=== PATIENT | female | born 1945 | race Caucasian/White ===

== ENCOUNTER → 2017-08-21 15:46 | Outpatient (REF) | payer OTHER, MEDICARE, SELFPAY ==
[2017-08-21 17:39] LABS: Thyroid Stimulating Hormone 0.19 uIU/ml (0.358-3.740)
== END ==
LOC: LAB 15:46
PROVIDERS: Visit Provider Internal Medicine
DX: E03.9 Hypothyroidism, unspecified (principal)
CPT/HCPCS: 84443

== ENCOUNTER → 2017-11-25 10:14 | Outpatient (CLI) | payer OTHER, MEDICARE, SELFPAY ==
--- NOTE | 2017-11-25 10:24 | XR_ITS ---
XR foot RT min 3V HISTORY: ITS.REASON: RT LATERAL FOOT PAIN ORDERING PHYSICIAN: Hossein Grimaldo PATIENT AGE: 72 years COMPARISON: None FINDINGS: No fracture or dislocation. No lytic or blastic change. There is normal mineralization.. The joint spaces are well-preserved. No significant degenerative/arthritic changes. No erosive changes evident. IMPRESSION: Negative, no acute finding
== END ==
PROVIDERS: PCP Internal Medicine; Visit Provider Internal Medicine
DX: M79.671 Pain in right foot (principal)
CPT/HCPCS: 73630

== ENCOUNTER → 2018-02-01 11:45 | Outpatient (CLI) | payer MEDICARE, SELFPAY ==
--- NOTE | 2018-02-01 11:48 | NVE_ITS ---
Venous Exam Indications: 729.5 Pain in limb. IMPRESSIONS 1. There is no evidence of significant Reflux. 2. Superficial vein thrombosis in LSV. Right lower extremity venous duplex evaluation. Doppler flow study including spectral analysis, color and redman scale imaging. Location: Vascular laboratory. Patient status: Outpatient. CRITICAL FINDINGS - Reported to: Minal Dye - Read back and verified. - 02/01/18 - 1215 - + SVT in LSV Tables: Venous flow and imaging: + + + + Location Overall Flow properties + + + + Right common femoral Patent Normal phasicity; spontaneous; normal augmentation; compressible + + + + Right saphenofemoral Patent Compressible junction + + + + Right profunda femoral Patent Compressible + + + + Right femoral Patent Normal phasicity; spontaneous; normal augmentation; compressible + + + + Right greater saphenous Patent Normal phasicity; spontaneous; normal augmentation; compressible + + + + Right popliteal Patent Normal phasicity; spontaneous; normal augmentation; compressible + + + + Right posterior tibial Difficult study Compressible + + + + Right peroneal Difficult study Compressible + + + + Right gastrocnemius Patent Compressible + + + + Right soleal Patent Compressible + + + + Right lesser saphenous Partially occluded Partially compressible + + + + (Report amended ) Electronically signed by: Tani Kumar [id number]
== END ==
PROVIDERS: PCP Internal Medicine; Visit Provider Internal Medicine
DX: M79.604 Pain in right leg (principal)
CPT/HCPCS: 93971

== ENCOUNTER → 2018-10-11 11:05 | Outpatient (CLI) | payer MEDICARE, SELFPAY ==
--- NOTE | 2018-10-11 11:14 | NVE_ITS ---
Venous Exam Indications: 729.5 Pain in limb. IMPRESSIONS 1. There is no evidence of significant Reflux. 2. No evidence of deep or superficial vein thrombosis involving the right lower extremity 3. Difficult scan. Right lower extremity venous duplex evaluation. Doppler flow study including spectral analysis, color and redman scale imaging. Location: Vascular laboratory. Patient status: Outpatient. Tables: Venous flow and imaging: + +-------+ + Location Overall Flow properties + +-------+ + Right common femoral Patent Normal phasicity; spontaneous; normal augmentation; compressible + +-------+ + Right saphenofemoral junction Patent Compressible + +-------+ + Right profunda femoral Patent Compressible + +-------+ + Right femoral Patent Normal phasicity; spontaneous; normal augmentation; compressible + +-------+ + Right greater saphenous Patent Normal phasicity; spontaneous; normal augmentation; compressible + +-------+ + Right popliteal Patent Normal phasicity; spontaneous; normal augmentation; compressible + +-------+ + Right posterior tibial Patent Compressible + +-------+ + Right peroneal Patent Compressible + +-------+ + Right gastrocnemius Patent Compressible + +-------+ + Right soleal Patent Compressible + +-------+ + (Report amended ) Electronically signed by: Feliz Lindsay [id number]
== END ==
PROVIDERS: PCP Internal Medicine; Visit Provider Internal Medicine
DX: M79.604 Pain in right leg (principal); M25.561 Pain in right knee
CPT/HCPCS: 93971

== ENCOUNTER → 2019-02-09 14:38 | Outpatient (CLI) | payer MEDICARE, SELFPAY ==
--- NOTE | 2019-02-09 14:46 | XR_ITS ---
XR chest 2V HISTORY: ITS.REASON: SOB ORDERING PHYSICIAN: Hossein Grimaldo PATIENT AGE: 73 years COMPARISON: 06/11/2016 FINDINGS: Unremarkable cardiovascular structures.. No lobar consolidation or collapse. There are some chronic coarsening of the bronchovascular markings. No acute bony findings. IMPRESSION: There are some chronic interstitial changes. No acute finding
== END ==
PROVIDERS: PCP Internal Medicine; Visit Provider Internal Medicine
DX: R06.02 Shortness of breath (principal)
CPT/HCPCS: 71046; 93005

== ENCOUNTER → 2019-02-11 08:11 | Outpatient (CLI) | payer MEDICARE, SELFPAY ==
--- NOTE | 2019-02-11 08:16 | CA_ITS ---
PROCEDURE: 2-D M-mode and color Doppler study INDICATIONS FOR THE TEST: Chest pain COPD Heart Murmur Tobacco Smoking Palpitations Fatigue Syncope Edema Hypertension Diabetes Mellitus Rheumatic Fever SOB+JIMENEZ Obesity Hyperlipidemia Family History HD Additional History PATIENT INFORMATION HEIGHT:62 WEIGHT:167 GENDER: Female B/P:136/70 2-D/M-MODE INTERPRETATION: 2-D MEASUREMENTS OBSERVED VALUES IN CMS Right Ventricular Dimension (RVDd) 2.0 Interventricular Septum (Thickness)(IVsd) 1.1 Left Ventricular Internal Dimensions(LVIDd) 5.7 Left Ventricular Posterior Wall (Thickness)(LVPWd) 0.9 Aortic Root 3.0 Aortic Cusp Separation 1.9 Left Atrial Dimensions (LAD) 4.8 2D 1. Left atrium is moderately enlarged, left ventricle is normal size, there is no concentric left ventricular hypertrophy, visually estimated ejection fraction 50% with no regional wall motion abnormality. 2. The right atrium and right ventricle are normal size. 3. The aortic valve is thickened and calcified leaflet continue to display mobility. 4. The mitral valve is minimally thickened. 5. The pulmonic and tricuspid valvular grossly normal. 6. No significant pericardial effusion noted. DOPPLER INTERROGATION: Doppler interrogation of the aortic, mitral and tricuspid valvular presence of moderate aortic, moderate mitral and mild tricuspid regurgitation, tricuspid regurgitation jet velocity is inadequate for calculation of the right ventricular systolic pressure. Diastolic parameters are inconclusive. CONCLUSION: 1. Moderately enlarged left atrium, normal left ventricular size, visually estimated ejection fraction 50% with no regional wall motion abnormality, diastolic parameters are inconclusive. 2. Moderate aortic, moderate mitral and mild tricuspid regurgitation 3. No significant pericardial effusion noted.
== END ==
PROVIDERS: PCP Internal Medicine; Visit Provider Internal Medicine
DX: R06.02 Shortness of breath (principal)
CPT/HCPCS: 93306

== ENCOUNTER → 2019-11-30 14:34 | Outpatient (CLI) | payer MEDICARE, SELFPAY ==
--- NOTE | 2019-11-30 14:40 | XR_ITS ---
PROCEDURE: XR HIP LT 2-3V W/PELVIS CLINICAL INDICATION: LT HIP PAIN, S/P FALL Posttraumatic pain COMPARISON: No exams were available for comparison FINDINGS: No fracture or dislocation is evident. No significant degenerative change. No lytic or blastic change. Unremarkable soft tissues. IMPRESSION: No acute findings. Dictated by: Feliz Lindsay MD 11/30/2019 14:56 Electronically signed by Feliz Lindsay MD in [place] 11/30/2019 14:56
== END ==
PROVIDERS: PCP Internal Medicine; Visit Provider Internal Medicine
DX: M25.552 Pain in left hip (principal)
CPT/HCPCS: 73502

== ENCOUNTER 2020-09-16 04:35 | Inpatient (IN) | payer MEDICARE, SELFPAY ==
[2020-09-16] VITALS (13 sets, daily range): BP systolic 91–151; BP diastolic 52–81; PULSE 65–92; RESP 17–31; TEMP 36.6–37.1; O2SAT 77–98; BMI 32.1; BMI 34.6
--- NOTE | 2020-09-16 04:44 | ECG_ITS ---
APPROVED REPORT Exam: Resting ECG HR:85 bpm ECG Measurements Heart Rate 85 AXES ME 164 P 64 QRSd 88 QRS 3 QT 350 T 60 QTc 416 Conclusion Normal sinus rhythm Normal ECG Electronically signed by : Tyson Adrian, 09/17/2020 06:56:09
--- NOTE | 2020-09-16 04:51 | XR_ITS ---
PROCEDURE: XR CHEST PORTABLE Referring Doctor: Noe Gallagher Patient Age:75Y CLINICAL HISTORY: sob Short of breath 2 weeks has gotten worse hypoxia. Diabetes COMPARISON: CR CXR1 CHEST-PORTABLE from 06/11/2016 CR XR CHEST 2V from 08/11/2019 FINDINGS: AP portable upright chest performed today, and compared to August 11 CXR Less optimal inspiration today, the diaphragm is only down to the anterior 4th rib on right. Diffuse bilateral low-density infiltrates a most evident infiltrate is seen centrally at the right perihilar region extending into the right mid lung. Suggestion of some subtle patchy areas of infiltrate the periphery of the left mid lung. This pattern may reflect viral/covd pneumonia pattern-correlation required Heart with mild cardiomegaly in part accentuated by the AP suboptimal inspiration CXR. There is also suggestion of cephalization along with diffuse mild vascular congestion suggesting mild CHF-. The CHF may contribute to the central perihilar infiltrates as well. No obvious pleural effusions chest wall unremarkable jayce and mediastinal structures similar to previous studies IMPRESSION: . Bilateral infiltrates-most evident central but also with low-density peripheral infiltrate most notable on left . Mild cardiomegaly with suspect mild CHF-which may contribute somewhat to the central perihilar infiltrate pattern as well. Dictated by: Tani Kumar MD 09/16/2020 06:15 Tani Kumar MD in [place] 09/16/2020 06:15
[2020-09-16 04:58] LABS: ABG Base Excess 1.3 mmol/L (-2.4-2.3); ABG HCO3 25.5 mmhg (22.0-26.0); ABG Oxygen Saturation 77 % (90-100); ABG PH 7.43 mmol/L (7.35-7.45); ABG TCO2 26.7 mmhg (23-27)
[2020-09-16 05:00] LABS: ABG PO2 40.8 mmhg (80-100); Allen's Test Acceptable; Oxygen ROOM AIR %; Source Right Radial
--- NOTE | 2020-09-16 05:13 | HMH.EDSOB ---
ED Disposition Clinical Impression: COVID-19 virus IgG antibody detected, COVID-19 virus IgM antibody detected, Obesity (BMI 30.0-34.9), Parkinson disease Respiratory failure with hypoxia Qualifiers: Chronicity: acute Qualified Code(s): J96.01 - Acute respiratory failure with hypoxia Congestive heart failure Qualifiers: Heart failure type: unspecified Heart failure chronicity: acute on chronic Qualified Code(s): I50.9 - Heart failure, unspecified Hypothyroidism Qualifiers: Hypothyroidism type: acquired Qualified Code(s): E03.9 - Hypothyroidism, unspecified Disposition: Admitted As Inpatient Condition on Discharge: Good Referrals: Hossein Grimaldo [Primary Care Provider] - - Critical Care Critical Care Time: No Attestation: On 09/16/20, the high probability of a clinically significant, sudden or life threatening deterioration of the following system(s) required my full and direct attention, intervention and personal management. The time I documented below is in addition to time spent performing reported procedures but includes the following listed in this critical care notation. Medical Decision Making - Medical Records Medical records reviewed: Yes: I reviewed the patient's medical records. - Nikunj Inquiry Pt receiving controlled substance: No Vital Signs: 09/16/20 04:53 09/16/20 05:06 09/16/20 05:07 Temperature 98.7 F Temperature Source Oral Pulse Rate [Right] 73 75 74 Respiratory Rate 20 Blood Pressure [Right Arm] 129/66 91/54 L Blood Pressure Mean [Right Arm] 87 66 Blood Pressure Source [Right Arm] Automatic Cuff Blood Pressure Position [Right Arm] Supine 02 Sat by Pulse Oximetry 77 L 95 94 L Oxygen Delivery Method Room Air Nasal Cannula Room Air Oxygen Flow Rate (LPM) 4 09/16/20 05:30 09/16/20 06:05 09/16/20 06:43 Temperature Temperature Source Pulse Rate [Right] 75 74 92 H Respiratory Rate Blood Pressure [Right Arm] 105/52 L 117/52 L 123/73 Blood Pressure Mean [Right Arm] 69 73 89 Blood Pressure Source [Right Arm] Blood Pressure Position [Right Arm] 02 Sat by Pulse Oximetry 94 L 95 93 L Oxygen Delivery Method Nasal Cannula Nasal Cannula Nasal Cannula Oxygen Flow Rate (LPM) 4 4 4 09/16/20 07:00 Temperature Temperature Source Pulse Rate [Right] 78 Respiratory Rate Blood Pressure [Right Arm] 114/54 L Blood Pressure Mean [Right Arm] 74 Blood Pressure Source [Right Arm] Automatic Cuff Blood Pressure Position [Right Arm] Sitting 02 Sat by Pulse Oximetry 91 L Oxygen Delivery Method Oxygen Flow Rate (LPM) 4 - Lab Data Lab results reviewed: Yes: I reviewed the patient's lab results. Lab Results 09/16/20 04:45: WBC 12.6 H, RBC 4.45, Hgb 13.3, Hct 42.1, MCV 94.7, MCH 30.0, MCHC 31.7 L, RDW 16.5, Plt Count 453 H, MPV 7.7, Neut % (Auto) 57.8, Lymph % (Auto) 27.0, [place] % (Auto) 7.4, Eos % (Auto) 6.9, Baso % (Auto) 0.8, Neut # (Auto) 7.3, Lymph # (Auto) 3.4, [place] # (Auto) 0.9, Eos # (Auto) 0.9 H, Baso # (Auto) 0.1, ESR 27 09/16/20 04:45: Sodium 140, Potassium 3.9, Chloride 103, Carbon Dioxide 30, Anion Gap 10.9, BUN 18 H, Creatinine 0.80, Estimated Creat Clear 59, Estimated GFR 70, Est GFR ( Amer) 85, Glucose 115 H, Calcium 10.8 H, Total Bilirubin 0.5, AST 33, ALT 6 L, Alkaline Phosphatase 181 H, Troponin I 0.04 H, C-Reactive Protein 87.9 H, Total Protein 7.8, Albumin 4.0, Globulin 3.8 H, Albumin/Globulin Ratio 1.1, Procalcitonin 0.121 09/16/20 04:45: NT-Pro-B Natriuret Pep 2600 H 09/16/20 04:45: SARS-CoV-2 IgG Ab (Rapid) Positive A, SARS-CoV-2 IgM Ab (Rapid) Positive A 09/16/20 05:25: Lactate 1.2 09/16/20 : Specimen Source Right radial, O2 % Room air, ABG pH 7.43, ABG pCO2 39.0, ABG pO2 40.8 L, ABG HCO3 25.5, ABG Total CO2 26.7, ABG O2 Saturation 77 L*, ABG Base Excess 1.3, Feliz Test Acceptable Result diagrams: 09/16/20 04:45 09/16/20 04:45 Orders (Tests/Meds): ED MEDICATIONS Generic Name Dose Route Start Last Admin Trade Name Freq PRN Reason
[2020-09-16 05:15] LABS: Basophils # 0.1 K/mm3 (0-0.2); Basophils % 0.8 % (0.1-2.0); Eosinophils # 0.9 K/mm3 (0.0-0.4); Eosinophils % 6.9 % (0.1-12.0); Hematocrit 42.1 % (37.0-47.0); Hemoglobin 13.3 g/dL (12.2-16.2); Lymphocytes # 3.4 K/mm3 (0.7-4.5); Mean Corpuscular HGB Conc 31.7 g/dL (31.8-35.4); Mean Corpuscular Volume 94.7 fl (81-99); Mean Platelet Volume 7.7 fl (7.4-10.4); Monocytes # 0.9 K/mm3 (0.1-1.0); Monocytes % 7.4 % (1.7-9.3); Neutrophils # 7.3 K/mm3 (1.8-7.8); Neutrophils % 57.8 % (37.0-80.0); Platelet Count 453 K/mm3 (142-424); Red Blood Count 4.45 M/mm3 (4.20-5.40); Red Cell Distribution Width 16.5 % (11.5-17.5); White Blood Count 12.6 K/mm3 (4.8-10.8)
[2020-09-16 05:30] LABS: Alanine Aminotransferase 6 U/L (12-78); Albumin/Globulin Ratio 1.1 (1.1-1.8); Alkaline Phosphatase 181 U/L (38-126); Anion Gap 10.9 mEq/L (5-15); Aspartate Amino Transferase 33 U/L (14-36); Bilirubin,Total 0.5 mg/dl (0.2-1.3); Blood Urea Nitrogen 18 mg/dl (7-17); Calcium 10.8 mg/dl (8.4-10.2); Carbon Dioxide 30 mmol/L (22.0-30.0); Chloride 103 mmol/L (98-107); Creatinine Clearance Estimated 59 mL/min (50-200); Estimated Glomerular Filt Rate 70 ml/min (>60); GFR (African American) 85 ML/MIN (>60); Globulin 3.8 g/dL (1.3-3.2); Glucose 115 mg/dl (74-100); Potassium 3.9 mmoL/L (3.5-5.1); Sodium 140 mmol/L (136-145); Total Protein,Serum 7.8 g/dl (6.3-8.2)
[2020-09-16 05:35] LABS: C-Reactive Protein 87.9 mg/L (0-4)
[2020-09-16 05:42] LABS: NT Pro Brain Natriuretic Pep. 2600 pg/mL (0-450)
[2020-09-16 05:44] LABS: Troponin I 0.04 ng/ml (0.00-0.034)
[2020-09-16 05:49] LABS: Procalcitonin 0.121 ng/mL (0.0-2.0)
[2020-09-16 05:57] LABS: Coronavirus 19 IgG Antibody Positive (Negative)
[2020-09-16 05:58] LABS: Coronavirus 19 IgM Antibody Positive (Negative)
[2020-09-16 05:59] LABS: Erythrocyte Sedimentation Rate 27 mm/hr (0-30)
--- NOTE | 2020-09-16 06:02 | CT_ITS ---
PROCEDURE: CT ANGIO CHEST Referring Doctor: Noe Gallagher Patient Age:75Y CLINCIAL INDICATION: SOA short of breath 3 days.. The the the the the COMPARISON: CR XR CHEST 2V from 08/11/2019 CR XR CHEST PORTABLE from 09/16/2020 TECHNIQUE: IV Contrast: 70ML Isovue 370 followed by 40 mL normal saline Helical axial images obtained with thick slab volume MIP sagittal and coronal reformats performed by radiographic technologist on CT workstation. All CT scans at the facility use one or more dose reduction, viz: automated exposure control, ma/kV adjustment per patient size (including targeted exams where dose is matched to indication, i.e. head), or iterative reconstruction technique. FINDINGS: PULMONARY ARTERIES: No pulmonary embolus evident.-excellent enhancement and visualization pulmonary arteries AORTA: No acute finding. No thoracic aortic aneurysm or dissection evident LUNGS: Diffuse and fairly extensive low-density ground-glass and patchy infiltrates throughout the lung [place] bilaterally. Septal thickening of which may be reflection of pulmonary edema of from the covd pneumonia or CHF. Findings much more impressive on CT than CXR from today These ground-glass patchy areas of infiltrate along with interstitial and septal thickening seen throughout all lobes bilateral. Many of these patchy infiltrates have a more peripheral distribution bilaterally.. Overall infiltrate is slightly more prominent and evident throughout the right lung.. Airways appear patent with no of airway thickening.. PLEURAL SPACES: No significant effusion. No evidence of pneumothorax. Stable elevation right hemidiaphragm is similar to August 2019 exam HEART: Mild cardiomegaly. Coronary artery calcification small pericardial effusion-Fluid here extends superiorly along pericardial reflections about the root of aorta size.. MEDIASTINAL AND HILAR STRUCTURES: Small hiatal hernia evident.. Scattered small to moderate mediastinal lymph nodes most likely reactive. No suspicious dominant adenopathy no mediastinal mass A generous sized thyroid extends back to flank the esophagus bilaterally BONY STRUCTURES: No acute bony abnormalities apparent.. No bone lesions but degenerative changes LYMPH NODES: No enlarged lymph nodes evident. UPPER ABDOMEN: Unremarkable. IMPRESSION: No evidence of pulmonary embolism/and aorta unremarkable Diffuse extensive bilateral ground-glass and patchy infiltrates Findings would be compatible with compatible with covid pneumonia Suggestion of element of mild interstitial edema due to the pneumonia or possibly mild CHF. No pleural effusion mild cardiomegaly Dictated by: Tani Kumar MD 09/16/2020 14:17 Tani Kumar MD in [place] 09/16/2020 14:17
[2020-09-16 06:03] LABS: Lactic Acid 1.2 mmol/L (0.7-2.1)
--- NOTE | 2020-09-16 07:24 | PC.NURSE ---
Dr Gallagher speaking with Dr Gross.
[2020-09-16 07:28] LABS: Microscopic, Urine URINE MICROSCOPIC (MICROSCOPIC)
[2020-09-16 07:29] LABS: Appearance,Urine CLEAR (Clear); Bilirubin,Urine Negative (Negative); Blood, Urine Negative (Negative); Color,Urine YELLOW (Yellow); Glucose,Urine (UA) Negative (Negative); Ketones,Urine Negative (Negative); Leukocyte Esterase,Urine Negative (Negative); Nitrate,Urine Negative (Negative); Protein,Urine Negative (Negative); Specific Gravity, Urine 1.015 (1.005-1.030); Urobilinogen,Urine 0.2 EU/dl (0.2)
[2020-09-16 07:30] LABS: Amorphous Sediment,Urine Trace /lpf
--- NOTE | 2020-09-16 08:30 | PC.NURSE ---
report given to linwoodrn
--- NOTE | 2020-09-16 08:42 | PC.NURSE ---
Heard bag emptied with 1800ml out.
--- NOTE | 2020-09-16 08:56 | PC.NURSE ---
Pt arrived to the floor at this time.
--- NOTE | 2020-09-16 14:03 | P.CONPHA_ITS ---
[facility] Pharmacy VTE Monitoring - Patient Demographics Admission date: 09/16/20 Report Date: 09/16/20 Time: 14:03 Allergies/Adverse Reactions: Patient Allergies No Known Allergies Allergy (Verified 09/16/20 04:52) Height: 1.55 m Weight: 77.111 kg Patient Problems: Current Active Problems Respiratory failure with hypoxia (Acute) Congestive heart failure (Acute) COVID-19 virus IgG antibody detected (Acute) COVID-19 virus IgM antibody detected (Acute) Obesity (BMI 30.0-34.9) (Acute) Hypothyroidism (Acute) Parkinson disease (Acute) - VTE Risk Labs: VTE Related Lab Results Hgb 13.3 g/dL (12.2-16.2) 09/16/20 04:45 Hct 42.1 % (37.0-47.0) 09/16/20 04:45 Plt Count 453 K/mm3 (142-424) H 09/16/20 04:45 BUN 18 mg/dl (7-17) H 09/16/20 04:45 Creatinine 0.80 mg/dl (0.52-1.04) 09/16/20 04:45 Estimated Creat Clear 59 mL/min (50-200) 09/16/20 04:45 Was VTE Risk Assessment Performed: No VTE Score: 5 VTE Risk Level: Low Risk - Prophylaxis Types of VTE Prophylaxis: TEDS Knee High Location of Applied Device: Bilateral Lower Extremeties (MARCIO HOSE ORDERED)
--- NOTE | 2020-09-16 14:59 | HMH.HP ---
*Admission Date: 09/16/20 *Chief complaint: Shortness of breath *History of present illness: This 75-year-old white female presented in the emergency room last night complaining of shortness of breath. Her symptoms have been present for over a week. She denies fever. She does have some productive cough. In the emergency room her IgG and IgM for COVID-19 were positive but her nasal PCR was negative. This could indicate that she had Covid but is likely not shedding replicative virus at this point but is at the point where she is still producing IgM as well as IgG in response to her infection. She has known COPD and has possibly some element of congestive heart failure. She is an healthcare consultant patient of Dr. Lopezs. [facility] History I have reviewed the patient's past medical history: Yes Medical History: Reports:: Congestive Heart Failure, Chronic Obstructive Pulmonary Disease (COPD) Denies:: Cancer, Diabetes Mellitus Type 1, Diabetes Mellitus Type 2, MRSA *Have you ever received a pneumonia vaccine?: Yes *Have you received a flu vaccine this season?: Yes Other Medical History: Reports: Hypothyroidism Laterality Cases: Right: Other (Knee injury and surgery, remote) Other Surgeries: Yes: Tubal Ligation Amputation: No - *Social History Last grade of school completed: 7th or 8th Smoking Status: Never smoker Alcohol Intake: never *Occupational Status:: previously employed (In a assisted as an aide), disabled Household Members: spouse *Travel in the last 8 weeks: None Family Hx:: Heart Attack, Stroke Comment: Has 2 sons. Review of Systems - Constitutional Denies body ache(s), Denies chills, Denies headache(s) - Eyes Denies change in vision - ENT Denies dizziness - *Cardiovascular Reports shortness of breath, Reports shortness of breath with activity, Denies chest pain - *Respiratory Reports chest congestion, Reports cough, Reports shortness of breath - *Gastrointestinal Reports constipation (Linzess) - *Neurologic Reports tremor(s) (Parkinson's disease with 3 different medications), Reports weakness, Denies localized weakness, Denies headache(s), Denies seizure-like activity Meds Home Medications Medication Instructions Recorded Confirmed Type Carbidopa/Levodopa 1 each PO 5XDAY 09/16/20 09/16/20 History [Carbidopa/Levodopa 25/100mg Tablet] Celecoxib 200 mg PO DAILY 09/16/20 09/16/20 History Duloxetine HCl 20 mg PO BID 09/16/20 09/16/20 History Folic Acid [Folic Acid 1mg tablet] 1 mg PO DAILY 09/16/20 09/16/20 History Gabapentin [Gabapentin 300mg Cap] 300 mg PO 0900,1300 09/16/20 09/16/20 History Gabapentin [Gabapentin 300mg Cap] 600 mg PO HS 09/16/20 09/16/20 History LORazepam [Lorazepam 0.5mg Tablet] 0.5 mg PO BIDP PRN 09/16/20 09/16/20 History Levothyroxine Sodium 75 mcg PO DAILY 09/16/20 09/16/20 History [Levothyroxine 75mcg (0.075mg) Tab] Linaclotide [Linzess] 145 mcg PO DAILY 09/16/20 09/16/20 History Ropinirole HCl 4 mg PO QID 09/16/20 09/16/20 History amantadine HCL [Amantadine] 100 mg PO BID 09/16/20 09/16/20 History metHOTREXate sodium [metHOTREXate 4 mg PO WEEKLY 09/16/20 09/16/20 History 2.5mg Tablet] Allergies Allergy/AdvReac Type Severity Reaction Status Date / Time No Known Allergies Allergy Verified 09/16/20 04:52 Exam Vital signs and Labs for Last 24 Hours: Temp Pulse Resp BP Pulse Ox 98.7 F 70 31 H 123/59 L 94 L 09/16/20 09:04 09/16/20 09:04 09/16/20 09:04 09/16/20 09:04 09/16/20 09:00 Laboratory Results - last 24 hr 09/16/20 04:45: WBC 12.6 H, RBC 4.45, Hgb 13.3, Hct 42.1, MCV 94.7, MCH 30.0, MCHC 31.7 L, RDW 16.5, Plt Count 453 H, MPV 7.7, Neut % (Auto) 57.8, Lymph % (Auto) 27.0, [place] % (Auto) 7.4, Eos % (Auto) 6.9, Baso % (Auto) 0.8, Neut # (Auto) 7.3, Lymph # (Auto) 3.4, [place] # (Auto) 0.9, Eos # (Auto) 0.9 H, Baso # (Auto) 0.1, ESR 27 09/16/20 04:45: Sodium 140, Potassium 3.9, Chloride 103, Carbon Dioxide 30, Anion Gap 10.9, BUN 18 H, Creatinine
--- NOTE | 2020-09-16 17:49 | PC.NURSE ---
no acute changes since admits. pt has no complaints. vss. will cont. to monitor.
[2020-09-17] VITALS (7 sets, daily range): BP systolic 106–118; BP diastolic 41–64; PULSE 72–94; RESP 16–18; TEMP 36.5–36.9; O2SAT 90–99
--- NOTE | 2020-09-17 06:17 | PC.NURSE ---
shift summary pts lung sounds are clear with sats maintained at 95% or above with a NC on 3lpm with a rate ranging from 16-18,. pts breathing is spontaneous and non labored. pt tolerated a shower without getting SOB. pts room air was 83%. pt denies SOB, pain, diarrhea, or vomiting. pt is alert and oriented X4.
--- NOTE | 2020-09-17 08:00 | CA_ITS ---
APPROVED REPORT EXAM: Comprehensive 2D, Doppler, and color-flow Echocardiogram Bridge Welder: Latoya Raman, RT(R) Ht: 5 ft 3 in Wt: 174lbs BSA: 1.82 BP: 123/59 mmHg Indications: CHF, LAE,AFIB, MURMUR. S/P COVID-19, [place] Echo Enhancing Agent Comments: TDE-PT MOVEMENT,SMALL PERICARDIAL FLUID 2D Dimensions IVSd 0.95 cm F: 0.6-1.0 LVEF (Visual) 52.10 % PWd 0.86 cm F: 0.6 - 1.0 LA Volume 88.60 mL LVDd 4.76 cm F: 3.9 - 5.3 LA Volume Index 48.68 mL/m2 (M/F) 16-34 LVDs 3.49 cm F: 2.2 - 3.5 Aortic Root 3.30 cm F: 2.7 - 3.3 Left Atrium 3.70 cm F: 2.7 - 3.8 LVOT 1.86 cm (M/F) 1.5-2.5 M-Mode Dimensions LVDd 5.08 cm (3.5-5.7) Ao Diam 3.66 cm (2.0-3.7) LVDs 3.43 cm (3.5-5.7) EF (Teich) 60.50% EPSs 0.83 cm FS 32.50% EDV (Teich) 122.70 mL ESV (Teich) 48.50 mL LV Diastology E Decel Time 230.00 (160-240 msec) E/A Ratio 0.9 MED E' 7.30 (< 7 cm/sec) MED A' 11.60 cm/s E'/MED E' Ratio 10.16 (>14) LAT E' 11.60 (<10 cm/sec) LAT A' 12.90 cm/s E/LAT E' Ratio 6.40 (>14) Pulm Vein s 61.00 cm/sec Aortic Valve AoV Peak Reymundo. 189.00 (50-130 cm/s) AI PHT 307.00 ms AO Peak GR. 14.30 mmHg AO Mean GR. 7.40 (<5 mmHg) AO VTI 35.96 (18-25 cm) Mitral Valve MV E Max Reymundo. 74.00 (40-130 cm/s) MV A Velocity 85.00 (40-130 cm/s) E/A Ratio 0.87 MV Decel. Time 230.00 (160-240 ms) MV PHT 67.00 ms Pulmonary Valve PV Peak Velocity 130.00 (50-150 cm/s) TN End VMAX 123.00 cm/s Tricuspid Valve TR P. Velocity 244.00 cm/s RAP Estimate 10.00 mmHg RVSP 33.80 mmHg Left Ventricle Left atrium is mildly enlarged, left ventricle is normal size, visually estimated ejection fraction 55% with no regional wall motion abnormality, there is no concentric left ventricular hypertrophy, diastolic parameters are inconclusive. Right Ventricle Right atrium and right ventricle are normal size and contractility. Aortic Valve Aortic valve is minimally thickened and fibrosed, there is no aortic stenosis, there is mild aortic insufficiency. Mitral Valve Mitral valve is grossly normal, there is mild mitral regurgitation. Tricuspid Valve Tricuspid valve is grossly normal, there is mild tricuspid regurgitation, tricuspid regurgitation jet velocity is inadequate for calculation of the right ventricular systolic pressure. Pulmonic Valve Pulmonic valve is poorly visualized. Great Vessels Aortic root is normal size. Pericardium Small pericardial effusion noted. Conclusion 1. Mildly enlarged left atrium, normal left ventricular size, visually estimated ejection fraction 55% with no regional wall motion abnormality, diastolic parameters are inconclusive. 2. Mild aortic, mild mitral and tricuspid regurgitation. 3. Small pericardial effusion noted. Electronically signed by : Berny Cárdenas, 09/17/2020 21:19:58
--- NOTE | 2020-09-17 10:30 | PC.NURSE ---
spoke with dispatcher chief coal slurry about tools for parkinsons to make eating easier for the patient
--- NOTE | 2020-09-17 12:58 | HMH.ACPN2 ---
Internal Medicine - PN: Subj *Date: 09/17/20 *Time: 12:58 Interval history: Seen on rounds this AM. Seems to be doing well. Color is good, easy respirations. Tremor prominent Exam Vital signs and Labs for Last 24 Hours: Temp Pulse Resp BP Pulse Ox 97.7 F 89 16 118/64 95 09/17/20 08:00 09/17/20 08:00 09/17/20 08:00 09/17/20 08:00 09/17/20 08:00 I & O for Last 24 hours: Intake & Output 09/15/20 09/16/20 09/17/20 09/18/20 11:59 11:59 11:59 11:59 Intake Total 360 / 360 1900 / 1900 360 / 360 Output Total 2150 / 2150 Balance 360 / 360 -250 / -250 360 / 360 Weight 170 lb 189 lb 5 oz - Constitutional no acute distress - *Routine HEENT Exam Head: Present: normocephalic Eye: Present: PERRL - *Routine Respiratory Exam Present: decreased breath sounds - *Routine Cardiovascular Exam Present: RRR - *Routine Abdominal Exam Present: soft. Absent: tenderness - *Routine Extremities Exam Present: edema (minimal) - *Routine Neurological Exam Present: normal speech, tremors Assessment and Plan (1) Respiratory failure with hypoxia Status: Acute Qualifiers: Chronicity: acute Qualified Code(s): J96.01 - Acute respiratory failure with hypoxia Category: Medical Code(s): J96.91 - Respiratory failure, unspecified with hypoxia (2) Congestive heart failure Status: Acute Qualifiers: Heart failure type: unspecified Heart failure chronicity: acute on chronic Qualified Code(s): I50.9 - Heart failure, unspecified Category: Medical Code(s): I50.9 - Heart failure, unspecified (3) COVID-19 virus IgG antibody detected Status: Acute Category: Medical Code(s): R76.8 - Other specified abnormal immunological findings in serum (4) COVID-19 virus IgM antibody detected Status: Acute Category: Medical Code(s): R76.8 - Other specified abnormal immunological findings in serum (5) Hypothyroidism Status: Acute Qualifiers: Hypothyroidism type: acquired Qualified Code(s): E03.9 - Hypothyroidism, unspecified Category: Medical Code(s): E03.9 - Hypothyroidism, unspecified (6) Parkinson disease Status: Acute Category: Medical Code(s): G20 - Parkinson's disease - Assessment and plan all Dx Assessment and Plan for all problems:: D/C Heard. Continue present care. Discharge tomorrow if stable.
--- NOTE | 2020-09-17 13:36 | PC.NURSE ---
Pt given a sputum cup and verbalizes understanding to give a sputum sample. Pt states she has a productive cough and the sputum is green and thick also states she will spit it in the cup.
--- NOTE | 2020-09-17 20:30 | PC.NURSE ---
patient has been up in room taking off oxygen. has been walking in fun[place], and saw patient cleaning desktops. she was encouraged to go back to room and replace oxygen. patient was requiring assistance to help, however is able to dress self and get around in room. she does have a cane she used as needed. did have a few times where she would randomly cry. vitals have been stable.
[2020-09-18] VITALS: BP 112/64; PULSE 86; RESP 17; TEMP 36.9; O2SAT 94
[2020-09-18 04:00] VITALS: BP 122/64; PULSE 86; RESP 17; TEMP 36.6; O2SAT 93
[2020-09-18 05:30] VITALS: BMI 34.8
--- NOTE | 2020-09-18 05:40 | PC.NURSE ---
pt is able to answer orientation questions, however seems confused at times, has been out in the hallway several times this shift without O2 on, pt reminded of need to keep O2 on, remains on 2L NC when in room, O2 sats 93-94%, room air sat of 87% this morning, lungs diminished on auscultation, breathing is spontaneous and non labored, no complaints of SOA or chest pain
[2020-09-18 05:42] VITALS: O2SAT 87
[2020-09-18 08:00] VITALS: BP 120/56; PULSE 60; RESP 20; TEMP 36.6; O2SAT 94
--- NOTE | 2020-09-18 09:12 | HMH.ACPN2 ---
Internal Medicine - PN: Subj *Date: 09/18/20 *Time: 09:12 Interval history: Patient states she is better and wonders when she can go home. She slept better last night. She has not been eating well but does not like the food. She is taking fluids well. She has some shortness of breath and some cough. She denies chest pain. She has ambulated to the bathroom and is voiding QS since Heard removed. O2 sat this morning at 0542 was 87% on room air. Echocardiogram with the following results:Conclusion 1. Mildly enlarged left atrium, normal left ventricular size, visually estimated ejection fraction 55% with no regional wall motion abnormality, diastolic parameters are inconclusive. 2. Mild aortic, mild mitral and tricuspid regurgitation. 3. Small pericardial effusion noted. Exam Vital signs and Labs for Last 24 Hours: Temp Pulse Resp BP Pulse Ox 97.9 F 60 20 120/56 L 94 L 09/18/20 08:00 09/18/20 08:00 09/18/20 08:00 09/18/20 08:00 09/18/20 08:00 I & O for Last 24 hours: Intake & Output 09/15/20 09/16/20 09/17/20 09/18/20 11:59 11:59 11:59 11:59 Intake Total 360 / 360 1900 / 1900 1200 / 1200 Output Total 2150 / 2150 Balance 360 / 360 -250 / -250 1200 / 1200 Weight 170 lb 189 lb 5 oz 189 lb 5 oz Microbiology Reports for the Last 24 Hours: Microbiology 09/16/20 05:25 Blood Blood Culture - Preliminary NO GROWTH AFTER 48 HOURS 09/16/20 05:25 Blood Blood Culture - Preliminary NO GROWTH AFTER 48 HOURS - Constitutional no acute distress Comments: Conversant and speaks without shortness of breath - *Routine Respiratory Exam Present: other (Bilateral scattered crackles and wheezing.) - *Routine Cardiovascular Exam Present: RRR - *Routine Abdominal Exam Present: soft, normoactive bowel sounds. Absent: tenderness, distended - *Routine Extremities Exam Absent: edema, calf tenderness - *Routine Neurological Exam Present: alert, oriented X3, tremors (Bilateral arms and legs periodically) Assessment and Plan (1) Respiratory failure with hypoxia Status: Acute Qualifiers: Chronicity: acute Qualified Code(s): J96.01 - Acute respiratory failure with hypoxia Category: Medical Code(s): J96.91 - Respiratory failure, unspecified with hypoxia (2) Congestive heart failure Status: Acute Qualifiers: Heart failure type: unspecified Heart failure chronicity: acute on chronic Qualified Code(s): I50.9 - Heart failure, unspecified Category: Medical Code(s): I50.9 - Heart failure, unspecified (3) COVID-19 virus IgG antibody detected Status: Acute Category: Medical Code(s): R76.8 - Other specified abnormal immunological findings in serum (4) COVID-19 virus IgM antibody detected Status: Acute Category: Medical Code(s): R76.8 - Other specified abnormal immunological findings in serum (5) Hypothyroidism Status: Acute Qualifiers: Hypothyroidism type: acquired Qualified Code(s): E03.9 - Hypothyroidism, unspecified Category: Medical Code(s): E03.9 - Hypothyroidism, unspecified (6) Parkinson disease Status: Acute Category: Medical Code(s): G20 - Parkinson's disease - Assessment and plan all Dx Assessment and Plan for all problems:: Patient will be discharged home with home oxygen. Meds as per discharge orders. To follow-up with Dr. Grimaldo.
[2020-09-18 10:11] LABS: Basophils # 0.1 K/mm3 (0-0.2); Basophils % 0.4 % (0.1-2.0); Eosinophils # 0.3 K/mm3 (0.0-0.4); Eosinophils % 1.3 % (0.1-12.0); Hematocrit 38.7 % (37.0-47.0); Hemoglobin 12.2 g/dL (12.2-16.2); Lymphocytes # 2.8 K/mm3 (0.7-4.5); Mean Corpuscular HGB Conc 31.5 g/dL (31.8-35.4); Mean Corpuscular Hemoglobin 29.3 pg (27.0-31.2); Mean Platelet Volume 9.6 fl (7.4-10.4); Monocytes # 1.4 K/mm3 (0.1-1.0); Monocytes % 7.6 % (1.7-9.3); Neutrophils % 75.6 % (37.0-80.0); Platelet Count 551 K/mm3 (142-424); Red Blood Count 4.16 M/mm3 (4.20-5.40); Red Cell Distribution Width 16.4 % (11.5-17.5); White Blood Count 18.5 K/mm3 (4.8-10.8)
[2020-09-18 10:12] LABS: Chloride 102 mmol/L (98-107); Sodium 142 mmol/L (136-145)
[2020-09-18 10:13] LABS: MANUAL DIFFERENTIAL MANUAL DIFFERENTIAL (MANUAL DIFF); Potassium 3.5 mmoL/L (3.5-5.1)
[2020-09-18 10:15] LABS: Blood Urea Nitrogen 37 mg/dl (7-17); Creatinine Clearance Estimated 66 mL/min (50-200); Estimated Glomerular Filt Rate 82 ml/min (>60); GFR (African American) 99 ML/MIN (>60)
[2020-09-18 10:16] LABS: Anion Gap 10.5 mEq/L (5-15); Calcium 9.9 mg/dl (8.4-10.2); Carbon Dioxide 33 mmol/L (22.0-30.0); Glucose 79 mg/dl (74-100)
--- NOTE | 2020-09-18 11:35 | HMH.PTEV ---
Physical Therapy Evaluation Rehab PT IP Evaluation Start: 09/18/20 08:50 Freq: ONCE Status: Active Protocol: Document 09/18/20 11:30 JELENA (Rec: 09/18/20 11:35 JELENA [id number]) Subjective/History History History This is the initial IP PT evalaution for Emily Mathis. Pt is a 75 y/o female admitted to [facility] for respiratory failure. Pt lives in home w/ spouse and was I W/ ADL'S prior to admission. Pt has PMH of parkinson's dx Subjective Subjective no complaints from pt Rehab PT IP Eval Objective Appearance Patient Behavior Appropriate,Cooperative Patient Orientation Person,Place,Time Difficulty following instructions none Speech Pattern Clear,Appropriate Ambulation Patient Able to Ambulate Yes Ambulation Observation IP General Gait Pattern Observation Wide Based Gait Ambulation Distance (feet) 50 Ambulation Assistive Device None Ambulation Ability Supervision/Stand by,Contact Guard/Hand Hold Balance Ability to Arise Able, uses arms to help Sitting Balance Steady, safe Standing Balance Steady, wide stance Dynamic Sitting Balance Ability Normal Dynamic Standing Balance Ability Good Transfers Bed Transfer Ability Independent Chair Transfer Ability Independent Sit to Stand Bed Transfer Ability Supervision/Stand by Sit to Stand Chair Transfer Ability Supervision/Stand by ROM All Extremities PT ROM Status WFL MMT All Extremities PT MMT WFL Rehab PT IP prob,goals,plan Problems Date of Evaluation: 09/18/20 Other Pt Problem none Rehab Potential Rehab Potential Innapropriate for Skilled Therapy Discharge Plan PT Discharge Plan Pt does not need skilled therapy during inpatient stay. Pt safe to return home w/ spouse once medically stable. G -code Required Yes Eval Complexity Eval Charge Codes 59407 - Low Complexity G Codes PT Current Status Self Care PT Current Status Modifier CI-At least 1% but less than 20% impaired, limited or restricted PT Goal Status Self Care PT Goal Status Modifer CI-At least 1% but less than 20% impaired, limited or restricted
--- NOTE | 2020-09-18 12:11 | SW/DCPLANNER ---
Addendum entered by Meli Irizarry 09/18/20 12:13: Portable has been delivered to [facility] and portable will be delivered to home. Original Note: Patient information and order for home O2 and portable tank has been faxed to [facility]. I have spoke with Louisa at [facility] and she has stated that patient information/order has been reviewed and will be delivered to patients home today per patient.
[2020-09-18 12:55] LABS: Lymphocytes % 18 % (10-50); Monocytes % 7 % (2-9); Neutrophils % 73 % (42-76); Total Cells Counted 100
[2020-09-18 12:56] LABS: Platelet Estimate Marked Increase
[2020-09-18 12:57] LABS: RBC Morphology Normal
--- NOTE | 2020-09-18 13:45 | PC.NURSE ---
THIS RN SPOKE WITH PATIENT'S SPOUSE IN REGARDS TO PATIENT DISCHARGE. MR. PINO STATED HE KNEW AND HE WAS IN THE PARKING LOT BUT DID NOT WANT TO TAKE HER HOME UNTIL HE SPEAKS TO DR. DEL CASTILLO IN REGARDS TO HER DISCHARGE. THIS RN WENT OVER D/C INSTRUCTIONS WITH PATIENT'S SPOUSE. MR. PINO ASKED IF WE CAN GIVE HIM TIME UNTIL HE SPEAKS TO DR. DEL CASTILLO. THIS RN INFORMED HIM YES, WE WOULD WAIT.
--- NOTE | 2020-09-18 15:21 | HMH.DCSUM ---
General - General Admission date:: 09/16/20 Discharge date: 09/18/20 HPI HPI: This 75-year-old white female presented in the emergency room last night complaining of shortness of breath. Her symptoms have been present for over a week. She denies fever. She does have some productive cough. In the emergency room her IgG and IgM for COVID-19 were positive but her nasal PCR was negative. This could indicate that she had Covid but is likely not shedding replicative virus at this point but is at the point where she is still producing IgM as well as IgG in response to her infection. She has known COPD and has possibly some element of congestive heart failure. 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 Hospital Course Hospital Course: The patient's chest x-ray showed bilateral infiltrates and mild cardiomegaly with suspected mild CHF. She had a CTA showing no evidence of PE but diffuse bilateral groundglass and patchy infiltrates compatible with Covid pneumonia. There was also an element of mild interstitial edema. She was started on Zithromax and Rocephin as well as Covid protocol. An echo was done showing an EF of 55% with a small pericardial effusion. She did improve and was able to sleep better. She was eating well. She still had some shortness of breath and some cough but denied any chest pain. She was able to ambulate around her room and her oxygen was 87% on room air. Her blood culture showed no growth. She was stable to be discharged home with oxygen and will follow up with Dr. Grimaldo. Objective Vital signs: Temp Pulse Resp BP Pulse Ox 97.9 F 60 20 120/56 L 94 L 09/18/20 08:00 09/18/20 08:00 09/18/20 08:00 09/18/20 08:00 09/18/20 08:00 Narrative: - Constitutional no acute distress - *Routine HEENT Exam Head: Present: normocephalic Eye: Present: PERRL ENT: Present: mucous membranes moist. Absent: dentition normal (Wears an upper plate) - Routine Chest/Breast/Axilla Exam Breast: Absent: tenderness - *Routine Respiratory Exam Present: decreased breath sounds, rales (Bibasilar) - *Routine Cardiovascular Exam Present: RRR, murmur - *Routine Abdominal Exam Present: soft. Absent: tenderness - *Routine Extremities Exam Absent: edema - *Routine Neurological Exam Present: alert, oriented X3 Results Labs on day of discharge: Labs from last 24 hours 09/18/20 09/18/20 09:55 09:55 WBC 18.5 H D RBC 4.16 L Hgb 12.2 Hct 38.7 MCV 93.0 MCH 29.3 MCHC 31.5 L RDW 16.4 Plt Count 551 H MPV 9.6 Neut % (Auto) 75.6 Lymph % (Auto) 15.0 [place] % (Auto) 7.6 Eos % (Auto) 1.3 Baso % (Auto) 0.4 Neut # (Auto) 14.0 H Lymph # (Auto) 2.8 [place] # (Auto) 1.4 H Eos # (Auto) 0.3 Baso # (Auto) 0.1 Total Counted 100 Neutrophils % (Manual) 73 Band Neutrophils % 1.0 Lymphocytes % (Manual) 18 Atypical Lymphs % 1.0 Monocytes % (Manual) 7 Differential Comment Platelet Estimate Marked increase RBC Morphology Normal Sodium 142 Potassium 3.5 Chloride 102 Carbon Dioxide 33 H Anion Gap 10.5 BUN 37 H D Creatinine 0.70 Estimated Creat Clear 66 Estimated GFR 82 Est GFR ( Amer) 99 Glucose 79 Calcium 9.9 Preliminary micro results at discharge 09/16/20 05:25 Blood Culture - Preliminary Blood NO GROWTH AFTER 48 HOURS 09/16/20 05:25 Blood Culture - Preliminary Blood NO GROWTH AFTER 48 HOURS DS: Diagnosis - Discharge Diagnosis (1) Respiratory failure with hypoxia Status: Acute (2) Congestive heart failure Status: Acute (3) COVID-19 virus IgG antibody detected Status: Acute (4) COVID-19 virus IgM antibody detected Status: Acute (5) Hypothyroidism Status: Acute (6) Parkinson disease Status: Acute Discharge Plan - Patient Discharge Instructions ACTIVITY: Limited activity DIET: continue same diet Additional Instructions: PLEASE CALL D
--- NOTE | 2020-09-18 16:26 | PC.NURSE ---
Patient was educated on the importance of using her call light when she needed to get up. PATIENT CONTINUED TO COME OUT OF ROOM TO INQUIRE INFORMATION OR ASK TO GO TO THE BATHROOM. THIS RN EDUCATED PATIENT IN REGARDS TO SAFETY. PATIENT VERBALIZED AN UNDERSTANDING. THIS RN INFORMED PATIENT AND SPOUSE TO CALL [facility] FOR DELIVERY OF O2. PATIENT STATED THAT SHE DOESN'T THINK THEY WILL DELIVER TO [facility]. THIS RN PHONED [facility] AND INFORMED PATIENT THAT THEY WOULD DELIVER TO HER HOME.
== END 2020-09-18 14:45 | disposition home or self-care (01) | DRG 189 ==
LOC: ER 04:45 → 2ND 07:40
PROVIDERS: Admitting Provider Family Medicine; Emergency Provider Emergency Medicine; PCP Internal Medicine; Visit Provider Family Medicine
DX: J96.01 Acute respiratory failure with hypoxia (principal); J44.9 Chronic obstructive pulmonary disease, unspecified; Z86.16 Personal history of COVID-19; I50.9 Heart failure, unspecified; E03.9 Hypothyroidism, unspecified; G20 Parkinson's disease; Z79.899 Other long term (current) drug therapy; M06.9 Rheumatoid arthritis, unspecified
CPT/HCPCS: 36415; 71045; 71275; 80048; 80053; 81001; 82803; 83605; 83880; 84145; 84484; 85007; 85025; 85651; 86140; 86328; 87040; 87070; 87205; 93005; 93306; 94640; 94761; 96365; 96367; 96375; 97161; 99285; J0456; Q9967; U0003

== ENCOUNTER → 2021-04-16 14:24 | Outpatient (POV) | payer MEDICARE, SELFPAY | PROVIDERS: Visit Provider Dermatology | DX: Z00.00 Encounter for general adult medical examination without abnormal findings (principal) ==

== ENCOUNTER → 2021-05-28 13:05 | Outpatient (POV) | payer MEDICARE, SELFPAY | PROVIDERS: Visit Provider Dermatology | DX: Z00.00 Encounter for general adult medical examination without abnormal findings (principal) ==

== ENCOUNTER → 2021-05-28 17:36 | Outpatient (CLI) | payer MEDICARE, SELFPAY | PROVIDERS: Visit Provider Internal Medicine | DX: N39.0 Urinary tract infection, site not specified (principal); B96.20 Unspecified Escherichia coli [E. coli] as the cause of diseases classified elsewhere | CPT/HCPCS: 87086; 87088; 87186 ==

== ENCOUNTER → 2021-06-11 17:59 | Outpatient (CLI) | payer MEDICARE, SELFPAY | PROVIDERS: Visit Provider Internal Medicine | DX: N39.0 Urinary tract infection, site not specified (principal); B96.1 Klebsiella pneumoniae [K. pneumoniae] as the cause of diseases classified elsewhere; B96.20 Unspecified Escherichia coli [E. coli] as the cause of diseases classified elsewhere | CPT/HCPCS: 87086; 87088; 87186 ==

== ENCOUNTER → 2021-06-19 15:26 | Outpatient (CLI) | payer MEDICARE, SELFPAY ==
--- NOTE | 2021-06-19 15:32 | ECG_ITS ---
APPROVED REPORT Exam: Resting ECG HR:60 bpm ECG Measurements Heart Rate 60 AXES FL 168 P 57 QRSd 88 QRS 62 QT 388 T 35 QTc 388 Conclusion Normal sinus rhythm Normal ECG Electronically signed by : Hossein Grimaldo MD 06/24/2021 11:53:47
== END ==
PROVIDERS: PCP Internal Medicine; Visit Provider Internal Medicine
DX: Z01.810 Encounter for preprocedural cardiovascular examination (principal)
CPT/HCPCS: 93005

== ENCOUNTER → 2021-06-24 11:01 | Outpatient (CLI) | payer MEDICARE, SELFPAY | PROVIDERS: PCP Internal Medicine; Visit Provider Nurse Practitioner | DX: Z20.822 Contact with and (suspected) exposure to COVID-19 (principal) | CPT/HCPCS: C9803; U0003; U0005 ==

== ENCOUNTER → 2021-07-29 13:06 | Outpatient (CLI) | payer MEDICARE, SELFPAY | PROVIDERS: PCP Internal Medicine; Visit Provider Nurse Practitioner | DX: Z20.822 Contact with and (suspected) exposure to COVID-19 (principal) | CPT/HCPCS: C9803; U0003; U0005 ==

== ENCOUNTER → 2021-07-29 17:25 | Outpatient (CLI) | payer MEDICARE, SELFPAY ==
[2021-07-29 17:39] LABS: Basophils # 0.1 K/mm3 (0-0.2); Basophils % 0.8 % (0.1-2.0); Eosinophils # 0.2 K/mm3 (0.0-0.4); Eosinophils % 2.2 % (0.1-12.0); Hematocrit 39.2 % (37.0-47.0); Hemoglobin 12.5 g/dL (12.2-16.2); Lymphocytes # 3.6 K/mm3 (0.7-4.5); Mean Corpuscular Hemoglobin 31.4 pg (27.0-31.2); Mean Corpuscular Volume 97.9 fl (81-99); Mean Platelet Volume 8.2 fl (7.4-10.4); Monocytes # 0.5 K/mm3 (0.1-1.0); Monocytes % 4.6 % (1.7-9.3); Neutrophils # 5.9 K/mm3 (1.8-7.8); Neutrophils % 57.4 % (37.0-80.0); Platelet Count 290 K/mm3 (142-424); Red Cell Distribution Width 14.4 % (11.5-17.5); White Blood Count 10.3 K/mm3 (4.8-10.8)
[2021-07-29 21:25] LABS: Albumin Level 4.4 g/dl (3.5-5.0); Albumin/Globulin Ratio 1.5 (1.1-1.8); Alkaline Phosphatase 85 U/L (38-126); Anion Gap 11.5 mEq/L (5-15); Aspartate Amino Transferase 23 U/L (14-36); Bilirubin,Total 0.5 mg/dl (0.2-1.3); Blood Urea Nitrogen 34 mg/dl (7-17); Calcium 9.6 mg/dl (8.4-10.2); Carbon Dioxide 30 mmol/L (22.0-30.0); Chloride 100 mmol/L (98-107); Chol/HDL Ratio 2.2 (1-3.5); Cholesterol 210 mg/dl (140-200); Estimated Glomerular Filt Rate 54 ml/min (>60); GFR (African American) 65 ML/MIN (>60); Glucose 68 mg/dl (74-100); HDL Cholesterol 95 mg/dl (40-60); Potassium 4.5 mmoL/L (3.5-5.1); Sodium 137 mmol/L (136-145); Total Protein,Serum 7.4 g/dl (6.3-8.2); Triglycerides 125 mg/dl (30-150); VLDL Cholesterol 25 mg/dL (0-40)
[2021-07-29 21:36] LABS: Alanine Aminotransferase < 4 U/L (12-78)
[2021-07-29 21:37] LABS: Direct LDL Cholesterol 92.78 mg/dL (100-129)
[2021-07-29 21:56] LABS: Thyroid Stimulating Hormone 0.99 uIU/mL (0.465-4.68)
== END ==
PROVIDERS: Visit Provider Internal Medicine
DX: E03.9 Hypothyroidism, unspecified (principal); E78.5 Hyperlipidemia, unspecified; M06.89 Other specified rheumatoid arthritis, multiple sites; N39.0 Urinary tract infection, site not specified; B96.20 Unspecified Escherichia coli [E. coli] as the cause of diseases classified elsewhere; Z20.822 Contact with and (suspected) exposure to COVID-19
CPT/HCPCS: 80053; 80061; 84443; 85025; 87086; 87088; 87186; C9803; U0003; U0005

== ENCOUNTER → 2021-10-01 10:59 | Outpatient (CLI) | payer MEDICARE, SELFPAY ==
[2021-10-01 11:32] LABS: MANUAL DIFFERENTIAL MANUAL DIFFERENTIAL (MANUAL DIFF)
[2021-10-01 12:01] LABS: Basophils # 0.1 K/mm3 (0-0.2); Basophils % 1.2 % (0.1-2.0); Eosinophils # 0.2 K/mm3 (0.0-0.4); Eosinophils % 1.7 % (0.1-12.0); Hematocrit 42.6 % (37.0-47.0); Hemoglobin 13.6 g/dL (12.2-16.2); Lymphocytes # 3.5 K/mm3 (0.7-4.5); Lymphocytes % 29.4 % (10-50); Mean Corpuscular HGB Conc 31.9 g/dL (31.8-35.4); Mean Corpuscular Hemoglobin 31.5 pg (27.0-31.2); Mean Corpuscular Volume 98.7 fl (81-99); Mean Platelet Volume 8.4 fl (7.4-10.4); Monocytes # 0.5 K/mm3 (0.1-1.0); Neutrophils # 7.6 K/mm3 (1.8-7.8); Neutrophils % 63.7 % (37.0-80.0); Platelet Count 316 K/mm3 (142-424); Red Blood Count 4.31 M/mm3 (4.20-5.40); Red Cell Distribution Width 14.9 % (11.5-17.5); White Blood Count 11.9 K/mm3 (4.8-10.8)
[2021-10-01 12:56] LABS: Chloride 100 mmol/L (98-107); Sodium 134 mmol/L (136-145)
[2021-10-01 12:57] LABS: Potassium 4.4 mmoL/L (3.5-5.1)
[2021-10-01 12:59] LABS: Albumin Level 4.5 g/dl (3.5-5.0); Albumin/Globulin Ratio 1.5 (1.1-1.8); Alkaline Phosphatase 103 U/L (38-126); Anion Gap 10.4 mEq/L (5-15); Aspartate Amino Transferase 14 U/L (14-36); Bilirubin,Total 0.6 mg/dl (0.2-1.3); Blood Urea Nitrogen 25 mg/dl (7-17); Calcium 8.9 mg/dl (8.4-10.2); Carbon Dioxide 28 mmol/L (22.0-30.0); Estimated Glomerular Filt Rate 61 ml/min (>60); GFR (African American) 74 ML/MIN (>60); Globulin 3.1 g/dL (1.3-3.2); Glucose 80 mg/dl (74-100); Total Protein,Serum 7.6 g/dl (6.3-8.2)
[2021-10-01 13:11] LABS: Alanine Aminotransferase < 4 U/L (12-78)
[2021-10-01 13:45] LABS: Intact Parathyroid Hormone 67.6 pg/mL (7.5-53.5)
[2021-10-01 17:07] LABS: Anisocytosis 1+; Eosinophils % 1 % (0-3); Lymphocytes % 16 % (10-50); Microcytosis 1+; Monocytes % 10 % (2-9); Neutrophils % 73 % (42-76); Platelet Estimate Normal; Tear Drop Cells 1+; Total Cells Counted 100
[2021-10-02 14:50] LABS: Albumin 3.8 g/dL (2.9-4.4); Alpha-1-Globulin 0.2 g/dL (0.0-0.4); Alpha-2-Globulin 0.8 g/dL (0.4-1.0); Gamma Globulin 1.2 g/dL (0.4-1.8); Protein, Total 7.3 g/dL (6.0-8.5)
[2021-10-03 14:13] LABS: Osteocalcin 2.9 ng/mL (.)
== END ==
PROVIDERS: Visit Provider Internal Medicine
DX: I34.0 Nonrheumatic mitral (valve) insufficiency (principal); I50.32 Chronic diastolic (congestive) heart failure; E03.9 Hypothyroidism, unspecified; M06.89 Other specified rheumatoid arthritis, multiple sites; M15.0 Primary generalized (osteo)arthritis; G20 Parkinson's disease
CPT/HCPCS: 36415; 80053; 83937; 83970; 84155; 84165; 84443; 85007; 85014; 85018; 85048; 85049

== ENCOUNTER → 2021-11-13 11:42 | Outpatient (CLI) | payer MEDICARE, SELFPAY ==
--- NOTE | 2021-11-13 11:47 | XR_ITS ---
FINAL REPORT CLINICAL HISTORY: COUGH,SPUTUM,RALES LT LUNG FINDINGS: TWO VIEWS OF THE CHEST The heart is normal in size. There is an elevated right hemidiaphragm. There are bilateral pulmonary opacities worrisome for bilateral pneumonia. There is no pneumothorax. IMPRESSION: Findings worrisome for bilateral pneumonia. Reviewed, Interpreted and Dictated by Mauro Carballo III, MD Transcribed by Marbella Ray Authenticated by Mauro Carballo III, MD on 11/13/2021 12:55:59 PM [facility]
== END ==
PROVIDERS: PCP Internal Medicine; Visit Provider Internal Medicine
DX: R05.9 Cough, unspecified (principal); R09.89 Other specified symptoms and signs involving the circulatory and respiratory systems; R06.2 Wheezing
CPT/HCPCS: 71046

== ENCOUNTER → 2021-12-09 11:19 | Outpatient (CLI) | payer MEDICARE, SELFPAY ==
--- NOTE | 2021-12-09 11:30 | XR_ITS ---
FINAL REPORT CLINICAL HISTORY: SOA, no sx COMPARISON: November 13, 2021 FINDINGS: Two views of the chest were obtained. The heart size and pulmonary vascularity are within normal limits. The mediastinum is normal. There is worsening left lung opacity consistent with worsening pneumonia or atelectasis. There is no pneumothorax. The bony thorax is intact. IMPRESSION: Worsening left lung pneumonia or atelectasis. Reviewed, Interpreted and Dictated by Mauro Carballo III, MD Transcribed by Cesar Rosas Authenticated by Mauro Carballo III, MD on 12/09/2021 01:00:54 PM [facility]
--- NOTE | 2021-12-09 11:55 | ECG_ITS ---
APPROVED REPORT Exam: Resting ECG HR:78 bpm ECG Measurements Heart Rate 78 AXES QRSd 94 QRS 67 QT 377 T -2 QTc 410 Conclusion SUPRAVENTRICULAR RHYTHM NONSPECIFIC ST & T-WAVE ABNORMALITY ABNORMAL ECG UNCONFIRMED REPORT Electronically signed by : Tyson Adrian MD 12/11/2021 17:57:56
[2021-12-09 12:45] LABS: Basophils # 0.2 K/mm3 (0-0.2); Eosinophils # 0.3 K/mm3 (0.0-0.4); Eosinophils % 2.8 % (0.1-12.0); Hematocrit 38.9 % (37.0-47.0); Hemoglobin 12.9 g/dL (12.2-16.2); Lymphocytes # 1.6 K/mm3 (0.7-4.5); Lymphocytes % 13.6 % (10-50); Mean Corpuscular Volume 96.9 fl (81-99); Mean Platelet Volume 7.9 fl (7.4-10.4); Monocytes # 0.3 K/mm3 (0.1-1.0); Monocytes % 2.4 % (1.7-9.3); Neutrophils # 9.2 K/mm3 (1.8-7.8); Neutrophils % 79.3 % (37.0-80.0); Platelet Count 297 K/mm3 (142-424); Red Blood Count 4.02 M/mm3 (4.20-5.40); Red Cell Distribution Width 15.7 % (11.5-17.5); White Blood Count 11.6 K/mm3 (4.8-10.8)
[2021-12-09 12:52] LABS: Chloride 103 mmol/L (98-107); Sodium 135 mmol/L (136-145)
[2021-12-09 12:54] LABS: Blood Urea Nitrogen 28 mg/dl (7-17); Estimated Glomerular Filt Rate 61 ml/min (>60); GFR (African American) 74 ML/MIN (>60)
[2021-12-09 12:55] LABS: Alanine Aminotransferase 8 U/L (12-78); Albumin Level 3.8 g/dl (3.5-5.0); Albumin/Globulin Ratio 1.2 (1.1-1.8); Alkaline Phosphatase 156 U/L (38-126); Anion Gap 9.9 mEq/L (5-15); Aspartate Amino Transferase 18 U/L (14-36); Bilirubin,Total 0.8 mg/dl (0.2-1.3); Calcium 9.2 mg/dl (8.4-10.2); Carbon Dioxide 26 mmol/L (22.0-30.0); Globulin 3.2 g/dL (1.3-3.2); Glucose 98 mg/dl (74-100); Potassium 3.9 mmoL/L (3.5-5.1)
[2021-12-09 13:14] LABS: Troponin I < 0.01 ng/ml (0.00-0.034)
--- NOTE | 2021-12-09 15:10 | CT_ITS ---
FINAL REPORT TECHNIQUE: Then section axial CT images of the chest were obtained with contrast. Three-D reformatted images were also obtained.This study was performed with techniques to keep radiation doses as low as reasonably achievable (ALARA). Individualized dose reduction techniques using automated exposure control or adjustment of mA and/or kV according to the patient''s size were employed. CLINICAL HISTORY: LT LUNG PNEUMONIA,SOB,LT LUNG ATELECTASIS COMPARISON: September 16, 2020 FINDINGS: There is no evidence of pulmonary embolism. There is no evidence of thoracic aortic aneurysm or dissection. There is no evidence of mediastinal or hilar mass or adenopathy. Patchy ground-glass opacities have moderately improved. Limited images of the upper abdomen demonstrate a small hiatal hernia. IMPRESSION: 1. No evidence of pulmonary embolism. 2. Moderately improved, patchy ground-glass opacities could represent edema, alveolitis, or pneumonia. Reviewed, Interpreted and Dictated by Mauro Carballo III, MD Transcribed by Cesar Rosas Authenticated by Mauro Carballo III, MD on 12/09/2021 04:37:58 PM [facility]
== END ==
PROVIDERS: PCP Internal Medicine; Visit Provider Internal Medicine Rheumatology
DX: M06.9 Rheumatoid arthritis, unspecified (principal); R06.02 Shortness of breath; M51.36 Other intervertebral disc degeneration, lumbar region; M81.0 Age-related osteoporosis without current pathological fracture; R20.2 Paresthesia of skin; R52 Pain, unspecified; J18.9 Pneumonia, unspecified organism; J98.11 Atelectasis
CPT/HCPCS: 36415; 71046; 71275; 80053; 84484; 85025; 93005; Q9967

== ENCOUNTER 2021-12-17 20:23 | Inpatient (IN) | payer MEDICARE, SELFPAY ==
[2021-12-17 20:23] VITALS: BP 102/82; PULSE 78; RESP 22; TEMP 37.4; O2SAT 84; BMI 31.4
--- NOTE | 2021-12-17 20:42 | ECG_ITS ---
APPROVED REPORT Exam: Resting ECG HR:88 bpm ECG Measurements Heart Rate 88 AXES LA 153 P 76 QRSd 90 QRS 14 QT 297 T 68 QTc 343 Conclusion SINUS RHYTHM NONSPECIFIC T-WAVE ABNORMALITY BORDERLINE ECG UNCONFIRMED REPORT Electronically signed by : Tyson Adrian MD 12/18/2021 17:37:35
--- NOTE | 2021-12-17 20:42 | XR_ITS ---
PROCEDURE INFORMATION: Exam: XR Chest Exam date and time: 12/17/2021 9:13 PM Age: 76 years old Clinical indication: Shortness of breath; Sternal or substernal pain; Additional info: Cp, SOA TECHNIQUE: Imaging protocol: XR of the chest. Views: 1 view. COMPARISON: CR XR CHEST 2V 12/09/2021 11:42 AM FINDINGS: Lungs: Subtle interstitial haziness concerning for interstitial pneumonia. No consolidation. Elevated right hemidiaphragm. Pleural spaces: Unremarkable. No pleural effusion. No pneumothorax. Heart/Mediastinum: Unremarkable. No cardiomegaly. Bones/joints: Unremarkable. IMPRESSION: Subtle interstitial haziness concerning for interstitial pneumonia.
--- NOTE | 2021-12-17 20:42 | CT_ITS ---
PROCEDURE INFORMATION: Exam: CTA Chest With Contrast Exam date and time: 12/17/2021 9:21 PM Age: 76 years old Clinical indication: Shortness of breath; Additional info: SOA TECHNIQUE: Imaging protocol: Computed tomographic angiography of the chest with contrast. 3D rendering (Not supervised by radiologist): MIP and/or 3D reconstructed images were created by the technologist. Radiation optimization: All CT scans at this facility use at least one of these dose optimization techniques: automated exposure control; mA and/or kV adjustment per patient size (includes targeted exams where dose is matched to clinical indication); or iterative reconstruction. Contrast material: ISOVUE; Contrast volume: 70 ml; Contrast route: INTRAVENOUS (IV); COMPARISON: CT ANGIO CHEST PE PROTOCOL 12/09/2021 3:20 PM FINDINGS: Pulmonary arteries: No pulmonary embolism. Aorta: Unremarkable. No aortic aneurysm. No aortic dissection. Lungs: There is scattered hazy opacities in both lungs concerning for pneumonia. Pleural spaces: Unremarkable. No pneumothorax. No pleural effusion. Heart: Cardiomegaly. Lymph nodes: Unremarkable. No enlarged lymph nodes. Intraperitoneal space: Upper abdomen reveals constipation. Bones/joints: Unremarkable. No acute fracture. Soft tissues: Unremarkable. IMPRESSION: 1. No pulmonary embolism. 2. There is moderate bilateral pneumonia. The airspace disease has worsened when compared to the previous examination December 09, 2021.
[2021-12-17 20:54] LABS: Basophils # 0.2 K/mm3 (0-0.2); Basophils % 1.3 % (0.1-2.0); Eosinophils # 0.6 K/mm3 (0.0-0.4); Eosinophils % 4.9 % (0.1-12.0); Hematocrit 37.4 % (37.0-47.0); Hemoglobin 12.5 g/dL (12.2-16.2); Lymphocytes # 1.3 K/mm3 (0.7-4.5); Lymphocytes % 10.1 % (10-50); Mean Corpuscular HGB Conc 33.5 g/dL (31.8-35.4); Mean Corpuscular Hemoglobin 32.9 pg (27.0-31.2); Mean Corpuscular Volume 98.2 fl (81-99); Mean Platelet Volume 7.7 fl (7.4-10.4); Monocytes # 0.6 K/mm3 (0.1-1.0); Monocytes % 4.7 % (1.7-9.3); Neutrophils # 9.9 K/mm3 (1.8-7.8); Neutrophils % 78.9 % (37.0-80.0); Platelet Count 361 K/mm3 (142-424); Red Cell Distribution Width 15.9 % (11.5-17.5); White Blood Count 12.6 K/mm3 (4.8-10.8)
[2021-12-17 20:55] LABS: ABG HCO3 27.5 mmhg (22.0-26.0); ABG Oxygen Saturation 95 % (90-100); ABG PCO2 37.6 mmhg (35.0-45.0); ABG PH 7.48 mmol/L (7.35-7.45); ABG PO2 73.3 mmhg (80-100); ABG TCO2 28.7 mmhg (23-27)
[2021-12-17 20:56] LABS: Allen's Test Acceptable; Oxygen 28 %; Source Right Radial
[2021-12-17 21:03] LABS: Alanine Aminotransferase 11 U/L (12-78); Albumin Level 3.3 g/dl (3.5-5.0); Alkaline Phosphatase 125 U/L (38-126); Aspartate Amino Transferase 11 U/L (14-36); Bilirubin,Direct 0.2 mg/dl (0.0-0.4); Bilirubin,Indirect 0.3 mg/dL (0.0-0.9); Bilirubin,Total 0.5 mg/dl (0.2-1.3); Bilirubin,Unconjugated 0.3 mg/dL (0.0-1.1); Total Protein,Serum 5.8 g/dl (6.3-8.2)
[2021-12-17 21:04] LABS: Anion Gap 6.9 mEq/L (5-15); Blood Urea Nitrogen 35 mg/dl (7-17); Calcium 9.1 mg/dl (8.4-10.2); Carbon Dioxide 30 mmol/L (22.0-30.0); Chloride 99 mmol/L (98-107); Creatinine Clearance Estimated 59 mL/min (50-200); Estimated Glomerular Filt Rate 61 ml/min (>60); GFR (African American) 74 ML/MIN (>60); Glucose 101 mg/dl (74-100); Magnesium 1.9 mg/dl (1.6-2.3); Potassium 3.9 mmoL/L (3.5-5.1); Sodium 132 mmol/L (136-145)
[2021-12-17 21:08] LABS: C-Reactive Protein 57.1 mg/L (0-4)
[2021-12-17 21:12] LABS: NT Pro Brain Natriuretic Pep. 206 pg/mL (0-450)
[2021-12-17 21:17] LABS: Troponin I < 0.01 ng/ml (0.00-0.034)
--- NOTE | 2021-12-17 21:18 | HMH.EDCP ---
ED Disposition Clinical Impression: Parkinson disease, Obesity (BMI 30.0-34.9), SIRS (systemic inflammatory response syndrome) CAP (community acquired pneumonia) Qualifiers: Laterality: unspecified laterality Qualified Code(s): J18.9 - Pneumonia, unspecified organism Hypothyroidism Qualifiers: Hypothyroidism type: acquired Qualified Code(s): E03.9 - Hypothyroidism, unspecified Disposition: Admitted As Inpatient Condition on Discharge: Good Referrals: Hossein Grimaldo [Primary Care Provider] - - Critical Care Critical Care Time: No Attestation: On 12/17/21, the high probability of a clinically significant, sudden or life threatening deterioration of the following system(s) required my full and direct attention, intervention and personal management. The time I documented below is in addition to time spent performing reported procedures but includes the following listed in this critical care notation. Medical Decision Making - Medical Records Medical records reviewed: Yes: I reviewed the patient's medical records. - [place] Inquiry Pt receiving controlled substance: No Vital Signs: 12/17/21 20:23 Temperature 99.4 F Temperature Source Oral Pulse Rate [Right] 78 Respiratory Rate 22 Blood Pressure [Right Arm] 102/82 L Blood Pressure Mean [Right Arm] 88 Blood Pressure Source [Right Arm] Automatic Cuff 02 Sat by Pulse Oximetry 84 L Oxygen Delivery Method Room Air - Lab Data Lab results reviewed: Yes: I reviewed the patient's lab results. Lab Results 12/17/21 20:30: ESR 56 H 12/17/21 20:30: Troponin I < 0.01, C-Reactive Protein 57.1 H 12/17/21 20:30: WBC 12.6 H, RBC 3.80 L, Hgb 12.5, Hct 37.4, MCV 98.2, MCH 32.9 H, MCHC 33.5, RDW 15.9, Plt Count 361, MPV 7.7, Neut % (Auto) 78.9, Lymph % (Auto) 10.1, [place] % (Auto) 4.7, Eos % (Auto) 4.9, Baso % (Auto) 1.3, Neut # (Auto) 9.9 H, Lymph # (Auto) 1.3, [place] # (Auto) 0.6, Eos # (Auto) 0.6 H, Baso # (Auto) 0.2 12/17/21 20:30: Sodium 132 L, Potassium 3.9, Chloride 99, Carbon Dioxide 30, Anion Gap 6.9, BUN 35 H, Creatinine 0.90, Estimated Creat Clear 59, Estimated GFR 61, Est GFR ( Amer) 74, Glucose 101 H, Calcium 9.1, Magnesium 1.9, NT-Pro-B Natriuret Pep 206, Procalcitonin 0.131 12/17/21 20:30: Total Bilirubin 0.5, Direct Bilirubin 0.2, Conjugated Bilirubin 0.0, Indirect Bilirubin 0.3, Unconjugated Bilirubin 0.3, AST 11 L, ALT 11 L, Alkaline Phosphatase 125, Total Protein 5.8 L, Albumin 3.3 L 12/17/21 20:42: Specimen Source Right radial, O2 % 28, ABG pH 7.48 H, ABG pCO2 37.6, ABG pO2 73.3 L, ABG HCO3 27.5 H, ABG Total CO2 28.7 H, ABG O2 Saturation 95, ABG Base Excess 4.0 H, Feliz Test Acceptable Result diagrams: 12/17/21 20:30 12/17/21 20:30 Orders (Tests/Meds): ED MEDICATIONS Generic Name Dose Route Start Last Admin Trade Name Freq PRN Reason Stop Dose Admin Sodium Chloride 1,000 mls @ 999 mls/hr 12/17/21 21:00 12/17/21 22:03 Sod Chlor 0.9% 1000ml Bag IV 12/17/21 22:00 999 mls/hr .Q1H1M ALEJA Administration Discontinued Medications Generic Name Dose Route Start Last Admin Trade Name Freq PRN Reason Stop Dose Admin Aspirin 324 mg 12/17/21 20:58 12/17/21 22:03 Aspirin 81mg Chewable Tablet PO 12/17/21 20:59 324 mg ONCE ONE Administration Iopamidol 70 ml 12/17/21 21:21 12/17/21 21:28 Iopamidol-370 (76%);100ml Bottle IV 12/17/21 21:22 70 ml ONCE ONE Administration Sodium Chloride 10 ml 12/17/21 21:21 12/17/21 21:28 Sodium Chloride 0.9% 10ml Syr (Rad Only) IV 12/17/21 21:22 10 ml ONCE ONE Administration Sodium Chloride 50 ml 12/17/21 21:28 12/17/21 21:29 0.9 % Sodium Chloride 50 Ml Vial IV 12/17/21 21:29 50 ml ONCE ONE Administration ORDERS Category Date Time Status Lactic Acid Stat Lab 12/17/21 20:44 Ordered Rapid PCR Covid and Flu A/B Stat Lab 12/17/21 20:42 Ordered Troponin I Q3H Lab 12/17/21 23:45 Ordered Troponin I Q3H Lab 12/18/21 02:45 Ordered UA [Urinalysis and Microscopic] St
[2021-12-17 21:20] LABS: Procalcitonin 0.131 ng/mL (0.0-2.0)
[2021-12-17 21:34] LABS: Erythrocyte Sedimentation Rate 56 mm/hr (0-30)
--- NOTE | 2021-12-17 22:20 | PC.NURSE ---
2nd floor charge nurse notified of admission, room assignment given, registration notified
[2021-12-17 22:22] LABS: Coronavirus 19, PCR Not Detected (NotDetected); Influenza A, PCR Not Detected (NotDetected); Influenza B, PCR Not Detected (NotDetected)
[2021-12-17 22:24] VITALS: BMI 32.1
[2021-12-17 22:26] LABS: Microscopic, Urine URINE MICROSCOPIC (MICROSCOPIC)
[2021-12-17 22:34] LABS: Appearance,Urine CLEAR (Clear); Bilirubin,Urine Negative (Negative); Blood, Urine Negative (Negative); Color,Urine YELLOW (Yellow); Glucose,Urine (UA) Negative (Negative); Ketones,Urine Negative (Negative); Leukocyte Esterase,Urine Negative (Negative); Nitrate,Urine Negative (Negative); Protein,Urine Negative (Negative); Specific Gravity, Urine 1.025 (1.005-1.030); Urobilinogen,Urine 0.2 EU/dl (0.2)
[2021-12-17 22:38] LABS: Lactic Acid 1.2 mmol/L (0.7-2.1)
[2021-12-17 23:03] LABS: Bacteria,Urine 1+ /lpf
[2021-12-17 23:29] VITALS: BP 107/55; PULSE 79; RESP 18; TEMP 37.2; O2SAT 99
--- NOTE | 2021-12-17 23:45 | PC.NURSE ---
patient up to floor via wheelchair at this time.
[2021-12-17 23:49] LABS: Troponin I < 0.01 ng/ml (0.00-0.034)
[2021-12-18] VITALS (7 sets, daily range): BP systolic 106–153; BP diastolic 54–80; PULSE 60–81; RESP 16–20; TEMP 36.4–37.1; O2SAT 90–93; BMI 31.7; BMI 31.6
[2021-12-18 03:51] LABS: Troponin I < 0.01 ng/ml (0.00-0.034)
--- NOTE | 2021-12-18 06:13 | PC.NURSE ---
Patient has rested well this shift. Remains on 2L NC with O2 sats 90-92%. Pt is A/O x3. x1 assist to ambulate to bathroom. Pt voiced no c/o of SOA, N/V.
[2021-12-18 06:28] LABS: Basophils # 0.1 K/mm3 (0-0.2); Basophils % 0.8 % (0.1-2.0); Eosinophils % 0.1 % (0.1-12.0); Hematocrit 35.9 % (37.0-47.0); Hemoglobin 11.9 g/dL (12.2-16.2); Lymphocytes # 0.6 K/mm3 (0.7-4.5); Lymphocytes % 7.4 % (10-50); Mean Corpuscular Hemoglobin 32.1 pg (27.0-31.2); Mean Corpuscular Volume 97.4 fl (81-99); Mean Platelet Volume 7.9 fl (7.4-10.4); Monocytes # 0.1 K/mm3 (0.1-1.0); Monocytes % 1.4 % (1.7-9.3); Neutrophils # 7.6 K/mm3 (1.8-7.8); Neutrophils % 90.2 % (37.0-80.0); Platelet Count 296 K/mm3 (142-424); Red Blood Count 3.69 M/mm3 (4.20-5.40); Red Cell Distribution Width 15.9 % (11.5-17.5); White Blood Count 8.5 K/mm3 (4.8-10.8)
[2021-12-18 06:35] LABS: Anion Gap 4.9 mEq/L (5-15); Blood Urea Nitrogen 25 mg/dl (7-17); Calcium 8.4 mg/dl (8.4-10.2); Carbon Dioxide 30 mmol/L (22.0-30.0); Chloride 105 mmol/L (98-107); Creatinine Clearance Estimated 59 mL/min (50-200); Estimated Glomerular Filt Rate 81 ml/min (>60); GFR (African American) 98 ML/MIN (>60); Glucose 151 mg/dl (74-100); Magnesium 2.1 mg/dl (1.6-2.3); Potassium 3.9 mmoL/L (3.5-5.1); Sodium 136 mmol/L (136-145)
[2021-12-18 06:49] LABS: MANUAL DIFFERENTIAL MANUAL DIFFERENTIAL (MANUAL DIFF)
[2021-12-18 07:46] LABS: Lymphocytes % 7 % (10-50); Monocytes % 1 % (2-9); Neutrophils % 92 % (42-76); Platelet Estimate Normal; RBC Morphology Normal; Total Cells Counted 100
--- NOTE | 2021-12-18 07:56 | HMH.CNCARD ---
History of Present Illness Consult date: 12/18/21 Requesting physician: Noe Gallagher Consult reason: chest pain, shortness of breath Chief complaint: SOA, NURYS Additional Medical History:: 1. Rheumatoid arthritis 2. Parkinson's disease 3. History of mild aortic valvular heart disease and mild left atrial enlargement by echocardiogram 2020. Echocardiogram performed today but official results pending. 4. Reported history of congestive heart failure 5. Reported history of COPD but no history of tobacco use 6. Hypothyroidism, on replacement therapy History of present illness: 76-year-old white female admitted through the ER for increasing shortness of breath along with left-sided chest pain. ER evaluation included chest x-ray and CT for confirmation of bilateral pneumonia. EKG showed sinus rhythm with nonspecific ST-T abnormalities. Troponins have returned normal x2. Patient describes the chest discomfort as left-sided without significant radiation but improves after belching. Symptoms do not last long. She still has her gallbladder. Preliminary echocardiogram this morning shows no essential change from exam 1 year ago showing normal function with mild to moderate left atrial enlargement and mild valvular heart disease. Patient states she has been treated for pneumonia 3 times within the last few months. 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 No history of hypertension, hyperlipidemia or diabetes. [facility] History Medical History: Reports:: Congestive Heart Failure, Chronic Obstructive Pulmonary Disease (COPD) Denies:: Cancer, Diabetes Mellitus Type 1, Diabetes Mellitus Type 2, MRSA *Have you ever received a pneumonia vaccine?: Yes *Have you received a flu vaccine this season?: Yes Other Medical History: Reports: Arthritis, Cataracts, Hypothyroidism, Thyroid Disease Laterality Cases: Right: Other Other Surgeries: Yes: Tubal Ligation Amputation: No - *Social History Smoking Status: Never smoker Alcohol Intake: never *Occupational Status:: retired Housing: house Household Members: spouse *Travel in the last 8 weeks: None Family Hx:: No significant family history Meds Home Medications Medication Instructions Recorded Confirmed Type Carbidopa/Levodopa 1 each PO 5XDAY 09/16/20 12/17/21 History [Carbidopa/Levodopa 25/100mg Tablet] Celecoxib 200 mg PO DAILY 09/16/20 12/17/21 History Duloxetine HCl 20 mg PO BID 09/16/20 12/17/21 History Folic Acid [Folic Acid 1mg tablet] 2 mg PO DAILY 09/16/20 12/17/21 History Gabapentin [Gabapentin 300mg Cap] 300 mg PO 0900,1300 09/16/20 12/17/21 History Gabapentin [Gabapentin 300mg Cap] 600 mg PO HS 09/16/20 12/17/21 History LORazepam [Lorazepam 0.5mg Tablet] 0.5 mg PO BIDP PRN 09/16/20 12/17/21 History amantadine HCL [Amantadine] 100 mg PO BID 09/16/20 12/17/21 History metHOTREXate sodium [metHOTREXate 10 mg PO WEEKLY 09/16/20 12/17/21 History 2.5mg Tablet] Ipratropium/Albuterol Sulfate 2 puff IH QID 12/17/21 12/17/21 History [Combivent Respimat Inh] Levothyroxine Sodium [Euthyrox] 50 mcg PO DAILY 12/17/21 12/17/21 History Allergies Allergy/AdvReac Type Severity Reaction Status Date / Time No Known Allergies Allergy Verified 09/16/20 04:52 Exam Vital signs and Labs for Last 24 Hours: Temp Pulse Resp BP Pulse Ox 98.0 F 68 20 122/54 L 90 L 12/18/21 04:00 12/18/21 04:00 12/18/21 04:00 12/18/21 04:00 12/18/21 04:00 Laboratory Results - last 24 hr 12/17/21 20:30: ESR 56 H 12/17/21 20:30: Troponin I < 0.01, C-Reactive Protein 57.1 H 12/17/21 20:30: WBC 12.6 H, RBC 3.80 L, Hgb 12.5, Hct 37.4, MCV 98.2, MCH 32.9 H, MCHC 33.5, RDW 15.9, Plt Count 361, MPV 7.7, Neut % (Auto) 78.9, Lymph % (Auto) 10.1, [place] % (Auto) 4.7, Eos % (Auto) 4.9, Baso % (Auto) 1.3, Neut # (Auto) 9.9 H, Lymph # (Auto) 1.3, [place] # (Auto) 0.6, Eos # (Auto) 0.6 H, Baso # (Auto) 0.2 12/17/21 20:30: Sodium 132 L, Potassium 3.9, Chloride 99, Carbon Diox
--- NOTE | 2021-12-18 08:00 | CA_ITS ---
APPROVED REPORT EXAM: Comprehensive 2D, Doppler, and color-flow Echocardiogram Forming Yardage Control Operator: Ely Kohli, RCS, RVS Ht: 5 ft 2 in Wt: 172lbs BSA: 1.79 BP: 102/82 mmHg Indications: SOB, COPD, CAP, Parkinson's, Thyroid disease, Murmurs 2D Dimensions IVSd 0.95 cm LVEF (Visual) 64.50 % PWd 1.03 cm LA Volume 78.30 mL LVDd 5.04 cm LA Volume Index 43.70 mL/m2 (M/F) 16-34 LVDs 3.26 cm Aortic Root 3.42 cm Left Atrium 3.65 cm LVOT 1.91 cm (M/F) 1.5-2.5 M-Mode Dimensions LA Diam 3.96 cm (1.9-4.0) Ao Diam 3.83 cm (2.0-3.7) EPSs 0.81 cm LV Diastology E Decel Time 170.00 (160-240 msec) E/A Ratio 0.82 MED E' 5.20 (< 7 cm/sec) MED A' 7.60 cm/s E'/MED E' Ratio 13.19 (>14) LAT E' 7.60 (<10 cm/sec) LAT A' 11.80 cm/s E/LAT E' Ratio 9.03 (>14) Aortic Valve LVOT Max 84.00 (70-110 cm/s) LVOT VTI 17.85 cm AoV Peak Reymundo. 154.00 (50-130 cm/s) AI PHT 604.00 ms AO Peak GR. 9.50 mmHg AO Mean GR. 4.80 (<5 mmHg) AO VTI 30.85 (18-25 cm) STEVEN (VTI) 1.66 (2.5-4.5 cm2) Mitral Valve MV A Velocity 84.00 (40-130 cm/s) E/A Ratio 0.82 MV Decel. Time 170.00 (160-240 ms) MV Mean Gr. 1.20 (<2mmHg) MV PHT 47.00 ms Pulmonary Valve PV Peak Velocity 132.00 (50-150 cm/s) MO End VMAX 187.00 cm/s Tricuspid Valve TR P. Velocity 135.00 cm/s RAP Estimate 10.00 mmHg RVSP 17.30 mmHg Left Ventricle Left atrium is mildly enlarged, left ventricle is normal size, mild concentric left ventricular hypertrophy, estimated ejection fraction 55% with no regional wall motion abnormality, grade 1 diastolic dysfunction seen without tissue Doppler evidence of raise left atrial pressure. Right Ventricle Right atrium and right ventricle mildly enlarged with normal contractility. Aortic Valve Aortic valve is thickened and calcified without aortic stenosis, there is mild aortic insufficiency. Mitral Valve Mitral valve grossly normal, there is trace mitral regurgitation. Tricuspid Valve Tricuspid grossly normal, there is trace tricuspid regurgitation, tricuspid regurgitation jet velocity is inadequate for calculation of the right ventricular systolic pressure. Pulmonic Valve Pulmonic valve is poorly visualized. Great Vessels Aortic root is normal size. Inferior vena cava is poorly visualized. Pericardium No significant pericardial effusion noted. Conclusion 1. Biatrial enlargement, normal left ventricular size, mild concentric left ventricular hypertrophy, estimated ejection fraction 55% with no regional wall motion abnormality, grade 1 diastolic dysfunction seen without tissue Doppler evidence of raise left atrial pressure. 2. Mildly enlarged right ventricle with normal contractility. 3. Trace mitral and tricuspid regurgitation. 4. No significant pericardial effusion noted. 5. Inferior vena cava is poorly visualized. Electronically signed by : Berny Cárdenas MD 12/18/2021 19:18:26
--- NOTE | 2021-12-18 09:02 | HMH.PULMCON ---
*Admission Date: 12/18/21 *Reason for consult:: Acute hypoxic respiratory failure, pneumonia *History of present illness: Ms. Mathis is a 76-year-old female no significant smoking history, aortic valvular disease presented to the hospital. with Atypical chest pain followed by a CTA that did not show any pulmonology bilateral diffuse pneumonia and pulmonary was called for further management. She also has a history of rheumatoid arthritis and currently taking methotrexate. [facility] History Medical History: Reports:: Congestive Heart Failure, Chronic Obstructive Pulmonary Disease (COPD) Denies:: Cancer, Diabetes Mellitus Type 1, Diabetes Mellitus Type 2, MRSA *Have you ever received a pneumonia vaccine?: Yes *Have you received a flu vaccine this season?: Yes Other Medical History: Reports: Arthritis, Cataracts, Hypothyroidism, Thyroid Disease Laterality Cases: Right: Other Other Surgeries: Yes: Tubal Ligation Amputation: No - *Social History Smoking Status: Never smoker Alcohol Intake: never *Occupational Status:: retired Housing: house Household Members: spouse *Travel in the last 8 weeks: None Family Hx:: No significant family history ROS - Cons Reports fatigue, Reports fever(s), Denies body ache(s) - Eyes Reports blurry vision - ENT Denies change in voice - Card Reports chest pain, Reports shortness of breath, Reports shortness of breath with activity - Resp Respiratory: Reports chest congestion, Reports cough, Reports excessive phlegm production, Reports cough with sputum production - GI Gastrointestingal: Denies: abdominal pain - [place] Musculoskeletal: Reports back pain - Psych Denies thoughts of hurting/killing others, Denies thoughts of hurting/killing yourself Meds Home Medications Medication Instructions Recorded Confirmed Type Celecoxib 200 mg PO DAILY 09/16/20 12/17/21 History Duloxetine HCl 20 mg PO BID 09/16/20 12/17/21 History Folic Acid [Folic Acid 1mg tablet] 2 mg PO DAILY 09/16/20 12/17/21 History LORazepam [Lorazepam 0.5mg Tablet] 0.5 mg PO TIDP PRN 09/16/20 12/18/21 History amantadine HCL [Amantadine] 100 mg PO 0900,1300 09/16/20 12/18/21 History metHOTREXate sodium [metHOTREXate 10 mg PO WEEKLY 09/16/20 12/17/21 History 2.5mg Tablet] Ipratropium/Albuterol Sulfate 2 puff IH QID 12/17/21 12/17/21 History [Combivent Respimat Inh] Levothyroxine Sodium [Euthyrox] 50 mcg PO DAILYDM 12/17/21 12/18/21 History Carbidopa/Levodopa [Sinemet CR 0.5 - 1 each PO 5XDAY 12/18/21 12/18/21 History 50/200mg tablet] Gabapentin 300 mg PO 0900,1300 12/18/21 12/18/21 History Gabapentin 600 mg PO HS 12/18/21 12/18/21 History Methenamine Hippurate 1 gm PO BID 12/18/21 12/18/21 History Spironolactone [Aldactone 50mg 50 mg PO DAILY 12/18/21 12/18/21 History Tab] Allergies Allergy/AdvReac Type Severity Reaction Status Date / Time No Known Allergies Allergy Verified 09/16/20 04:52 Exam - Constitutional Constitutional:: Present: no acute distress, comfortable - HENMT Exam HENMT: Present: normocephalic - Eye Exam Eyes:: Present: normal appearance both eyes and related structures - Neck Exam Neck:: Present: normal visual inspection - Respiratory Exam Respiratory:: Present: able to speak in complete sentences, no respiratory distress. Absent: crackles, wheezing - Cardiovascular Exam Cardiac:: Present: S1, S2 - GI Exam GI:: Present: soft - Skin Exam Skin: Present: warm, no rash - Neurological Exam Neurological: Present: alert, awake - Extremities Exam Extremities: Present: no cyanosis, no clubbing, no edema - Psychiatric Exam Psychiatric: Present: normal affect Internal Medicine - CN: Reslt - Labs CBC & Chem 7: 12/18/21 05:55 12/18/21 05:55 Labs: Short CBC 12/17/21 12/18/21 Range/Units 20:30 05:55 WBC 12.6 H 8.5 D (4.8-10.8) K/mm3 Hgb 12.5 11.9 L (12.2-16.2) g/dL Hct 37.4 35.9 L (37.0-47.0) % Plt Count 361 296 (142-424) K/mm3
--- NOTE | 2021-12-18 09:06 | PC.NURSE ---
PLACED PT BACK ON 1LNC R/T O2 SATURATION 88% ON ROOM AIR.
--- NOTE | 2021-12-18 09:12 | P.CONPHA_ITS ---
[facility] Pharm[facility] VTE Monitoring - Patient Demographics Admission date: 12/17/21 Report Date: 12/18/21 Time: 09:12 Allergies/Adverse Reactions: Patient Allergies No Known Allergies Allergy (Verified 09/16/20 04:52) Height: 1.57 m Weight: 78.245 kg Patient Problems: Current Active Problems Obesity (BMI 30.0-34.9) (Acute) Hypothyroidism (Acute) Parkinson disease (Acute) CAP (community acquired pneumonia) (Acute) SIRS (systemic inflammatory response syndrome) (Acute) Mild aortic insufficiency (Acute) Rheumatoid arthritis (Acute) - VTE Risk Labs: VTE Related Lab Results Hgb 11.9 g/dL (12.2-16.2) L 12/18/21 05:55 Hct 35.9 % (37.0-47.0) L 12/18/21 05:55 Plt Count 296 K/mm3 (142-424) 12/18/21 05:55 BUN 25 mg/dl (7-17) H D 12/18/21 05:55 Creatinine 0.70 mg/dl (0.52-1.04) D 12/18/21 05:55 Estimated Creat Clear 59 mL/min (50-200) 12/18/21 05:55 Was VTE Risk Assessment Performed: Yes VTE Score: 5 VTE Risk Level: Low Risk Clinical Trial Participant: No - Prophylaxis VTE Prophylaxis Ordered?: Yes Types of VTE Prophylaxis: TEDS Knee High Location of Applied Device: Bilateral Lower Extremeties
[2021-12-18 10:57] LABS: Adenovirus,PCR Not Detected (NotDetected); Bordetella Pertussis Not Detected (NotDetected); Chlamydophila Pneumoniae, PCR Not Detected (NotDetected); Coronavirus 229E Not Detected (NotDetected); Coronavirus NL63 Not Detected (NotDetected); Coronavirus OC43 Not Detected (NotDetected); Coronovirus HKU1,PCR Not Detected (NotDetected); Human Metapneumovirus Not Detected (NotDetected); Influenza A, PCR Not Detected (NotDetected); Influenza AH1, 2009 Not Detected (NotDetected); Influenza AH1, PCR Not Detected (NotDetected); Influenza AH3,PCR Not Detected (NotDetected); Influenza B, PCR Not Detected (NotDetected); Mycoplasma Pneumoniae, PCR Not Detected (NotDetected); Parainfluenza 1, PCR Not Detected (NotDetected); Parainfluenza 2, PCR Not Detected (NotDetected); Parainfluenza 3, PCR Not Detected (NotDetected); Parainfluenza 4, PCR Not Detected (NotDetected); Respiratory Syncytial Virus Not Detected (NotDetected); Rhinovirus/Enterovirus Not Detected (NotDetected)
--- NOTE | 2021-12-18 16:15 | HMH.HP ---
*Admission Date: 12/18/21 *Chief complaint: soa *History of present illness: 76-year-old female presented to the ED for increasing shortness of breath along with left-sided chest pain. Patient states she has been treated for pneumonia 3 times within the last few months. States the pain is midsternal and radiates to under R breast. Denies any cough, fever, n/v/d, or abd pain. Denies use of home oxygen. Pt with hx of rhenmatoid art and parkinson - has hx of card valve dis No history of hypertension, hyperlipidemia or diabetes. pt was found to have pneumonia and admitted for work up and cardiology and pulm consult [facility] History I have reviewed the patient's past medical history: Yes Medical History: Reports:: Congestive Heart Failure, Chronic Obstructive Pulmonary Disease (COPD) Denies:: Cancer, Diabetes Mellitus Type 1, Diabetes Mellitus Type 2, MRSA *Have you ever received a pneumonia vaccine?: Yes *Have you received a flu vaccine this season?: Yes Other Medical History: Reports: Arthritis, Cataracts, Hypothyroidism, Thyroid Disease Laterality Cases: Right: Other Other Surgeries: Yes: Tubal Ligation Amputation: No - *Social History Smoking Status: Never smoker Alcohol Intake: never *Occupational Status:: retired Housing: house Household Members: spouse *Travel in the last 8 weeks: None Family Hx:: No significant family history Review of Systems - Review of Systems Review of systems:: pertinent systems reviewed and negative unless documented below - Constitutional Denies body ache(s) - Eyes Denies blurry vision - ENT Denies bleeding gums - *Cardiovascular Reports chest pain, Reports chest pain at rest, Reports shortness of breath - *Respiratory Reports chest congestion, Reports cough, Reports shortness of breath, Reports shortness of breath with activity - *Gastrointestinal Denies abdominal pain - *Genitourinary Denies abnormal periods - *Musculoskeletal Denies joint pain - Integumentary/Breasts Denies rash - *Neurologic Denies headache(s), Denies seizure-like activity - Psychiatric Denies lack of enjoyment - Endocrine Denies excessive sweating - Hematologic/Lymphatic Denies easy bruising - Allergic/Immunologic Denies itchy eyes Meds Home Medications Medication Instructions Recorded Confirmed Type Celecoxib 200 mg PO DAILY 09/16/20 12/17/21 History Duloxetine HCl 20 mg PO BID 09/16/20 12/17/21 History Folic Acid [Folic Acid 1mg tablet] 2 mg PO DAILY 09/16/20 12/17/21 History LORazepam [Lorazepam 0.5mg Tablet] 0.5 mg PO TIDP PRN 09/16/20 12/18/21 History amantadine HCL [Amantadine] 100 mg PO 0900,1300 09/16/20 12/18/21 History metHOTREXate sodium [metHOTREXate 10 mg PO WEEKLY 09/16/20 12/17/21 History 2.5mg Tablet] Ipratropium/Albuterol Sulfate 2 puff IH QID 12/17/21 12/17/21 History [Combivent Respimat Inh] Levothyroxine Sodium [Euthyrox] 50 mcg PO DAILYDM 12/17/21 12/18/21 History Carbidopa/Levodopa [Sinemet CR 0.5 - 1 each PO 5XDAY 12/18/21 12/18/21 History 50/200mg tablet] Gabapentin 300 mg PO 0900,1300 12/18/21 12/18/21 History Gabapentin 600 mg PO HS 12/18/21 12/18/21 History Methenamine Hippurate 1 gm PO BID 12/18/21 12/18/21 History Spironolactone [Aldactone 50mg 50 mg PO DAILY 12/18/21 12/18/21 History Tab] Allergies Allergy/AdvReac Type Severity Reaction Status Date / Time No Known Allergies Allergy Verified 09/16/20 04:52 Exam Vital signs and Labs for Last 24 Hours: Temp Pulse Resp BP Pulse Ox 97.6 F 80 18 117/62 92 L 12/18/21 08:00 12/18/21 12:00 12/18/21 09:59 12/18/21 08:00 12/18/21 09:59 Laboratory Results - last 24 hr 12/17/21 20:30: ESR 56 H 12/17/21 20:30: Troponin I < 0.01, C-Reactive Protein 57.1 H 12/17/21 20:30: WBC 12.6 H, RBC 3.80 L, Hgb 12.5, Hct 37.4, MCV 98.2, MCH 32.9 H, MCHC 33.5, RDW 15.9, Plt Count 361, MPV 7.7, Neut % (Auto) 78.9, Lymph % (Auto) 10.1, [place] % (Auto) 4.7, Eos % (Auto) 4.9, Baso % (Auto)
--- NOTE | 2021-12-18 18:49 | PC.NURSE ---
PT is alert and oriented x4. Slight tremors noted to extremities. Ambulating x1 to the bathroom. Tolerating room air well. Pt voices desire to go home.
[2021-12-19] VITALS (7 sets, daily range): BP systolic 96–124; BP diastolic 51–69; PULSE 60–83; RESP 16–20; TEMP 36.7–36.8; O2SAT 90–95; BMI 32.8
--- NOTE | 2021-12-19 04:35 | PC.NURSE ---
Pt rested well t/o the night. Pt voiced no c/o of SOA, or pain thus far in shift. Pt can ambulate x1 to bathroom and tolerates well. Pt remains on RA with O2 sats 90-93%.
[2021-12-19 06:39] LABS: Basophils # 0.1 K/mm3 (0-0.2); Basophils % 0.6 % (0.1-2.0); Eosinophils # 0.1 K/mm3 (0.0-0.4); Eosinophils % 0.5 % (0.1-12.0); Hematocrit 36.8 % (37.0-47.0); Hemoglobin 11.9 g/dL (12.2-16.2); Lymphocytes # 1.6 K/mm3 (0.7-4.5); Lymphocytes % 10.4 % (10-50); Mean Corpuscular HGB Conc 32.4 g/dL (31.8-35.4); Mean Corpuscular Hemoglobin 31.9 pg (27.0-31.2); Mean Corpuscular Volume 98.2 fl (81-99); Mean Platelet Volume 8.2 fl (7.4-10.4); Monocytes # 0.7 K/mm3 (0.1-1.0); Monocytes % 4.6 % (1.7-9.3); Neutrophils # 13.2 K/mm3 (1.8-7.8); Neutrophils % 83.9 % (37.0-80.0); Platelet Count 346 K/mm3 (142-424); Red Blood Count 3.75 M/mm3 (4.20-5.40); Red Cell Distribution Width 15.9 % (11.5-17.5); White Blood Count 15.7 K/mm3 (4.8-10.8)
[2021-12-19 06:42] LABS: MANUAL DIFFERENTIAL MANUAL DIFFERENTIAL (MANUAL DIFF)
[2021-12-19 06:48] LABS: Anion Gap 5.3 mEq/L (5-15); Blood Urea Nitrogen 21 mg/dl (7-17); Calcium 8.5 mg/dl (8.4-10.2); Carbon Dioxide 31 mmol/L (22.0-30.0); Chloride 107 mmol/L (98-107); Creatinine Clearance Estimated 61 mL/min (50-200); Estimated Glomerular Filt Rate 81 ml/min (>60); GFR (African American) 98 ML/MIN (>60); Glucose 77 mg/dl (74-100); Potassium 3.3 mmoL/L (3.5-5.1); Sodium 140 mmol/L (136-145)
[2021-12-19 07:19] LABS: Lymphocytes % 10 % (10-50); Monocytes % 3 % (2-9); Neutrophils % 87 % (42-76); Platelet Estimate Normal; RBC Morphology Normal; Total Cells Counted 100
--- NOTE | 2021-12-19 09:15 | HMH.DCSUM ---
General - General Admission date:: 12/17/21 Discharge date: 12/19/21 HPI HPI: 76-year-old female presented to the ED for increasing shortness of breath along with left-sided chest pain. Patient states she has been treated for pneumonia 3 times within the last few months. States the pain is midsternal and radiates to under R breast. Denies any cough, fever, n/v/d, or abd pain. Denies use of home oxygen. Pt with hx of rhenmatoid art and parkinson - has hx of card valve dis No history of hypertension, hyperlipidemia or diabetes. pt was found to have pneumonia and admitted for work up and cardiology and pulm consult Hospital Course Hospital Course: 76-year-old female presented to the ED for increasing shortness of breath along with left-sided chest pain. Patient states she has been treated for pneumonia 3 times within the last few months. States the pain is midsternal and radiates to under R breast. Denies any cough, fever, n/v/d, or abd pain. Denies use of home oxygen. Pt with hx of rhenmatoid art and parkinson - has hx of card valve dis No history of hypertension, hyperlipidemia or diabetes. pt was found to have pneumonia and admitted for work up and cardiology and pulm consult Cardiology has seen and recommends: 1. Bilateral pneumonia, defer to PCP and pulmonary 2. Mild valvular heart disease by echo 2020 and preliminary echo today. Patient relates stress test within the last few years that was unremarkable. She does see Dr. Gallego on a every 6 month basis in [place], [place]. Nothing further to add at this time. Would recommend a repeat stress test as an outpatient once pneumonia has improved. 3. History of Parkinson's disease 4. History of rheumatoid arthritis Pulmonary has seen and recommends: Presented with worsening respiratory distress. received 3 antibiotic courses recently for her known resolving respiratory symptoms. She is currently also on prednisone 20 mg daily. ABG on admission hypercapnic respiratory failure. Mild leukocytosis, improving. BNP [address] on admission, no evidence of pulmonary embolism. Bilateral diffuse opacities with bilateral lower lobe consolidative changes. Worsening from her most recent CTA from December 09, 2021. COVID-19 and flu PCR negative. Echo from September normal EF, enlarged left atrium mild pericardial effusion, inconclusive diastolic parameters. Patient on examination does not appear to be in any respiratory distress. Auscultation bilaterally clear breath sounds. Weaned to room air with saturations maintained at 90% and above. Given patient's near normal respiratory status not needing any oxygen therapy we will hold off on bronchoscopy at this point of time We will update: Patient continued to remain on room air. No acute respiratory symptoms overnight. Plan to be discharged home today. Patient states that she has been receiving antibiotics 3 times since her last month for respiratory symptoms, unclear etiology patient advised to call pulmonary clinic with any respiratory symptoms. Recommend to stop using prednisone and also to hold her methotrexate. Slight worsening leukocytosis. Respiratory status remained stable. Plan: Incentive Spirometry Repeat sputum culture with induction before discharge Continue ceftriaxone azithromycin, can be weaned to Augmentin TID upon discharge to complete a total of 7-day course Combivent every 6 hours on as-needed basis F/U Serum beta D glucan Thank you for involving pulmonary in this patient care. We will follow in pulmonary clinic in 7 to 10 days with chest x-ray prior to clinic visit. CAP (community acquired pneumonia) Chest CT revealed No pulmonary embolism and moderate bilateral pneumonia which have worsened since December 09, 2021. She has received ceftriaxone and azithromycin IV while inpatient, she will be discharged on Augmentin 3 times daily for a total of 7-day treatment. Sputum culture received and will fol
--- NOTE | 2021-12-19 10:09 | HMH.PULMPN ---
Internal Medicine - PN: Subj *Date: 12/19/21 *Time: 10:09 Interval history: No acute respiratory events overnight. Continues to remain on room air. Exam - Constitutional Constitutional:: Present: no acute distress, comfortable - HENMT Exam HENMT: Present: normocephalic - Eye Exam Eyes:: Present: normal appearance both eyes and related structures - Neck Exam Neck:: Present: normal visual inspection - Respiratory Exam Respiratory:: Present: able to speak in complete sentences, no respiratory distress. Absent: wheezing - Cardiovascular Exam Cardiac:: Present: S1, S2 - GI Exam GI:: Present: soft - Skin Exam Skin: Present: warm, no rash - Neurological Exam Neurological: Present: alert, awake - Extremities Exam Extremities: Present: no cyanosis, no clubbing, no edema - Psychiatric Exam Psychiatric: Present: normal affect Assessment and Plan (1) CAP (community acquired pneumonia) Status: Acute Qualifiers: Laterality: unspecified laterality Qualified Code(s): J18.9 - Pneumonia, unspecified organism Category: Medical Code(s): J18.9 - Pneumonia, unspecified organism (2) Rheumatoid arthritis Status: Acute Category: Medical Code(s): M06.9 - Rheumatoid arthritis, unspecified (3) Hypothyroidism Status: Acute Qualifiers: Hypothyroidism type: acquired Qualified Code(s): E03.9 - Hypothyroidism, unspecified Category: Medical Code(s): E03.9 - Hypothyroidism, unspecified (4) Parkinson disease Status: Acute Category: Medical Code(s): G20 - Parkinson's disease (5) Mild aortic insufficiency Status: Acute Category: Medical Code(s): I35.1 - Nonrheumatic aortic (valve) insufficiency - Assessment and plan all Dx Assessment and Plan for all problems:: #Community-acquired pneumonia: #History of rheumatoid arthritis on methotrexate: Presented with worsening respiratory distress. received 3 antibiotic courses recently for her known resolving respiratory symptoms. She is currently also on prednisone 20 mg daily. ABG on admission hypercapnic respiratory failure. Mild leukocytosis, improving. BNP [address] on admission, no evidence of pulmonary embolism. Bilateral diffuse opacities with bilateral lower lobe consolidative changes. Worsening from her most recent CTA from December 09, 2021. COVID-19 and flu PCR negative. Echo from September normal EF, enlarged left atrium mild pericardial effusion, inconclusive diastolic parameters. Patient on examination does not appear to be in any respiratory distress. Auscultation bilaterally clear breath sounds. Weaned to room air with saturations maintained at 90% and above. Given patient's near normal respiratory status not needing any oxygen therapy we will hold off on bronchoscopy at this point of time We will update: Patient continued to remain on room air. No acute respiratory symptoms overnight. Plan to be discharged home today. Patient states that she has been receiving antibiotics 3 times since her last month for respiratory symptoms, unclear etiology patient advised to call pulmonary clinic with any respiratory symptoms. Recommend to stop using prednisone and also to hold her methotrexate. Slight worsening leukocytosis. Respiratory status remained stable. Plan: Incentive Spirometry Repeat sputum culture with induction before discharge Continue ceftriaxone azithromycin, can be weaned to Augmentin TID upon discharge to complete a total of 7-day course Combivent every 6 hours on as-needed basis F/U Serum beta D glucan Thank you for involving pulmonary in this patient care. We will follow in pulmonary clinic in 7 to 10 days with chest x-ray prior to clinic visit.
--- NOTE | 2021-12-19 11:05 | DIET.NUTRFU ---
upon nutritional interview yesterday patient c/o GERD, today she indicated it maybe more of a swallowing issue. Barium swallow study ordered d/t have multiple episodes of PNA. Will follow-up with any recommendations. Patient indicated she is ready to go home
--- NOTE | 2021-12-19 12:01 | HMH.SLDYSPHA ---
Speech & Language Evaluation Speech/Language Dysphagia Evaluation Start: 12/19/21 11:53 Freq: ONCE Status: Active Protocol: Document 12/19/21 11:53 SOWMYAREBEL (Rec: 12/19/21 12:01 MARLEY [id number]) Dysphagia Assess/Goals/Plan Assessment Date of Evaluation: 12/19/21 Evaluation Type Initial Certification Assessment/Problems Recurrent pneumonia Does Patient Qualify for Service No Qualify/Failure Comment Based on the results of the clinical swallow evaluation, patient requires further testing to determine if skilled speech therapy services are warranted at this time. Recommendations PHYSICIAN CERTIFICATION: The specified therapy services are required, authorized, and reviewed every 30 days. Diet Recommendations Mechanical Soft Liquid Type Recommendations Normal/Thin SL Swallow Guidelines Standard Aspiration Prec. Dysphagia Swallow Precautions/Strategies Sitting Upright (90 deg),Small Bites and Sips,Alternate Liquids/Solids Place Food on Either side of Mouth Plan Pt/Guardian verbally ack understanding Yes of dx/prognosis/goals Pt/Guardian verbally ack understanding Yes of/consent to tx prog G -code Required No Education Instructions provided Results of the clinical swallow evaluation discussed with patient, along with recommendations for a modified barium swallow study, patient indicated understanding. Pt/Caregiver able to recall information Able to recall/restate Reinforcement needed No Speech & Language HPI History Present Illness Description of Patient Problem Emily is a 76 y/o female presenting to [facility] with SOA and recurrent pnemonia. PMH includes Parkinson's and COPD. She is currently on a regular diet and thin liquids. Rehab Services Assessed Speech therapy Is this evaluation r/t stroke? No Language Primary Language Bhutanese Lytton Lang/Spoken in Home Bhutanese General Information General Current Food Consistancy Regular,Thin Liquids Dentition Upper Only Oxygen Status Room Air Facial Symmetry Symmetrical Patient Orientation Person,Place,Time,Situation Ability to Follow Directions Excellent Communication Ability No Impairment Dysphagia:Food Presentation
--- NOTE | 2021-12-19 12:50 | HMH.PHAINT ---
DISCHARGE MEDICATION COUNSELING PROVIDED. DISCUSSED SHORT-COURSE AMOXIL. DISCUSSED TO TAKE WITH FOOD FOR GI UPSET, WATCH FOR DIARRHEA. PATIENT ENDORSED NO QUESTIONS AT THIS TIME.
[2021-12-23 10:11] LABS: Fungitell(Beta D-Glucan) Serum 104 pg/mL (<80)
--- NOTE | 2021-12-23 15:02 | CARE MANAGER ---
Contacted patient related to hospital discharge. She states she did take her antibiotic as prescribed. Patient is using Oxygen as usually does.
== END 2021-12-19 13:49 | disposition home or self-care (01) | DRG 193 ==
LOC: ER 22:23 → 2ND 22:24
PROVIDERS: Internal Medicine Pulmonary Disease; Nurse Practitioner Family; Admitting Provider Emergency Medicine; Emergency Provider Emergency Medicine; PCP Internal Medicine; Visit Provider Emergency Medicine
DX: J18.9 Pneumonia, unspecified organism (principal); J96.01 Acute respiratory failure with hypoxia; J44.0 Chronic obstructive pulmonary disease with (acute) lower respiratory infection; G20 Parkinson's disease; E66.9 Obesity, unspecified; Z68.32 Body mass index [BMI] 32.0-32.9, adult; E03.9 Hypothyroidism, unspecified; I50.9 Heart failure, unspecified; M06.9 Rheumatoid arthritis, unspecified; I35.1 Nonrheumatic aortic (valve) insufficiency; Z20.822 Contact with and (suspected) exposure to COVID-19
CPT/HCPCS: 36415; 71045; 71275; 80048; 80076; 81001; 82803; 83605; 83735; 83880; 84145; 84484; 85007; 85025; 85651; 86140; 87040; 87070; 87205; 87449; 87486; 87581; 87632; 87798; 92610; 93005; 93306; 96375; 99285; C9803; G0238; J0456; J0696; Q9967; U0003; U0005

== ENCOUNTER → 2021-12-25 12:55 | Outpatient (CLI) | payer MEDICARE, SELFPAY ==
--- NOTE | 2021-12-25 13:02 | XR_ITS ---
FINAL REPORT CLINICAL HISTORY: Pneumothorax follow-up COMPARISON: December 17, 2021 FINDINGS: Two views of the chest were obtained. The heart size and pulmonary vascularity are within normal limits. The mediastinum is normal. There are persistent but partially improved mild pulmonary opacities, may represent improved edema or pneumonia. There is no pneumothorax. The bony thorax is intact. IMPRESSION: Persistent partially improved mild pulmonary opacities, may represent improved edema or pneumonia. Reviewed, Interpreted and Dictated by Mauro Carballo III, MD Transcribed by Corrina Rios Authenticated by Mauro Carballo III, MD on 12/25/2021 04:45:01 PM [facility]
[2021-12-25 16:45] LABS: C-Reactive Protein 7.4 mg/L (0-4)
[2021-12-28 00:21] LABS: Anti-Cyclic Citrullinated Pept 76 units (0-19)
[2021-12-29 17:11] LABS: Aspergillus flavus Negative (Neg:<1:1); Aspergillus fumigatus Negative (Neg:<1:1); Aspergillus niger Negative (Neg:<1:1); Blastomyces Antibody Negative (Neg:<1:1)
[2021-12-30 08:10] LABS: Cytoplasmic (C-ANCA) <1:20 titer (Neg:<1:20); Perinuclear (P-ANCA) <1:20 titer (Neg:<1:20)
[2021-12-31 19:27] LABS: Fungitell(Beta D-Glucan) Serum 60 pg/mL (<80)
[2022-01-01 11:19] LABS: Aspergillus fumigatus IgG Negative (Negative); Pigeon Serum Abs Negative (Negative)
[2022-01-04 19:05] LABS: Antinuclear Antibodies (ANA) NEGATIVE
== END ==
PROVIDERS: PCP Internal Medicine; Visit Provider Internal Medicine Pulmonary Disease
DX: R06.00 Dyspnea, unspecified; J18.9 Pneumonia, unspecified organism; J84.10 Pulmonary fibrosis, unspecified
CPT/HCPCS: 36415; 71046; 86038; 86140; 86200; 86225; 86235; 86256; 86331; 86431; 86602; 86606; 86609; 86612; 87449

== ENCOUNTER 2021-12-29 11:28 | Inpatient (IN) | payer MEDICARE, SELFPAY ==
[2021-12-29] VITALS (10 sets, daily range): BP systolic 111–129; BP diastolic 52–75; PULSE 60–80; RESP 18–40; TEMP 36.4–36.9; O2SAT 90–98; BMI 32.1; BMI 32.4
--- NOTE | 2021-12-29 11:36 | ECG_ITS ---
APPROVED REPORT Exam: Resting ECG HR:71 bpm ECG Measurements Heart Rate 71 AXES IL 163 P 74 QRSd 94 QRS 1 QT 328 T 66 QTc 351 Conclusion SINUS RHYTHM MODERATE VOLTAGE CRITERIA FOR LVH, CONSIDER NORMAL VARIANT [MEETS CRITERIA IN ONE OF: R(aVL), S(V1), R(V5), R(V5/V6)+S(V1)] NONSPECIFIC T-WAVE ABNORMALITY BORDERLINE ECG UNCONFIRMED REPORT Electronically signed by : Tyson Adrian MD 12/30/2021 17:47:31
--- NOTE | 2021-12-29 11:39 | PC.NURSE ---
Rn x 2 and tech in room assessing pt obtaining vitals, triage, EKG, IV and labs. Pts @ BS
--- NOTE | 2021-12-29 11:40 | HMH.EDGENADL ---
ED Disposition Clinical Impression: Pulmonary infiltrates on CXR Respiratory failure with hypoxia Qualifiers: Chronicity: acute on chronic Qualified Code(s): J96.21 - Acute and chronic respiratory failure with hypoxia Disposition: Admitted As Inpatient Condition on Discharge: Fair Referrals: Hossein Grimaldo MD [Primary Care Provider] - - Critical Care Critical Care Time: No Attestation: On , the high probability of a clinically significant, sudden or life threatening deterioration of the following system(s) required my full and direct attention, intervention and personal management. The time I documented below is in addition to time spent performing reported procedures but includes the following listed in this critical care notation. Medical Decision Making - Medical Records Medical records reviewed: Yes: I reviewed the patient's medical records. MR Comment: Reviewed discharge summary from admission 12/17/2021 through 12/19/2021 for shortness of breath. Reviewed pulmonary clinic note from Dr. Fernandez 12/25/2021. Patient has elevated beta D glucan with presumed fungal infection, therefore prednisone was stopped and she was started on itraconazole. 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 - Nikunj Inquiry Pt receiving controlled substance: No Vital Signs: 12/29/21 11:29 12/29/21 11:38 12/29/21 12:38 Temperature 98.4 F Temperature Source Oral Pulse Rate 73 65 Pulse Rate [Radial] 80 Respiratory Rate 40 H 20 Blood Pressure 116/52 L 111/66 Blood Pressure [Right Arm] 115/62 Blood Pressure Mean 73 77 Blood Pressure Mean [Right Arm] 79 Blood Pressure Position [Right Arm] Sitting 02 Sat by Pulse Oximetry 93 L 95 98 Oxygen Delivery Method Nasal Cannula Oxygen Flow Rate (LPM) 3 - Lab Data Lab Results 12/29/21 12:00: WBC 13.9 H, RBC 4.04 L, Hgb 12.3, Hct 39.2, MCV 97.0, MCH 30.6, MCHC 31.5 L, RDW 15.5, Plt Count 349, MPV 8.0, Neut % (Auto) 85.9 H, Lymph % (Auto) 7.9 L, Ware % (Auto) 3.5, Eos % (Auto) 1.5, Baso % (Auto) 1.3, Neut # (Auto) 11.9 H, Lymph # (Auto) 1.1, Ware # (Auto) 0.5, Eos # (Auto) 0.2, Baso # (Auto) 0.2 12/29/21 12:00: Sodium 133 L, Potassium 4.1, Chloride 97 L, Carbon Dioxide 33 H, Anion Gap 7.1, BUN 21 H, Creatinine 0.90, Estimated Creat Clear 60, Estimated GFR 61, Est GFR ( Amer) 74, Glucose 115 H, Calcium 9.3, Total Bilirubin 0.5, AST 20, ALT 7 L, Alkaline Phosphatase 160 H, Troponin I < 0.01, NT-Pro-B Natriuret Pep 452 H, Total Protein 6.9, Albumin 3.6, Globulin 3.3 H, Albumin/Globulin Ratio 1.1 12/29/21 12:00: Urine Color Yellow, Urine Appearance Clear, Urine pH 6.5, Ur Specific Tyner 1.025, Urine Protein Trace, Urine Glucose (UA) Negative, Urine Ketones Negative, Urine Blood Negative, Urine Nitrate Negative, Urine Bilirubin Negative, Urine Urobilinogen 0.2, Ur Leukocyte Esterase Negative, Urine RBC None, Urine WBC Occasional, Ur Squamous Epith Cells Occasional, Urine Bacteria Trace 12/29/21 12:00: Lactate 1.0 12/29/21 12:00: SARS-CoV-2 (PCR) Not detected, Influenza A Untype (PCR) Not detected, Influenza Type B (PCR) Not detected 12/29/21 12:00: Lipase 37 Result diagrams: 12/29/21 12:00 12/29/21 12:00 Orders (Tests/Meds): ED MEDICATIONS Generic Name Dose Route Start Last Admin Trade Name Freq PRN Reason Stop Dose Admin Micafungin Sodium 100 mg/ 100 mls @ 100 mls/hr 12/29/21 13:15 Sodium Chloride IV 01/12/22 13:14 Q24H ALEJA Cefepime HCl 2 gm/ Sodium 100 mls @ 100 mls/hr 12/29/21 13:15 Chloride IV 01/12/22 13:14 Q12H ALEJA Sodium Chloride 3 ml 12/29/21 11:55 Sodium Chloride 3% 15ml Neb IH 01/28/22 11:54 ONCE PRN INDUCE SPUTUM COLLECTION ORDERS Category Date Time Status Consult to Pulmonology [CONS] Stat Cons 12/29/21 12:59 Active Complete Blood Count Auto Diff Stat Lab 12/29/21 12:00 Results Troponin I Q3H Lab 12/29/21 15:00 Ordered Troponin I Q3H La
--- NOTE | 2021-12-29 11:51 | PC.NURSE ---
in to talk to Pt
--- NOTE | 2021-12-29 11:55 | XR_ITS ---
PROCEDURE INFORMATION: Exam: XR Chest Exam date and time: 12/29/2021 11:57 AM Age: 76 years old Clinical indication: Shortness of breath; Additional info: SOB TECHNIQUE: Imaging protocol: XR of the chest. Views: 1 view. COMPARISON: CR XR CHEST 2V 12/25/2021 1:26 PM FINDINGS: Lungs: Patchy interstitial infiltrates most pronounced at the left lung base. Findings in the left lower lobe have progressed since the previous study. Pleural spaces: Unremarkable. No pleural effusion. No pneumothorax. Heart/Mediastinum: Unremarkable. No cardiomegaly. Bones/joints: Unremarkable. IMPRESSION: Patchy interstitial infiltrates most pronounced at the left lung base. Findings have progressed since 12/25/2021.
[2021-12-29 12:18] LABS: Coronavirus 19, PCR Not Detected (NotDetected); Influenza A, PCR Not Detected (NotDetected); Influenza B, PCR Not Detected (NotDetected); Microscopic, Urine URINE MICROSCOPIC (MICROSCOPIC)
[2021-12-29 12:25] LABS: Appearance,Urine CLEAR (Clear); Bilirubin,Urine Negative (Negative); Blood, Urine Negative (Negative); Color,Urine YELLOW (Yellow); Glucose,Urine (UA) Negative (Negative); Ketones,Urine Negative (Negative); Leukocyte Esterase,Urine Negative (Negative); Nitrate,Urine Negative (Negative); PH,Urine 6.5 (5.0-8.5); Protein,Urine TRACE (Negative); Specific Gravity, Urine 1.025 (1.005-1.030); Urobilinogen,Urine 0.2 EU/dl (0.2)
[2021-12-29 12:29] LABS: Chloride 97 mmol/L (98-107); Potassium 4.1 mmoL/L (3.5-5.1); Sodium 133 mmol/L (136-145)
[2021-12-29 12:31] LABS: Alanine Aminotransferase 7 U/L (12-78); Aspartate Amino Transferase 20 U/L (14-36); Blood Urea Nitrogen 21 mg/dl (7-17); Creatinine Clearance Estimated 60 mL/min (50-200); Estimated Glomerular Filt Rate 61 ml/min (>60); GFR (African American) 74 ML/MIN (>60)
[2021-12-29 12:32] LABS: Albumin Level 3.6 g/dl (3.5-5.0); Albumin/Globulin Ratio 1.1 (1.1-1.8); Alkaline Phosphatase 160 U/L (38-126); Anion Gap 7.1 mEq/L (5-15); Bilirubin,Total 0.5 mg/dl (0.2-1.3); Calcium 9.3 mg/dl (8.4-10.2); Carbon Dioxide 33 mmol/L (22.0-30.0); Globulin 3.3 g/dL (1.3-3.2); Glucose 115 mg/dl (74-100); Total Protein,Serum 6.9 g/dl (6.3-8.2)
[2021-12-29 12:33] LABS: Hematocrit 39.2 % (37.0-47.0); Hemoglobin 12.3 g/dL (12.2-16.2); Red Blood Count 4.04 M/mm3 (4.20-5.40); White Blood Count 13.9 K/mm3 (4.8-10.8)
[2021-12-29 12:34] LABS: Basophils # 0.2 K/mm3 (0-0.2); Basophils % 1.3 % (0.1-2.0); Eosinophils # 0.2 K/mm3 (0.0-0.4); Eosinophils % 1.5 % (0.1-12.0); Lymphocytes # 1.1 K/mm3 (0.7-4.5); Lymphocytes % 7.9 % (10-50); Mean Corpuscular HGB Conc 31.5 g/dL (31.8-35.4); Mean Corpuscular Hemoglobin 30.6 pg (27.0-31.2); Monocytes # 0.5 K/mm3 (0.1-1.0); Monocytes % 3.5 % (1.7-9.3); Neutrophils # 11.9 K/mm3 (1.8-7.8); Neutrophils % 85.9 % (37.0-80.0); Platelet Count 349 K/mm3 (142-424); Red Cell Distribution Width 15.5 % (11.5-17.5)
[2021-12-29 12:39] LABS: Lipase 37 U/L (23-300)
[2021-12-29 12:40] LABS: Bacteria,Urine Trace /lpf; Squamous Epithelial Cell,Urine Occasional #/hpf (0-5); WBC,Urine Occasional #/hpf (0-3)
[2021-12-29 12:41] LABS: NT Pro Brain Natriuretic Pep. 452 pg/mL (0-450)
[2021-12-29 12:44] LABS: MANUAL DIFFERENTIAL MANUAL DIFFERENTIAL (MANUAL DIFF)
[2021-12-29 12:46] LABS: Troponin I < 0.01 ng/ml (0.00-0.034)
--- NOTE | 2021-12-29 12:57 | PC.NURSE ---
CALL PLACED TO PULMONARY
--- NOTE | 2021-12-29 13:10 | PC.NURSE ---
paged bonding equipment operator , [phone], DR CARLSON
--- NOTE | 2021-12-29 13:43 | PC.NURSE ---
ACCOUNT UNDERWRITER CALLED REGARDING PT ADMISSION
--- NOTE | 2021-12-29 13:45 | PC.NURSE ---
pt ambulated to bathroom per pt request o2 sats dropped to 60% pt placed back on 4 LPM o2 sat quickly came back to 91% she states that has been happening at home all the time
--- NOTE | 2021-12-29 13:53 | PC.NURSE ---
pt went to restroom ambulated well but o2 sat was down some from walk
--- NOTE | 2021-12-29 14:25 | PC.NURSE ---
REPORT CALLED TO FLOOR
[2021-12-29 15:06] LABS: Eosinophils % 1 % (0-3); Lymphocytes % 11 % (10-50); Monocytes % 1 % (2-9); Neutrophils % 87 % (42-76); Platelet Estimate Normal; RBC Morphology Normal; Total Cells Counted 100
[2021-12-29 20:26] LABS: Allen's Test Y; Oxygen 50 %; Source Right Radial
[2021-12-29 20:30] LABS: ABG Base Excess 2.6 mmol/L (-2.4-2.3); ABG HCO3 26.4 mmhg (22.0-26.0); ABG Oxygen Saturation 90 % (90-100); ABG PCO2 37.5 mmhg (35.0-45.0); ABG PH 7.47 mmol/L (7.35-7.45); ABG PO2 55.3 mmhg (80-100); ABG TCO2 27.5 mmhg (23-27)
[2021-12-30] VITALS (24 sets, daily range): BP systolic 87–110; BP diastolic 44–59; PULSE 58–84; RESP 16–24; TEMP 36.4–43; O2SAT 88–100; BMI 31.0
--- NOTE | 2021-12-30 07:16 | P.CONPHA_ITS ---
[facility] Pharmacy VTE Monitoring - Patient Demographics Admission date: 12/29/21 Report Date: 12/30/21 Time: 07:16 Allergies/Adverse Reactions: Patient Allergies No Known Allergies Allergy (Verified 12/25/21 13:49) Height: 1.6 m Weight: 79.4 kg Patient Problems: Current Active Problems Respiratory failure with hypoxia (Acute) Pulmonary infiltrates on CXR (Acute) - VTE Risk Labs: VTE Related Lab Results Hgb 12.3 g/dL (12.2-16.2) 12/29/21 12:00 Hct 39.2 % (37.0-47.0) 12/29/21 12:00 Plt Count 349 K/mm3 (142-424) 12/29/21 12:00 BUN 21 mg/dl (7-17) H 12/29/21 12:00 Creatinine 0.90 mg/dl (0.52-1.04) 12/29/21 12:00 Estimated Creat Clear 60 mL/min (50-200) 12/29/21 12:00 VTE Score: 4 VTE Risk Level: Low Risk - Prophylaxis VTE Prophylaxis Ordered?: Yes Types of VTE Prophylaxis: TEDS Knee High Location of Applied Device: Bilateral Lower Extremeties
--- NOTE | 2021-12-30 07:38 | HMH.PHAINT ---
MEDICATION RECONCILIATION COMPLETED ON PATIENT USING EXTERNAL FILL HISTORY FROM PHARMACY AND LIST FROM PULMONOLOGY OFFICE. -PROSPER FINKD
--- NOTE | 2021-12-30 08:41 | HMH.HP ---
*Admission Date: 12/29/21 *Chief complaint: soa *History of present illness: 76 yr old female presents to ed with c/o of chest pain or shortness of breath. Pt states that she has had intermittent chest pains for couple of days, but is not in pain now. states that after seeing the lung specialist on 12/25/2021, her prednisone was stopped and she was started on itraconazole, states she has taken 5 doses. Patients states ever since then she has gone downhill. she is short of breath all night unable to sleep, and sat up in a chair all night. She complained that the itraconazole up set her stomach, feels that her symptoms may be related to the medication. He says that she had been on prednisone 40 mg until 12/25/2021 when she saw the lung doctor. When she saw the lung doctor in the office he was actually able to take her off of oxygen and her pulse ox remained greater than 90 while in the office. Patient states that she was told to use oxygen only as needed. Prednisone was stopped and he says that since then her oxygen saturation drops into the 70s if she removes her oxygen, she has been using oxygen / since prednisone was discontinued. Patient/family states she has been having increasing respiratory difficulty over the past few months. Treated with antibiotics multiple times for pneumonia. She had been on methotrexate for rheumatoid arthritis, which was stopped also recently per family. Pt was placed on vapertherm and admitted. pulm consult placed [facility] History I have reviewed the patient's past medical history: Yes Medical History: Reports:: Congestive Heart Failure, Chronic Obstructive Pulmonary Disease (COPD) Denies:: Cancer, Diabetes Mellitus Type 1, Diabetes Mellitus Type 2, MRSA *Have you ever received a pneumonia vaccine?: No *Have you received a flu vaccine this season?: Yes Other Medical History: Reports: Arthritis, Cataracts, Hypothyroidism, Thyroid Disease Laterality Cases: Right: Other Other Surgeries: Yes: Tubal Ligation Amputation: No Fractures: Yes - *Social History Smoking Status: Never smoker Alcohol Intake: never *Occupational Status:: retired Housing: house Household Members: spouse *Travel in the last 8 weeks: None Family Hx:: No significant family history Review of Systems - Review of Systems Review of systems:: pertinent systems reviewed and negative unless documented below - Constitutional Denies body ache(s), Denies lack of energy - Eyes Denies dry eyes - ENT Denies abnormal hearing - *Cardiovascular Reports chest pain at rest, Reports chest pain with activity, Reports shortness of breath, Reports shortness of breath with activity - *Respiratory Reports cough, Reports shortness of breath, Reports shortness of breath with activity - *Gastrointestinal Reports nausea - *Genitourinary Denies urinary urgency - *Musculoskeletal Denies abnormal walking - Integumentary/Breasts Denies rash - *Neurologic Denies dizziness - Psychiatric Denies lack of enjoyment - Endocrine Denies rapid, pounding, or irregular heartbeat - Hematologic/Lymphatic Denies enlarged lymph nodes - Allergic/Immunologic Denies lip swelling Meds Home Medications Medication Instructions Recorded Confirmed Type Celecoxib 200 mg PO DAILY 09/16/20 12/29/21 History Duloxetine HCl 20 mg PO BID 09/16/20 12/29/21 History Folic Acid [Folic Acid 1mg tablet] 2 mg PO DAILY 09/16/20 12/29/21 History LORazepam [Lorazepam 0.5mg Tablet] 0.5 mg PO TIDP PRN 09/16/20 12/29/21 History amantadine HCL [Amantadine] 100 mg PO 0900,1300 09/16/20 12/29/21 History Levothyroxine Sodium [Euthyrox] 50 mcg PO DAILYDM 12/17/21 12/29/21 History Carbidopa/Levodopa [Sinemet CR 0.5 - 1 each PO 5XDAY 12/18/21 12/29/21 History 50/200mg tablet] Gabapentin 300 mg PO 0900,1300 12/18/21 12/29/21 History Gabapentin 600 mg PO HS 12/18/21 12/29/21 History Methenamine Hippurate 1 gm PO BID 12/18/21 12/29/21 History Jermain
--- NOTE | 2021-12-30 09:22 | HMH.PULMCON ---
*Admission Date: 12/29/21 *Reason for consult:: Acute on chronic hypoxic respiratory failure, fungal pneumonia *History of present illness: Ms. Mathis is a 76-year-old female no significant smoking history has been experiencing recurrent pneumonia for the last 2 months without any significant improvement. She also history of rheumatoid arthritis on methotrexate. It was initiated on Itraconazole e for fungal pneumonia and her steroids were discontinued. She presented worsening respiratory distress. Denies any worsening cough or productive phlegm [facility] History Medical History: Reports:: Congestive Heart Failure, Chronic Obstructive Pulmonary Disease (COPD) Denies:: Cancer, Diabetes Mellitus Type 1, Diabetes Mellitus Type 2, MRSA *Have you ever received a pneumonia vaccine?: No *Have you received a flu vaccine this season?: Yes Other Medical History: Reports: Arthritis, Cataracts, Hypothyroidism, Thyroid Disease Laterality Cases: Right: Other Other Surgeries: Yes: Tubal Ligation Amputation: No Fractures: Yes - *Social History Smoking Status: Never smoker Alcohol Intake: never *Occupational Status:: retired Housing: house Household Members: spouse *Travel in the last 8 weeks: None Family Hx:: No significant family history ROS - Cons Reports body ache(s), Reports fatigue - Eyes Denies change in vision - ENT Denies bleeding gums - Card Reports shortness of breath, Reports shortness of breath with activity - Resp Respiratory: Reports chest congestion, Reports cough, Denies excessive phlegm production, Denies coughing up blood, Reports cough with sputum production - GI Gastrointestingal: Denies: abdominal pain - [place] Musculoskeletal: Reports small joint pain in the hands - Psych Denies thoughts of hurting/killing others, Denies thoughts of hurting/killing yourself Meds Home Medications Medication Instructions Recorded Confirmed Type Celecoxib 200 mg PO DAILY 09/16/20 12/29/21 History Duloxetine HCl 20 mg PO BID 09/16/20 12/29/21 History Folic Acid [Folic Acid 1mg tablet] 2 mg PO DAILY 09/16/20 12/29/21 History LORazepam [Lorazepam 0.5mg Tablet] 0.5 mg PO TIDP PRN 09/16/20 12/29/21 History amantadine HCL [Amantadine] 100 mg PO 0900,1300 09/16/20 12/29/21 History Levothyroxine Sodium [Euthyrox] 50 mcg PO DAILYDM 12/17/21 12/29/21 History Carbidopa/Levodopa [Sinemet CR 0.5 - 1 each PO 5XDAY 12/18/21 12/29/21 History 50/200mg tablet] Gabapentin 300 mg PO 0900,1300 12/18/21 12/29/21 History Gabapentin 600 mg PO HS 12/18/21 12/29/21 History Methenamine Hippurate 1 gm PO BID 12/18/21 12/29/21 History Spironolactone [Aldactone 50mg 50 mg PO DAILY 12/18/21 12/29/21 History Tab] Itraconazole 100 mg PO BID 12/29/21 12/29/21 History Ipratropium/Albuterol Sulfate 2 puff IH QID 12/30/21 12/30/21 History [Combivent Respimat Inh] Allergies Allergy/AdvReac Type Severity Reaction Status Date / Time No Known Allergies Allergy Verified 12/25/21 13:49 Exam - Constitutional Constitutional:: Absent: no acute distress, comfortable - HENMT Exam HENMT: Present: normocephalic, atraumatic - Eye Exam Eyes:: Present: normal appearance both eyes and related structures - Neck Exam Neck:: Present: normal visual inspection - Respiratory Exam Respiratory:: Present: respiratory distress, crackles. Absent: able to speak in complete sentences, accessory muscle use - Cardiovascular Exam Cardiac:: Present: S1, S2 - GI Exam GI:: Present: soft, no hepatosplenomegaly - Skin Exam Skin: Present: warm, no rash - Neurological Exam Neurological: Present: alert, awake - Extremities Exam Extremities: Present: no cyanosis, no clubbing Comments: Lt LE Edema Internal Medicine - CN: Reslt - Labs CBC & Chem 7: 12/29/21 12:00 12/29/21 12:00 Labs: Short CBC 12/29/21 Range/Units 12:00 WBC 13.9 H (4.8-10.8) K/mm3 Hgb 12.3 (12.2-16.2) g/dL Hct 39.2 (37.0-47.0) % Plt Count 349 (14
--- NOTE | 2021-12-30 09:29 | PC.NURSE ---
RESP CARE NOTE: Pt SPO2 at 87% on 30L/60%. FIO2 increased to 70% FIO2 to keep SPO2 at 90%. Will continue to monitor patient and wean according to SPO2 and work of breathing.
--- NOTE | 2021-12-30 10:50 | CA_ITS ---
FINAL REPORT CLINICAL HISTORY: Hypoxia, Hx previous DVT >3years ago.Parkinson's disease, Restless leg syndrome. FINDINGS: DUPLEX VENOUS SONOGRAPHY OF THE BILATERAL LOWER EXTREMITIES Multiple transverse and longitudinal scans were performed of the femoropopliteal deep venous systems, with augmentation and compression maneuvers. FINDINGS: Normal phasic flow was noted in the visualized deep venous systems. No intraluminal increased echogenicity is noted to suggest thrombus. There is normal compression and augmentation of the venous structures. No abnormal venous collaterals are seen. IMPRESSION: No evidence of deep venous thrombosis of the bilateral lower extremities. Reviewed, Interpreted and Dictated by Mahi Long MD Transcribed by Shanda Ibanez Authenticated by Mahi Long MD on 12/30/2021 01:20:26 PM [facility]
[2021-12-30 13:22] LABS: Microscopic, Urine URINE MICROSCOPIC (MICROSCOPIC)
[2021-12-30 13:28] LABS: Appearance,Urine CLEAR (Clear); Bilirubin,Urine Negative (Negative); Blood, Urine Negative (Negative); Color,Urine YELLOW (Yellow); Glucose,Urine (UA) Negative (Negative); Ketones,Urine Negative (Negative); Leukocyte Esterase,Urine Negative (Negative); Nitrate,Urine Negative (Negative); PH,Urine 7.5 (5.0-8.5); Protein,Urine Negative (Negative); Specific Gravity, Urine 1.015 (1.005-1.030); Urobilinogen,Urine 0.2 EU/dl (0.2)
--- NOTE | 2021-12-30 13:38 | P.PN_ITS ---
[facility] Anesthesia Checklist - Patient Identification Patient Identification: Arm Band - Structural Data Admitted From: Home Planned Operative Procedure/s: Bronchoscopy with Transbronchial Biopsy Consent for Planned Operative Procedure(s) Verified: Yes Verified Documents: Surgical Consent, History and Physical - NPO Status Verified Time NPO: 00:00 - Additional verifications Anesthesia Reactions: No - Airway Assessment C-Spine Mobility Assessed: Yes (mp2) TMJ Mobility Assessed: Yes Dentition: Edentulous - Neurological Assessment Level of Consciousness: Awake, Alert - Anesthesia Plan Anesthesia Risk discussed: Yes Anesthesia Plan: Verified ASA Class: III Anesthesia Type: General - Preoperative Comments Pre-Operative Comments: Discussed plan of care with pt and family. Discussed high likelyhood of pt remaining intubated following procedure. Pt and family all verbalized understanding. [facility] History Medical History: Reports:: Congestive Heart Failure, Chronic Obstructive Pulmonary Disease (COPD) Denies:: Cancer, Diabetes Mellitus Type 1, Diabetes Mellitus Type 2, MRSA *Have you ever received a pneumonia vaccine?: No *Have you received a flu vaccine this season?: Yes Other Medical History: Reports: Arthritis, Cataracts, Hypothyroidism, Thyroid Disease Anesthesia experience/problems:: nac Laterality Cases: Right: Other Other Surgeries: Yes: Tubal Ligation Amputation: No Fractures: Yes - *Social History Smoking Status: Never smoker Alcohol Intake: never Substance Use Type: denies use *Occupational Status:: retired Housing: house Household Members: spouse *Travel in the last 8 weeks: None Family Hx:: No significant family history
[2021-12-30 13:44] LABS: Bacteria,Urine Trace /lpf; Squamous Epithelial Cell,Urine Occasional #/hpf (0-5)
--- NOTE | 2021-12-30 14:25 | XR_ITS ---
FINAL REPORT CLINICAL HISTORY: LT BRONCH IN OR, FT 102.3 FINDINGS: FLUORO TIME PROCEDURE: Fluoroscopy in the operating room. FINDINGS: Fluoroscopy time was provided by the radiology department for bronchoscopy. One films were obtained. Fluoroscopy exposure time: 102.3 IMPRESSION: See above Reviewed, Interpreted and Dictated by Mahi Long MD Transcribed by Shanda Ibanez Authenticated by Mahi Long MD on 12/30/2021 05:04:[address] [facility]
--- NOTE | 2021-12-30 14:42 | HMH.BRONCH ---
- Procedure: Date: 12/30/21 Patient Date of :: 1945 Procedure Performed:: Bronchoscopy with airway examination and transbronchial biopsy Indications:: Recurrent pneumonia Performing Provider:: Nikole Fernandez MD Referring Provider:: Dr. Concepcion Sedation:: General anesthesia Procedure:: Bronchoscopy airway examination and transbronchial Biopsy; Clean diagnostic bronchoscopy was advanced through the ET tube and airways were examined up to segmental bronchi. Airways appeared clear, free of any mucoid secretions or blood clots. Bronchoalveolar lavage was performed of the left lower lobe, with 3 successive aliquots of normal saline 40 cc each with a return of 25 cc back. No evidence of bronchoalveolar hemorrhage noted. Transbronchial biopsy was performed on the left lower lobe which was complicated by significant bleeding and procedure was aborted to stabilize the patient. Bronchoscopy was wedged at the left lower lobe and cold saline along with epinephrine was instilled. Hemostasis was achieved. Large blood clots were suctioned after hemostasis was achieved from the left mainstem bronchus. Saturations by the end of the procedure improved to 95%. Adequate hemostasis achieved prior to removing the bronchoscopy. The plan was made to keep the patient intubated for at least 24 hours. Findings:: Please see the procedure note Recommendations:: Please see the procedure note and progress note from today Complications:: Bleeding. Adequate hemostasis achieved by the end of the procedure Estimated blood obtained (mL): 30
--- NOTE | 2021-12-30 14:54 | HMH.ANESI ---
[facility] Anesthesia Record Part I Intake, IV Amount: 700 Estimated blood loss (mL): 20 Urine output (mL): 0 Blood Products used (#): none Blood Pressure: 99/47 SaO2: 100 Pulse Rate: 83 Respiratory Rate: 16 Temperature: 98.2 F Patient is:: Drowsy, Intubated, Stable, Ventilator Stable to PACU at:: 14:45
--- NOTE | 2021-12-30 14:56 | PC.NURSE ---
1445 report from emil sexton rn and Narciso Clarke CRNA in room 218. Sergio Benz RN at bedside to provide pt care.
--- NOTE | 2021-12-30 15:08 | PC.NURSE ---
skin assessment per kimberly williamson rn and mitchel treviño rn
--- NOTE | 2021-12-30 15:40 | PC.WOUNDNOTE ---
Initial skin assessment
[2021-12-30 15:54] LABS: ABG Base Excess -2.3 mmol/L (-2.4-2.3); ABG HCO3 24.3 mmhg (22.0-26.0); ABG Oxygen Saturation 95 % (90-100); ABG PH 7.29 mmol/L (7.35-7.45); ABG PO2 77.7 mmhg (80-100); ABG TCO2 25.8 mmhg (23-27)
[2021-12-30 15:57] LABS: Allen's Test Patient Unable; Oxygen 50% %; PEEP 5; Source Right Radial; Tidal Volume 400; Vent Rate 16
[2021-12-30 15:58] LABS: ABG PCO2 51.4 mmhg (35.0-45.0)
--- NOTE | 2021-12-30 16:16 | PC.NURSE ---
RESP CARE NOTE: Pt Vt increased to 440ml, Rate increased to 20 bpm, and PEEP increased to [address] Fernandez verbal order. Will continue to monitor patient.
[2021-12-31] VITALS (37 sets, daily range): BP systolic 84–134; BP diastolic 28–80; PULSE 48–100; RESP 20–53; TEMP 35.4–36.6; O2SAT 91–100; BMI 31.3
--- NOTE | 2021-12-31 06:00 | XR_ITS ---
PROCEDURE INFORMATION: Exam: XR Chest Exam date and time: 12/31/2021 6:27 AM Age: 76 years old Clinical indication: Device placement; Ett placement (vent status); Additional info: Mechanical ventilation TECHNIQUE: Imaging protocol: XR of the chest. Views: 1 view. COMPARISON: SD XR CHEST PORTABLE 12/30/2021 2:15 PM Chest x-ray 12/29/2021. FINDINGS: Lungs: Increasing moderate interstitial/alveolar opacities in both lungs; question pneumonia. Pleural spaces: No pneumothorax. The tip of the enteric tube projects over the left upper quadrant in the expected region of the stomach. Satisfactory appearance of the endotracheal tube. Heart/Mediastinum: Unremarkable. No cardiomegaly. Bones/joints: No acute fracture. IMPRESSION: 1. Satisfactory appearance of the endotracheal and enteric tubes. 2. Increasing moderate interstitial/alveolar opacities in both lungs; question pneumonia.
[2021-12-31 06:15] LABS: Basophils # 0.1 K/mm3 (0-0.2); Basophils % 0.6 % (0.1-2.0); Hematocrit 34.6 % (37.0-47.0); Hemoglobin 11.2 g/dL (12.2-16.2); Lymphocytes # 0.8 K/mm3 (0.7-4.5); Lymphocytes % 4.7 % (10-50); Mean Corpuscular HGB Conc 32.4 g/dL (31.8-35.4); Mean Corpuscular Hemoglobin 31.4 pg (27.0-31.2); Mean Corpuscular Volume 96.8 fl (81-99); Mean Platelet Volume 8.8 fl (7.4-10.4); Monocytes # 0.5 K/mm3 (0.1-1.0); Monocytes % 3.4 % (1.7-9.3); Neutrophils # 14.4 K/mm3 (1.8-7.8); Neutrophils % 91.2 % (37.0-80.0); Platelet Count 289 K/mm3 (142-424); Red Blood Count 3.58 M/mm3 (4.20-5.40); Red Cell Distribution Width 15.6 % (11.5-17.5); White Blood Count 15.7 K/mm3 (4.8-10.8)
[2021-12-31 06:23] LABS: MANUAL DIFFERENTIAL MANUAL DIFFERENTIAL (MANUAL DIFF)
[2021-12-31 06:30] LABS: Anion Gap 11.2 mEq/L (5-15); Blood Urea Nitrogen 19 mg/dl (7-17); Calcium 8.5 mg/dl (8.4-10.2); Carbon Dioxide 26 mmol/L (22.0-30.0); Chloride 105 mmol/L (98-107); Creatinine Clearance Estimated 61 mL/min (50-200); Estimated Glomerular Filt Rate 81 ml/min (>60); GFR (African American) 98 ML/MIN (>60); Glucose 131 mg/dl (74-100); Potassium 4.2 mmoL/L (3.5-5.1); Sodium 138 mmol/L (136-145)
--- NOTE | 2021-12-31 07:51 | HMH.ANESII ---
[facility] Anesthesia Record Part II Discharge Time: 15:15 Destination: @nd floor PACU nurse assessment reviewed?: Yes Patient Condition:: Fair Anesthesia Complications:: None Swallowing reflex intact?: No Cyanosis?: No Blood Pressure: 96/46 Pulse Rate: 81 Temperature: 97.7 F Mental Status: Unresponsive Pain level:: 0 Nausea and/or vomitting:: None Intake, IV Amount: 0
--- NOTE | 2021-12-31 08:24 | HMH.ACPN2 ---
Internal Medicine - PN: Subj *Date: 12/31/21 *Time: 09:10 Interval history: 76-year-old female patient resting in bed quietly intubated and sedated. Pulmonology performed bronchoscopy yesterday with removal of 3 large blood clots and patient remains intubated today. She did have hypotension last night Levophed was started and attempting to wean at present. Family is in room all questions answered Exam Vital signs and Labs for Last 24 Hours: Temp Pulse Resp BP Pulse Ox 97.7 F 81 20 96/46 L 100 12/31/21 07:54 12/31/21 07:54 12/31/21 07:00 12/31/21 07:54 12/31/21 07:00 Laboratory Results - last 24 hr 12/30/21 13:13: Urine Color Yellow, Urine Appearance Clear, Urine pH 7.5, Ur Specific [place] 1.015, Urine Protein Negative, Urine Glucose (UA) Negative, Urine Ketones Negative, Urine Blood Negative, Urine Nitrate Negative, Urine Bilirubin Negative, Urine Urobilinogen 0.2, Ur Leukocyte Esterase Negative, Urine RBC None, Urine WBC None, Ur Squamous Epith Cells Occasional, Urine Bacteria Trace 12/30/21 15:41: Specimen Source Right radial, O2 % 50%, ABG pH 7.29 L, ABG pCO2 51.4 H, ABG pO2 77.7 L, ABG HCO3 24.3, ABG Total CO2 25.8, ABG O2 Saturation 95, ABG Base Excess -2.3, Feliz Test Patient unable, Vent Rate 16, Tidal Volume 400, PEEP 5 12/31/21 05:38: WBC 15.7 H, RBC 3.58 L, Hgb 11.2 L, Hct 34.6 L, MCV 96.8, MCH 31.4 H, MCHC 32.4, RDW 15.6, Plt Count 289, MPV 8.8, Neut % (Auto) 91.2 H, Lymph % (Auto) 4.7 L, [place] % (Auto) 3.4, Eos % (Auto) 0.0 L, Baso % (Auto) 0.6, Neut # (Auto) 14.4 H, Lymph # (Auto) 0.8, [place] # (Auto) 0.5, Eos # (Auto) 0.0, Baso # (Auto) 0.1 12/31/21 05:38: Sodium 138, Potassium 4.2, Chloride 105, Carbon Dioxide 26, Anion Gap 11.2, BUN 19 H, Creatinine 0.70 D, Estimated Creat Clear 61, Estimated GFR 81, Est GFR ( Amer) 98 D, Glucose 131 H, Calcium 8.5 I & O for Last 24 hours: Intake & Output 12/28/21 12/29/21 12/30/21 12/31/21 23:59 23:59 23:59 23:59 Intake Total 360 / 360 1916 / 1925 103 / 103 Output Total 1130 / 1280 665 / 665 Balance 360 / 360 786 / 645 -562 / -562 Weight 183 lb 3.266 oz 175 lb 0.752 oz 176 lb 9.444 oz Microbiology Reports for the Last 24 Hours: Microbiology 12/30/21 13:40 Bronchial Washings - Left Lower Lobe Gram Stain - Final - Constitutional mild distress, chronically ill appearing - *Routine HEENT Exam Head: Present: normocephalic Eye: Present: EOMI ENT: Present: mucous membranes moist - *Routine Neck Exam Present: trachea midline. Absent: tracheal deviation - *Routine Respiratory Exam Present: rhonchi. Absent: accessory muscle use - *Routine Cardiovascular Exam Present: RRR - *Routine Abdominal Exam Present: soft, normoactive bowel sounds. Absent: tenderness, firm - *Routine Extremities Exam Present: full ROM, pulses intact. Absent: cyanosis, clubbing, edema - *Routine Skin Exam Present: intact, dry. Absent: cyanosis, erythema - *Routine Neurological Exam Present: alert Intubation and sedation - Routine Psychiatric Exam Present: unable to assess Comments: Intubation and sedation Assessment and Plan (1) Pulmonary infiltrates on CXR Status: Acute Category: Medical Code(s): R91.8 - Other nonspecific abnormal finding of lung field (2) Respiratory failure with hypoxia Status: Acute Qualifiers: Chronicity: acute on chronic Qualified Code(s): J96.21 - Acute and chronic respiratory failure with hypoxia Category: Medical Code(s): J96.91 - Respiratory failure, unspecified with hypoxia (3) Hypothyroidism Status: Acute Qualifiers: Hypothyroidism type: acquired Qualified Code(s): E03.9 - Hypothyroidism, unspecified Category: Medical Code(s): E03.9 - Hypothyroidism, unspecified (4) Mild aortic insufficiency Status: Acute Category: Medical Code(s): I35.1 - Nonrheumatic aortic (valve) insufficiency (5) Obesity (BMI 30.0-34.9) Status: Acute Category: Medical Code(s):
[2021-12-31 08:31] LABS: Oxygen 50 %
[2021-12-31 08:32] LABS: ABG Base Excess -1.5 mmol/L (-2.4-2.3); ABG HCO3 23.4 mmhg (22.0-26.0); ABG PCO2 39.5 mmhg (35.0-45.0); ABG PH 7.39 mmol/L (7.35-7.45); ABG PO2 85.2 mmhg (80-100); ABG TCO2 24.6 mmhg (23-27); Allen's Test ACCEPTABLE; PEEP 8; Source Right Radial; Tidal Volume 440; Vent Rate 20
[2021-12-31 08:33] LABS: ABG Oxygen Saturation 97 % (90-100)
[2021-12-31 08:53] LABS: Lymphocytes % 2 % (10-50); Monocytes % 1 % (2-9); Myelocytes % 4 (0-1); Neutrophils % 84 % (42-76); Total Cells Counted 100
[2021-12-31 08:54] LABS: Ovalocytes 1+; Poikilocytosis 1+
[2021-12-31 08:55] LABS: Hypochromasia 1+; Platelet Estimate Normal
--- NOTE | 2021-12-31 09:26 | HMH.PULMPN ---
Internal Medicine - PN: Subj *Date: 12/31/21 *Time: 11:12 Interval history: No acute respiratory events overnight. Continue to remain on minimal ventilator settings. Exam - Constitutional Constitutional:: Present: no acute distress, comfortable - HENMT Exam HENMT: Present: normocephalic - Eye Exam Eyes:: Present: normal appearance both eyes and related structures - Neck Exam Neck:: Present: normal visual inspection - Respiratory Exam Respiratory:: Present: respiratory distress, rhonchi. Absent: wheezing - Cardiovascular Exam Cardiac:: Present: S1, S2 - GI Exam GI:: Present: soft - Skin Exam Skin: Present: warm, no rash - Neurological Exam Neurological: Present: alert, awake - Extremities Exam Extremities: Present: no cyanosis, no clubbing, no edema Assessment and Plan (1) Pulmonary infiltrates on CXR Status: Acute Category: Medical Code(s): R91.8 - Other nonspecific abnormal finding of lung field (2) Respiratory failure with hypoxia Status: Acute Qualifiers: Chronicity: acute on chronic Qualified Code(s): J96.21 - Acute and chronic respiratory failure with hypoxia Category: Medical Code(s): J96.91 - Respiratory failure, unspecified with hypoxia (3) Hypothyroidism Status: Acute Qualifiers: Hypothyroidism type: acquired Qualified Code(s): E03.9 - Hypothyroidism, unspecified Category: Medical Code(s): E03.9 - Hypothyroidism, unspecified (4) Mild aortic insufficiency Status: Acute Category: Medical Code(s): I35.1 - Nonrheumatic aortic (valve) insufficiency (5) Obesity (BMI 30.0-34.9) Status: Acute Category: Medical Code(s): E66.9 - Obesity, unspecified (6) Parkinson disease Status: Acute Category: Medical Code(s): G20 - Parkinson's disease (7) Rheumatoid arthritis Status: Acute Category: Medical Code(s): M06.9 - Rheumatoid arthritis, unspecified - Assessment and plan all Dx Assessment and Plan for all problems:: #Acute on chronic hypoxic respiratory failure: #Interstitial lung disease: #History of rheumatoid arthritis: # Fungal pneumonia: Ms. Mathis is a 76-year-old female history rheumatoid arthritis on methotrexate 5 mg weekly chronic prednisone therapy recently admitted to the hospital with worsening respiratory distress discharged home on antibiotics eventually resulted positive for elevated beta glucan during which prednisone was discontinued and patient was initiated on a itraconazole presented to the ER complaining of worsening respiratory distress after steroids were discontinued and intolerance to itraconazole secondary to gastrointestinal distress. AST ALT and alk phos remain relatively stable from her most recent discharge. Chest x-ray on admission worsening prominent left lower lobe pulmonary infiltrates. Most recent CTA from earlier dyspnea negative for pulmonary embolism, showed bilateral diffuse groundglass opacities no obvious honeycombing however showed traction bronchiectasis. Sputum culture from earlier this month normal respiratory yaquelin. Repeat cultures from this admission pending. Initiated cefepime along with micafungin on this admission. Interval update: Status post bronchoscopy. Remains intubated. Lower extremity Doppler negative for DVT Plan: -Intubated, wean sedation this morning. Alert and oriented following commands. Continue propofol and fentanyl. SBT as tolerated. -Continue to remain on minimal ventilator settings, tidal volume 440, rate of 20 PEEP of 8 and FiO2 of 40%. Patient alert awake and following commands. Failed SBT secondary to low tidal volumes. Chest x-ray reviewed, worsening infiltrates right greater than left. ABG from this morning within normal limits with a pH of 7.39, PCO2 39.5 and PO2 of 85.2. ET tube in place. We will continue cefepime and micafungin awaiting culture results. BAL gram stain no organisms seen so far. We will request PNC to evaluate for fungal and AFB organisms in th
--- NOTE | 2021-12-31 09:35 | PC.NURSE ---
all sedation on hold at 0910 r/t pending sbt trial
--- NOTE | 2021-12-31 09:55 | PC.NURSE ---
RESP CARE NOTE: Pt FIO2 decreased to 40% per Dr Fernandez. Will continue to monitor.
[2021-12-31 12:12] LABS: C-Reactive Protein 380.2 mg/L (0-4)
--- NOTE | 2021-12-31 12:54 | DIET.NUTRFU ---
RD rounded with provider today, patient had to be intubated with levophed ordered. propofol also ordered but not used at this. She is alert and trying to talk, was consulted to initiate tubefeeding. Start TF: Pulmocare at 20ml and increase to goal rate of 55ml/hour Continuous providing 1265ml/1897kcal/81gm protein and 1016 free water with flush of 150 Q4H= 600ml with total fluid of 1616ml (20ml/kg d/t CHF). Discontinue IVF when TF meets goals. Labs reviewed from today, hydration WNL. Will continue to follow for nutritional needs
--- NOTE | 2021-12-31 15:32 | PC.NURSE ---
pt put back on ac mode at this time by Drea MARKS
--- NOTE | 2021-12-31 20:03 | PC.NURSE ---
At approx 1730 pt began to appear extremely anxious. legs were flailing in the bed and RR were noted to be 53. Dr Fernandez had ordered for pt to have light sedation/Fentanyl pushes for sedation/comfort. pt fentanyl drip was increased to 75mcg starting at 1715. Dr Gallagher was paged at 1746 for medication for anxiety. call not returned as of 1800. 1805 Dr fernandez was contacted and informed of pt condition, Dr Fernandez gave order for pt to be able to be restarted on propofol drip and in the am sedation to be stopped in preparation for SBT in the am pt had new iv's started as well at this time r/t difficulty flushing r fa and l ac iv. new iv's 20 l ua and 20 l fa. both US guided. after propofol was restarted at approx 1810 pt was noted to begin to become more relaxed. as of 1900 pt was resting well with RR noted to be in the mid 20's
[2022-01-01] VITALS (33 sets, daily range): BP systolic 95–165; BP diastolic 36–96; PULSE 50–91; RESP 16–30; TEMP 35.1–37.2; O2SAT 89–100; BMI 30.6
--- NOTE | 2022-01-01 06:00 | XR_ITS ---
PROCEDURE INFORMATION: Exam: XR Chest Exam date and time: 01/01/2022 5:40 AM Age: 76 years old Clinical indication: Device placement; Ett placement (vent status); Additional info: Mechanical ventilation TECHNIQUE: Imaging protocol: XR of the chest. Views: 1 view. COMPARISON: CR XR CHEST PORTABLE 12/31/2021 6:27 AM FINDINGS: Tubes, catheters and devices: ET tube and nasogastric tube unchanged. Lungs: Patchy airspace disease is noted on the right increased since the prior study as well as the left retrocardiac area. Pleural spaces: Unremarkable. No pleural effusion. No pneumothorax. Heart/Mediastinum: Unremarkable. No cardiomegaly. Bones/joints: Unremarkable. IMPRESSION: Increasing right-sided airspace disease.
[2022-01-01 06:12] LABS: Basophils % 0.3 % (0.1-2.0); Hematocrit 32.6 % (37.0-47.0); Hemoglobin 10.4 g/dL (12.2-16.2); Lymphocytes # 0.7 K/mm3 (0.7-4.5); Lymphocytes % 4.7 % (10-50); Mean Corpuscular Hemoglobin 31.3 pg (27.0-31.2); Mean Corpuscular Volume 97.7 fl (81-99); Mean Platelet Volume 8.7 fl (7.4-10.4); Monocytes # 0.5 K/mm3 (0.1-1.0); Monocytes % 3.5 % (1.7-9.3); Neutrophils # 13.4 K/mm3 (1.8-7.8); Neutrophils % 91.5 % (37.0-80.0); Platelet Count 297 K/mm3 (142-424); Red Blood Count 3.34 M/mm3 (4.20-5.40); Red Cell Distribution Width 15.8 % (11.5-17.5); White Blood Count 14.6 K/mm3 (4.8-10.8)
[2022-01-01 06:13] LABS: MANUAL DIFFERENTIAL MANUAL DIFFERENTIAL (MANUAL DIFF)
[2022-01-01 06:17] LABS: Anion Gap 8.6 mEq/L (5-15); Blood Urea Nitrogen 20 mg/dl (7-17); Calcium 8.3 mg/dl (8.4-10.2); Carbon Dioxide 27 mmol/L (22.0-30.0); Chloride 107 mmol/L (98-107); Creatinine Clearance Estimated 59 mL/min (50-200); Estimated Glomerular Filt Rate 97 ml/min (>60); GFR (African American) 118 ML/MIN (>60); Glucose 158 mg/dl (74-100); Potassium 3.6 mmoL/L (3.5-5.1); Sodium 139 mmol/L (136-145)
[2022-01-01 07:11] LABS: Anisocytosis 1+; Lymphocytes % 6 % (10-50); Macrocytosis 1+; Monocytes % 1 % (2-9); Neutrophils % 91 % (42-76); Ovalocytes 1+; Platelet Estimate Normal; Total Cells Counted 100
--- NOTE | 2022-01-01 07:26 | PC.NURSE ---
pt tube feeds not started this shift d/t patient temperature being low, and having to be turned frequently to obtain rectal temperatures
[2022-01-01 08:10] LABS: Lactate Arterial 1.9 mmol/L (0.4-2.0)
[2022-01-01 08:11] LABS: ABG PCO2 39.7 mmhg (35.0-45.0)
[2022-01-01 08:12] LABS: ABG Base Excess -0.5 mmol/L (-2.4-2.3); ABG HCO3 24.2 mmhg (22.0-26.0); ABG Oxygen Saturation 93 % (90-100); ABG PO2 65.8 mmhg (80-100); ABG TCO2 25.4 mmhg (23-27); Allen's Test ACCEPTABLE; Oxygen 40 %; PEEP 8; Pressure Support 10; Source Right Radial
--- NOTE | 2022-01-01 09:17 | P.PN_ITS ---
Internal Medicine - PN: Subj *Date: 01/01/22 *Time: 09:17 Exam Vital signs and Labs for Last 24 Hours: Temp Pulse Resp BP Pulse Ox 96.7 F L 85 24 112/57 L 97 01/01/22 09:00 01/01/22 09:00 01/01/22 09:00 01/01/22 09:00 01/01/22 09:00 Laboratory Results - last 24 hr 12/31/21 05:38: C-Reactive Protein 380.2 H 01/01/22 05:39: WBC 14.6 H, RBC 3.34 L, Hgb 10.4 L, Hct 32.6 L, MCV 97.7, MCH 31.3 H, MCHC 32.0, RDW 15.8, Plt Count 297, MPV 8.7, Neut % (Auto) 91.5 H, Lymph % (Auto) 4.7 L, [place] % (Auto) 3.5, Eos % (Auto) 0.0 L, Baso % (Auto) 0.3, Neut # (Auto) 13.4 H, Lymph # (Auto) 0.7, [place] # (Auto) 0.5, Eos # (Auto) 0.0, Baso # (Auto) 0.0, Total Counted 100, Neutrophils % (Manual) 91 H, Band Neutrophils % 2.0, Lymphocytes % (Manual) 6 L, Monocytes % (Manual) 1 L, Platelet Estimate Normal, Anisocytosis 1+, Macrocytosis 1+, Ovalocytes 1+ 01/01/22 05:39: Sodium 139, Potassium 3.6, Chloride 107, Carbon Dioxide 27, Anion Gap 8.6, BUN 20 H, Creatinine 0.60, Estimated Creat Clear 59, Estimated GFR 97, Est GFR ( Amer) 118 D, Glucose 158 H, Calcium 8.3 L 01/01/22 06:00: ABG Lactate 1.9 01/01/22 06:00: Specimen Source Right radial, O2 % 40, ABG pH 7.40, ABG pCO2 39.7, ABG pO2 65.8 L, ABG HCO3 24.2, ABG Total CO2 25.4, ABG O2 Saturation 93, ABG Base Excess -0.5, Feliz Test Acceptable, PEEP 8 I & O for Last 24 hours: Intake & Output 0512/30/21 12/31/21 01/01/22 23:59 23:59 23:59 23:59 Intake Total 360 / 360 1916 / 1925 808 / 841 214 / 214 Output Total 1130 / 1280 1135 / 1195 500 / 500 Balance 360 / 360 786 / 645 -327 / -354 -286 / -286 Weight 83.1 kg 79.4 kg 80.1 kg 78.4 kg Microbiology Reports for the Last 24 Hours: Microbiology 12/29/21 12:00 Blood Blood Culture - Preliminary NO GROWTH AFTER 48 HOURS 12/29/21 12:00 Blood Blood Culture - Preliminary NO GROWTH AFTER 48 HOURS 12/29/21 12:00 Sputum - Expectorated Sputum Gram Stain - Final 12/29/21 12:00 Sputum - Expectorated Sputum Sputum Culture - Preliminary Assessment and Plan (1) Pulmonary infiltrates on CXR Status: Acute Category: Medical Code(s): R91.8 - Other nonspecific abnormal finding of lung field (2) Respiratory failure with hypoxia Status: Acute Qualifiers: Chronicity: acute on chronic Qualified Code(s): J96.21 - Acute and chronic respiratory failure with hypoxia Category: Medical Code(s): J96.91 - Respiratory failure, unspecified with hypoxia (3) Hypothyroidism Status: Acute Qualifiers: Hypothyroidism type: acquired Qualified Code(s): E03.9 - Hypothyroidism, unspecified Category: Medical Code(s): E03.9 - Hypothyroidism, unspecified (4) Mild aortic insufficiency Status: Acute Category: Medical Code(s): I35.1 - Nonrheumatic aortic (valve) insufficiency (5) Obesity (BMI 30.0-34.9) Status: Acute Category: Medical Code(s): E66.9 - Obesity, unspecified (6) Parkinson disease Status: Acute Category: Medical Code(s): G20 - Parkinson's disease (7) Rheumatoid arthritis Status: Acute Category: Medical Code(s): M06.9 - Rheumatoid arthritis, unspecified The patient's infection will respond to the chosen ABx?: Yes (BRONCHIAL WASHINGS, SPUTUM PENDING, BLOOD CULTURES NEGATIVE.) Is the patient receiving the right drug, dose, and route?: Yes Could a more targeted ABx be ordered?: No
--- NOTE | 2022-01-01 09:59 | HMH.ACPN2 ---
Internal Medicine - PN: Subj *Date: 01/01/22 *Time: 08:15 Interval history: pt awake, on vent, spont trial vent settings vc spont,[id number],tv 440,rate 20,ps 10.peep 8, Exam Vital signs and Labs for Last 24 Hours: Temp Pulse Resp BP Pulse Ox 96.7 F L 85 24 112/57 L 97 01/01/22 09:00 01/01/22 09:00 01/01/22 09:00 01/01/22 09:00 01/01/22 09:00 Laboratory Results - last 24 hr 12/31/21 05:38: C-Reactive Protein 380.2 H 01/01/22 05:39: WBC 14.6 H, RBC 3.34 L, Hgb 10.4 L, Hct 32.6 L, MCV 97.7, MCH 31.3 H, MCHC 32.0, RDW 15.8, Plt Count 297, MPV 8.7, Neut % (Auto) 91.5 H, Lymph % (Auto) 4.7 L, [place] % (Auto) 3.5, Eos % (Auto) 0.0 L, Baso % (Auto) 0.3, Neut # (Auto) 13.4 H, Lymph # (Auto) 0.7, [place] # (Auto) 0.5, Eos # (Auto) 0.0, Baso # (Auto) 0.0, Total Counted 100, Neutrophils % (Manual) 91 H, Band Neutrophils % 2.0, Lymphocytes % (Manual) 6 L, Monocytes % (Manual) 1 L, Platelet Estimate Normal, Anisocytosis 1+, Macrocytosis 1+, Ovalocytes 1+ 01/01/22 05:39: Sodium 139, Potassium 3.6, Chloride 107, Carbon Dioxide 27, Anion Gap 8.6, BUN 20 H, Creatinine 0.60, Estimated Creat Clear 59, Estimated GFR 97, Est GFR ( Amer) 118 D, Glucose 158 H, Calcium 8.3 L 01/01/22 06:00: ABG Lactate 1.9 01/01/22 06:00: Specimen Source Right radial, O2 % 40, ABG pH 7.40, ABG pCO2 39.7, ABG pO2 65.8 L, ABG HCO3 24.2, ABG Total CO2 25.4, ABG O2 Saturation 93, ABG Base Excess -0.5, Feliz Test Acceptable, PEEP 8 I & O for Last 24 hours: Intake & Output 12/29/21 12/30/21 12/31/21 01/01/22 11:59 11:59 11:59 11:59 Intake Total 360 / 360 2031 906 / 906 Output Total 200 / 200 1845 / 1845 720 / 720 Balance 160 / 160 187 / 187 186 / 186 Weight 176 lb 175 lb 0.752 oz 176 lb 9.444 oz 172 lb 13.478 oz Microbiology Reports for the Last 24 Hours: Microbiology 12/29/21 12:00 Blood Blood Culture - Preliminary NO GROWTH AFTER 48 HOURS 12/29/21 12:00 Blood Blood Culture - Preliminary NO GROWTH AFTER 48 HOURS 12/29/21 12:00 Sputum - Expectorated Sputum Gram Stain - Final 12/29/21 12:00 Sputum - Expectorated Sputum Sputum Culture - Preliminary - Constitutional no acute distress - *Routine HEENT Exam Head: Present: normocephalic Eye: Present: PERRL ENT: Present: mucous membranes moist - *Routine Neck Exam Present: supple. Absent: lymphadenopathy - *Routine Respiratory Exam Present: CTA bilaterally - *Routine Cardiovascular Exam Present: RRR - *Routine Abdominal Exam Present: soft, normoactive bowel sounds. Absent: tenderness - *Routine Extremities Exam Absent: cyanosis, clubbing, edema - *Routine Skin Exam Present: warm. Absent: rash - *Routine Neurological Exam Present: alert Assessment and Plan (1) Pulmonary infiltrates on CXR Status: Acute Category: Medical Code(s): R91.8 - Other nonspecific abnormal finding of lung field (2) Respiratory failure with hypoxia Status: Acute Qualifiers: Chronicity: acute on chronic Qualified Code(s): J96.21 - Acute and chronic respiratory failure with hypoxia Category: Medical Code(s): J96.91 - Respiratory failure, unspecified with hypoxia (3) Hypothyroidism Status: Acute Qualifiers: Hypothyroidism type: acquired Qualified Code(s): E03.9 - Hypothyroidism, unspecified Category: Medical Code(s): E03.9 - Hypothyroidism, unspecified (4) Mild aortic insufficiency Status: Acute Category: Medical Code(s): I35.1 - Nonrheumatic aortic (valve) insufficiency (5) Obesity (BMI 30.0-34.9) Status: Acute Category: Medical Code(s): E66.9 - Obesity, unspecified (6) Parkinson disease Status: Acute Category: Medical Code(s): G20 - Parkinson's disease (7) Rheumatoid arthritis Status: Acute Category: Medical Code(s): M06.9 - Rheumatoid arthritis, unspecified - Assessment and plan all Dx Assessment and Plan for all problems:: rounded with
[2022-01-01 10:54] LABS: C-Reactive Protein 199.2 mg/L (0-4)
--- NOTE | 2022-01-01 11:38 | PC.NURSE ---
1125- pt extubated tolerated well. Vapotherm on 5L, 50% FiO2.
--- NOTE | 2022-01-01 11:39 | DIET.NUTRFU ---
Plans to extubate today, TF may not be needed. When oral diet starts will eval amopunt consumed for possible supplements. Appetite has been good in the past.
--- NOTE | 2022-01-01 11:55 | HMH.PULMPN ---
Internal Medicine - PN: Subj *Date: 01/01/22 *Time: 11:55 Interval history: No acute respiratory vents overnight. Continues to remain on minimal ventilator settings. Exam - Constitutional Constitutional:: Present: no acute distress, comfortable - HENMT Exam HENMT: Present: normocephalic - Eye Exam Eyes:: Present: normal appearance both eyes and related structures - Neck Exam Neck:: Present: normal visual inspection - Respiratory Exam Respiratory:: Present: able to speak in complete sentences, no respiratory distress. Absent: wheezing - Cardiovascular Exam Cardiac:: Present: S1, S2 - GI Exam GI:: Present: soft - Skin Exam Skin: Present: warm, no rash - Neurological Exam Neurological: Present: alert, awake, normal cognition - Extremities Exam Extremities: Present: no cyanosis, no clubbing, no edema - Psychiatric Exam Psychiatric: Present: normal affect Assessment and Plan (1) Pulmonary infiltrates on CXR Status: Acute Category: Medical Code(s): R91.8 - Other nonspecific abnormal finding of lung field (2) Respiratory failure with hypoxia Status: Acute Qualifiers: Chronicity: acute on chronic Qualified Code(s): J96.21 - Acute and chronic respiratory failure with hypoxia Category: Medical Code(s): J96.91 - Respiratory failure, unspecified with hypoxia (3) Hypothyroidism Status: Acute Qualifiers: Hypothyroidism type: acquired Qualified Code(s): E03.9 - Hypothyroidism, unspecified Category: Medical Code(s): E03.9 - Hypothyroidism, unspecified (4) Mild aortic insufficiency Status: Acute Category: Medical Code(s): I35.1 - Nonrheumatic aortic (valve) insufficiency (5) Obesity (BMI 30.0-34.9) Status: Acute Category: Medical Code(s): E66.9 - Obesity, unspecified (6) Parkinson disease Status: Acute Category: Medical Code(s): G20 - Parkinson's disease (7) Rheumatoid arthritis Status: Acute Category: Medical Code(s): M06.9 - Rheumatoid arthritis, unspecified - Assessment and plan all Dx Assessment and Plan for all problems:: #Acute on chronic hypoxic respiratory failure: #Interstitial lung disease: #History of rheumatoid arthritis: # Fungal pneumonia: Ms. Mathis is a 76-year-old female history rheumatoid arthritis on methotrexate 5 mg weekly chronic prednisone therapy recently admitted to the hospital with worsening respiratory distress discharged home on antibiotics eventually resulted positive for elevated beta glucan during which prednisone was discontinued and patient was initiated on a itraconazole presented to the ER complaining of worsening respiratory distress after steroids were discontinued and intolerance to itraconazole secondary to gastrointestinal distress. AST ALT and alk phos remain relatively stable from her most recent discharge. Chest x-ray on admission worsening prominent left lower lobe pulmonary infiltrates. Most recent CTA from earlier dyspnea negative for pulmonary embolism, showed bilateral diffuse groundglass opacities no obvious honeycombing however showed traction bronchiectasis. Sputum culture from earlier this month normal respiratory yaquelin. Repeat cultures from this admission pending. Initiated cefepime along with micafungin on this admission. Status post bronchoscopy. Lower extremity Doppler negative for DVT Interval update: Patient continues to remain on minimal ventilator settings. No acute respiratory events overnight. BAL and transbronchial biopsy no evidence of infectious etiology. Concerning for inflammation. Patient was initiated on pulse dose steroids yesterday. Plan: -Intubated, wean sedation this morning. Alert and oriented following commands. Continue propofol and fentanyl. SBT as tolerated and extubate after diuresis -Extubate to high flow -Continue to remain on minimal ventilator settings, tidal volume 440, rate of 20 PEEP of 8 and FiO2 of 40%. Patient alert awake and following commands. Suc
--- NOTE | 2022-01-01 19:24 | ECG_ITS ---
APPROVED REPORT Exam: Resting ECG HR:76 bpm ECG Measurements Heart Rate 76 AXES [place] 153 P 79 QRSd 98 QRS -2 QT 374 T 40 QTc 404 Conclusion SINUS RHYTHM MODERATE VOLTAGE CRITERIA FOR LVH, CONSIDER NORMAL VARIANT [MEETS CRITERIA IN ONE OF: R(aVL), S(V1), R(V5), R(V5/V6)+S(V1)] BORDERLINE ECG UNCONFIRMED REPORT Electronically signed by : Tyson Adrian MD 01/03/2022 10:32:00
[2022-01-02] VITALS (20 sets, daily range): BP systolic 93–147; BP diastolic 48–91; PULSE 63–86; RESP 16–22; TEMP 36.4–36.9; O2SAT 87–97; BMI 29.2
--- NOTE | 2022-01-02 06:00 | XR_ITS ---
PROCEDURE INFORMATION: Exam: XR Chest Exam date and time: 01/02/2022 5:45 AM Age: 76 years old Clinical indication: Device placement; Ett placement (vent status); Patient HX: Extubated 01/01/22; Additional info: Mechanical ventilation TECHNIQUE: Imaging protocol: XR of the chest. Views: 1 view. COMPARISON: CR XR CHEST PORTABLE 01/01/2022 5:40 AM FINDINGS: Lungs: Persistent left basilar opacity, possibly pneumonia. Overall interval improvement in previously seen heterogeneous pulmonary opacities. Pleural spaces: No pleural effusion. No pneumothorax. Heart/Mediastinum: Unremarkable cardiomediastinal silhouette. Bones/joints: No acute osseous findings. IMPRESSION: 1. Persistent left basilar opacity, possibly pneumonia. Recommend imaging follow-up until complete resolution as malignancy may have a similar appearance. 2. Overall interval improvement in previously seen heterogeneous pulmonary opacities.
--- NOTE | 2022-01-02 06:43 | PC.NURSE ---
Pt has remained on Vapotherm. Has been decreased this AM to 30L 45%. Pt O2 sats 98% at this time. VSS. Pt is woke up confused this AM. Bed bath given by staff. Medication administered per oct. No other concerns.
[2022-01-02 06:44] LABS: Basophils # 0.1 K/mm3 (0-0.2); Basophils % 0.3 % (0.1-2.0); Eosinophils % 0.1 % (0.1-12.0); Hematocrit 36.8 % (37.0-47.0); Hemoglobin 12.2 g/dL (12.2-16.2); Lymphocytes # 0.6 K/mm3 (0.7-4.5); Lymphocytes % 3.4 % (10-50); Mean Corpuscular Hemoglobin 31.9 pg (27.0-31.2); Mean Corpuscular Volume 96.6 fl (81-99); Mean Platelet Volume 8.3 fl (7.4-10.4); Monocytes # 0.8 K/mm3 (0.1-1.0); Monocytes % 4.4 % (1.7-9.3); Neutrophils # 15.6 K/mm3 (1.8-7.8); Neutrophils % 91.7 % (37.0-80.0); Platelet Count 269 K/mm3 (142-424); Red Blood Count 3.81 M/mm3 (4.20-5.40); Red Cell Distribution Width 15.7 % (11.5-17.5)
[2022-01-02 06:46] LABS: MANUAL DIFFERENTIAL MANUAL DIFFERENTIAL (MANUAL DIFF)
[2022-01-02 07:10] LABS: Lymphocytes % 7 % (10-50); Monocytes % 4 % (2-9); Neutrophils % 89 % (42-76); Platelet Estimate Normal; Total Cells Counted 100
[2022-01-02 07:11] LABS: RBC Morphology Normal
[2022-01-02 07:13] LABS: Anion Gap 12.2 mEq/L (5-15); Blood Urea Nitrogen 31 mg/dl (7-17); Calcium 8.5 mg/dl (8.4-10.2); Carbon Dioxide 26 mmol/L (22.0-30.0); Chloride 103 mmol/L (98-107); Creatinine Clearance Estimated 57 mL/min (50-200); Estimated Glomerular Filt Rate 70 ml/min (>60); GFR (African American) 84 ML/MIN (>60); Glucose 131 mg/dl (74-100); Potassium 3.2 mmoL/L (3.5-5.1); Sodium 138 mmol/L (136-145)
[2022-01-02 07:53] LABS: C-Reactive Protein 116.8 mg/L (0-4)
--- NOTE | 2022-01-02 09:07 | HMH.ACPN2 ---
Internal Medicine - PN: Subj *Date: 01/02/22 *Time: 10:42 Interval history: 76-year-old female patient sitting up in bed resting quietly with eyes open, son and granddaughter present. She was extubated yesterday and remains on Vapotherm today she reports some shortness of breath especially with exertion. We will consult PT/OT. Has been in hallway upon leaving room updated him on patient's condition he denies further questions/comments/complaints Exam Vital signs and Labs for Last 24 Hours: Temp Pulse Resp BP Pulse Ox 98.5 F 80 20 116/53 L 96 01/02/22 08:00 01/02/22 08:00 01/02/22 08:00 01/02/22 08:00 01/02/22 08:00 Laboratory Results - last 24 hr 01/01/22 10:22: C-Reactive Protein 199.2 H 01/02/22 06:30: C-Reactive Protein 116.8 H 01/02/22 06:30: WBC 17.0 H, RBC 3.81 L, Hgb 12.2, Hct 36.8 L, MCV 96.6, MCH 31.9 H, MCHC 33.0, RDW 15.7, Plt Count 269, MPV 8.3, Neut % (Auto) 91.7 H, Lymph % (Auto) 3.4 L, [place] % (Auto) 4.4, Eos % (Auto) 0.1, Baso % (Auto) 0.3, Neut # (Auto) 15.6 H, Lymph # (Auto) 0.6 L, [place] # (Auto) 0.8, Eos # (Auto) 0.0, Baso # (Auto) 0.1, Total Counted 100, Neutrophils % (Manual) 89 H, Lymphocytes % (Manual) 7 L, Monocytes % (Manual) 4, Platelet Estimate Normal, RBC Morphology Normal 01/02/22 06:30: Sodium 138, Potassium 3.2 L, Chloride 103, Carbon Dioxide 26, Anion Gap 12.2, BUN 31 H D, Creatinine 0.80 D, Estimated Creat Clear 57, Estimated GFR 70, Est GFR ( Amer) 84 D, Glucose 131 H, Calcium 8.5 I & O for Last 24 hours: Intake & Output 12/30/21 12/31/21 01/01/22 01/02/22 23:59 23:59 23:59 23:59 Intake Total 1916 / 1925 808 / 841 414 / 414 200 / 200 Output Total 1130 / 1280 1135 / 1195 2860 / 2860 290 / 290 Balance 786 / 645 -327 / -354 -2446 / -2446 -90 / -90 Weight 175 lb 0.752 oz 176 lb 9.444 oz 172 lb 13.478 oz 165 lb 2.02 oz Microbiology Reports for the Last 24 Hours: Microbiology 12/29/21 12:00 Sputum - Expectorated Sputum Gram Stain - Final 12/29/21 12:00 Sputum - Expectorated Sputum Sputum Culture - Preliminary - Constitutional no acute distress - *Routine HEENT Exam Head: Present: normocephalic Eye: Present: EOMI ENT: Present: mucous membranes moist - *Routine Neck Exam Present: trachea midline. Absent: tracheal deviation - *Routine Respiratory Exam Present: decreased breath sounds. Absent: accessory muscle use - *Routine Cardiovascular Exam Present: RRR - *Routine Abdominal Exam Present: soft, normoactive bowel sounds. Absent: tenderness, firm - *Routine Extremities Exam Present: full ROM, pulses intact. Absent: cyanosis, clubbing, edema - *Routine Skin Exam Present: intact, dry. Absent: cyanosis, erythema - *Routine Neurological Exam Present: alert, oriented X3. Absent: motor deficit - Routine Psychiatric Exam Present: normal affect, normal thought process. Absent: visual hallucinations Assessment and Plan (1) Pulmonary infiltrates on CXR Status: Acute Category: Medical Code(s): R91.8 - Other nonspecific abnormal finding of lung field (2) Respiratory failure with hypoxia Status: Acute Qualifiers: Chronicity: acute on chronic Qualified Code(s): J96.21 - Acute and chronic respiratory failure with hypoxia Category: Medical Code(s): J96.91 - Respiratory failure, unspecified with hypoxia (3) Hypothyroidism Status: Acute Qualifiers: Hypothyroidism type: acquired Qualified Code(s): E03.9 - Hypothyroidism, unspecified Category: Medical Code(s): E03.9 - Hypothyroidism, unspecified (4) Mild aortic insufficiency Status: Acute Category: Medical Code(s): I35.1 - Nonrheumatic aortic (valve) insufficiency (5) Obesity (BMI 30.0-34.9) Status: Acute Category: Medical Code(s): E66.9 - Obesity, unspecified (6) Parkinson disease Status: Acute Category: Medical Code(s): G20 - Parkinson's disease (7) Rheumatoid arthritis Status: Acute Category: Medical Code(s): M06.9 -
--- NOTE | 2022-01-02 09:37 | HMH.PULMPN ---
Internal Medicine - PN: Subj *Date: 01/02/22 *Time: 11:07 Interval history: No acute respiratory vents overnight. Exam - Constitutional Constitutional:: Present: no acute distress, comfortable - HENMT Exam HENMT: Present: normocephalic - Eye Exam Eyes:: Present: normal appearance both eyes and related structures - Neck Exam Neck:: Present: normal visual inspection - Respiratory Exam Respiratory:: Present: able to speak in complete sentences, no respiratory distress, rhonchi. Absent: wheezing - Cardiovascular Exam Cardiac:: Present: S1, S2 - GI Exam GI:: Present: soft - Skin Exam Skin: Present: warm, no rash - Neurological Exam Neurological: Present: alert, awake, normal cognition - Extremities Exam Extremities: Present: no cyanosis, no clubbing, edema - Psychiatric Exam Psychiatric: Present: normal affect Assessment and Plan (1) Pulmonary infiltrates on CXR Status: Acute Category: Medical Code(s): R91.8 - Other nonspecific abnormal finding of lung field (2) Respiratory failure with hypoxia Status: Acute Qualifiers: Chronicity: acute on chronic Qualified Code(s): J96.21 - Acute and chronic respiratory failure with hypoxia Category: Medical Code(s): J96.91 - Respiratory failure, unspecified with hypoxia (3) Hypothyroidism Status: Acute Qualifiers: Hypothyroidism type: acquired Qualified Code(s): E03.9 - Hypothyroidism, unspecified Category: Medical Code(s): E03.9 - Hypothyroidism, unspecified (4) Mild aortic insufficiency Status: Acute Category: Medical Code(s): I35.1 - Nonrheumatic aortic (valve) insufficiency (5) Obesity (BMI 30.0-34.9) Status: Acute Category: Medical Code(s): E66.9 - Obesity, unspecified (6) Parkinson disease Status: Acute Category: Medical Code(s): G20 - Parkinson's disease (7) Rheumatoid arthritis Status: Acute Category: Medical Code(s): M06.9 - Rheumatoid arthritis, unspecified - Assessment and plan all Dx Assessment and Plan for all problems:: #Acute on chronic hypoxic respiratory failure: #Interstitial lung disease: #History of rheumatoid arthritis: # Organizing pneumonia: Ms. Mathis is a 76-year-old female history rheumatoid arthritis on methotrexate 5 mg weekly chronic prednisone therapy recently admitted to the hospital with worsening respiratory distress discharged home on antibiotics eventually resulted positive for elevated beta glucan during which prednisone was discontinued and patient was initiated on a itraconazole presented to the ER complaining of worsening respiratory distress after steroids were discontinued and intolerance to itraconazole secondary to gastrointestinal distress. AST ALT and alk phos remain relatively stable from her most recent discharge. Chest x-ray on admission worsening prominent left lower lobe pulmonary infiltrates. Most recent CTA from earlier dyspnea negative for pulmonary embolism, showed bilateral diffuse groundglass opacities no obvious honeycombing however showed traction bronchiectasis. Sputum culture from earlier this month normal respiratory yaquelin. Repeat cultures from this admission pending. Initiated cefepime along with micafungin on this admission. Status post bronchoscopy. Lower extremity Doppler negative for DVT Extubated to high flow yesterday. Interval update: Transbronchial biopsy results no evidence of bacterial AFB or fungal organisms. Positive for organizing pneumonia. Sputum from 522 showing gram-negative rods. Chest x-ray improving pulmonary infiltrates. Persistent left lower lobe/retrocardiac infiltrate. CRP improving now at 380-->199-->116. Hypokalemia noted, will replete with 40 oral KCl, Afebrile. Worsening leukocytosis. We will closely monitor. Plan: Continue high flow nasal cannula, weaned to oxygen via nasal cannula as tolerated. Continue methylprednisolone 125 every 12 hours. Continue cefepime awaiting final sputum cultures. Change
--- NOTE | 2022-01-02 10:45 | DIET.NUTRFU ---
Addendum entered by Rosa M Alvarez RD, LD 01/02/22 14:44: Speech completed swallow study and started MSOFT with ground meats. Small bites and sips, thin liquids. Will continue to monitor po intake Original Note: Patient was extubated yesterday and waiting for swallow study to determine oral intake. Family indicated she may have a hx of swallowing issues. Patient did not indicate upon admit. Previously had good appetite, will continue to monitor. Does have hx of CHF, cardiac restrictions recommended
--- NOTE | 2022-01-02 10:49 | HMH.OTEV ---
OT Inpatient Evaluation Rehab OT IP Evaluation Start: 01/02/22 09:11 Freq: ONCE Status: Complete Protocol: [facility]02/22 10[facility] (Rec: 01/02/22 10:49 [facility] [id number]) Rehab OT IP Assessment Subjective History Pt oriented x 3 on arrival. Pt agreeable to engage in therapy evaluation. Pt was admitted via ED on 12/29/21 due to SOB. Pt reports prior to being in the hosptial she lived at home with her in [place]. Pt claims she required minimal assistance with ADLS. Her assisted her with bathing due to safety concerns. However, pt explains she was able to complete IADLs such as cleaning and cooking independently. Pt does use a rollator during ambulation. The following information was copied from history and physcial report: 76 yr old female presents to ed with c/o of chest pain or shortness of breath. Pt states that she has had intermittent chest pains for couple of days, but is not in pain now. states that after seeing the lung specialist on 12/25/2021, her prednisone was stopped and she was started on itraconazole, states she has taken 5 doses. Patients states ever since then she has gone downhill. she is short of breath all night unable to sleep, and sat up in a chair all night. She complained that the itraconazole up set her stomach, feels that her symptoms may be related to the medication. He says that she had been on prednisone 40 mg until 2021 when she saw the lung doctor. When she saw the lung
--- NOTE | 2022-01-02 10:56 | HMH.PTEV ---
Physical Therapy Evaluation Rehab PT IP Evaluation Start: 01/02/22 09:11 Freq: ONCE Status: Active Protocol: Document 01/02/22 10:53 [place] (Rec: 01/02/22 10:56 JELENA [id number]) Subjective/History History History Pt is a 76 y/o female admitted to [facility] for acute hypoxia and respiratory failure Subjective Subjective Pt reports c/o weakness Rehab PT IP Eval Objective Appearance Patient Behavior Appropriate,Cooperative Patient Orientation Person,Place,Year,Situation Difficulty following instructions none Speech Pattern Clear,Appropriate Ambulation Patient Able to Ambulate Yes Ambulation Observation IP General Gait Pattern Observation Shuffling Step Ambulation Distance (feet) 5 Ambulation Assistive Device None Ambulation Ability Contact Guard/Hand Hold Balance Ability to Arise Able, uses arms to help Sitting Balance Steady, safe Standing Balance Steady, wide stance Dynamic Sitting Balance Ability Good Dynamic Standing Balance Ability Poor Transfers Bed Transfer Ability Supervision/Stand by Chair Transfer Ability Supervision/Stand by Sit to Stand Bed Transfer Ability Supervision/Stand by Sit to Stand Chair Transfer Ability Supervision/Stand by Rehab PT IP prob,goals,plan Problems Date of Evaluation: 01/02/22 PT IP Problems Transfers,Gait,Balance,Self care,Safety Rehab Potential Rehab Potential Good Equipment Needs Assistive Devices Rolling / Wheeled Walker Plan PT Intervention Plan Transfers,Gait,Balance,Self care,Safety,Therapeutic Exercise PT Plan Frequency BID Duration LOS Discharge Goals Bed Transfer Ability Independent Sit to Stand Chair Transfer Ability Supervision/Stand by Ambulation Assistive Device Rolling Walker Ambulation Distance (feet) 15 Discharge Plan PT Discharge Plan Pt will benefit from skilled therapy while in [facility] to return to [facility]. Pt may need SNF for ST rehab to allow full return to PLOF, but with suppport and supervision, pt may be able to return home w/ HHPT to improve function. G -code Required Yes Eval Complexity Eval Charge Codes 77162 - Moderate Complexity G Codes PT Current Status Mobility PT Current Status Modifier CK-At least 40% but less than
--- NOTE | 2022-01-02 13:11 | FL_ITS ---
FINAL REPORT CLINICAL HISTORY: 3.03 fluoro time trouble swallowing FINDINGS: MODIFIED BARIUM SWALLOW History: Dysphagia. FINDINGS: Fluoroscopy was provided for the speech pathologist to evaluate the swallowing mechanism. The patient was given several different consistencies of barium while the swallow was visualized fluoroscopically. The report of the speech pathologist should be consulted prior to making dietary decisions. FLUOROSCOPY TIME: 3 minutes 3 seconds. 17 cine runs were obtained. IMPRESSION: Modified barium swallow under fluoroscopic guidance. Please see the report of the speech pathologist for more detail. Films reviewed , interpreted and dictated by Dr. Carballo. Transcribed by Tani Espino PA-C. Reviewed, Interpreted and Dictated by Mauro Carballo III, MD Transcribed by KAYLAN Parker Authenticated by Mauro Carballo III, MD on 01/08/2022 08:55:42 AM [facility]
--- NOTE | 2022-01-02 13:45 | SW/DCPLANNER ---
Addendum entered by Meli Irizarry 01/07/22 13:48: Patient information/order has been faxed to [facility] for a portable O2 tank for transportation to [facility]. Addendum entered by Meli Irizarry 01/07/22 10:08: The plan for this patient is to discharge to [facility] today. Bibi with [employer] is aware of discharge plan and has requested a COVID swab prior to discharge. Addendum entered by Meli Irizarry 01/03/22 09:19: Bibi Martines stated that she can offer this patient a bed at [facility]. Bibi stated that she will call and speak with patient's family this AM. Addendum entered by Meli Irizarry 01/03/22 07:42: Family has called and stated after lengthy conversation with patient she is agreeable to [facility]. Patient information has been faxed to Bibi Martines. I will follow up with Bibi once patient information is reviewed. Discharge date is unknown at this time. Original Note: I spoke with this patient and her family regarding plans once medically stable for discharge. PT/OT have recommended SNF level of care at time of discharge. Patient has requested that she be able to speak with her family prior to making any decisions. I did inform patient's granddaughter of discharge plans and she stated that she will speak with family regarding facilities. Discharge date is unknown at this time. I will continue to follow up with patient's family.
--- NOTE | 2022-01-02 18:34 | HMH.SLMBS2 ---
Speech & Language Evaluation Speech/Language Mod Barium Swallow Start: 01/02/22 13:11 Freq: ONCE Status: Complete Protocol: Document 01/02/22 13:11 MARLEY (Rec: 01/02/22 18:34 MARLEY [id number]) General Information General Current Food Consistancy NPO Oxygen Status Non-Rebreather Facial Symmetry Symmetrical Ability to Follow Directions Good Communication Ability No Impairment MBS Recommendations Diet Dietary Recommendations Mechanical Soft,Ground Meats, Thin Liquids Treatment/Strategies Strategy/Precaution Recommend Sitting Upright (90 deg),Small Bites and Sips Mod Barium Swallow Impressions Summary and Impressions Oral Phase Impression Moderate Impairment Oral Phase Summary Piecemeal deglutition noted with most trials on MBSS, therefore ~ 50% of the bolus would be remaining in her oral cavity following the first swallow. No significant oral residue noted with puree, pudding, or mechanical soft after the secondary swallow. Pt had difficulty with bolus formation when given a regular solid. Mildly prolonged mastication noted with mechanical soft and moderately prolonged mastication noted with regular solids. Pharyngeal Phase Impression Mild Impairment Pharyngeal Phase Summary Mild-moderate diffuse pharyngeal residue noted on all trials. Residue is 2' decreased epiglottic inversion , resulting in material getting trapped in the valleculae during the swallow. Decreased hyolaryngeal movement noted with all trials . Mild BOT residue noted with mechanical soft and regular solids, which patient clears independently. No aspiration noted with any consistency or bolus size trialed on the study, however, when pt was cued for large drink, she did penetrate to the level of the vocal folds. Penetrated
[2022-01-03] VITALS (13 sets, daily range): BP systolic 92–137; BP diastolic 39–95; PULSE 63–90; RESP 18–22; TEMP 36.4–36.8; O2SAT 90–98; BMI 30.2
--- NOTE | 2022-01-03 05:53 | PC.NURSE ---
pt rested well at beginning of shift, has been awake most of second half of shift, remains on vapotherm at 25L, 40%, O2 sats have been 88-95%, no complaints of SOA or pain, SBP 92-129, HR 63-82, [place] remains in place with 1200 mL out so far this shift, bed alarm remains on
--- NOTE | 2022-01-03 06:00 | XR_ITS ---
PROCEDURE INFORMATION: Exam: XR Chest Exam date and time: 01/03/2022 5:17 AM Age: 76 years old Clinical indication: Device placement; Ett placement (vent status); Patient HX: Extubated; Additional info: Mechanical ventilation TECHNIQUE: Imaging protocol: XR of the chest. Views: 1 view. COMPARISON: CR XR CHEST PORTABLE 01/02/2022 5:45 AM FINDINGS: Airway: Stable appearance of tracheal deviation to the right. Lungs: Mild pulmonary vascular congestion. Similar appearance of mild nonspecific interstitial/alveolar opacities bilaterally; pneumonia is not excluded. No new focal consolidation. Pleural spaces: No pneumothorax. Heart/Mediastinum: Stable mild prominence of the cardiac silhouette, accentuated by the AP projection. Diaphragm: Stable elevation of the right hemidiaphragm. Bones/joints: No acute fracture. IMPRESSION: Similar appearance of mild nonspecific interstitial/alveolar opacities bilaterally; pneumonia is not excluded.
[2022-01-03 06:16] LABS: Basophils # 0.1 K/mm3 (0-0.2); Basophils % 0.6 % (0.1-2.0); Eosinophils # 0.1 K/mm3 (0.0-0.4); Eosinophils % 0.5 % (0.1-12.0); Hematocrit 35.2 % (37.0-47.0); Hemoglobin 11.7 g/dL (12.2-16.2); Lymphocytes # 0.8 K/mm3 (0.7-4.5); Lymphocytes % 4.6 % (10-50); Mean Corpuscular HGB Conc 33.3 g/dL (31.8-35.4); Mean Corpuscular Hemoglobin 31.9 pg (27.0-31.2); Mean Corpuscular Volume 95.9 fl (81-99); Mean Platelet Volume 8.5 fl (7.4-10.4); Monocytes # 0.7 K/mm3 (0.1-1.0); Neutrophils # 15.4 K/mm3 (1.8-7.8); Neutrophils % 90.4 % (37.0-80.0); Platelet Count 318 K/mm3 (142-424); Red Blood Count 3.67 M/mm3 (4.20-5.40); Red Cell Distribution Width 15.9 % (11.5-17.5)
[2022-01-03 06:17] LABS: MANUAL DIFFERENTIAL MANUAL DIFFERENTIAL (MANUAL DIFF)
[2022-01-03 06:45] LABS: Anion Gap 11.5 mEq/L (5-15); Blood Urea Nitrogen 33 mg/dl (7-17); Calcium 8.4 mg/dl (8.4-10.2); Carbon Dioxide 25 mmol/L (22.0-30.0); Chloride 104 mmol/L (98-107); Creatinine Clearance Estimated 59 mL/min (50-200); Estimated Glomerular Filt Rate 70 ml/min (>60); GFR (African American) 84 ML/MIN (>60); Glucose 152 mg/dl (74-100); Potassium 4.5 mmoL/L (3.5-5.1); Sodium 136 mmol/L (136-145)
[2022-01-03 07:08] LABS: Anisocytosis 1+; Lymphocytes % 7 % (10-50); Monocytes % 4 % (2-9); Myelocytes % 1 (0-1); Neutrophils % 86 % (42-76); Ovalocytes 1+; Platelet Estimate Normal; Total Cells Counted 100
[2022-01-03 07:15] LABS: C-Reactive Protein 54.6 mg/L (0-4)
--- NOTE | 2022-01-03 09:16 | HMH.ACPN2 ---
Internal Medicine - PN: Subj *Date: 01/03/22 *Time: 08:50 Interval history: pt laying in bed with vapertherm 20,40,33. family at bedside Exam Vital signs and Labs for Last 24 Hours: Temp Pulse Resp BP Pulse Ox 97.8 F 71 20 137/68 92 L 01/03/22 08:00 01/03/22 06:33 01/03/22 06:00 01/03/22 06:00 01/03/22 06:00 Laboratory Results - last 24 hr 12/29/21 12:00: Urine Color Yellow, Urine Appearance Clear, Urine pH 6.5, Ur Specific [place] 1.025, Urine Protein Trace, Urine Glucose (UA) Negative, Urine Ketones Negative, Urine Blood Negative, Urine Nitrate Negative, Urine Bilirubin Negative, Urine Urobilinogen 0.2, Ur Leukocyte Esterase Negative, Urine RBC None, Urine WBC Occasional, Ur Squamous Epith Cells Occasional, Urine Bacteria Trace 01/03/22 06:04: C-Reactive Protein 54.6 H D 01/03/22 06:04: WBC 17.0 H, RBC 3.67 L, Hgb 11.7 L, Hct 35.2 L, MCV 95.9, MCH 31.9 H, MCHC 33.3, RDW 15.9, Plt Count 318, MPV 8.5, Neut % (Auto) 90.4 H, Lymph % (Auto) 4.6 L, Stokes % (Auto) 4.0, Eos % (Auto) 0.5, Baso % (Auto) 0.6, Neut # (Auto) 15.4 H, Lymph # (Auto) 0.8, Stokes # (Auto) 0.7, Eos # (Auto) 0.1, Baso # (Auto) 0.1, Total Counted 100, Neutrophils % (Manual) 86 H, Band Neutrophils % 2.0, Lymphocytes % (Manual) 7 L, Monocytes % (Manual) 4, Myelocytes % 1, Platelet Estimate Normal, Anisocytosis 1+, Ovalocytes 1+ 01/03/22 06:04: Sodium 136, Potassium 4.5 D, Chloride 104, Carbon Dioxide 25, Anion Gap 11.5, BUN 33 H, Creatinine 0.80, Estimated Creat Clear 59, Estimated GFR 70, Est GFR ( Amer) 84, Glucose 152 H, Calcium 8.4 I & O for Last 24 hours: Intake & Output 12/31/21 01/01/22 01/02/22 01/03/22 11:59 11:59 11:59 11:59 Intake Total 2031 1006 / 1006 300 / 300 340 / 340 Output Total 1845 / 1845 1105 / 1480 2265 / 2265 1600 / 1600 Balance 187 / 187 -99 / -474 -1965 / -1965 -1260 / -1260 Weight 176 lb 9.444 oz 172 lb 13.478 oz 165 lb 2.02 oz 170 lb 12.8 oz Microbiology Reports for the Last 24 Hours: Microbiology 12/29/21 12:00 Sputum - Expectorated Sputum Gram Stain - Final 12/29/21 12:00 Sputum - Expectorated Sputum Sputum Culture - Preliminary Gram Negative Rods Gram Negative Rods#2 - Constitutional no acute distress - *Routine HEENT Exam Head: Present: normocephalic Eye: Present: PERRL ENT: Present: mucous membranes moist - *Routine Neck Exam Present: supple. Absent: lymphadenopathy - *Routine Respiratory Exam Present: rhonchi - *Routine Cardiovascular Exam Present: RRR - *Routine Abdominal Exam Present: soft, normoactive bowel sounds. Absent: tenderness - *Routine Extremities Exam Absent: cyanosis, clubbing, edema - *Routine Skin Exam Present: warm. Absent: rash - *Routine Neurological Exam Present: alert, oriented X3 Assessment and Plan (1) Pulmonary infiltrates on CXR Status: Acute Category: Medical Code(s): R91.8 - Other nonspecific abnormal finding of lung field (2) Respiratory failure with hypoxia Status: Acute Qualifiers: Chronicity: acute on chronic Qualified Code(s): J96.21 - Acute and chronic respiratory failure with hypoxia Category: Medical Code(s): J96.91 - Respiratory failure, unspecified with hypoxia (3) Hypothyroidism Status: Acute Qualifiers: Hypothyroidism type: acquired Qualified Code(s): E03.9 - Hypothyroidism, unspecified Category: Medical Code(s): E03.9 - Hypothyroidism, unspecified (4) Mild aortic insufficiency Status: Acute Category: Medical Code(s): I35.1 - Nonrheumatic aortic (valve) insufficiency (5) Obesity (BMI 30.0-34.9) Status: Acute Category: Medical Code(s): E66.9 - Obesity, unspecified (6) Parkinson disease Status: Acute Category: Medical Code(s): G20 - Parkinson's disease (7) Rheumatoid arthritis Status: Acute Category: Medical Code(s): M06.9 - Rheumatoid arthritis, unspecified - Assessment and plan all
--- NOTE | 2022-01-03 09:27 | HMH.PULMPN ---
Internal Medicine - PN: Subj *Date: 01/03/22 *Time: 10:38 Interval history: No acute respiratory vents overnight. Denies any new respiratory complaints. Admits improvement in her respiratory distress. Exam - Constitutional Constitutional:: Present: no acute distress, comfortable - HENMT Exam HENMT: Present: normocephalic - Eye Exam Eyes:: Present: normal appearance both eyes and related structures - Neck Exam Neck:: Present: normal visual inspection - Respiratory Exam Respiratory:: Present: able to speak in complete sentences, respiratory distress, rales, rhonchi. Absent: wheezing - Cardiovascular Exam Cardiac:: Present: S1, S2 - GI Exam GI:: Present: soft - Skin Exam Skin: Present: warm, no rash - Neurological Exam Neurological: Present: alert, awake - Extremities Exam Extremities: Present: no cyanosis, no clubbing, no edema - Psychiatric Exam Psychiatric: Present: normal affect Assessment and Plan (1) Pulmonary infiltrates on CXR Status: Acute Category: Medical Code(s): R91.8 - Other nonspecific abnormal finding of lung field (2) Respiratory failure with hypoxia Status: Acute Qualifiers: Chronicity: acute on chronic Qualified Code(s): J96.21 - Acute and chronic respiratory failure with hypoxia Category: Medical Code(s): J96.91 - Respiratory failure, unspecified with hypoxia (3) Hypothyroidism Status: Acute Qualifiers: Hypothyroidism type: acquired Qualified Code(s): E03.9 - Hypothyroidism, unspecified Category: Medical Code(s): E03.9 - Hypothyroidism, unspecified (4) Mild aortic insufficiency Status: Acute Category: Medical Code(s): I35.1 - Nonrheumatic aortic (valve) insufficiency (5) Obesity (BMI 30.0-34.9) Status: Acute Category: Medical Code(s): E66.9 - Obesity, unspecified (6) Parkinson disease Status: Acute Category: Medical Code(s): G20 - Parkinson's disease (7) Rheumatoid arthritis Status: Acute Category: Medical Code(s): M06.9 - Rheumatoid arthritis, unspecified - Assessment and plan all Dx Assessment and Plan for all problems:: #Acute on chronic hypoxic respiratory failure: #Interstitial lung disease: #History of rheumatoid arthritis: # Organizing pneumonia: Ms. Mathis is a 76-year-old female history rheumatoid arthritis on methotrexate 5 mg weekly chronic prednisone therapy recently admitted to the hospital with worsening respiratory distress discharged home on antibiotics eventually resulted positive for elevated beta glucan during which prednisone was discontinued and patient was initiated on a itraconazole presented to the ER complaining of worsening respiratory distress after steroids were discontinued and intolerance to itraconazole secondary to gastrointestinal distress. AST ALT and alk phos remain relatively stable from her most recent discharge. Chest x-ray on admission worsening prominent left lower lobe pulmonary infiltrates. Most recent CTA from earlier dyspnea negative for pulmonary embolism, showed bilateral diffuse groundglass opacities no obvious honeycombing however showed traction bronchiectasis. Sputum culture from earlier this month normal respiratory yaquelin. Repeat cultures from this admission pending. Initiated cefepime along with micafungin on this admission. Status post bronchoscopy- Transbronchial biopsy results no evidence of bacterial AFB or fungal organisms. Positive for organizing pneumonia. Lower extremity Doppler negative for DVT Interval update: No acute respiratory vents overnight. Admits improvement in symptoms. Decreasing oxygen requirements, weaned to 40% 20 L high flow Sputum from 12/29 showing gram-negative rods. Chest x-ray improving from admission, stable from yesterday, persistent left lower lobe/retrocardiac infiltrate. Afebrile. Stable leukocytosis. We will closely monitor. CRP improving now at 380-->199-->116-->54. Plan: -Lasix 40mg IVOnce -Continue high flow nasal
--- NOTE | 2022-01-03 12:36 | PC.NURSE ---
contacted Dr Fernandez at this time, states it is ok for pt to come out of stepdown. (pt is to remain on heart monitor and spo2 monitor)
--- NOTE | 2022-01-03 16:08 | PC.NURSE ---
pt was noted to be up to the chair for the better part of the shift. she has been alert x 4 this shift and mostly appropriate. per grand daughter at bs pt has had periods where she gets agitated and has to be reminded by people havent show up yet, or redirected. lungs are clear, bowel sounds are active. pt has used her IS frequently this shift. nad noted. will monitor.
[2022-01-04] VITALS (8 sets, daily range): BP systolic 105–130; BP diastolic 52–69; PULSE 60–93; RESP 17–32; TEMP 36.4–37; O2SAT 86–100; BMI 30.2
--- NOTE | 2022-01-04 04:37 | PC.NURSE ---
No acute changes this shift. Pt has rested well. has not c/o any discomfort. Pt low 90s on 20L 40% Vapotherm. VSS. Has been up to BSC this shift. Has been confused at times. Redirection needed. No other concerns. Will continue to monitor.
--- NOTE | 2022-01-04 06:00 | XR_ITS ---
PROCEDURE INFORMATION: Exam: XR Chest Exam date and time: 01/04/2022 5:48 AM Age: 76 years old Clinical indication: Other: Pneumonia, hypoxia, ; additional info: Pneumonia, hypoxia, recent ventilation TECHNIQUE: Imaging protocol: XR of the chest. Views: 1 view. COMPARISON: CR XR CHEST PORTABLE 01/03/2022 5:17 AM FINDINGS: Lungs: Patchy changes are present bilaterally.. No consolidation. Pleural spaces: Unremarkable. No pleural effusion. No pneumothorax. Heart/Mediastinum: Unremarkable. No cardiomegaly. Bones/joints: Unremarkable. IMPRESSION: Stable exam with patchy bilateral airspace disease.
[2022-01-04 06:20] LABS: Lymphocytes # 0.6 K/mm3 (0.7-4.5); Monocytes # 0.8 K/mm3 (0.1-1.0)
[2022-01-04 06:26] LABS: Anion Gap 12.6 mEq/L (5-15); Blood Urea Nitrogen 34 mg/dl (7-17); Calcium 7.9 mg/dl (8.4-10.2); Carbon Dioxide 24 mmol/L (22.0-30.0); Chloride 103 mmol/L (98-107); Creatinine Clearance Estimated 58 mL/min (50-200); Estimated Glomerular Filt Rate 70 ml/min (>60); GFR (African American) 84 ML/MIN (>60); Glucose 197 mg/dl (74-100); Potassium 3.6 mmoL/L (3.5-5.1); Sodium 136 mmol/L (136-145)
[2022-01-04 06:28] LABS: Basophils # 0.1 K/mm3 (0-0.2); Basophils % 0.6 % (0.1-2.0); Hematocrit 37.6 % (37.0-47.0); Hemoglobin 11.8 g/dL (12.2-16.2); Mean Corpuscular HGB Conc 31.4 g/dL (31.8-35.4); Mean Corpuscular Hemoglobin 30.7 pg (27.0-31.2); Mean Corpuscular Volume 97.6 fl (81-99); Mean Platelet Volume 8.5 fl (7.4-10.4); Monocytes % 3.9 % (1.7-9.3); Neutrophils # 18.8 K/mm3 (1.8-7.8); Neutrophils % 92.5 % (37.0-80.0); Platelet Count 338 K/mm3 (142-424); Red Blood Count 3.86 M/mm3 (4.20-5.40); Red Cell Distribution Width 15.6 % (11.5-17.5)
[2022-01-04 06:29] LABS: White Blood Count 20.3 K/mm3 (4.8-10.8)
[2022-01-04 06:31] LABS: C-Reactive Protein 30.1 mg/L (0-4); MANUAL DIFFERENTIAL MANUAL DIFFERENTIAL (MANUAL DIFF)
[2022-01-04 06:53] LABS: Hypochromasia 1+; Lymphocytes % 6 % (10-50); Macrocytosis 1+; Neutrophils % 83 % (42-76); Platelet Estimate Normal; Total Cells Counted 100
--- NOTE | 2022-01-04 12:38 | HMH.ACPN2 ---
Internal Medicine - PN: Subj *Date: 01/04/22 *Time: 12:38 Interval history: relays uneventful night scant hemoptysis bronch note revd pulmonary notes revd vapotherm ongoing Exam Vital signs and Labs for Last 24 Hours: Temp Pulse Resp BP Pulse Ox 98.6 F 65 30 H 123/53 L 99 01/04/22 08:00 01/04/22 11:52 01/04/22 08:00 01/04/22 08:00 01/04/22 11:52 Laboratory Results - last 24 hr 01/04/22 05:45: Sodium 136, Potassium 3.6, Chloride 103, Carbon Dioxide 24, Anion Gap 12.6, BUN 34 H, Creatinine 0.80, Estimated Creat Clear 58, Estimated GFR 70, Est GFR ( Amer) 84, Glucose 197 H D, Calcium 7.9 L, C-Reactive Protein 30.1 H D 01/04/22 05:45: WBC 20.3 H*, RBC 3.86 L, Hgb 11.8 L, Hct 37.6, MCV 97.6, MCH 30.7, MCHC 31.4 L, RDW 15.6, Plt Count 338, MPV 8.5, Neut % (Auto) 92.5 H, Lymph % (Auto) 3.0 L, [place] % (Auto) 3.9, Eos % (Auto) 0.0 L, Baso % (Auto) 0.6, Neut # (Auto) 18.8 H, Lymph # (Auto) 0.6 L, [place] # (Auto) 0.8, Eos # (Auto) 0.0, Baso # (Auto) 0.1, Total Counted 100, Neutrophils % (Manual) 83 H, Band Neutrophils % 11.0 H, Lymphocytes % (Manual) 6 L, Platelet Estimate Normal, Hypochromasia 1+, Macrocytosis 1+ I & O for Last 24 hours: Intake & Output 01/01/22 01/02/22 01/03/22 01/04/22 23:59 23:59 23:59 23:59 Intake Total 414 / 414 440 / 440 580 / 580 120 / 120 Output Total 2860 / 2860 690 / 1590 2225 / 2225 Balance -2446 / -2446 -250 / -1150 -1645 / -1645 120 / 120 Weight 172 lb 13.478 oz 165 lb 2.02 oz 170 lb 12.8 oz 170 lb 6.4 oz Microbiology Reports for the Last 24 Hours: Microbiology 12/29/21 12:00 Blood Blood Culture - Final NO GROWTH AFTER 5 DAYS 12/29/21 12:00 Blood Blood Culture - Final NO GROWTH AFTER 5 DAYS - Constitutional no acute distress, chronically ill appearing - *Routine HEENT Exam Head: Present: normocephalic Eye: Present: EOMI, PERRL ENT: Present: mucous membranes moist - *Routine Neck Exam Present: supple. Absent: lymphadenopathy - *Routine Respiratory Exam Present: rhonchi, crackles. Absent: accessory muscle use - *Routine Cardiovascular Exam Present: RRR - *Routine Abdominal Exam Present: soft, normoactive bowel sounds. Absent: tenderness - *Routine Extremities Exam Absent: cyanosis, clubbing, edema - *Routine Skin Exam Present: warm. Absent: rash - *Routine Neurological Exam Present: alert, oriented X3 Assessment and Plan (1) Pulmonary infiltrates on CXR Status: Acute Category: Medical Code(s): R91.8 - Other nonspecific abnormal finding of lung field (2) Respiratory failure with hypoxia Status: Acute Qualifiers: Chronicity: acute on chronic Qualified Code(s): J96.21 - Acute and chronic respiratory failure with hypoxia Category: Medical Code(s): J96.91 - Respiratory failure, unspecified with hypoxia (3) Hypothyroidism Status: Acute Qualifiers: Hypothyroidism type: acquired Qualified Code(s): E03.9 - Hypothyroidism, unspecified Category: Medical Code(s): E03.9 - Hypothyroidism, unspecified (4) Mild aortic insufficiency Status: Acute Category: Medical Code(s): I35.1 - Nonrheumatic aortic (valve) insufficiency (5) Obesity (BMI 30.0-34.9) Status: Acute Category: Medical Code(s): E66.9 - Obesity, unspecified (6) Parkinson disease Status: Acute Category: Medical Code(s): G20 - Parkinson's disease (7) Rheumatoid arthritis Status: Acute Category: Medical Code(s): M06.9 - Rheumatoid arthritis, unspecified - Assessment and plan all Dx Assessment and Plan for all problems:: continue regimen following with pulmonary
--- NOTE | 2022-01-04 13:10 | PC.NURSE ---
Pt vapotherm turned down to 15L/35% FiO2 at this time
--- NOTE | 2022-01-04 17:46 | PC.NURSE ---
Addendum entered by Jaquelin Lara RN 01/04/22 18:40: Pt has been very diligent using incentive spirometer. Pt pulls 1,000cc's at best Original Note: Pt has done well this shift. Pt has been a x1 assist to the BSC. Pt will desat when going to BSC, but will quickly recover and go back to 90%'s. Pt has been successfully weaned down to 1LNC. Currently pt is 94%. When pt is brought to RA she will drop to 85-88%. Pt has had a fair appetite this shift. Pt has practiced chucking her chin when swallowing pills and has not had any issues with swallowing. Family has remained at bedside. No other acute changes, will monitor.
--- NOTE | 2022-01-04 18:12 | PC.NURSE ---
Pt was educated about nursing policy of changing IV q3days. Pt asked for nursing staff to not change IV bc she was tired of getting stuck d/t being a hard stick. This nurse did clean site and changed the dressing on PIV.
[2022-01-05] VITALS: BP 110/68; PULSE 60; PULSE 68; RESP 18; TEMP 36.6; O2SAT 94
[2022-01-05 04:00] VITALS: BP 112/57; PULSE 60; RESP 17; TEMP 36.6; TEMP 36.7; O2SAT 94
[2022-01-05 05:00] VITALS: BMI 30.2
--- NOTE | 2022-01-05 07:45 | PC.NURSE ---
No acute changes noted. Pt has rested well this shift. Has been pleasantly confused at times. Has been up to BSC and ambulated to chair with assist x1. VSS. Pt is on 2L O2 NC. No other concerns. Will continue to monitor.
[2022-01-05 08:00] VITALS: BP 101/55; PULSE 70; PULSE 89; RESP 26; TEMP 36.7; O2SAT 91; O2SAT 96
[2022-01-05 08:49] LABS: C-Reactive Protein 72.1 mg/L (0-4)
--- NOTE | 2022-01-05 10:44 | HMH.ACPN2 ---
Internal Medicine - PN: Subj *Date: 01/06/22 *Time: 10:41 Interval history: looks better - oob on 1l o2 but still with cough Exam Vital signs and Labs for Last 24 Hours: Temp Pulse Resp BP Pulse Ox 98.1 F 89 26 H 101/55 L 96 01/05/22 08:00 01/05/22 08:00 01/05/22 08:00 01/05/22 08:00 01/05/22 08:00 Laboratory Results - last 24 hr 01/05/22 07:22: C-Reactive Protein 72.1 H D I & O for Last 24 hours: Intake & Output 01/02/22 01/03/22 01/04/22 01/05/22 11:59 11:59 11:59 11:59 Intake Total 300 / 300 580 / 580 360 / 360 360 / 360 Output Total 2265 / 2265 1600 / 1600 1025 / 1025 300 / 300 Balance -1965 / -1965 -1020 / -1020 -665 / -665 60 / 60 Weight 165 lb 2.02 oz 170 lb 12.8 oz 170 lb 6.4 oz 170 lb 6.395 oz Microbiology Reports for the Last 24 Hours: Microbiology 12/30/21 13:40 Bronchial Washings - Left Lower Lobe Gram Stain - Final 12/30/21 13:40 Bronchial Washings - Left Lower Lobe Bronchoalveolar Lavage Culture - Final No growth. 12/29/21 12:00 Sputum - Expectorated Sputum Gram Stain - Final 12/29/21 12:00 Sputum - Expectorated Sputum Sputum Culture - Final Klebsiella pneumoniae ozaenae [place]omer[place] - Constitutional no acute distress - *Routine HEENT Exam Head: Present: normocephalic Eye: Present: EOMI, PERRL ENT: Present: mucous membranes dry - *Routine Neck Exam Absent: JVD - *Routine Respiratory Exam Present: decreased breath sounds - *Routine Cardiovascular Exam Present: RRR, murmur - *Routine Abdominal Exam Present: soft - *Routine Extremities Exam Absent: calf tenderness - *Routine Skin Exam Present: intact - *Routine Neurological Exam Present: alert, CN II-XII intact - Routine Psychiatric Exam Present: cooperative Assessment and Plan (1) Pulmonary infiltrates on CXR Status: Acute Category: Medical Code(s): R91.8 - Other nonspecific abnormal finding of lung field (2) Respiratory failure with hypoxia Status: Acute Qualifiers: Chronicity: acute on chronic Qualified Code(s): J96.21 - Acute and chronic respiratory failure with hypoxia Category: Medical Code(s): J96.91 - Respiratory failure, unspecified with hypoxia (3) Hypothyroidism Status: Acute Qualifiers: Hypothyroidism type: acquired Qualified Code(s): E03.9 - Hypothyroidism, unspecified Category: Medical Code(s): E03.9 - Hypothyroidism, unspecified (4) Mild aortic insufficiency Status: Acute Category: Medical Code(s): I35.1 - Nonrheumatic aortic (valve) insufficiency (5) Obesity (BMI 30.0-34.9) Status: Acute Category: Medical Code(s): E66.9 - Obesity, unspecified (6) Parkinson disease Status: Acute Category: Medical Code(s): G20 - Parkinson's disease (7) Rheumatoid arthritis Status: Acute Category: Medical Code(s): M06.9 - Rheumatoid arthritis, unspecified
[2022-01-05 12:00] VITALS: BP 149/82; PULSE 62; PULSE 72; RESP 22; TEMP 36.7; O2SAT 94
[2022-01-05 16:00] VITALS: BP 121/67; PULSE 66; PULSE 68; RESP 30; TEMP 36.7; O2SAT 94
[2022-01-05 20:00] VITALS: BP 147/67; PULSE 60; PULSE 64; RESP 16; TEMP 36.6; O2SAT 90
[2022-01-06] VITALS (9 sets, daily range): BP systolic 87–140; BP diastolic 40–77; PULSE 60–74; RESP 16–28; TEMP 36.5–37.1; O2SAT 86–100; BMI 30.1
--- NOTE | 2022-01-06 03:19 | PC.NURSE ---
No acute changes this shift. Pt has been pleasantly confused. Became more confused after administration of ativan tonight. Pt had requested it during night med pass. She has been up to BSC. VSS. She remains on O2 NC 1-2L. No other concerns. Will continue to monitor.
[2022-01-06 06:44] LABS: C-Reactive Protein 32.2 mg/L (0-4)
--- NOTE | 2022-01-06 09:56 | XR_ITS ---
PROCEDURE INFORMATION: Exam: XR Chest Exam date and time: 01/06/2022 10:37 AM Age: 76 years old Clinical indication: Shortness of breath; Additional info: SOA TECHNIQUE: Imaging protocol: XR of the chest. Views: 1 view. COMPARISON: CR XR CHEST PORTABLE 01/04/2022 5:48 AM FINDINGS: Airway: Rightward deviation of the trachea. Lungs: Interstitial prominence. Pleural spaces: No significant pleural effusion. Heart/Mediastinum: Cardiac silhouette accentuated by epicardial fat. Diaphragm: Asymmetric elevation of the right hemidiaphragm. Bones/joints: Degenerative change. Gastrointestinal tract: Enteric contrast in the colon. When correlating with the previous study, no significant interval changes are present. IMPRESSION: Stable appearance of the chest, not significantly changed from 01/04/2022 .
[2022-01-06 10:26] LABS: Basophils # 0.5 K/mm3 (0-0.2); Basophils % 1.5 % (0.1-2.0); Eosinophils # 0.2 K/mm3 (0.0-0.4); Eosinophils % 0.5 % (0.1-12.0); Hematocrit 38.5 % (37.0-47.0); Hemoglobin 12.6 g/dL (12.2-16.2); Lymphocytes # 1.1 K/mm3 (0.7-4.5); Lymphocytes % 3.2 % (10-50); Mean Corpuscular HGB Conc 32.8 g/dL (31.8-35.4); Mean Corpuscular Volume 94.5 fl (81-99); Mean Platelet Volume 11.5 fl (7.4-10.4); Monocytes # 1.4 K/mm3 (0.1-1.0); Neutrophils # 30.8 K/mm3 (1.8-7.8); Neutrophils % 90.9 % (37.0-80.0); Platelet Count 233 K/mm3 (142-424); Red Blood Count 4.07 M/mm3 (4.20-5.40); White Blood Count 33.9 K/mm3 (4.8-10.8)
[2022-01-06 10:27] LABS: MANUAL DIFFERENTIAL MANUAL DIFFERENTIAL (MANUAL DIFF)
--- NOTE | 2022-01-06 10:43 | HMH.ACPN2 ---
Internal Medicine - PN: Subj *Date: 01/07/22 *Time: 07:34 Interval history: doing ok but more congestion today Exam Vital signs and Labs for Last 24 Hours: Temp Pulse Resp BP Pulse Ox 98.0 F 70 28 H 139/68 97 01/06/22 08:00 01/06/22 09:55 01/06/22 09:55 01/06/22 09:55 01/06/22 09:55 Laboratory Results - last 24 hr 01/06/22 05:37: C-Reactive Protein 32.2 H D 01/06/22 10:15: WBC 33.9 H* D, RBC 4.07 L, Hgb 12.6, Hct 38.5, MCV 94.5, MCH 31.0, MCHC 32.8, RDW 16.0, Plt Count 233 D, MPV 11.5 H, Neut % (Auto) 90.9 H, Lymph % (Auto) 3.2 L, [place] % (Auto) 4.0, Eos % (Auto) 0.5, Baso % (Auto) 1.5, Neut # (Auto) 30.8 H, Lymph # (Auto) 1.1, [place] # (Auto) 1.4 H, Eos # (Auto) 0.2, Baso # (Auto) 0.5 H I & O for Last 24 hours: Intake & Output 01/03/22 01/04/22 01/05/22 01/06/22 11:59 11:59 11:59 11:59 Intake Total 580 / 580 360 / 360 480 / 480 820 / 820 Output Total 1600 / 1600 1025 / 1025 300 / 300 Balance -1020 / -1020 -665 / -665 180 / 180 820 / 820 Weight 170 lb 12.8 oz 170 lb 6.4 oz 170 lb 6.395 oz 170 lb 3.15 oz Microbiology Reports for the Last 24 Hours: Microbiology 12/30/21 13:40 Bronchial Washings - Left Lower Lobe Gram Stain - Final 12/30/21 13:40 Bronchial Washings - Left Lower Lobe Bronchoalveolar Lavage Culture - Final No growth. - Constitutional no acute distress, obese - *Routine HEENT Exam Head: Present: normocephalic Eye: Present: EOMI, PERRL ENT: Present: mucous membranes dry - *Routine Neck Exam Absent: JVD - *Routine Respiratory Exam Present: decreased breath sounds, wheezes - *Routine Cardiovascular Exam Present: RRR, murmur - *Routine Abdominal Exam Present: soft - *Routine Extremities Exam Absent: calf tenderness - *Routine Skin Exam Present: intact - *Routine Neurological Exam Present: alert, CN II-XII intact - Routine Psychiatric Exam Present: normal affect Assessment and Plan (1) Pulmonary infiltrates on CXR Status: Acute Category: Medical Code(s): R91.8 - Other nonspecific abnormal finding of lung field (2) Respiratory failure with hypoxia Status: Acute Qualifiers: Chronicity: acute on chronic Qualified Code(s): J96.21 - Acute and chronic respiratory failure with hypoxia Category: Medical Code(s): J96.91 - Respiratory failure, unspecified with hypoxia (3) Hypothyroidism Status: Acute Qualifiers: Hypothyroidism type: acquired Qualified Code(s): E03.9 - Hypothyroidism, unspecified Category: Medical Code(s): E03.9 - Hypothyroidism, unspecified (4) Mild aortic insufficiency Status: Acute Category: Medical Code(s): I35.1 - Nonrheumatic aortic (valve) insufficiency (5) Obesity (BMI 30.0-34.9) Status: Acute Category: Medical Code(s): E66.9 - Obesity, unspecified (6) Parkinson disease Status: Acute Category: Medical Code(s): G20 - Parkinson's disease (7) Rheumatoid arthritis Status: Acute Category: Medical Code(s): M06.9 - Rheumatoid arthritis, unspecified
[2022-01-06 11:13] LABS: Lymphocytes % 5 % (10-50); Monocytes % 2 % (2-9); Neutrophils % 93 % (42-76); Total Cells Counted 100
[2022-01-06 11:14] LABS: Anisocytosis 1+; Ovalocytes 1+; Platelet Estimate Normal
[2022-01-06 11:33] LABS: Chloride 105 mmol/L (98-107); Potassium 4.1 mmoL/L (3.5-5.1); Sodium 138 mmol/L (136-145)
[2022-01-06 11:36] LABS: Alanine Aminotransferase 16 U/L (12-78); Albumin Level 3.5 g/dl (3.5-5.0); Albumin/Globulin Ratio 1.2 (1.1-1.8); Alkaline Phosphatase 122 U/L (38-126); Anion Gap 10.1 mEq/L (5-15); Aspartate Amino Transferase 21 U/L (14-36); Bilirubin,Total 0.8 mg/dl (0.2-1.3); Blood Urea Nitrogen 36 mg/dl (7-17); Carbon Dioxide 27 mmol/L (22.0-30.0); Creatinine Clearance Estimated 58 mL/min (50-200); Estimated Glomerular Filt Rate 81 ml/min (>60); GFR (African American) 98 ML/MIN (>60); Total Protein,Serum 6.5 g/dl (6.3-8.2)
[2022-01-06 11:37] LABS: Calcium 8.6 mg/dl (8.4-10.2); Glucose 133 mg/dl (74-100)
--- NOTE | 2022-01-06 13:35 | DIET.NUTRFU ---
Continues to tolerate MSOFT diet with thin liquids consuming 50% of meals. Ensure is also provided with meals ti help meet nutritional needs. rehab facility upon discharge. Will follow for any nutritional needs.
[2022-01-07 04:00] VITALS: BP 166/75; PULSE 62; RESP 20; TEMP 36.9; O2SAT 85
[2022-01-07 05:00] VITALS: BMI 32.4
--- NOTE | 2022-01-07 06:51 | PC.NURSE ---
Pt slept most of the night. Only awoken to urinate. Pt reported sob and weakens from walking and thinks that rehab would be a benefit. Sob resolved with rest. Pt denied pain. Took all meds without difficulty and able to voice al needs.
[2022-01-07 07:35] LABS: C-Reactive Protein 12.3 mg/L (0-4)
[2022-01-07 08:00] VITALS: BP 130/64; PULSE 68; RESP 22; TEMP 36.7; O2SAT 89
--- NOTE | 2022-01-07 09:07 | HMH.PULMPN ---
Internal Medicine - PN: Subj *Date: 01/07/22 *Time: 10:25 Interval history: No acute respiratory events over the weekend. Exam - Constitutional Constitutional:: Present: no acute distress, comfortable - HENMT Exam HENMT: Present: normocephalic - Eye Exam Eyes:: Present: normal appearance both eyes and related structures - Neck Exam Neck:: Present: normal visual inspection - Respiratory Exam Respiratory:: Present: able to speak in complete sentences, no respiratory distress, rales. Absent: wheezing - Cardiovascular Exam Cardiac:: Present: S1, S2 - GI Exam GI:: Present: soft, no hepatosplenomegaly - Skin Exam Skin: Present: warm, no rash - Neurological Exam Neurological: Present: alert, awake, normal cognition - Extremities Exam Extremities: Present: no cyanosis, no clubbing, no edema - Psychiatric Exam Psychiatric: Present: normal affect Assessment and Plan (1) Pulmonary infiltrates on CXR Status: Acute Category: Medical Code(s): R91.8 - Other nonspecific abnormal finding of lung field (2) Respiratory failure with hypoxia Status: Acute Qualifiers: Chronicity: acute on chronic Qualified Code(s): J96.21 - Acute and chronic respiratory failure with hypoxia Category: Medical Code(s): J96.91 - Respiratory failure, unspecified with hypoxia (3) Hypothyroidism Status: Acute Qualifiers: Hypothyroidism type: acquired Qualified Code(s): E03.9 - Hypothyroidism, unspecified Category: Medical Code(s): E03.9 - Hypothyroidism, unspecified (4) Mild aortic insufficiency Status: Acute Category: Medical Code(s): I35.1 - Nonrheumatic aortic (valve) insufficiency (5) Obesity (BMI 30.0-34.9) Status: Acute Category: Medical Code(s): E66.9 - Obesity, unspecified (6) Parkinson disease Status: Acute Category: Medical Code(s): G20 - Parkinson's disease (7) Rheumatoid arthritis Status: Acute Category: Medical Code(s): M06.9 - Rheumatoid arthritis, unspecified - Assessment and plan all Dx Assessment and Plan for all problems:: #Acute on chronic hypoxic respiratory failure: #Interstitial lung disease: #History of rheumatoid arthritis: # Organizing pneumonia: Ms. Mathis is a 76-year-old female history rheumatoid arthritis on methotrexate 5 mg weekly chronic prednisone therapy, parkinsns on Levo/carbidopa recently admitted to the hospital with worsening respiratory distress discharged home on antibiotics eventually resulted positive for elevated beta glucan during which prednisone was discontinued and patient was initiated on a itraconazole presented to the ER complaining of worsening respiratory distress after steroids were discontinued and intolerance to itraconazole secondary to gastrointestinal distress. AST ALT and alk phos remain relatively stable from her most recent discharge. Chest x-ray on admission worsening prominent left lower lobe pulmonary infiltrates. Most recent CTA from earlier dyspnea negative for pulmonary embolism, showed bilateral diffuse groundglass opacities no obvious honeycombing however showed traction bronchiectasis. Sputum culture from earlier this month normal respiratory yaquelin. Repeat cultures from this admission pending. Initiated cefepime along with micafungin on this admission. Status post bronchoscopy- Transbronchial biopsy results no evidence of bacterial AFB or fungal organisms. Positive for organizing pneumonia. Lower extremity Doppler negative for DVT Interval update: Oxygenation continued to improve. Steroids weaned to 80 mg daily. Sputum positive for Klebsiella sensitive to levofloxacin. Completed 7-day course of cefepime and levofloxacin. Still receiving at for consult, started on micafungin upon admission on 12/30/2021, eventually changed to itraconazole. Worsening leukocytosis predominant neutrophilic. Afebrile. Likely from steroids. Patient also experienced a brief episode of hypotension over the weekend improved wit
--- NOTE | 2022-01-07 10:09 | HMH.DCSUM ---
General - General Admission date:: 12/29/21 Discharge date: 01/07/22 HPI HPI: 76 yr old female presents to ed with c/o of chest pain or shortness of breath. Pt states that she has had intermittent chest pains for couple of days, but is not in pain now. states that after seeing the lung specialist on 12/25/2021, her prednisone was stopped and she was started on itraconazole, states she has taken 5 doses. Patients states ever since then she has gone downhill. she is short of breath all night unable to sleep, and sat up in a chair all night. She complained that the itraconazole up set her stomach, feels that her symptoms may be related to the medication. He says that she had been on prednisone 40 mg until 12/25/2021 when she saw the lung doctor. When she saw the lung doctor in the office he was actually able to take her off of oxygen and her pulse ox remained greater than 90 while in the office. Patient states that she was told to use oxygen only as needed. Prednisone was stopped and he says that since then her oxygen saturation drops into the 70s if she removes her oxygen, she has been using oxygen / since prednisone was discontinued. Patient/family states she has been having increasing respiratory difficulty over the past few months. Treated with antibiotics multiple times for pneumonia. She had been on methotrexate for rheumatoid arthritis, which was stopped also recently per family. Pt was placed on vapertherm and admitted. pulm consult placed Hospital Course Hospital Course: 76 yr old female presents to ed with c/o of chest pain or shortness of breath. Pt states that she has had intermittent chest pains for couple of days, but is not in pain now. states that after seeing the lung specialist on 12/25/2021, her prednisone was stopped and she was started on itraconazole, states she has taken 5 doses. Patients states ever since then she has gone downhill. she is short of breath all night unable to sleep, and sat up in a chair all night. She complained that the itraconazole up set her stomach, 12/30/21 Brochcoscopy: Bronchoscopy airway examination and transbronchial Biopsy; Clean diagnostic bronchoscopy was advanced through the ET tube and airways were examined up to segmental bronchi. Airways appeared clear, free of any mucoid secretions or blood clots. Bronchoalveolar lavage was performed of the left lower lobe, with 3 successive aliquots of normal saline 40 cc each with a return of 25 cc back. No evidence of bronchoalveolar hemorrhage noted. Transbronchial biopsy was performed on the left lower lobe which was complicated by significant bleeding and procedure was aborted to stabilize the patient. Bronchoscopy was wedged at the left lower lobe and cold saline along with epinephrine was instilled. Hemostasis was achieved. Large blood clots were suctioned after hemostasis was achieved from the left mainstem bronchus. Saturations by the end of the procedure improved to 95%. Adequate hemostasis achieved prior to removing the bronchoscopy. The plan was made to keep the patient intubated for at least 24 hours. Extubated 01/01/22 to Vapotherm and gradually weaned to HFNC then NC and finally to RA Pulmonology has seen and recommends: Ms. Mathis is a 76-year-old female history rheumatoid arthritis on methotrexate 5 mg weekly chronic prednisone therapy, parkinsns on Levo/carbidopa recently admitted to the hospital with worsening respiratory distress discharged home on antibiotics eventually resulted positive for elevated beta glucan during which prednisone was discontinued and patient was initiated on a itraconazole presented to the ER complaining of worsening respiratory distress after steroids were discontinued and intolerance to itraconazole secondary to gastrointestinal distress. AST ALT and alk phos remain relatively stable from her most recent discharge. Chest x-ray on admission worsen
[2022-01-07 10:30] LABS: Coronavirus 19, PCR Not Detected (NotDetected); Influenza A, PCR Not Detected (NotDetected); Influenza B, PCR Not Detected (NotDetected)
[2022-01-07 12:00] VITALS: BP 104/79; PULSE 77; RESP 20; TEMP 36.6; O2SAT 94
--- NOTE | 2022-01-07 12:12 | PC.NURSE ---
RESP CARE NOTE: Pt unable to perform six minute walk test. SPO2 on room air at 84% before getting out of chair, after ambulating to the door SPO2 at 76% on room air. Pt using a walker with a therapist to assist with ambulation. Oxygen applied at 3 lpm for the 10 foot walk back to the chair, patients knees buckled 2 times in 10 feet due to weakness. Dr Fernandez notified.
--- NOTE | 2022-01-08 14:01 | CARE MANAGER ---
Contacted patient's son, Chai Stapleton. He states the patient is doing well and that she has settled into rehab and will only hopefully be there a week or two. Denies any questions or concerns at this time.
== END 2022-01-07 13:41 | DRG 208 ==
LOC: ER 13:06 → 2ND 14:10
PROVIDERS: Emergency Medicine; Internal Medicine Pulmonary Disease; Nurse Practitioner Family; Admitting Provider Family Medicine; Emergency Provider Emergency Medicine; PCP Internal Medicine; Visit Provider Family Medicine
PROC: 0BDF8ZX Extraction of Right Lower Lung Lobe, Via Natural or Artificial Opening Endoscopic, Diagnostic (ICD-10-PCS; principal; 2021-12-30 12:15)
DX: J18.9 Pneumonia, unspecified organism (principal); J96.21 Acute and chronic respiratory failure with hypoxia; J44.0 Chronic obstructive pulmonary disease with (acute) lower respiratory infection; I50.9 Heart failure, unspecified; E03.9 Hypothyroidism, unspecified; M19.90 Unspecified osteoarthritis, unspecified site; I35.1 Nonrheumatic aortic (valve) insufficiency; E66.9 Obesity, unspecified; Z68.32 Body mass index [BMI] 32.0-32.9, adult; G20 Parkinson's disease; M06.9 Rheumatoid arthritis, unspecified; J84.89 Other specified interstitial pulmonary diseases; E87.6 Hypokalemia
CPT/HCPCS: 31629; 31624; 31500; 94002; 36415; 70371; 71045; 76000; 80048; 80053; 81001; 82803; 83605; 83690; 83880; 84484; 85007; 85025; 86140; 87040; 87070; 87077; 87102; 87116; 87186; 87205; 87206; 88305; 88312; 89051; 92611; 93005; 93970; 94003; 94640; 94760; 94761; 97110; 97116; 97162; 97166; 97530; 99285; C9803; J2405; J2704; U0003; U0005

== ENCOUNTER → 2022-01-15 13:58 | Outpatient (CLI) | payer MEDICARE, SELFPAY ==
[2022-01-15 15:08] LABS: Basophils # 0.1 K/mm3 (0-0.2); Basophils % 0.5 % (0.1-2.0); Eosinophils % 0.1 % (0.1-12.0); Hematocrit 36.9 % (37.0-47.0); Hemoglobin 11.8 g/dL (12.2-16.2); Lymphocytes # 0.5 K/mm3 (0.7-4.5); Lymphocytes % 1.9 % (10-50); Mean Corpuscular HGB Conc 32.1 g/dL (31.8-35.4); Mean Corpuscular Hemoglobin 31.2 pg (27.0-31.2); Mean Corpuscular Volume 97.3 fl (81-99); Mean Platelet Volume 8.7 fl (7.4-10.4); Monocytes # 0.7 K/mm3 (0.1-1.0); Monocytes % 2.7 % (1.7-9.3); Neutrophils # 24.3 K/mm3 (1.8-7.8); Neutrophils % 94.8 % (37.0-80.0); Platelet Count 320 K/mm3 (142-424); Red Blood Count 3.79 M/mm3 (4.20-5.40); Red Cell Distribution Width 16.4 % (11.5-17.5); White Blood Count 25.6 K/mm3 (4.8-10.8)
[2022-01-15 15:11] LABS: MANUAL DIFFERENTIAL MANUAL DIFFERENTIAL (MANUAL DIFF)
[2022-01-15 15:34] LABS: C-Reactive Protein 26.7 mg/L (0-4)
[2022-01-15 18:55] LABS: Lymphocytes % 7 % (10-50); Monocytes % 2 % (2-9); Neutrophils % 90 % (42-76); Platelet Estimate Normal; RBC Morphology Normal; Total Cells Counted 100
== END ==
PROVIDERS: PCP Internal Medicine; Visit Provider Internal Medicine Pulmonary Disease
DX: J45.909 Unspecified asthma, uncomplicated (principal); R06.00 Dyspnea, unspecified
CPT/HCPCS: 36415; 85007; 85025; 86140

== ENCOUNTER 2022-02-06 00:17 | Emergency (ER) | payer MEDICARE, SELFPAY ==
[2022-02-06] VITALS (14 sets, daily range): BP systolic 95–121; BP diastolic 48–85; PULSE 61–73; RESP 15–21; TEMP 36.4–36.6; O2SAT 87–93; BMI 29.2
--- NOTE | 2022-02-06 00:20 | ECG_ITS ---
APPROVED REPORT Exam: Resting ECG HR:71 bpm ECG Measurements Heart Rate 71 AXES WI 154 P 41 QRSd 88 QRS 28 QT 319 T -7 QTc 341 Conclusion SINUS RHYTHM LOW QRS VOLTAGE IN PRECORDIAL LEADS [QRS DEFLECTION < 1.0 mV IN CHEST LEADS] NONSPECIFIC T-WAVE ABNORMALITY BORDERLINE ECG UNCONFIRMED REPORT Electronically signed by : Tyson Adrian MD 02/06/2022 16:56:26
--- NOTE | 2022-02-06 00:25 | PC.NURSE ---
RT at BS
[2022-02-06 00:32] LABS: ABG Base Excess 0.7 mmol/L (-2.4-2.3); ABG HCO3 25.1 mmhg (22.0-26.0); ABG Oxygen Saturation 91 % (90-100); ABG PCO2 39.1 mmhg (35.0-45.0); ABG PH 7.43 mmol/L (7.35-7.45); ABG PO2 61.6 mmhg (80-100); ABG TCO2 26.3 mmhg (23-27); Allen's Test Acceptable; Oxygen 21 %; Source Right Radial
--- NOTE | 2022-02-06 00:32 | XR_ITS ---
PROCEDURE INFORMATION: Exam: XR Chest Exam date and time: 02/06/2022 12:43 AM Age: 76 years old Clinical indication: Shortness of breath; Additional info: SOA TECHNIQUE: Imaging protocol: Radiologic exam of the chest. Views: 1 view. COMPARISON: CR XR CHEST PORTABLE 01/06/2022 10:37 AM FINDINGS: Lungs: Unremarkable. No consolidation. Pleural spaces: Unremarkable. No pleural effusion. No pneumothorax. Heart/Mediastinum: Heart is enlarged. Diaphragm: Chronic elevation of the right diaphragm. Bones/joints: Degenerative spondylosis and facet arthropathy within the spine. Acromioclavicular arthropathy. IMPRESSION: No evidence of acute cardiopulmonary process.
--- NOTE | 2022-02-06 00:46 | PC.NURSE ---
RAD at BS
[2022-02-06 00:53] LABS: Coronavirus 19, PCR Not Detected (NotDetected); Influenza A, PCR Not Detected (NotDetected); Influenza B, PCR Not Detected (NotDetected)
[2022-02-06 00:53] LABS: Microscopic, Urine URINE MICROSCOPIC (MICROSCOPIC)
[2022-02-06 00:56] LABS: Basophils # 0.2 K/mm3 (0-0.2); Basophils % 1.5 % (0.1-2.0); Eosinophils # 0.1 K/mm3 (0.0-0.4); Hematocrit 35.9 % (37.0-47.0); Hemoglobin 11.9 g/dL (12.2-16.2); Lymphocytes % 14.7 % (10-50); Mean Corpuscular HGB Conc 33.2 g/dL (31.8-35.4); Mean Corpuscular Hemoglobin 31.5 pg (27.0-31.2); Mean Corpuscular Volume 94.7 fl (81-99); Mean Platelet Volume 7.5 fl (7.4-10.4); Monocytes # 0.7 K/mm3 (0.1-1.0); Monocytes % 4.7 % (1.7-9.3); Neutrophils # 10.8 K/mm3 (1.8-7.8); Neutrophils % 78.1 % (37.0-80.0); Platelet Count 252 K/mm3 (142-424); Red Blood Count 3.79 M/mm3 (4.20-5.40); Red Cell Distribution Width 17.1 % (11.5-17.5); White Blood Count 13.8 K/mm3 (4.8-10.8)
[2022-02-06 00:59] LABS: Bilirubin,Urine Negative (Negative); Blood, Urine TRACE-L (Negative); Color,Urine YELLOW (Yellow); Glucose,Urine (UA) Negative (Negative); Ketones,Urine Negative (Negative); Leukocyte Esterase,Urine 1+ (Negative); Nitrate,Urine POSITIVE (Negative); Protein,Urine Negative (Negative); Specific Gravity, Urine >= 1.030 (1.005-1.030); Urobilinogen,Urine 0.2 EU/dl (0.2)
[2022-02-06 01:01] LABS: Appearance,Urine Slightly Cloudy (Clear)
[2022-02-06 01:04] LABS: Alanine Aminotransferase 8 U/L (12-78); Albumin Level 3.7 g/dl (3.5-5.0); Albumin/Globulin Ratio 1.4 (1.1-1.8); Alkaline Phosphatase 97 U/L (38-126); Anion Gap 9.5 mEq/L (5-15); Aspartate Amino Transferase 23 U/L (14-36); Bilirubin,Total 0.3 mg/dl (0.2-1.3); Blood Urea Nitrogen 30 mg/dl (7-17); Calcium 9.3 mg/dl (8.4-10.2); Carbon Dioxide 30 mmol/L (22.0-30.0); Chloride 101 mmol/L (98-107); Creatinine Clearance Estimated 55 mL/min (50-200); Estimated Glomerular Filt Rate 61 ml/min (>60); GFR (African American) 74 ML/MIN (>60); Globulin 2.7 g/dL (1.3-3.2); Glucose 94 mg/dl (74-100); Lactic Acid 1.5 mmol/L (0.7-2.1); Potassium 3.5 mmoL/L (3.5-5.1); Sodium 137 mmol/L (136-145); Total Protein,Serum 6.4 g/dl (6.3-8.2)
[2022-02-06 01:09] LABS: C-Reactive Protein 9.4 mg/L (0-4)
[2022-02-06 01:25] LABS: Erythrocyte Sedimentation Rate 18 mm/hr (0-30)
[2022-02-06 01:26] LABS: Bacteria,Urine 3+ /lpf; Mucus,Urine 1+ /lpf
[2022-02-06 01:58] LABS: NT Pro Brain Natriuretic Pep. 246 pg/mL (0-450); Troponin I 0.02 ng/ml (0.00-0.034)
[2022-02-06 02:02] LABS: Procalcitonin 0.161 ng/mL (0.0-2.0); T4 (Thyroxine) 5.2 ug/dl (5.53-11.0)
--- NOTE | 2022-02-06 02:52 | HMH.EDSOB ---
ED Disposition Clinical Impression: SIRS (systemic inflammatory response syndrome), Parkinson disease Hypothyroidism Qualifiers: Hypothyroidism type: acquired Qualified Code(s): E03.9 - Hypothyroidism, unspecified UTI (urinary tract infection) Qualifiers: Urinary tract infection type: site unspecified Hematuria presence: without hematuria Qualified Code(s): N39.0 - Urinary tract infection, site not specified Disposition: Home, Self-Care Condition on Discharge: Fair Instructions: DI for Urinary Tract Infection (UTI) Additional Instructions: see pcp for follow up and urine culture results Prescriptions: Cefdinir [Omnicef 300mg Capsule] 300 mg PO BID #14 cap Transmission Status: Pending to [id number] Referrals: Hossein Grimaldo MD [Primary Care Provider] - - Critical Care Critical Care Time: No Attestation: On 02/06/22, the high probability of a clinically significant, sudden or life threatening deterioration of the following system(s) required my full and direct attention, intervention and personal management. The time I documented below is in addition to time spent performing reported procedures but includes the following listed in this critical care notation. Medical Decision Making - Medical Records Medical records reviewed: Yes: I reviewed the patient's medical records. - Nikunj Inquiry Pt receiving controlled substance: No Vital Signs: 02/06/22 00:17 02/06/22 00:34 02/06/22 01:00 Temperature 97.6 F Temperature Source Oral Pulse Rate 70 63 Pulse Rate [Right] 73 Respiratory Rate 21 Blood Pressure 98/50 L 107/52 L Blood Pressure [Right Arm] 120/85 Blood Pressure Mean 72 Blood Pressure Mean [Right Arm] 96 Blood Pressure Source [Right Arm] Automatic Cuff 02 Sat by Pulse Oximetry 87 L 93 L 90 L Oxygen Delivery Method Room Air Room Air Room Air 02/06/22 01:37 02/06/22 02:00 02/06/22 02:30 Temperature Temperature Source Pulse Rate 61 62 62 Pulse Rate [Right] Respiratory Rate Blood Pressure 101/52 L 105/50 L 106/54 L Blood Pressure [Right Arm] Blood Pressure Mean Blood Pressure Mean [Right Arm] Blood Pressure Source [Right Arm] 02 Sat by Pulse Oximetry 90 L 90 L 92 L Oxygen Delivery Method Room Air Room Air Room Air 02/06/22 03:00 02/06/22 03:30 02/06/22 04:00 Temperature Temperature Source Pulse Rate 61 64 62 Pulse Rate [Right] Respiratory Rate 16 16 16 Blood Pressure 105/52 L 110/55 L 95/48 L Blood Pressure [Right Arm] Blood Pressure Mean 60 70 73 Blood Pressure Mean [Right Arm] Blood Pressure Source [Right Arm] 02 Sat by Pulse Oximetry 93 L 93 L 91 L Oxygen Delivery Method 02/06/22 04:30 02/06/22 05:00 02/06/22 05:30 Temperature Temperature Source Pulse Rate 61 62 61 Pulse Rate [Right] Respiratory Rate 16 15 15 Blood Pressure 98/51 L 100/53 L 114/57 L Blood Pressure [Right Arm] Blood Pressure Mean 65 70 79 Blood Pressure Mean [Right Arm] Blood Pressure Source [Right Arm] 02 Sat by Pulse Oximetry 91 L 91 L 91 L Oxygen Delivery Method 02/06/22 06:01 Temperature Temperature Source Pulse Rate 65 Pulse Rate [Right] Respiratory Rate 15 Blood Pressure 118/62 Blood Pressure [Right Arm] Blood Pressure Mean 77 Blood Pressure Mean [Right Arm] Blood Pressure Source [Right Arm] 02 Sat by Pulse Oximetry 93 L Oxygen Delivery Method - Lab Data Lab results reviewed: Yes: I reviewed the patient's lab results. Lab Results 02/06/22 00:29: Specimen Source Right radial, O2 % 21, ABG pH 7.43, ABG pCO2 39.1, ABG pO2 61.6 L, ABG HCO3 25.1, ABG Total CO2 26.3, ABG O2 Saturation 91, ABG Base Excess 0.7, Feliz Test Acceptable 02/06/22 00:34: WBC 13.8 H, RBC 3.79 L, Hgb 11.9 L, Hct 35.9 L, MCV 94.7, MCH 31.5 H, MCHC 33.2, RDW 17.1, Plt Count 252, MPV 7.5, Neut % (Auto) 78.1, Lymph % (Auto) 14.7, [place] % (Auto) 4.7, Eos % (Auto) 1.0, Baso % (Auto) 1.5, Neut # (Auto) 10.8 H, Lymph # (Au
--- NOTE | 2022-02-06 03:18 | PC.NURSE ---
Pt sleeping. No new needs at this time.
[2022-02-06 03:56] LABS: Troponin I 0.02 ng/ml (0.00-0.034)
--- NOTE | 2022-02-06 05:26 | PC.NURSE ---
pt's updated on POC. Dr. Gallagher would like to have 3rd set of cardiac enzymes collected @ 0645. He was given recliner for increased comfort. Denies blanket, pillow, or drink at this time. Pt is comfortably sleeping at this time
--- NOTE | 2022-02-06 05:50 | PC.NURSE ---
Pt ambulated with walker and staff assist to the bathroom and tolerated well
--- NOTE | 2022-02-06 07:03 | PC.NURSE ---
Pt and spouse given breakfast and drink. Once finished will help to the car. They are tolerating eating well.
== END 2022-02-06 07:36 | disposition home or self-care (01) ==
PROVIDERS: Emergency Provider Emergency Medicine; PCP Internal Medicine
DX: N39.0 Urinary tract infection, site not specified (principal); B96.89 Other specified bacterial agents as the cause of diseases classified elsewhere; R65.10 Systemic inflammatory response syndrome (SIRS) of non-infectious origin without acute organ dysfunction; G20 Parkinson's disease; E03.9 Hypothyroidism, unspecified; Z16.11 Resistance to penicillins; Z16.24 Resistance to multiple antibiotics; Z16.29 Resistance to other single specified antibiotic; Z79.899 Other long term (current) drug therapy
CPT/HCPCS: 71045; 80053; 81001; 82803; 83605; 83735; 83880; 84145; 84436; 84443; 84484; 85025; 85651; 86140; 87040; 87086; 87186; 93005; 94640; 96365; 96375; 99285; C9803; J0696; U0003; U0005

== ENCOUNTER → 2022-02-13 13:18 | Outpatient (CLI) | payer MEDICARE, SELFPAY ==
[2022-02-13 15:01] LABS: C-Reactive Protein 7.1 mg/L (0-4)
[2022-02-17 17:13] LABS: Histoplasma Gal'mannan Ag Ur <0.5 (<0.5 ng/mL)
[2022-02-19 01:09] LABS: D001-IgE D pteronyssinus <0.10 kU/L (Class 0); D002-IgE D farinae <0.10 kU/L (Class 0); E001-IgE Cat Dander <0.10 kU/L (Class 0); E005-IgE Dog Dander <0.10 kU/L (Class 0); E072-IgE Mouse Urine <0.10 kU/L (Class 0); G002-IgE Bermuda Grass <0.10 kU/L (Class 0); G006-IgE Timothy Grass <0.10 kU/L (Class 0); I006-IgE Cockroach, German <0.10 kU/L (Class 0); Immunoglobulin E, Total 27 IU/mL (6-495); M001-IgE Penicillium chrysogen <0.10 kU/L (Class 0); M002-IgE Cladosporium herbarum <0.10 kU/L (Class 0); M003-IgE Aspergillus fumigatus <0.10 kU/L (Class 0); M006-IgE Alternaria alternata <0.10 kU/L (Class 0); T001-IgE Maple/Box Elder <0.10 kU/L (Class 0); T003-IgE Common Silver Birch <0.10 kU/L (Class 0); T006-IgE Cedar, Mountain <0.10 kU/L (Class 0); T007-IgE Oak, White <0.10 kU/L (Class 0); T008-IgE Elm, American <0.10 kU/L (Class 0); T010-IgE Walnut <0.10 kU/L (Class 0); T011-IgE Maple Leaf Sycamore <0.10 kU/L (Class 0); T014-IgE Cottonwood <0.10 kU/L (Class 0); T015-IgE Ash, White <0.10 kU/L (Class 0); T022-IgE Pecan, Hickory <0.10 kU/L (Class 0); T070-IgE White Mulberry <0.10 kU/L (Class 0); W001-IgE Ragweed, Short <0.10 kU/L (Class 0); W011-IgE Thistle, Russian <0.10 kU/L (Class 0); W014-IgE Pigweed, Common <0.10 kU/L (Class 0); W018-IgE Sheep Sorrel <0.10 kU/L (Class 0)
== END ==
PROVIDERS: PCP Internal Medicine; Visit Provider Internal Medicine Pulmonary Disease
DX: R06.09 Other forms of dyspnea (principal)
CPT/HCPCS: 36415; 82785; 86003; 86140; 87385

== ENCOUNTER → 2022-03-14 12:31 | Outpatient (CLI) | payer MEDICARE, SELFPAY | PROVIDERS: PCP Internal Medicine; Visit Provider Internal Medicine Pulmonary Disease | DX: R06.09 Other forms of dyspnea (principal) | CPT/HCPCS: 87070; 87205 ==

== ENCOUNTER → 2022-04-07 15:25 | Outpatient (CLI) | payer MEDICARE, SELFPAY ==
--- NOTE | 2022-04-07 15:30 | XR_ITS ---
FINAL REPORT CLINICAL HISTORY: COUGH, -COVID 19, INFECTION COMPARISON: 02/06/2022 FINDINGS: 2 views of the chest were obtained . The heart is normal in size. The mediastinum is within normal limits. There is elevation of the right hemidiaphragm. Mild left base opacity is seen favored to represent atelectasis or pneumonia. There is no pneumothorax. Osseous structures are unremarkable. IMPRESSION: Mild left base opacity, favor atelectasis or pneumonia. Reviewed, Interpreted and Dictated by Mauro Carballo III, MD Transcribed by Lillie Fernández Authenticated and [facility]
[2022-04-07 18:58] LABS: Alanine Aminotransferase 7 U/L (12-78); Albumin Level 4.2 g/dl (3.5-5.0); Albumin/Globulin Ratio 1.2 (1.1-1.8); Alkaline Phosphatase 90 U/L (38-126); Anion Gap 11.6 mEq/L (5-15); Aspartate Amino Transferase 15 U/L (14-36); Bilirubin,Total 0.4 mg/dl (0.2-1.3); Blood Urea Nitrogen 25 mg/dl (7-17); Calcium 9.7 mg/dl (8.4-10.2); Carbon Dioxide 27 mmol/L (22.0-30.0); Chloride 105 mmol/L (98-107); Estimated Glomerular Filt Rate 44 ml/min (>60); GFR (African American) 53 ML/MIN (>60); Globulin 3.6 g/dL (1.3-3.2); Glucose 88 mg/dl (74-100); Potassium 4.6 mmoL/L (3.5-5.1); Sodium 139 mmol/L (136-145); Total Protein,Serum 7.8 g/dl (6.3-8.2)
[2022-04-07 18:59] LABS: Basophils # 0.1 K/mm3 (0-0.2); Eosinophils # 0.5 K/mm3 (0.0-0.4); Eosinophils % 3.7 % (0.1-12.0); Hematocrit 41.4 % (37.0-47.0); Hemoglobin 12.1 g/dL (12.2-16.2); Lymphocytes # 3.3 K/mm3 (0.7-4.5); Lymphocytes % 25.8 % (10-50); Mean Corpuscular HGB Conc 29.3 g/dL (31.8-35.4); Mean Corpuscular Hemoglobin 28.3 pg (27.0-31.2); Mean Corpuscular Volume 96.6 fl (81-99); Monocytes # 1.1 K/mm3 (0.1-1.0); Monocytes % 8.3 % (1.7-9.3); Neutrophils # 7.9 K/mm3 (1.8-7.8); Neutrophils % 61.2 % (37.0-80.0); Platelet Count 427 K/mm3 (142-424); Red Blood Count 4.28 M/mm3 (4.20-5.40); Red Cell Distribution Width 15.2 % (11.5-17.5); White Blood Count 12.9 K/mm3 (4.8-10.8)
== END ==
PROVIDERS: PCP Internal Medicine; Visit Provider Internal Medicine
DX: R05.9 Cough, unspecified (principal); U09.9 Post COVID-19 condition, unspecified; R09.81 Nasal congestion
CPT/HCPCS: 71046; 80053; 85025

== ENCOUNTER → 2022-04-23 14:50 | Outpatient (CLI) | payer MEDICARE, SELFPAY ==
--- NOTE | 2022-04-23 14:55 | XR_ITS ---
FINAL REPORT CLINICAL HISTORY: SOB, ILD, COMPARISON: 04/07/2022 FINDINGS: 2 views of the chest were obtained. The heart size is normal. There is persistent elevation of the right hemidiaphragm. There is improved aeration in the left lung base. There are no pleural effusions. There is no pneumothorax. There is no acute osseous abnormality. IMPRESSION: Improved aeration in the left lung base as compared to the prior exam. Reviewed, Interpreted and Dictated by Mauro Carballo III, MD Transcribed by Shanda Ibanez Authenticated and . [facility]
== END ==
PROVIDERS: PCP Internal Medicine; Visit Provider Internal Medicine
DX: R06.02 Shortness of breath (principal); J84.9 Interstitial pulmonary disease, unspecified; I50.32 Chronic diastolic (congestive) heart failure
CPT/HCPCS: 71046

== ENCOUNTER → 2022-05-21 16:43 | Outpatient (CLI) | payer MEDICARE, SELFPAY ==
[2022-05-21 18:32] LABS: Anion Gap 15.7 mEq/L (5-15); Blood Urea Nitrogen 34 mg/dl (7-17); Calcium 9.6 mg/dl (8.4-10.2); Carbon Dioxide 31 mmol/L (22.0-30.0); Chloride 95 mmol/L (98-107); Estimated Glomerular Filt Rate 44 ml/min (>60); GFR (African American) 53 ML/MIN (>60); Glucose 85 mg/dl (74-100); Potassium 3.7 mmoL/L (3.5-5.1); Sodium 138 mmol/L (136-145)
== END ==
PROVIDERS: PCP Internal Medicine; Visit Provider Internal Medicine
DX: R06.02 Shortness of breath (principal)
CPT/HCPCS: 80048

== ENCOUNTER → 2022-06-02 14:52 | Outpatient (CLI) | payer MEDICARE, SELFPAY ==
[2022-06-02 16:44] LABS: Alanine Aminotransferase 7 U/L (12-78); Albumin Level 4.1 g/dl (3.5-5.0); Albumin/Globulin Ratio 1.3 (1.1-1.8); Alkaline Phosphatase 137 U/L (38-126); Anion Gap 16.6 mEq/L (5-15); Aspartate Amino Transferase 12 U/L (14-36); Bilirubin,Total 0.4 mg/dl (0.2-1.3); Blood Urea Nitrogen 35 mg/dl (7-17); Calcium 9.3 mg/dl (8.4-10.2); Carbon Dioxide 31 mmol/L (22.0-30.0); Chloride 94 mmol/L (98-107); Estimated Glomerular Filt Rate 36 ml/min (>60); GFR (African American) 44 ML/MIN (>60); Globulin 3.2 g/dL (1.3-3.2); Glucose 105 mg/dl (74-100); Potassium 3.6 mmoL/L (3.5-5.1); Sodium 138 mmol/L (136-145); Total Protein,Serum 7.3 g/dl (6.3-8.2)
[2022-06-02 17:00] LABS: 25-OH Vitamin D, Total 38.7 ng/mL (30-100)
== END ==
PROVIDERS: PCP Internal Medicine; Visit Provider Internal Medicine Rheumatology
DX: R06.09 Other forms of dyspnea (principal); M81.0 Age-related osteoporosis without current pathological fracture
CPT/HCPCS: 36415; 80053; 82306; 94762

== ENCOUNTER → 2022-06-06 19:54 | Outpatient (CLI) | payer MEDICARE, SELFPAY ==
[2022-06-06 21:09] LABS: Anion Gap 16.8 mEq/L (5-15); Blood Urea Nitrogen 34 mg/dl (7-17); Calcium 9.2 mg/dl (8.4-10.2); Carbon Dioxide 31 mmol/L (22.0-30.0); Chloride 93 mmol/L (98-107); Estimated Glomerular Filt Rate 34 ml/min (>60); GFR (African American) 41 ML/MIN (>60); Glucose 81 mg/dl (74-100); Potassium 3.8 mmoL/L (3.5-5.1); Sodium 137 mmol/L (136-145)
[2022-06-06 21:40] LABS: Thyroid Stimulating Hormone < 0.02 uIU/mL (0.465-4.68)
== END ==
PROVIDERS: PCP Internal Medicine; Visit Provider Internal Medicine
DX: G20 Parkinson's disease (principal); I50.32 Chronic diastolic (congestive) heart failure; J84.9 Interstitial pulmonary disease, unspecified; M06.89 Other specified rheumatoid arthritis, multiple sites
CPT/HCPCS: 80048; 84443

== ENCOUNTER → 2022-06-26 14:17 | Outpatient (CLI) | payer MEDICARE, SELFPAY ==
--- NOTE | 2022-06-26 15:07 | PC.NURSE ---
PFT and 6 Minute Walk Test completed. Pt given Albuterol 0.083% via HHN, per protocol, Pt tolerated tx well.
== END ==
PROVIDERS: PCP Internal Medicine; Visit Provider Internal Medicine Pulmonary Disease
DX: R06.00 Dyspnea, unspecified (principal)
CPT/HCPCS: 94060; 94618; 94726; 94729

== ENCOUNTER → 2022-08-13 19:43 | Outpatient (CLI) | payer MEDICARE, SELFPAY ==
[2022-08-13 20:03] LABS: Basophils # 0.2 K/mm3 (0-0.2); Basophils % 1.4 % (0.1-2.0); Eosinophils # 0.6 K/mm3 (0.0-0.4); Eosinophils % 4.6 % (0.1-12.0); Hematocrit 39.4 % (37.0-47.0); Hemoglobin 12.5 g/dL (12.2-16.2); Lymphocytes # 3.5 K/mm3 (0.7-4.5); Lymphocytes % 29.1 % (10-50); Mean Corpuscular HGB Conc 31.7 g/dL (31.8-35.4); Mean Corpuscular Volume 88.4 fl (81-99); Mean Platelet Volume 9.3 fl (7.4-10.4); Monocytes # 0.7 K/mm3 (0.1-1.0); Monocytes % 5.7 % (1.7-9.3); Neutrophils # 7.2 K/mm3 (1.8-7.8); Neutrophils % 59.2 % (37.0-80.0); Platelet Count 413 K/mm3 (142-424); Red Blood Count 4.45 M/mm3 (4.20-5.40); Red Cell Distribution Width 14.9 % (11.5-17.5); White Blood Count 12.1 K/mm3 (4.8-10.8)
[2022-08-13 21:04] LABS: Chloride 97 mmol/L (98-107); Potassium 4.3 mmoL/L (3.5-5.1); Sodium 139 mmol/L (136-145)
[2022-08-13 21:06] LABS: Alanine Aminotransferase 6 U/L (12-78); Alkaline Phosphatase 97 U/L (38-126); Anion Gap 16.3 mEq/L (5-15); Aspartate Amino Transferase 9 U/L (14-36); Bilirubin,Total 0.6 mg/dl (0.2-1.3); Blood Urea Nitrogen 29 mg/dl (7-17); Carbon Dioxide 30 mmol/L (22.0-30.0); Estimated Glomerular Filt Rate 29 ml/min (>60); GFR (African American) 35 ML/MIN (>60)
[2022-08-13 21:07] LABS: Albumin Level 4.5 g/dl (3.5-5.0); Albumin/Globulin Ratio 1.2 (1.1-1.8); Calcium 9.8 mg/dl (8.4-10.2); Globulin 3.7 g/dL (1.3-3.2); Glucose 83 mg/dl (74-100); Total Protein,Serum 8.2 g/dl (6.3-8.2)
[2022-08-13 21:38] LABS: Thyroid Stimulating Hormone < 0.02 uIU/mL (0.465-4.68)
== END ==
PROVIDERS: PCP Internal Medicine; Visit Provider Internal Medicine
DX: I50.32 Chronic diastolic (congestive) heart failure (principal)
CPT/HCPCS: 80053; 84443; 85025

== ENCOUNTER → 2022-08-13 20:02 | Outpatient (CLI) | payer MEDICARE, SELFPAY | PROVIDERS: PCP Internal Medicine; Visit Provider Internal Medicine | DX: I50.23 Acute on chronic systolic (congestive) heart failure (principal) ==

== ENCOUNTER → 2022-09-05 11:37 | Outpatient (CLI) | payer MEDICARE, SELFPAY ==
--- NOTE | 2022-09-05 11:43 | XR_ITS ---
FINAL REPORT TECHNIQUE: Two views CLINICAL HISTORY: CHEST PAIN COMPARISON: 04/23/2022 FINDINGS: No acute pulmonary density is present. Mediastinal contour is normal. Heart size is stable. IMPRESSION: Stable chest exam without acute disease Reviewed, Interpreted and Dictated by Napoleon Higginbotham MD Transcribed by Nicki Myers Authenticated and [facility]
== END ==
PROVIDERS: PCP Internal Medicine; Visit Provider Internal Medicine
DX: R07.9 Chest pain, unspecified (principal)
CPT/HCPCS: 71046

== ENCOUNTER 2022-09-28 13:09 | Emergency (ER) | payer MEDICARE, SELFPAY ==
[2022-09-28] VITALS (12 sets, daily range): BP systolic 90–139; BP diastolic 47–67; PULSE 56–89; RESP 12–17; TEMP 36.5–36.8; O2SAT 91–100; BMI 27.4
--- NOTE | 2022-09-28 13:58 | XR_ITS ---
PROCEDURE INFORMATION: Exam: XR Chest Exam date and time: 09/28/2022 2:31 PM Age: 77 years old Clinical indication: Shortness of breath; Additional info: SOA TECHNIQUE: Imaging protocol: Radiologic exam of the chest. Views: 1 view. COMPARISON: CR XR CHEST 2V 09/05/2022 11:49 AM FINDINGS: Lungs: Unremarkable. No consolidation. Stable elevated right hemidiaphragm. Pleural spaces: Unremarkable. No pleural effusion. No pneumothorax. Heart/Mediastinum: Unremarkable. No cardiomegaly. Bones/joints: Unremarkable. IMPRESSION: No acute findings.
[2022-09-28 14:09] LABS: Basophils # 0.2 K/mm3 (0-0.2); Basophils % 1.1 % (0.1-2.0); Eosinophils # 0.9 K/mm3 (0.0-0.4); Eosinophils % 4.4 % (0.1-12.0); Hematocrit 37.6 % (37.0-47.0); Hemoglobin 12.8 g/dL (12.2-16.2); Lymphocytes # 3.7 K/mm3 (0.7-4.5); Lymphocytes % 18.9 % (10-50); Mean Corpuscular Hemoglobin 29.4 pg (27.0-31.2); Mean Corpuscular Volume 86.5 fl (81-99); Mean Platelet Volume 8.3 fl (7.4-10.4); Monocytes # 0.7 K/mm3 (0.1-1.0); Monocytes % 3.7 % (1.7-9.3); Neutrophils # 14.2 K/mm3 (1.8-7.8); Neutrophils % 71.9 % (37.0-80.0); Platelet Count 370 K/mm3 (142-424); Red Blood Count 4.35 M/mm3 (4.20-5.40); Red Cell Distribution Width 15.1 % (11.5-17.5); White Blood Count 19.7 K/mm3 (4.8-10.8)
[2022-09-28 14:12] LABS: Chloride 103 mmol/L (98-107); Potassium 3.6 mmoL/L (3.5-5.1); Sodium 141 mmol/L (136-145)
[2022-09-28 14:14] LABS: MANUAL DIFFERENTIAL MANUAL DIFFERENTIAL (MANUAL DIFF)
[2022-09-28 14:15] LABS: Alanine Aminotransferase 8 U/L (12-78); Albumin Level 4.5 g/dl (3.5-5.0); Albumin/Globulin Ratio 1.1 (1.1-1.8); Alkaline Phosphatase 120 U/L (38-126); Anion Gap 12.6 mEq/L (5-15); Aspartate Amino Transferase 17 U/L (14-36); Bilirubin,Total 0.8 mg/dl (0.2-1.3); Blood Urea Nitrogen 26 mg/dl (7-17); Carbon Dioxide 29 mmol/L (22.0-30.0); Creatinine Clearance Estimated 29 mL/min (50-200); Estimated Glomerular Filt Rate 27 ml/min (>60); GFR (African American) 33 ML/MIN (>60); Globulin 4.1 g/dL (1.3-3.2); Total Protein,Serum 8.6 g/dl (6.3-8.2)
[2022-09-28 14:16] LABS: Calcium 9.8 mg/dl (8.4-10.2); Glucose 91 mg/dl (74-100)
--- NOTE | 2022-09-28 14:17 | PC.NURSE ---
PT IS LAYING IN BED,CALL LIGHT AT BEDSIDE
--- NOTE | 2022-09-28 14:19 | PC.NURSE ---
HAVING XRAY AT BEDSIDE
[2022-09-28 14:25] LABS: NT Pro Brain Natriuretic Pep. 126 pg/mL (0-450)
[2022-09-28 14:30] LABS: Troponin I < 0.01 ng/ml (0.00-0.034)
--- NOTE | 2022-09-28 14:48 | ECG_ITS ---
APPROVED REPORT Exam: Resting ECG HR:57 bpm ECG Measurements Heart Rate 57 AXES NJ 174 P 59 QRSd 102 QRS 54 QT 367 T 43 QTc 361 Conclusion SINUS BRADYCARDIA NONSPECIFIC T-WAVE ABNORMALITY BORDERLINE ECG UNCONFIRMED REPORT Electronically signed by : Tyson Adrian MD 09/29/2022 18:53:34
--- NOTE | 2022-09-28 14:51 | PC.NURSE ---
EKG performed and given to
--- NOTE | 2022-09-28 16:12 | PC.NURSE ---
ASSISTED PT TO RESTROOM, NOW RELAXING IN BED AT BEDSIDE
[2022-09-28 16:22] LABS: Hypochromasia 2+; Lymphocytes % 18 % (10-50); Monocytes % 6 % (2-9); Neutrophils % 76 % (42-76); Platelet Estimate Normal; Total Cells Counted 100
--- NOTE | 2022-09-28 16:51 | CT_ITS ---
PROCEDURE INFORMATION: Exam: CT Chest Without Contrast; Diagnostic Exam date and time: 09/28/2022 5:09 PM Age: 77 years old Clinical indication: Shortness of breath; Additional info: SOA TECHNIQUE: Imaging protocol: Diagnostic computed tomography of the chest without contrast. Radiation optimization: All CT scans at this facility use at least one of these dose optimization techniques: automated exposure control; mA and/or kV adjustment per patient size (includes targeted exams where dose is matched to clinical indication); or iterative reconstruction. Other protocol: This patient has received 2 known CTs and 0 known cardiac nuclear medicine studies in the 12 months prior to the current study. COMPARISON: CT ANGIO CHEST PE PROTOCOL 12/17/2021 9:21 PM FINDINGS: Trachea: Grossly patent central airways. Lungs: Patchy air trapping throughout both lungs. Mild bronchiectasis of lower lung zones. Pleural spaces: No pleural effusion. Heart: No pericardial effusion. Lymph nodes: Reactive mediastinal lymph nodes. Vasculature: Mild atherosclerotic calcification of thoracic aorta and coronary arteries. Bones/joints: Visualized osseous structures grossly unremarkable. Soft tissues: Unremarkable. Other findings: Visualized abdomen grossly unremarkable. IMPRESSION: Patchy air trapping. Underlying mild bronchiectasis.
--- NOTE | 2022-09-28 16:55 | PC.NURSE ---
walk test performed and pt was between 94-96% on room air
[2022-09-28 16:58] LABS: Coronavirus 19, PCR Not Detected (NotDetected); Influenza A, PCR Not Detected (NotDetected); Influenza B, PCR Not Detected (NotDetected)
--- NOTE | 2022-09-28 17:00 | PC.NURSE ---
PT IS SITTING UP IN BED AND AT BEDSIDE NO COMPLAINS AT THIS TIME
[2022-09-28 17:22] LABS: Troponin I < 0.01 ng/ml (0.00-0.034)
--- NOTE | 2022-09-28 17:50 | PC.NURSE ---
rounded on the pt, wanted to know about Md SEUN aware
--- NOTE | 2022-09-28 18:04 | HMH.EDGENADL ---
Discharge Plan Disposition Patient Disposition: Home, Self-Care Condition: Fair Chief Complaint: Shortness of Breath/Dyspnea Prescriptions Prescriptions: No Action ropinirole 4 mg tablet 4 mg PO DAILY furosemide 40 mg tablet 40 mg PO BID omeprazole magnesium [Prilosec OTC] 20 mg tablet,delayed release (DR/EC) 20 mg PO DAILY prednisone 10 mg tablet 10 mg PO DAILY Qty: 14 0RF albuterol sulfate 90 mcg/actuation HFA aerosol inhaler 2 inh inhalation Q6H PRN (Reason: shortness of breath or wheezing) 90 Days Qty: 8.5 3RF cefdinir 300 MG capsule 300 mg PO BID Qty: 14 0RF amantadine HCl 100 MG tablet 100 mg PO 0900,1300 celecoxib 200 MG capsule 200 mg PO DAILY lorazepam 0.5 MG tablet 0.5 mg PO TIDP PRN (Reason: Anxiety) folic acid 1 MG tablet 2 mg PO DAILY duloxetine 20 MG capsule,delayed release(DR/EC) 20 mg PO BID levothyroxine 50 MCG tablet 50 mcg PO DAILYDM Label Comments: TAKE 1 TABLET BY MOUTH ONCE DAILY FOR THYROID (DOSE DECREASE) carbidopa-levodopa 1 EACH tablet extended release 0.5 - 1 each PO 5XDAY methenamine hippurate 1 GM tablet 1 gm PO BID spironolactone 50 MG tablet 50 mg PO DAILY gabapentin 300 MG capsule 300 mg PO 0900,1300 gabapentin 300 MG capsule 600 mg PO Referrals Follow up/Referrals: Hossein Grimaldo MD [Primary Care Provider] - See instructions Clinical Impressions Clinical Impression: Dyspnea on exertion Instructions Patient Instructions: DI for Chronic Obstructive Pulmonary Disease Print Language Print Language: Belarusian Discharge ED Provider: Luigi Marshall General Adult HPI General Chief complaint: Shortness of Breath/Dyspnea Stated complaint: SOA Time Seen by Provider: 09/28/22 18:09 Mode of Arrival: Ambulatory Source of Information: Patient and Spouse Limitations: No Limitations Description of Symptoms (Recalled from ER Triage Doc. by RN): 77 F presents with her spouse for increased dyspnea on exertion which is chronic. She is followed by Dr. Boyce for Pulmonology. Spouse reports patient is being seen by Dr. Bateman for increased falls and visual hallucinations of bugs crawling on her. Spouse adds that when they check her oxygen at home it typically stays <90%. History of Present Illness HPI narrative: Patient presents to the emergency department with shortness of breath. The patient denies any recent fever, chills, cough, congestion. She states that she has had some generalized malaise recently. She comes in denies any history of CHF. Denies any vomiting or diarrhea. She states she becomes more short of breath with ambulation. Related Data Home Medications Medication Instructions Recorded Confirmed amantadine HCl 100 mg tablet 100 mg PO 0900,1300 MOVEMENT 09/16/20 06/26/22 DISORDERS celecoxib 200 mg capsule 200 mg PO DAILY INFLAMMATION 09/16/20 06/26/22 duloxetine 20 mg capsule,delayed 20 mg PO BID Depression 09/16/20 06/26/22 release folic acid 1 mg tablet 2 mg PO DAILY Supplement 09/16/20 06/26/22 lorazepam 0.5 mg tablet 0.5 mg PO TIDP PRN Anxiety 09/16/20 06/26/22 levothyroxine 50 mcg tablet 50 mcg PO DAILYDM thyroid 12/17/21 06/26/22 carbidopa ER 50 mg-levodopa 200 mg 0.5 - 1 each PO 5XDAY PARKINSON 12/18/21 06/26/22 tablet,extended release DISEASE gabapentin 300 mg capsule 300 mg PO 0900,1300 NEUROPATHY 12/18/21 06/26/22 gabapentin 300 mg capsule 600 mg PO HS NEUROPATHY 12/18/21 06/26/22 methenamine hippurate 1 gram tablet 1 gm PO BID UTI 12/18/21 06/26/22 spironolactone 50 mg tablet 50 mg PO DAILY Fluid 12/18/21 06/26/22 omeprazole magnesium 20 mg 20 mg PO DAILY GERD 01/15/22 06/26/22 tablet,delayed release (Prilosec OTC) furosemide 40 mg tablet 40 mg PO BID 06/26/22 06/26/22 ropinirole 4 mg tablet 4 mg PO DAILY 06/26/22 06/26/22 Previous Rx's Medication Instructions Recorded cefdinir 300 mg capsule 300 mg PO BID #14 caps
--- NOTE | 2022-09-28 18:06 | PC.NURSE ---
CHECKED ON PT NO COMPLAINTS AT THIS TIME, AT BEDSIDE
== END 2022-09-28 19:10 | disposition home or self-care (01) ==
PROVIDERS: Emergency Provider Emergency Medicine; PCP Internal Medicine
DX: R06.00 Dyspnea, unspecified (principal); R06.02 Shortness of breath; J45.909 Unspecified asthma, uncomplicated; M06.9 Rheumatoid arthritis, unspecified; Z98.51 Tubal ligation status; Z20.822 Contact with and (suspected) exposure to COVID-19
CPT/HCPCS: 71045; 71250; 80053; 83880; 84484; 85007; 85025; 93005; 96374; 99285; C9803; U0003; U0005

== ENCOUNTER → 2022-09-30 12:01 | Outpatient (CLI) | payer MEDICARE, SELFPAY ==
--- NOTE | 2022-09-30 13:00 | PC.NURSE ---
Spirometery with pre and post bronchodilator completed. Pt has tremors and is unable to effectively keep a good seal on the mouth piece while breathing. Pt gave the best effort she is capable of. Albuterol 0.083% given via HHN, per protocol, Pt tolerated tx well.
[2022-09-30 17:34] LABS: C-Reactive Protein 33.4 mg/L (0-4)
[2022-09-30 18:10] LABS: Erythrocyte Sedimentation Rate 22 mm/hr (0-30)
== END ==
PROVIDERS: PCP Internal Medicine; Visit Provider Internal Medicine Pulmonary Disease
DX: J98.4 Other disorders of lung; J84.9 Interstitial pulmonary disease, unspecified
CPT/HCPCS: 36415; 85651; 86140; 94060

== ENCOUNTER → 2022-11-14 16:46 | Outpatient (CLI) | payer MEDICARE, SELFPAY ==
[2022-11-14 17:27] LABS: Chloride 96 mmol/L (98-107); Potassium 4.9 mmoL/L (3.5-5.1); Sodium 135 mmol/L (136-145)
[2022-11-14 17:30] LABS: Anion Gap 15.9 mEq/L (5-15); Blood Urea Nitrogen 24 mg/dl (7-17); Carbon Dioxide 28 mmol/L (22.0-30.0); Estimated Glomerular Filt Rate 40 ml/min (>60); GFR (African American) 48 ML/MIN (>60)
[2022-11-14 17:31] LABS: Calcium 9.7 mg/dl (8.4-10.2)
[2022-11-14 17:59] LABS: Thyroid Stimulating Hormone 0.49 uIU/mL (0.465-4.68)
[2022-11-14 21:37] LABS: Glucose 49 mg/dl (74-100)
== END ==
PROVIDERS: PCP Internal Medicine; Visit Provider Internal Medicine
DX: E03.9 Hypothyroidism, unspecified (principal); I10 Essential (primary) hypertension; E78.5 Hyperlipidemia, unspecified; N18.9 Chronic kidney disease, unspecified; I50.32 Chronic diastolic (congestive) heart failure; I34.0 Nonrheumatic mitral (valve) insufficiency; I35.1 Nonrheumatic aortic (valve) insufficiency; G20 Parkinson's disease
CPT/HCPCS: 80048; 84443

== ENCOUNTER → 2022-12-30 12:09 | Outpatient (CLI) | payer MEDICARE, SELFPAY ==
[2022-12-30 12:40] VITALS: PULSE 66; PULSE 70
--- NOTE | 2022-12-30 13:46 | CT_ITS ---
FINAL REPORT CLINICAL HISTORY: . soa FINDINGS: Axial images through the chest was performed by computed tomography. Sagittal and coronal reformatted images were obtained and reviewed. High-resolution technique was performed with supine inspiration and expiration sequences and a prone inspiration sequence. There is no mediastinal mass or adenopathy. There is mild peripheral from oasis/scarring. There is no bronchiectasis. On expiration images there are patchy small areas of air trapping predominantly in the upper lobes consistent with small airways disease. IMPRESSION: Findings consistent with small airways disease. Reviewed, Interpreted and Dictated by Mauro Carballo III, MD Transcribed by Cesar Rosas Authenticated and [facility]
== END ==
PROVIDERS: PCP Internal Medicine; Visit Provider Internal Medicine Pulmonary Disease
DX: J84.9 Interstitial pulmonary disease, unspecified (principal)
CPT/HCPCS: 71250; 94060; 94618; 94640; 94727; 94729

== ENCOUNTER → 2023-02-09 11:10 | Outpatient (CLI) | payer MEDICARE, SELFPAY ==
--- NOTE | 2023-02-09 11:17 | XR_ITS ---
FINAL REPORT CLINICAL HISTORY: cough COMPARISON: 09/28/2022 FINDINGS: Two views of the chest were obtained. The heart size and pulmonary vascularity are within normal limits. The mediastinum is normal. No acute pulmonary abnormality is identified. There is no pneumothorax. The bony thorax is intact. IMPRESSION: No active cardiopulmonary disease. Reviewed, Interpreted and Dictated by Mauro Carballo III, MD Transcribed by Eyal Nelson Authenticated and [facility]
== END ==
PROVIDERS: PCP Internal Medicine; Visit Provider Internal Medicine Pulmonary Disease
DX: R05.9 Cough, unspecified (principal)
CPT/HCPCS: 71046

== ENCOUNTER → 2023-03-05 13:39 | Outpatient (CLI) | payer MEDICARE, SELFPAY ==
--- NOTE | 2023-03-05 13:43 | XR_ITS ---
FINAL REPORT CLINICAL HISTORY: Cough w phlegm x 4 wks, hx pneumonia. 0 sx hx, nonsmoker. COMPARISON: 02/09/2023 FINDINGS: There is no evidence of effusion or other pleural disease. The mediastinum has a normal appearance. There is chronic elevation of the right diaphragm. The cardiac silhouette is unremarkable. IMPRESSION: No acute process. Reviewed, Interpreted and Dictated by Napoleon Higginbotham MD Transcribed by Corrina Rios Authenticated and [facility]
== END ==
PROVIDERS: PCP Internal Medicine; Visit Provider Internal Medicine Pulmonary Disease
DX: R05.9 Cough, unspecified; Z87.01 Personal history of pneumonia (recurrent)
CPT/HCPCS: 71046

== ENCOUNTER → 2023-03-06 14:11 | Outpatient (CLI) | payer MEDICARE, SELFPAY | PROVIDERS: PCP Internal Medicine; Visit Provider Internal Medicine Pulmonary Disease | DX: R06.09 Other forms of dyspnea (principal); R09.89 Other specified symptoms and signs involving the circulatory and respiratory systems; N39.0 Urinary tract infection, site not specified; B96.29 Other Escherichia coli [E. coli] as the cause of diseases classified elsewhere | CPT/HCPCS: 87070; 87077; 87186; 87205 ==

== ENCOUNTER → 2023-03-16 16:55 | Outpatient (CLI) | payer MEDICARE, SELFPAY ==
[2023-03-16 18:14] LABS: Basophils # 0.1 K/mm3 (0-0.2); Basophils % 0.6 % (0.1-2.0); Eosinophils # 0.5 K/mm3 (0.0-0.4); Eosinophils % 4.1 % (0.1-12.0); Hematocrit 38.5 % (37.0-47.0); Hemoglobin 11.9 g/dL (12.2-16.2); Lymphocytes # 2.7 K/mm3 (0.7-4.5); Lymphocytes % 21.6 % (10-50); Mean Corpuscular HGB Conc 30.8 g/dL (31.8-35.4); Mean Corpuscular Hemoglobin 28.9 pg (27.0-31.2); Mean Corpuscular Volume 93.9 fl (81-99); Mean Platelet Volume 8.8 fl (7.4-10.4); Monocytes # 0.9 K/mm3 (0.1-1.0); Monocytes % 6.9 % (1.7-9.3); Neutrophils # 8.3 K/mm3 (1.8-7.8); Neutrophils % 66.8 % (37.0-80.0); Platelet Count 379 K/mm3 (142-424); Red Cell Distribution Width 13.6 % (11.5-17.5); White Blood Count 12.4 K/mm3 (4.8-10.8)
[2023-03-16 18:41] LABS: Alanine Aminotransferase 8 U/L (12-78); Albumin Level 4.6 g/dl (3.5-5.0); Albumin/Globulin Ratio 1.2 (1.1-1.8); Alkaline Phosphatase 144 U/L (38-126); Anion Gap 18.1 mEq/L (5-15); Aspartate Amino Transferase 11 U/L (14-36); Bilirubin,Total 0.7 mg/dl (0.2-1.3); Blood Urea Nitrogen 28 mg/dl (7-17); Calcium 9.8 mg/dl (8.4-10.2); Carbon Dioxide 29 mmol/L (22.0-30.0); Chloride 99 mmol/L (98-107); Chol/HDL Ratio 3.2 (1-3.5); Cholesterol 241 mg/dl (140-200); Estimated Glomerular Filt Rate 26 ml/min (>60); GFR (African American) 31 ML/MIN (>60); Globulin 3.8 g/dL (1.3-3.2); Glucose 56 mg/dl (74-100); HDL Cholesterol 76 mg/dl (40-60); Potassium 5.1 mmoL/L (3.5-5.1); Sodium 141 mmol/L (136-145); Total Protein,Serum 8.4 g/dl (6.3-8.2); Triglycerides 102 mg/dl (30-150); VLDL Cholesterol 20 mg/dL (0-40)
[2023-03-16 18:53] LABS: Direct LDL Cholesterol 120.33 mg/dL (100-129)
[2023-03-16 19:15] LABS: Thyroid Stimulating Hormone 0.27 uIU/mL (0.465-4.68)
[2023-03-18 14:45] LABS: Albumin 3.6 g/dL (2.9-4.4); Alpha-1-Globulin 0.3 g/dL (0.0-0.4); Alpha-2-Globulin 0.9 g/dL (0.4-1.0); Gamma Globulin 1.7 g/dL (0.4-1.8); Protein, Total 7.8 g/dL (6.0-8.5)
== END ==
PROVIDERS: PCP Internal Medicine; Visit Provider Internal Medicine
DX: I50.32 Chronic diastolic (congestive) heart failure (principal); I50.33 Acute on chronic diastolic (congestive) heart failure; I34.0 Nonrheumatic mitral (valve) insufficiency; I35.1 Nonrheumatic aortic (valve) insufficiency; E03.9 Hypothyroidism, unspecified; E78.5 Hyperlipidemia, unspecified; G20 Parkinson's disease; G60.9 Hereditary and idiopathic neuropathy, unspecified; J84.9 Interstitial pulmonary disease, unspecified; M06.89 Other specified rheumatoid arthritis, multiple sites; M15.0 Primary generalized (osteo)arthritis
CPT/HCPCS: 80053; 80061; 84155; 84165; 84443; 85025

== ENCOUNTER → 2023-03-31 13:50 | Outpatient (CLI) | payer MEDICARE, SELFPAY | PROVIDERS: PCP Internal Medicine; Visit Provider Internal Medicine Pulmonary Disease | DX: J98.4 Other disorders of lung (principal); J84.9 Interstitial pulmonary disease, unspecified; B96.29 Other Escherichia coli [E. coli] as the cause of diseases classified elsewhere; B96.1 Klebsiella pneumoniae [K. pneumoniae] as the cause of diseases classified elsewhere | CPT/HCPCS: 87070; 87077; 87186; 87205 ==

== ENCOUNTER → 2023-04-01 09:39 | Outpatient (CLI) | payer MEDICARE, SELFPAY | PROVIDERS: PCP Internal Medicine; Visit Provider Internal Medicine Pulmonary Disease | DX: R06.02 Shortness of breath (principal) | CPT/HCPCS: 94060 ==

== ENCOUNTER → 2023-04-06 11:16 | Outpatient (CLI) | payer MEDICARE, SELFPAY ==
--- NOTE | 2023-04-06 11:22 | XR_ITS ---
FINAL REPORT TECHNIQUE: 5 views CLINICAL HISTORY: BACK PAIN, PAIN IN LEFT SIDE OF NECK COMPARISON: None FINDINGS: There is no fracture present. There is moderate disc space narrowing at the C5-6 and C6-7 levels. There is mild spondylolisthesis of C4 on C5 and C6 on C7. Moderate bilateral facet osteoarthropathy is present. IMPRESSION: Degenerative change as described, no acute bony abnormality identified. Reviewed, Interpreted and Dictated by Ronnell Linda MD Transcribed by Fidelina Foster Authenticated and [facility]
== END ==
PROVIDERS: PCP Internal Medicine; Visit Provider Internal Medicine
DX: M54.2 Cervicalgia (principal); M47.812 Spondylosis without myelopathy or radiculopathy, cervical region
CPT/HCPCS: 72050

== ENCOUNTER 2023-04-30 14:00 | Outpatient (RCR) | payer MEDICARE, SELFPAY | END 2023-04-30 14:05 | disposition home or self-care (01) | LOC: PT 14:00 | PROVIDERS: PCP Internal Medicine; Visit Provider Psychiatry & Neurology Neurology | DX: M62.81 Muscle weakness (generalized) (principal) | CPT/HCPCS: 97110; 97112; 97116; 97163; 97164; 97530; 97760 ==

== ENCOUNTER → 2023-05-12 09:50 | Outpatient (CLI) | payer MEDICARE, SELFPAY ==
[2023-05-12 10:26] LABS: Basophils # 0.1 K/mm3 (0-0.2); Basophils % 1.1 % (0.1-2.0); Eosinophils # 0.4 K/mm3 (0.0-0.4); Eosinophils % 3.2 % (0.1-12.0); Hematocrit 39.2 % (37.0-47.0); Hemoglobin 12.3 g/dL (12.2-16.2); Lymphocytes # 2.6 K/mm3 (0.7-4.5); Lymphocytes % 23.3 % (10-50); Mean Corpuscular HGB Conc 31.3 g/dL (31.8-35.4); Mean Corpuscular Hemoglobin 28.8 pg (27.0-31.2); Mean Corpuscular Volume 91.9 fl (81-99); Mean Platelet Volume 7.9 fl (7.4-10.4); Monocytes # 0.8 K/mm3 (0.1-1.0); Neutrophils # 7.4 K/mm3 (1.8-7.8); Neutrophils % 65.4 % (37.0-80.0); Platelet Count 379 K/mm3 (142-424); Red Blood Count 4.27 M/mm3 (4.20-5.40); Red Cell Distribution Width 15.1 % (11.5-17.5); White Blood Count 11.3 K/mm3 (4.8-10.8)
[2023-05-12 11:24] LABS: Chloride 100 mmol/L (98-107); Potassium 3.6 mmoL/L (3.5-5.1); Sodium 138 mmol/L (136-145)
[2023-05-12 11:26] LABS: Blood Urea Nitrogen 23 mg/dl (7-17); Estimated Glomerular Filt Rate 48 ml/min (>60); GFR (African American) 58 ML/MIN (>60)
[2023-05-12 11:27] LABS: Alanine Aminotransferase 9 U/L (12-78); Albumin Level 4.1 g/dl (3.5-5.0); Albumin/Globulin Ratio 1.2 (1.1-1.8); Alkaline Phosphatase 113 U/L (38-126); Anion Gap 11.6 mEq/L (5-15); Aspartate Amino Transferase 12 U/L (14-36); Bilirubin,Total 0.4 mg/dl (0.2-1.3); Carbon Dioxide 30 mmol/L (22.0-30.0); Globulin 3.5 g/dL (1.3-3.2); Glucose 78 mg/dl (74-100); Total Protein,Serum 7.6 g/dl (6.3-8.2)
[2023-05-13 11:27] LABS: C-Reactive Protein 3.4 mg/L (0-4)
== END ==
PROVIDERS: PCP Internal Medicine; Visit Provider Internal Medicine Pulmonary Disease
DX: J84.9 Interstitial pulmonary disease, unspecified (principal); J45.909 Unspecified asthma, uncomplicated; R06.09 Other forms of dyspnea; J82.83 Eosinophilic asthma
CPT/HCPCS: 36415; 80053; 85025; 86140

== ENCOUNTER 2023-05-15 14:00 | Outpatient (RCR) | payer MEDICARE, SELFPAY ==
--- NOTE | 2023-04-30 15:44 | HMH.PTOPEV ---
PT Outpatient Evaluation Rehab PT Outpatient Evaluation Start: 04/30/23 13:53 Freq: Status: Active Protocol: Document 04/30/23 13:53 EMIR (Rec: 04/30/23 15:43 EMIR [id number]) E-signed By Branid Lyman, PT Outpatient Therapy Subjective History Subjective History Pt is a 78 y/o female who reports insidious onset of left-sided neck pain a couple weeks ago. Pt reports she woke up one morning and experienced a sharp, shooting pain in the lef deandre trapezius region that referred pain to her ear. Pt reports she also feels pressure in the back of her head and has posterior headaches 2x/day. Pt reports she has been taking Tylenol when headaches occur which helps with the intensity of the headache and often takes them away. Pt denies light/noise sensitivity or n/v with headaches. Pt denies distal UE symptoms or numbness /tingling. Pt reports pain is aggravated by rotating her head right worse than left. Pt reports pain seems to be worse at night time and often wakes her up at night. Pt had a cervical spine xray on with findings as follows: There is moderate disc spacenarrowing at the C5-6 and C6-7 levels. There is mild spondylolisthesis of C4 on C5 and C6 on C7. Moderate bilateral facet osteoarthropathy is present. Medical History: Parkinson's disease, rheumatoid arthritis, osteoarthritis, interstitial lung disease, restrictive lung disease, nocturnal hypoxia, dyspnea on exertion New diagnosis of cancer in past 12 No months? Chief Complaint Pain Symptom Type Ache,Sharp,Dull Symptoms Relieved By Rest/Positioning,OTC Meds Prior Functional Limitations
== END 2023-05-15 14:05 | disposition home or self-care (01) ==
LOC: PT 14:00
PROVIDERS: PCP Internal Medicine; Visit Provider Internal Medicine
DX: M54.2 Cervicalgia (principal); G44.86 Cervicogenic headache
CPT/HCPCS: 97010; 97014; 97035; 97110; 97140; 97163; G0283

== ENCOUNTER → 2023-05-15 17:34 | Outpatient (CLI) | payer MEDICARE, SELFPAY ==
[2023-05-15 19:00] LABS: Microscopic, Urine URINE MICROSCOPIC (MICROSCOPIC)
[2023-05-15 19:07] LABS: Basophils # 0.1 K/mm3 (0-0.2); Eosinophils # 0.4 K/mm3 (0.0-0.4); Eosinophils % 3.5 % (0.1-12.0); Hematocrit 37.8 % (37.0-47.0); Hemoglobin 11.7 g/dL (12.2-16.2); Lymphocytes # 2.5 K/mm3 (0.7-4.5); Lymphocytes % 24.3 % (10-50); Mean Corpuscular HGB Conc 30.9 g/dL (31.8-35.4); Mean Corpuscular Hemoglobin 29.2 pg (27.0-31.2); Mean Corpuscular Volume 94.6 fl (81-99); Mean Platelet Volume 8.7 fl (7.4-10.4); Monocytes # 0.7 K/mm3 (0.1-1.0); Monocytes % 7.1 % (1.7-9.3); Neutrophils # 6.5 K/mm3 (1.8-7.8); Neutrophils % 64.1 % (37.0-80.0); Platelet Count 367 K/mm3 (142-424); Red Cell Distribution Width 15.4 % (11.5-17.5); White Blood Count 10.2 K/mm3 (4.8-10.8)
[2023-05-15 19:21] LABS: Appearance,Urine SL CLOUDY (Clear); Bilirubin,Urine Negative (Negative); Blood, Urine TRACE-I (Negative); Color,Urine YELLOW (Yellow); Glucose,Urine (UA) Negative (Negative); Ketones,Urine Negative (Negative); Leukocyte Esterase,Urine 1+ (Negative); Nitrate,Urine POSITIVE (Negative); Protein,Urine TRACE (Negative); Specific Gravity, Urine >= 1.030 (1.005-1.030); Urobilinogen,Urine 0.2 EU/dl (0.2)
[2023-05-15 20:18] LABS: Bacteria,Urine 3+ /lpf; RBC,Urine Occasional #/hpf (0-3); Squamous Epithelial Cell,Urine Occasional #/hpf (0-5)
[2023-05-15 20:32] LABS: Creatinine,Urine Random 82 mg/dL (Not Estab.)
[2023-05-15 22:09] LABS: Albumin Level 4.2 g/dl (3.5-5.0); Anion Gap 12.2 mEq/L (5-15); Blood Urea Nitrogen 26 mg/dl (7-17); Calcium 9.7 mg/dl (8.4-10.2); Carbon Dioxide 27 mmol/L (22.0-30.0); Chloride 105 mmol/L (98-107); Estimated Glomerular Filt Rate 61 ml/min (>60); GFR (African American) 73 ML/MIN (>60); Glucose 59 mg/dl (74-100); Phosphorous 4.3 mg/dl (2.5-4.5); Potassium 4.2 mmoL/L (3.5-5.1); Sodium 140 mmol/L (136-145)
[2023-05-15 22:21] LABS: Intact Parathyroid Hormone 5.3 pg/mL (7.5-53.5)
[2023-05-15 22:26] LABS: 25-OH Vitamin D, Total 49.3 ng/mL (30-100)
== END ==
PROVIDERS: PCP Internal Medicine; Visit Provider Internal Medicine Nephrology
DX: N18.30 Chronic kidney disease, stage 3 unspecified (principal); E55.9 Vitamin D deficiency, unspecified; B96.5 Pseudomonas (aeruginosa) (mallei) (pseudomallei) as the cause of diseases classified elsewhere; R82.90 Unspecified abnormal findings in urine
CPT/HCPCS: 80069; 81001; 82306; 82570; 83970; 84155; 85025; 87086

== ENCOUNTER 2023-06-06 13:57 | Emergency (ER) | payer MEDICARE, SELFPAY ==
[2023-06-06] VITALS (9 sets, daily range): BP systolic 98–124; BP diastolic 51–63; PULSE 53–67; RESP 12–34; TEMP 36.7; O2SAT 94–98; BMI 28.3
--- NOTE | 2023-06-06 13:57 | ECG_ITS ---
APPROVED REPORT Exam: Resting ECG HR:67 bpm ECG Measurements Heart Rate 67 AXES MD 163 P 58 QRSd 102 QRS 9 QT 341 T 89 QTc 357 Conclusion SINUS RHYTHM LEFT VENTRICULAR HYPERTROPHY AND ST-T CHANGE [VOLTAGE CRITERIA PLUS ST/T ABNORMALITY] ABNORMAL ECG UNCONFIRMED REPORT Electronically signed by : Tyson Adrian MD 06/08/2023 20:28:12
--- NOTE | 2023-06-06 14:10 | PC.NURSE ---
Dr. Avery at BS for pt eval
--- NOTE | 2023-06-06 14:12 | XR_ITS ---
PROCEDURE INFORMATION: Exam: XR Chest Exam date and time: 06/06/2023 2:43 PM Age: 78 years old Clinical indication: Other: Pain when swallowing; Additional info: Retrosternal pain, worse with swallowing TECHNIQUE: Imaging protocol: Radiologic exam of the chest. Views: 2 views. COMPARISON: CR XR CHEST 2V 03/05/2023 2:09 PM FINDINGS: Lungs: Opacity in the left base may represent atelectasis or pneumonia.. Pleural spaces: Unremarkable. No pleural effusion. No pneumothorax. Heart/Mediastinum: Unremarkable. No cardiomegaly. Bones/joints: Degenerative changes in the thoracic spine IMPRESSION: Opacity in the left base may represent atelectasis or pneumonia..
--- NOTE | 2023-06-06 14:13 | HMH.EDGENADL ---
Discharge Plan Disposition Patient Disposition: Home, Self-Care Prescriptions Prescriptions: New omeprazole 20 mg capsule,delayed release(DR/EC) 20 mg PO DAILY 28 Days Qty: 28 0RF No Action ropinirole 4 mg tablet 4 mg PO DAILY biotin 800 mcg tablet 1,000 mcg PO DAILY cholecalciferol (vitamin D3) 250 mcg (10,000 unit) capsule 250 mcg PO DAILY budesonide-formoterol [Symbicort] 160-4.5 mcg/actuation HFA aerosol inhaler 2 puff inhalation BID 90 Days Qty: 10.2 3RF mycophenolate mofetil 500 mg tablet 500 mg PO BID Qty: 60 2RF azelastine 137 mcg (0.1 %) aerosol,spray 2 spray intranasal HS 90 Days Qty: 30 2RF Rx Instructions: administer into each nostril albuterol sulfate 90 mcg/actuation HFA aerosol inhaler 2 inh inhalation Q6H PRN (Reason: shortness of breath or wheezing) 90 Days Qty: 8.5 3RF ipratropium-albuterol 0.5 mg-3 mg(2.5 mg base)/3 mL solution for nebulization 3 ml inhalation Q6H PRN (Reason: shortness of breath or wheezing) Qty: 180 3RF amantadine HCl 100 MG tablet 100 mg PO 0900,1300 lorazepam 0.5 MG tablet 0.5 mg PO TIDP PRN (Reason: Anxiety) duloxetine 20 MG capsule,delayed release(DR/EC) 20 mg PO BID carbidopa-levodopa 1 EACH tablet extended release 0.5 - 1 each PO 5XDAY methenamine hippurate 1 GM tablet 1 gm PO BID spironolactone 50 MG tablet 50 mg PO DAILY gabapentin 300 MG capsule 300 mg PO 0900,1300 levothyroxine 50 mcg tablet 25 mcg PO DAILYDM Patient Comments: TAKE 1 TABLET BY MOUTH ONCE DAILY FOR THYROID (DOSE DECREASE) Referrals Follow up/Referrals: Mauro Loredo MD [Staff Physician] - See instructions Hossein Grimaldo MD [Primary Care Provider] - See instructions Activity Restrictions/Add. Instructions Additional Instructions/Restrictions: At this time it was felt you are safe to be discharged home. If new or worsening symptoms please do not hesitate to return the emergency department. Please take your medication as prescribed. Please follow-up with your family doctor for possible referral for upper endoscopy should your symptoms persist. Clinical Impressions Clinical Impression: Chest pain, Chronic GERD Discharge ED Provider: Bryan Avery General Adult HPI <Bryan Avery MD - Last Filed: 06/06/23 15:43> General Chief complaint: Chest Pain Stated complaint: CP Time Seen by Provider: 06/06/23 14:00 Mode of Arrival: Wheelchair Source of Information: Patient Limitations: No Limitations Description of Symptoms (Recalled from ER Triage Doc. by RN): Patient complaint of midsternal chest and stomach pain after she eats for 3-4 days. History of Present Illness HPI narrative: Patient is a 78-year-old female with past medical history of pulmonary fibrosis, GERD who presents emergency department for evaluation of chest pain. It has been particularly worse over the last 3 to 4 days, worse with food. Feels as if solid food gets stuck in the bottom of her throat which clears with liquids. Patient has had GERD for many years. No other acute complaints at this time. Related Data Home Medications Medication Instructions Recorded Confirmed amantadine HCl 100 mg tablet 100 mg PO 0900,1300 MOVEMENT 09/16/20 05/14/23 DISORDERS duloxetine 20 mg capsule,delayed 20 mg PO BID Depression 09/16/20 05/14/23 release lorazepam 0.5 mg tablet 0.5 mg PO TIDP PRN Anxiety 09/16/20 05/14/23 carbidopa ER 50 mg-levodopa 200 mg 0.5 - 1 each PO 5XDAY PARKINSON 12/18/21 05/14/23 tablet,extended release DISEASE gabapentin 300 mg capsule 300 mg PO 0900,1300 NEUROPATHY 12/18/21 05/14/23 methenamine hippurate 1 gram tablet 1 gm PO BID UTI 12/18/21 05/14/23 spironolactone 50 mg tablet 50 mg PO DAILY Fluid 12/18/21 05/14/23 ropinirole 4 mg tablet 4 mg PO DAILY 06/26/22 05/14/23 levothyroxine 50 mcg tablet 25 mcg PO DAILYDM thyroid 04/01/23 05/14/23 biotin 800 mcg tablet 1,000 mcg PO DAILY 05/14/23
[2023-06-06 14:28] LABS: Basophils # 0.1 K/mm3 (0-0.2); Basophils % 0.3 % (0.1-2.0); Eosinophils # 0.2 K/mm3 (0.0-0.4); Eosinophils % 0.9 % (0.1-12.0); Hematocrit 33.9 % (37.0-47.0); Hemoglobin 11.5 g/dL (12.2-16.2); Lymphocytes # 2.9 K/mm3 (0.7-4.5); Lymphocytes % 15.7 % (10-50); Mean Corpuscular HGB Conc 33.8 g/dL (31.8-35.4); Mean Corpuscular Hemoglobin 31.1 pg (27.0-31.2); Mean Corpuscular Volume 92.1 fl (81-99); Mean Platelet Volume 8.4 fl (7.4-10.4); Monocytes # 1.4 K/mm3 (0.1-1.0); Monocytes % 7.6 % (1.7-9.3); Neutrophils % 75.5 % (37.0-80.0); Platelet Count 413 K/mm3 (142-424); Red Blood Count 3.68 M/mm3 (4.20-5.40); Red Cell Distribution Width 15.1 % (11.5-17.5); White Blood Count 18.6 K/mm3 (4.8-10.8)
[2023-06-06 14:29] LABS: Chloride 105 mmol/L (98-107); Potassium 4.2 mmoL/L (3.5-5.1); Sodium 134 mmol/L (136-145)
[2023-06-06 14:32] LABS: Alanine Aminotransferase 10 U/L (12-78); Albumin Level 4.5 g/dl (3.5-5.0); Albumin/Globulin Ratio 1.4 (1.1-1.8); Alkaline Phosphatase 89 U/L (38-126); Anion Gap 11.2 mEq/L (5-15); Aspartate Amino Transferase 17 U/L (14-36); Bilirubin,Total 0.5 mg/dl (0.2-1.3); Blood Urea Nitrogen 41 mg/dl (7-17); Carbon Dioxide 22 mmol/L (22.0-30.0); Creatinine Clearance Estimated 43 mL/min (50-200); Estimated Glomerular Filt Rate 43 ml/min (>60); GFR (African American) 53 ML/MIN (>60); Globulin 3.3 g/dL (1.3-3.2); Total Protein,Serum 7.8 g/dl (6.3-8.2)
[2023-06-06 14:33] LABS: Glucose 87 mg/dl (74-100)
[2023-06-06 14:34] LABS: MANUAL DIFFERENTIAL MANUAL DIFFERENTIAL (MANUAL DIFF)
[2023-06-06 14:41] LABS: Eosinophils % 1 % (0-3); Lymphocytes % 22 % (10-50); Monocytes % 4 % (2-9); Neutrophils % 73 % (42-76); Platelet Estimate Normal; RBC Morphology Normal; Total Cells Counted 100
[2023-06-06 14:45] LABS: Troponin I < 0.01 ng/ml (0.00-0.034)
--- NOTE | 2023-06-06 14:49 | PC.NURSE ---
Pt gone to RAD via wheelchair
[2023-06-06 17:58] LABS: Troponin I < 0.01 ng/ml (0.00-0.034)
== END 2023-06-06 18:35 | disposition home or self-care (01) ==
PROVIDERS: Emergency Provider Emergency Medicine; PCP Internal Medicine
DX: R07.89 Other chest pain (principal); K21.9 Gastro-esophageal reflux disease without esophagitis; J84.10 Pulmonary fibrosis, unspecified
CPT/HCPCS: 71046; 80053; 84484; 85007; 85025; 93005; 99284

== ENCOUNTER → 2023-06-15 15:47 | Outpatient (CLI) | payer MEDICARE, SELFPAY ==
[2023-06-15 16:00] LABS: Basophils # 0.1 K/mm3 (0-0.2); Basophils % 1.1 % (0.1-2.0); Eosinophils # 0.4 K/mm3 (0.0-0.4); Eosinophils % 2.8 % (0.1-12.0); Hematocrit 36.6 % (37.0-47.0); Hemoglobin 12.1 g/dL (12.2-16.2); Lymphocytes # 1.9 K/mm3 (0.7-4.5); Mean Corpuscular HGB Conc 33.2 g/dL (31.8-35.4); Mean Corpuscular Hemoglobin 31.1 pg (27.0-31.2); Mean Corpuscular Volume 93.7 fl (81-99); Mean Platelet Volume 7.9 fl (7.4-10.4); Monocytes # 0.7 K/mm3 (0.1-1.0); Monocytes % 5.1 % (1.7-9.3); Neutrophils # 10.3 K/mm3 (1.8-7.8); Neutrophils % 76.9 % (37.0-80.0); Platelet Count 363 K/mm3 (142-424); Red Blood Count 3.91 M/mm3 (4.20-5.40); White Blood Count 13.4 K/mm3 (4.8-10.8)
[2023-06-15 16:17] LABS: Anion Gap 13.5 mEq/L (5-15); Blood Urea Nitrogen 19 mg/dl (7-17); Calcium 9.6 mg/dl (8.4-10.2); Carbon Dioxide 24 mmol/L (22.0-30.0); Chloride 101 mmol/L (98-107); Estimated Glomerular Filt Rate 43 ml/min (>60); GFR (African American) 53 ML/MIN (>60); Glucose 89 mg/dl (74-100); Potassium 4.5 mmoL/L (3.5-5.1); Sodium 134 mmol/L (136-145)
== END ==
PROVIDERS: PCP Internal Medicine; Visit Provider Internal Medicine
DX: R53.1 Weakness (principal); I50.32 Chronic diastolic (congestive) heart failure; I10 Essential (primary) hypertension
CPT/HCPCS: 80048; 85025

== ENCOUNTER 2023-06-29 14:58 | Outpatient (RCR) | payer MEDICARE, SELFPAY ==
--- NOTE | 2023-06-29 16:38 | HMH.PTOPEV ---
PT Outpatient Evaluation Rehab PT Outpatient Evaluation Start: 06/29/23 15:02 Freq: Status: Active Protocol: Document 06/29/23 15:02 EMIR (Rec: 06/29/23 16:38 EMIR [id number]) E-signed By Brandi Lyman, PT Outpatient Therapy Subjective History Subjective History Pt is a 78 y/o female who reports to initial PT evaluation for neck and R knee pain. Pt reports R knee pain is her main complaint. Pt reports chronic right medial knee pain that is worse with activity such as standing/ walking and improves with rest . Pt denies recent trauma or injury. Pt reports she fell down stairs and fractured her tibia at least 10 years ago, states I have plates and screws in my knee. Pt states this summer she saw the same orthopedic surgeon who repaired her tibia at . Pt reports he took xrays and gave her an injection in the knee. Pt reports she was told her knee is bone on bone but she wants to put off a knee replacement as long as she can . Pt also reports recent onset of sharp pain into the right knee/mak with inability to bear weight on the RLE having to use her wheelchair. In regard to neck pain, pt reports insidious onset of L>R neck pain a few months ago. Pt reports she woke up one morning and experienced a sharp, shooting pain in the lef deandre trapezius region that referred pain to her ear. Pt reports intermittent headaches that come infrequently and do not last long. Pt reports dull pain that wraps around her head when they occur. Pt denies dizziness, light/noise sensitivity, or n/v with headaches. Pt denies distal UE symptoms or paresthesia. Pt reports pain is aggravated by moving her head any direction. Pt had a cervical spine xray on 04/06/23 with findings as follows: There is moderate disc spacenarrowing at the C5- 6 and C6-7 levels. There is mild spondylolisthesis of C4 on C5 and C6 on C7. Moderate bilateral facet osteoarthropathy is present. Medical History: Parkinson's disease, rheumatoid arthritis, osteoarthritis, interstitial lung disease, restrictive lung disease, nocturnal hypoxia, dyspnea on exertion, GERD New diagnosis of cancer in past 12 No months? Chief Complaint Pain,Stiff,Weakness Symptom Type Ache,Sharp,Dull Symptoms Relieved By Rest/Positioning,Prescription Meds Symptoms Aggravated By Standing,Physical Activity, Walking Prior Functional Limitations None Current Functional Limitations Lifting,Housework,Dressing, Standing,Squatting,Walking Symptom Description Intermittent Level of pain today (0-10) 2 Pain scale - at its best (0-10) 0 Pain scale - at its worst (0-10) 10 Cervical Eval Palpation Cervical Muscles R Cervical Paraspinal,L Cervical Paraspinal,R Upper Trapezius,L Upper Trapezius Cervical/Thoracic Palpation Findings Tenderness Posture Head/C-Spine Posture Sitting Position Flexed Head/C-Spine Posture Standing Position Flexed Flexibility Deficits Upper Trapezius Muscle Length (R) Moderate Tightness,(L) Moderate Tightness Levaetor Scapulae Muscle Length (R) Moderate Tightness,(L) Moderate Tightness Pectoralis Major Muscle Length (R) Moderate Tightness,(L) Moderate Tightness Pectoralis Minor Muscle Length (R) Moderate Tightness,(L) Moderate Tightness Passive Joint Mobility Cervical PIVM Dec: R C4/5 L C4/5 R C5/6 L C5/6 R C6/7 L C6/7 R C7/T1 L C7/T1 AROM Cervical Spine Extension Active Range of 40 Motion (degrees) Cervical Spine Flexion Active Range of 45 Motion (degrees) Cervical Spine Right Lateral Flexion 40 Active Range of Motion (degrees) Cervical Spine Left Lateral Flexion 40 Active Range of Motion (degrees) Cervical Spine Right Rotation Active 40 Range of Motion (degrees) Cervical Spine Left Rotation Active 50 Range of Motion (degrees) MMT Bilateral Deltoid (C5) 5 Normal Biceps Brachii Strength Grade 5 Normal Wrist Extension Strength Grade 5 Normal Triceps Brachii Strength Grade 5 Normal Wrist Flexion Strength Grade 5 Normal Extensor Pollicis Longus Strength Grade 5 Normal Finger Abduction Strength Grade 5 Normal Altered Sensation Comment equal and intact to light touch sensation bilaterally Shoulder/Elbow Eval Shoulder Objective Measurements Shoulder MMT Bilateral Lower Trapezius Strength Grade 4- Good- Middle Trapezius Strength Grade 4- Good- Rhomboids Strength Grade 4- Good- Shoulder Extension Strength Grade 4 Good Shoulder Flexion Strength Grade 5 Normal Elbow Objective Measurements Hip/Knee Eval Assistive Device Assistive Devices Rolling / Wheeled Walker Palpation Tenderness right Knee Palpation Finding Tenderness Knee Palpation Overall Comment med/lat joint MMT Hip Flexion Strength Grade 5 Normal Hip Abduction Strength Grade 4 Good Hip Adduction Strength Grade 4 Good Hip Extension Strength Grade 4 Good Knee Extension Strength Grade 5 Normal Knee Flexion Strength Grade 4 Good ROM Knee Extension Active Range of Motion ( 0 degrees) Knee Flexion Active Range of Motion ( 115 degrees) Neck Disability Index Neck Disability Index Section 1: Pain Intensity The pain is moderate at the moment Section 2: Personal Care (washing, I need some help but can dressing, etc.) manage most of my personal care Section 3: Lifting I can only lift very light weights Section 4: Reading I can read as much as I want with moderate pain in my neck Section 5: Headaches I have moderate headaches, which come frequently Section 6: Concentration I have a fair degree of difficulty in concentrating when I want to Section 7: Work I can only do my usual work, but no more Section 8: Driving I can't drive my car at all Section 9: Sleeping I have no trouble sleeping Section 10: Recreation I am able to engage in all my recreation activities with some pain in NDI Score 23 Lower Extremity Functional Index Activities Today, do you or would you have any difficulty at all with: a.Any of your usual work, housework or Moderate difficulty school activities b. Your usual hobbies, recreational or Moderate difficulty sporting activities c. Getting into or out of the bath Quite a bit of difficulty d. Walking between rooms A little bit of difficulty e. Putting on your shoes or socks Quite a bit of difficulty f. Squatting Quite a bit of difficulty g. Lifting an object, like a bag of Moderate difficulty groceries from the floor h. Performing light activities around Moderate difficulty your home i. Performing heavy activities around Quite a bit of difficulty your home j. Getting into or out of a car Moderate difficulty k. Walking 2 blocks Quite a bit of difficulty l. Walking a mile Quite a bit of difficulty m. Going up or down 10 stairs (about 1 Quite a bit of difficulty flight of stairs) n. Standing for 1 hour A little bit of difficulty o. Sitting for 1 hour A little bit of difficulty p. Running on even ground Extreme difficulty or unable to perform activity q. Running on uneven ground Extreme difficulty or unable to perform activity r. Making sharp turns while running fast Extreme difficulty or unable to perform activity s. Hopping Extreme difficulty or unable to perform activity t. Rolling over in bed Moderate difficulty LEFI Score Lower Extremity Functional Index Score 28 Outpatient Therapy Assessment Impairments Problems/Impairmments Palpation Tenderness,Impaired Range of Motion,Impaired Strength,Impaired Gait Pattern ,Impaired Walking,Impaired Standing,Impaired Household Care,Impaired Stair Climbing, Impaired Stepping on Uneven Surface,Impaired Squatting, Impaired Balance,Subjective C/ O Pain,Impaired Self Care/Self Management Prognosis Rehab Potential Good Clinical Impression Consistent with Diagnosis Yes Short Term Goals Number of Weeks 3 Decrease Subjective C/O Pain Yes: Improve pain at worst to 8/10 to improve overall QOL Improve Self Care/Self Management Yes Patient to be Ind w/ HEP Yes Care Home Goals Number of Weeks 6 Increase Range of Motion Yes: Improve R knee flexion to 120, cervical AROM to WFL Increase Strength Yes: Improve scapular strength & RLE strength to 4+-5/5 to assist with function Increase Ability to Walk Yes: 5-10' with pain 6/10 or less to assist with ADLs Improve Ability For Household Care Yes Improve Neck Disability Index Score Yes: Improve score to 15 or less to improve overall QOL Improve LEFI Score Yes: Improve score to 50 or more to improve overall QOL Decrease Subjective C/O Pain Yes: Improve pain at worst to 6/10 to improve overall QOL Patient to be Ind w/ Advanced HEP Yes Outpatient Therapy Plan of Care Treatment Plan May Include Therapeutic Exercise Including Home Yes Exercise Program Manual Therapy Techniques Yes Neuromuscular Re-education Yes Therapeutic Activities to Return to Yes Previous Functional/Work Level Gait Training Yes ADL/Self Care Education Yes Dry Needling Yes Thermal Modalities Yes Electrical Stimulation Yes Ultrasound/Phonophoresis Yes Iontophoresis Yes Orthotics/Bracing/Splinting Yes Vasopneumatic Compression Pump Yes Massage Yes Group Therapy for Medicare Yes Eval/Re-Eval Yes Frequency Times per week 2 Duration Number of Weeks 4-6 Addendums This patient is a candidate for social No or vocational rehab? Patient/Guardian verbally acknowledges Yes understanding of treatment program and consents to further treatment? Patient/Guardian verbally acknowledges Yes understanding of diagnosis, prognosis and goals for treatment? Eval Complexity PT Charges 99241 - Moderate Complexity PHYSICIAN CERTIFICATION: I certify the specified therapy services for Emily Mathis are required, authorized, and reviewed every 30 days.
== END 2023-06-29 16:00 | disposition home or self-care (01) ==
LOC: PT 14:58
PROVIDERS: PCP Internal Medicine; Visit Provider Internal Medicine
DX: M25.561 Pain in right knee (principal)
CPT/HCPCS: 97110; 97163; 97535

== ENCOUNTER 2023-07-09 18:33 | Inpatient (IN) | payer MEDICARE, SELFPAY ==
[2023-07-09 18:34] VITALS: BP 142/71; PULSE 101; RESP 38; TEMP 39.3; O2SAT 74; BMI 28.3
--- NOTE | 2023-07-09 18:46 | ECG_ITS ---
APPROVED REPORT Exam: Resting ECG HR:98 bpm ECG Measurements Heart Rate 98 AXES [place] 161 P 57 QRSd 92 QRS 60 QT 298 T -30 QTc 353 Conclusion SINUS RHYTHM NONSPECIFIC ST & T-WAVE ABNORMALITY ABNORMAL ECG UNCONFIRMED REPORT Electronically signed by : Tysno Adrian MD 07/10/2023 16:30:35
--- NOTE | 2023-07-09 18:51 | XR_ITS ---
PROCEDURE INFORMATION: Exam: XR Chest Exam date and time: 07/09/2023 6:51 PM Age: 78 years old Clinical indication: Dyspnea; Additional info: SOA TECHNIQUE: Imaging protocol: Radiologic exam of the chest. Views: 1 view. COMPARISON: CR XR CHEST 2V 06/06/2023 2:43 PM FINDINGS: Lungs: Low lung volumes. Alveolar opacities in the left base and right infrahilar region are increased from 06/06/2023, concerning for worsening pneumonia versus atelectasis or atypical edema pattern. Pleural spaces: Can not exclude small left pleural effusion. No pneumothorax. Heart/Mediastinum: Heart size and pulmonary vasculature within normal limits for portable AP technique and low lung volumes. No tracheal/mediastinal shift. Bones/joints: No acute osseous abnormalities are identified. Osteopenia. IMPRESSION: Worsening airspace disease in the left lung base and to a lesser degree the right infrahilar region concerning for worsening pneumonia versus atelectasis or atypical edema pattern. Possible small left basilar pleural effusion.
[2023-07-09 18:59] LABS: Chloride 101 mmol/L (98-107); Sodium 135 mmol/L (136-145)
[2023-07-09 19:00] LABS: Potassium 4.4 mmoL/L (3.5-5.1)
[2023-07-09 19:02] LABS: Alanine Aminotransferase 11 U/L (12-78); Albumin Level 4.8 g/dl (3.5-5.0); Albumin/Globulin Ratio 1.4 (1.1-1.8); Alkaline Phosphatase 162 U/L (38-126); Anion Gap 14.4 mEq/L (5-15); Aspartate Amino Transferase 26 U/L (14-36); Bilirubin,Total 0.7 mg/dl (0.2-1.3); Blood Urea Nitrogen 25 mg/dl (7-17); Carbon Dioxide 24 mmol/L (22.0-30.0); Creatinine Clearance Estimated 31 mL/min (50-200); Estimated Glomerular Filt Rate 29 ml/min (>60); GFR (African American) 35 ML/MIN (>60); Globulin 3.5 g/dL (1.3-3.2); Total Protein,Serum 8.3 g/dl (6.3-8.2)
[2023-07-09 19:03] LABS: Glucose 87 mg/dl (74-100)
--- NOTE | 2023-07-09 19:04 | HMH.EDGENADL ---
Discharge Plan Disposition Patient Disposition: Admitted Condition: Fair Clinical Impressions Clinical Impression: Pneumonia, Sepsis, Acute hypoxic respiratory failure Discharge ED Provider: Montse Bautista General Adult HPI General Chief complaint: Shortness of Breath/Dyspnea Stated complaint: trouble breathing Time Seen by Provider: 07/09/23 18:53 Mode of Arrival: Wheelchair Source of Information: Patient Limitations: No Limitations Description of Symptoms (Recalled from ER Triage Doc. by RN): pt c/o SOA x 3 days. History of Present Illness HPI narrative: Patient has a PMHx significant for ILD, advanced dementia and parkinsons, pulmonary fibrosis, SHF, hypoTH who presents to the ED with complaints of shortness of breath. Patient has reportedly been having progressively worsening shortness of breath for the past 3 days. Patient is advancing demented, notes that she has been tested for COPD multiple times and is on breathing treatments at home. Patient is unable to communicate due to severe dementia. On arrival to the ED, patient was hypoxic to 76% on room air. Patient does not wear oxygen at home. No recent fevers or chills Related Data Home Medications Medication Instructions Recorded Confirmed amantadine HCl 100 mg tablet 100 mg PO 0900,1300 MOVEMENT 09/16/20 07/07/23 DISORDERS duloxetine 20 mg capsule,delayed 20 mg PO BID Depression 09/16/20 07/07/23 release lorazepam 0.5 mg tablet 0.5 mg PO TIDP PRN Anxiety 09/16/20 07/07/23 carbidopa ER 50 mg-levodopa 200 mg 0.5 - 1 each PO 5XDAY PARKINSON 12/18/21 07/07/23 tablet,extended release DISEASE gabapentin 300 mg capsule 300 mg PO 0900,1300 NEUROPATHY 12/18/21 07/07/23 methenamine hippurate 1 gram tablet 1 gm PO BID UTI 12/18/21 07/07/23 spironolactone 50 mg tablet 50 mg PO DAILY Fluid 12/18/21 07/07/23 ropinirole 4 mg tablet 4 mg PO DAILY 06/26/22 07/07/23 levothyroxine 50 mcg tablet 25 mcg PO DAILYDM thyroid 04/01/23 07/07/23 biotin 800 mcg tablet 1,000 mcg PO DAILY 05/14/23 07/07/23 cholecalciferol (vitamin D3) 250 250 mcg PO DAILY 05/14/23 07/07/23 mcg (10,000 unit) capsule Previous Rx's Medication Instructions Recorded albuterol sulfate 90 mcg/actuation 2 inh inhalation Q6H PRN shortness 04/21/22 aerosol inhaler of breath or wheezing 90 days #8.5 grams azelastine 137 mcg (0.1 %) nasal 2 spray intranasal HS 90 days #30 02/09/23 spray aerosol mL ipratropium 0.5 mg-albuterol 3 mg 3 ml inhalation Q6H PRN shortness 03/27/23 (2.5 mg base)/3 mL nebulization of breath or wheezing #180 mL soln omeprazole 20 mg capsule,delayed 20 mg PO DAILY 4 weeks #28 caps 06/06/23 release Symbicort 160 mcg-4.5 See Rx Instructions .Route 06/22/23 mcg/actuation HFA aerosol inhaler .COMPLEX #11 grams (budesonide-formoterol) mycophenolate mofetil 500 mg tablet See Rx Instructions .Route 06/24/23 .COMPLEX #60 tabs loratadine 10 mg tablet (Claritin) 10 mg PO DAILY PRN allergy 07/07/23 symptoms #20 tabs Allergies Allergy/AdvReac Type Severity Reaction Status Date / Time No Known Allergies Allergy Verified 07/07/23 15:31 [facility] Disclaimer: The information contained in this section may have been updated after the patient was seen, as this information can be updated by other users. Medical History (Updated 07/09/23 @ 20:06 by Eliezer Tipton RN) Allergic rhinitis Breathlessness Dyspnea on exertion Fibrosis of lung History of rheumatoid arthritis ILD (interstitial lung disease) Nocturnal hypoxia NSIP (nonspecific interstitial pneumonia) Organizing pneumonia Restrictive lung disease Restrictive lung disease Surgical History History of tubal ligation Family History Other No significant family history Social History Smoking Status: Never smoker alcohol intake: never substance use type: de
[2023-07-09 19:05] LABS: Basophils # 0.2 K/mm3 (0-0.2); Basophils % 0.7 % (0.1-2.0); Eosinophils # 0.2 K/mm3 (0.0-0.4); Eosinophils % 0.7 % (0.1-12.0); Hematocrit 37.3 % (37.0-47.0); Lymphocytes % 13.7 % (10-50); Mean Corpuscular HGB Conc 32.1 g/dL (31.8-35.4); Mean Corpuscular Hemoglobin 29.6 pg (27.0-31.2); Mean Corpuscular Volume 92.2 fl (81-99); Mean Platelet Volume 8.4 fl (7.4-10.4); Monocytes # 0.8 K/mm3 (0.1-1.0); Monocytes % 3.7 % (1.7-9.3); Neutrophils # 17.6 K/mm3 (1.8-7.8); Neutrophils % 81.3 % (37.0-80.0); Platelet Count 391 K/mm3 (142-424); Red Blood Count 4.04 M/mm3 (4.20-5.40); Red Cell Distribution Width 14.2 % (11.5-17.5); White Blood Count 21.7 K/mm3 (4.8-10.8)
[2023-07-09 19:06] LABS: VBG Base Excess -3.5 mmol/L (-2.4-2.3); VBG HCO3 22.9 mmol/L (23-30); VBG Oxygen Saturation 67.6 % (50-70); VBG PCO2 47.5 mmol/L (35-51); VBG PO2 36.2 mmol/L (28-40); VBG Total CO2 24.4 mmol/L (23-27)
[2023-07-09 19:06] LABS: MANUAL DIFFERENTIAL MANUAL DIFFERENTIAL (MANUAL DIFF)
[2023-07-09 19:12] LABS: NT Pro Brain Natriuretic Pep. 974 pg/mL (0-450)
[2023-07-09 19:15] LABS: Troponin I < 0.01 ng/ml (0.00-0.034)
[2023-07-09 19:19] VITALS: PULSE 104; PULSE 99
[2023-07-09 19:31] VITALS: BP 113/60; PULSE 103; RESP 30; O2SAT 90
[2023-07-09 19:42] LABS: Eosinophils % 1 % (0-3); Lymphocytes % 10 % (10-50); Monocytes % 6 % (2-9); Neutrophils % 83 % (42-76); Platelet Estimate Normal; RBC Morphology Normal; Total Cells Counted 100
[2023-07-09 19:47] LABS: Lactic Acid 1.2 mmol/L (0.7-2.1)
--- NOTE | 2023-07-09 19:49 | PC.NURSE ---
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
--- NOTE | 2023-07-09 19:51 | EXP.HP ---
History of Present Illness *Admission Date: 07/09/23 *Reason for visit:: SOB *History of present illness: This is a 78F with PMHx significant for ILD, with pulmonary fibrosis, advanced dementia and parkinsons, CHF, hypoTH who presented to the ED with complaints of shortness of breath. Patient's helped to confirm data during interview due to patient history of advanced dementia. Patient has reportedly been having progressively worsening shortness of breath for the past 3 days. On arrival to the ED, patient was hypoxic to 76% on room air, febrile. Patient does wear oxygen at home, only at bedtime. Admitted for further treatment and management> [facility] Disclaimer: The information contained in this section may have been updated after the patient was seen, as this information can be updated by other users. Medical History (Updated 07/10/23 @ 01:13 by Romario Dickens APRN) Allergic rhinitis Breathlessness Dyspnea on exertion Fibrosis of lung History of rheumatoid arthritis ILD (interstitial lung disease) Nocturnal hypoxia NSIP (nonspecific interstitial pneumonia) Organizing pneumonia Restrictive lung disease Restrictive lung disease Surgical History History of tubal ligation Family History Other No significant family history Social History (Updated 07/09/23 @ 22:44 by Amelia Nina RN) Smoking Status: Never smoker alcohol intake: never substance use type: denies use current occupational status: retired Travel in the last 8 weeks: None household members: spouse housing: house caffeine: Yes Review of Systems Review of Systems Review of systems:: pertinent systems reviewed and negative unless documented below Meds Home Medications and Allergies Home Medications Medication Instructions Recorded Confirmed Type amantadine HCl 100 mg tablet 100 mg PO 0900,1300 MOVEMENT 09/16/20 07/10/23 History DISORDERS duloxetine 20 mg capsule,delayed 20 mg PO BID Depression 09/16/20 07/10/23 History release carbidopa ER 50 mg-levodopa 200 mg 1 each PO 5XDAY PARKINSON DISEASE 12/18/21 07/10/23 History tablet,extended release gabapentin 300 mg capsule 300 mg PO 0900,1300 NEUROPATHY 12/18/21 07/10/23 History methenamine hippurate 1 gram tablet 1 gm PO BID UTI 12/18/21 07/10/23 History spironolactone 50 mg tablet 50 mg PO DAILY Fluid 12/18/21 07/10/23 History albuterol sulfate 90 mcg/actuation 2 inh inhalation Q6H PRN shortness 04/21/22 07/10/23 Rx aerosol inhaler of breath or wheezing 90 days #8.5 grams ropinirole 4 mg tablet 4 mg PO 0900,1300 06/26/22 07/10/23 History azelastine 137 mcg (0.1 %) nasal 2 spray intranasal HS 90 days #30 02/09/23 07/10/23 Rx spray aerosol mL ipratropium 0.5 mg-albuterol 3 mg 3 ml inhalation Q6H PRN shortness 03/27/23 07/10/23 Rx (2.5 mg base)/3 mL nebulization of breath or wheezing #180 mL soln levothyroxine 50 mcg tablet 25 mcg PO DAILY thyroid 04/01/23 07/10/23 History biotin 800 mcg tablet 10,000 mcg PO DAILY 05/14/23 07/10/23 History omeprazole 20 mg capsule,delayed 20 mg PO DAILY 4 weeks #28 caps 06/06/23 07/10/23 Rx release Symbicort 160 mcg-4.5 See Rx Instructions .Route 06/22/23 07/10/23 Rx mcg/actuation HFA aerosol inhaler .COMPLEX #11 grams (budesonide-formoterol) loratadine 10 mg tablet (Claritin) 10 mg PO DAILY PRN allergy 07/07/23 07/10/23 Rx symptoms #20 tabs cholecalciferol (vitamin D3) 25 25 mcg PO DAILY 07/10/23 07/10/23 History mcg (1,000 unit) capsule (Vitamin D3) gabapentin 300 mg tablet 600 mg PO HS 07/10/23 07/10/23 History lorazepam 0.5 mg tablet 0.5 mg PO TID PRN Anxiety 07/10/23 07/10/23 History mycophenolate mofetil 500 mg tablet 500 mg PO BID 07/10/23 07/10/23 History trospium 20 mg tablet 20 mg PO BID 07/10/23 07/10/23 History New Prescriptions to Start Prescriptions: Allergies Allergy/AdvReac
--- NOTE | 2023-07-09 19:51 | PC.NURSE ---
ACUTE ADMISSION TO 207 DX OF PNA TO SERVICE OF THE HOSPITALIST.
[2023-07-09 20:00] VITALS: BP 125/52; PULSE 100; RESP 17; TEMP 37.2; O2SAT 97; BMI 28.3
[2023-07-09 20:03] VITALS: BP 125/56; PULSE 102; RESP 29; TEMP 38.9; O2SAT 90
--- NOTE | 2023-07-09 20:27 | PC.NURSE ---
pt arrived to floor via stretcher 20:22
[2023-07-09 22:06] VITALS: TEMP 37.1
[2023-07-09 22:42] LABS: Troponin I < 0.01 ng/ml (0.00-0.034)
[2023-07-10] VITALS (8 sets, daily range): BP systolic 92–113; BP diastolic 43–61; PULSE 53–94; RESP 17–20; TEMP 36.5–37.9; O2SAT 94–100; BMI 27.8
--- NOTE | 2023-07-10 01:24 | PC.NURSE ---
Patient still hasn't voided since being on the floor. Patient stated she voided right before coming to the er. Bladder scanned and pt had 150cc in bladder. Notified [employer] of still needing a urine sample and patient hasn't voided. Stated to just monitor the patient, no new orders
[2023-07-10 01:30] LABS: Troponin I 0.01 ng/ml (0.00-0.034)
[2023-07-10 04:59] LABS: Microscopic, Urine URINE MICROSCOPIC (MICROSCOPIC)
[2023-07-10 05:09] LABS: Appearance,Urine CLOUDY (Clear); Bilirubin,Urine Negative (Negative); Blood, Urine 1+ (Negative); Color,Urine YELLOW (Yellow); Glucose,Urine (UA) Negative (Negative); Ketones,Urine Negative (Negative); Leukocyte Esterase,Urine 2+ (Negative); Nitrate,Urine Negative (Negative); PH,Urine 5.5 (5.0-8.5); Protein,Urine 1+ (Negative); Specific Gravity, Urine 1.025 (1.005-1.030); Urobilinogen,Urine 0.2 EU/dl (0.2)
[2023-07-10 05:35] LABS: Bacteria,Urine 1+ /lpf; WBC,Urine 50-100 #/hpf (0-3)
[2023-07-10 06:24] LABS: Basophils # 0.1 K/mm3 (0-0.2); Basophils % 0.4 % (0.1-2.0); Eosinophils # 0.1 K/mm3 (0.0-0.4); Eosinophils % 0.2 % (0.1-12.0); Hematocrit 34.5 % (37.0-47.0); Hemoglobin 10.8 g/dL (12.2-16.2); Lymphocytes # 1.8 K/mm3 (0.7-4.5); Lymphocytes % 8.6 % (10-50); Mean Corpuscular HGB Conc 31.2 g/dL (31.8-35.4); Monocytes # 0.7 K/mm3 (0.1-1.0); Monocytes % 3.1 % (1.7-9.3); Neutrophils # 18.7 K/mm3 (1.8-7.8); Neutrophils % 87.6 % (37.0-80.0); Platelet Count 323 K/mm3 (142-424); Red Blood Count 3.71 M/mm3 (4.20-5.40); Red Cell Distribution Width 14.2 % (11.5-17.5); White Blood Count 21.3 K/mm3 (4.8-10.8)
[2023-07-10 06:27] LABS: MANUAL DIFFERENTIAL MANUAL DIFFERENTIAL (MANUAL DIFF)
[2023-07-10 06:28] LABS: Chloride 100 mmol/L (98-107)
[2023-07-10 06:29] LABS: Sodium 133 mmol/L (136-145)
[2023-07-10 06:31] LABS: Alanine Aminotransferase 15 U/L (12-78); Albumin Level 3.8 g/dl (3.5-5.0); Albumin/Globulin Ratio 1.2 (1.1-1.8); Alkaline Phosphatase 114 U/L (38-126); Aspartate Amino Transferase 29 U/L (14-36); Bilirubin,Total 0.5 mg/dl (0.2-1.3); Blood Urea Nitrogen 31 mg/dl (7-17); Carbon Dioxide 24 mmol/L (22.0-30.0); Creatinine Clearance Estimated 29 mL/min (50-200); Estimated Glomerular Filt Rate 27 ml/min (>60); GFR (African American) 33 ML/MIN (>60); Globulin 3.1 g/dL (1.3-3.2); Total Protein,Serum 6.9 g/dl (6.3-8.2)
[2023-07-10 06:32] LABS: Calcium 8.1 mg/dl (8.4-10.2); Glucose 96 mg/dl (74-100)
[2023-07-10 06:33] LABS: Lymphocytes % 9 % (10-50); Monocytes % 4 % (2-9); Neutrophils % 82 % (42-76); Total Cells Counted 100
[2023-07-10 06:34] LABS: Platelet Estimate Normal; RBC Morphology Normal
--- NOTE | 2023-07-10 08:28 | HMH.PHAINT1 ---
Pharmacy Intervention Comments: MEDICATION RECONCILIATION COMPLETED ON PATIENT USING EXTERNAL FILL HISTORY FROM PHARMACY. -KAILEE BEYER, PROSPERD
--- NOTE | 2023-07-10 09:47 | EXP.PULM.CON ---
History of Present Illness History of present illness: Ms. Mathis is a 78-year-old patient rheumatoid arthritis, ILD on immunosuppressive therapy recently seen in the clinic presented to the hospital worsening respiratory's on admission chest x-ray found to be a left lower lobe pulmonary infiltrate and was admitted for further evaluation and management. [facility] Disclaimer: The information contained in this section may have been updated after the patient was seen, as this information can be updated by other users. Medical History (Updated 07/10/23 @ 12:07 by Nikole Fernandez MD) Allergic rhinitis Breathlessness Dyspnea on exertion Fibrosis of lung History of rheumatoid arthritis ILD (interstitial lung disease) Nocturnal hypoxia NSIP (nonspecific interstitial pneumonia) Organizing pneumonia Restrictive lung disease Restrictive lung disease Surgical History History of tubal ligation Family History Other No significant family history Social History (Updated 07/09/23 @ 22:44 by Amelia Nina RN) Smoking Status: Never smoker alcohol intake: never substance use type: denies use current occupational status: retired Travel in the last 8 weeks: None household members: spouse housing: house caffeine: Yes Review of Systems Constitutional Constitutional: Reports anorexia, Reports body ache(s) and Reports fatigue Eyes Eyes: Denies eye discharge, Denies dry eyes, Denies irritation and Denies itchy eyes ENT Ears, Nose, Mouth, and Throat: Denies epistaxis, Denies facial pain, Denies lip swelling and Denies throat swelling *Cardiovascular Cardiovascular: Reports dyspnea and Reports dyspnea on exertion *Respiratory Respiratory: Reports chest congestion, Reports cough, Reports dyspnea, Reports dyspnea on exertion, Reports excessive phlegm production and Reports wheezing *Gastrointestinal Gastrointestinal: Denies abdominal pain, Denies belching and Denies cramping *Musculoskeletal Musculoskeletal: Reports back pain, Reports myalgias and Reports other (No small joint swelling or Pain) Psychiatric Psychiatric: Denies homicidal ideation and Denies suicidal ideation Endocrine Endocrine: Reports fatigue and Denies heat intolerance Hematologic/Lymphatic Hematologic/Lymphatic: Denies easy bleeding and Denies lymphadenopathy Allergic/Immunologic Allergic/Immunologic: Denies itchy eyes, Denies lip swelling, Denies throat swelling and Reports wheezing Pulmonology Exam Inpatient Vital signs and Labs for Last 24 Hours: Temp Pulse Resp BP Pulse Ox O2 Del Method O2 Flow Rate 97.7 F 64 19 97/53 L 100 Room Air 3 07/10/23 08:00 07/10/23 08:00 07/10/23 08:00 07/10/23 08:00 07/10/23 08:00 07/10/23 09:00 07/10/23 08:00 Laboratory Results - last 24 hr 07/09/23 18:46: WBC 21.7 H*, RBC 4.04 L, Hgb 12.0 L, Hct 37.3, MCV 92.2, MCH 29.6, MCHC 32.1, RDW 14.2, Plt Count 391, MPV 8.4, Neut % (Auto) 81.3 H, Lymph % (Auto) 13.7, [place] % (Auto) 3.7, Eos % (Auto) 0.7, Baso % (Auto) 0.7, Neut # (Auto) 17.6 H, Lymph # (Auto) 3.0, [place] # (Auto) 0.8, Eos # (Auto) 0.2, Baso # (Auto) 0.2, Total Counted 100, Neutrophils % (Manual) 83 H, Lymphocytes % (Manual) 10, Monocytes % (Manual) 6, Eosinophils % (Manual) 1, Platelet Estimate Normal, RBC Morphology Normal, Sodium 135 L, Potassium 4.4, Chloride 101, Carbon Dioxide 24, Anion Gap 14.4, BUN 25 H, Creatinine 1.70 H, Estimated Creat Clear 31, Estimated GFR 29 L, Est GFR ( Amer) 35 L, Glucose 87, Lactate 1.2, Calcium 9.0, Total Bilirubin 0.7, AST 26, ALT 11 L, Alkaline Phosphatase 162 H, Troponin I < 0.01, NT-Pro-B Natriuret Pep 974 H, Total Protein 8.3 H, Albumin 4.8, Globulin 3.5 H, Albumin/Globulin Ratio 1.4 07/09/23 18:51: VBG pH 7.30 L, VBG pCO2 47.5, VBG pO2 36.2, VBG HCO3 22.9 L, VBG Total CO2 24.4, VBG O2 Saturation 67.6, VBG Base Excess -3.5 L 07/09/23 22:00: Troponin I < 0.01 07/10/23
--- NOTE | 2023-07-10 09:57 | CT_ITS ---
FINAL REPORT TECHNIQUE: Axial images were obtained through the chest without contrast. CLINICAL HISTORY: PNM COMPARISON: 12/30/2022 FINDINGS: There are multiple lymph nodes scattered throughout the mediastinum, more evident than on the prior study. These are small and are favored to be reactive. The heart size is normal. There is no pericardial or pleural effusion. Ground-glass opacities throughout both lungs are noted. There are dense nodular patchy airspace infiltrates at the bases which are new and consistent with acute pneumonia. Limited images of the upper abdomen demonstrate distention of the gallbladder. IMPRESSION: New bibasilar airspace infiltrates consistent with acute pneumonia. Mild mediastinal adenopathy favored to be reactive. Reviewed, Interpreted and Dictated by Ronnell Linda MD Transcribed by Corrina Rios Authenticated and [facility]
--- NOTE | 2023-07-10 10:28 | HMH.SLDYSPHA ---
Speech & Language Evaluation Speech/Language Dysphagia Evaluation Start: 07/10/23 10:19 Freq: ONCE Status: Active Protocol: Document 07/10/23 10:19 STEPHANIE (Rec: 07/10/23 10:28 STEPHANIE [id number]) Dysphagia Assess/Goals/Plan Assessment Date of Evaluation: 07/10/23 Evaluation Type Initial Certification Assessment/Problems rule out aspiration per MD order Does Patient Qualify for Service No Qualify/Failure Comment Based on results of the clinical bedside swallow evaluation, Mrs. Mathis mastication/manipulation of bolus and swallowing skills are WFL given age, no further skilled speech therapy services are warranted at this time. Recommendations PHYSICIAN CERTIFICATION: The specified therapy services are required, authorized, and reviewed every 30 days. Diet Recommendations Mechanical Soft Liquid Type Recommendations Normal/Thin SL Swallow Guidelines Standard Aspiration Prec.,Eat at slow rate Dysphagia Swallow Precautions/Strategies Sitting Upright (90 deg),Small Bites and Sips,Alternate Liquids/Solids Place Food on Either side of Mouth Plan Pt/Guardian verbally ack understanding Yes of dx/prognosis/goals G -code Required No Education Instructions provided Discussed CSE results, diet recommendations, and aspiration precautions with pt /pt's , nursing, MD, and care management all of which expressed understanding. Pt/Caregiver able to recall information Able to recall/restate Reinforcement needed No Speech & Language HPI History Present Illness Description of Patient Problem 78F with PMHx significant for ILD, with pulmonary fibrosis, advanced dementia and parkinsons, CHF, hypoTH who presented to the ED with complaints of shortness of breath. Patient's helped to confirm data during interview due to patient history of advanced dementia. Patient has reportedly been having progressively worsening shortness of breath for the
[2023-07-10 11:09] LABS: Adenovirus,PCR Not Detected (NotDetected); Coronavirus 19, PCR Not Detected (NotDetected); Coronavirus 229E Not Detected (NotDetected); Coronavirus NL63 Not Detected (NotDetected); Coronavirus OC43 Not Detected (NotDetected); Coronovirus HKU1,PCR Not Detected (NotDetected); Human Metapneumovirus Not Detected (NotDetected); Influenza A, PCR Not Detected (NotDetected); Influenza AH1, 2009 Not Detected (NotDetected); Influenza AH1, PCR Not Detected (NotDetected); Influenza AH3,PCR Not Detected (NotDetected); Influenza B, PCR Not Detected (NotDetected); Parainfluenza 1, PCR Not Detected (NotDetected); Parainfluenza 2, PCR Not Detected (NotDetected); Parainfluenza 3, PCR Not Detected (NotDetected); Parainfluenza 4, PCR Not Detected (NotDetected); Rhinovirus/Enterovirus Not Detected (NotDetected)
[2023-07-10 12:52] LABS: Respiratory Syncytial Virus Detected (NotDetected)
--- NOTE | 2023-07-10 15:32 | PC.NURSE ---
attempted to call patient regarding home medications no answer
--- NOTE | 2023-07-10 17:03 | EXP.PN ---
Subjective *Date: 07/10/23 *Time: 17:03 Exam Data for Last 24 hours Vital signs and Labs for Last 24 Hours: Temp Pulse Resp BP Pulse Ox O2 Del Method O2 Flow Rate 98.1 F 53 L 19 109/48 L 96 Room Air 3 07/10/23 15:44 07/10/23 15:44 07/10/23 15:44 07/10/23 15:44 07/10/23 15:44 07/10/23 16:40 07/10/23 08:00 Laboratory Results - last 24 hr 07/09/23 18:46: WBC 21.7 H*, RBC 4.04 L, Hgb 12.0 L, Hct 37.3, MCV 92.2, MCH 29.6, MCHC 32.1, RDW 14.2, Plt Count 391, MPV 8.4, Neut % (Auto) 81.3 H, Lymph % (Auto) 13.7, [place] % (Auto) 3.7, Eos % (Auto) 0.7, Baso % (Auto) 0.7, Neut # (Auto) 17.6 H, Lymph # (Auto) 3.0, [place] # (Auto) 0.8, Eos # (Auto) 0.2, Baso # (Auto) 0.2, Total Counted 100, Neutrophils % (Manual) 83 H, Lymphocytes % (Manual) 10, Monocytes % (Manual) 6, Eosinophils % (Manual) 1, Platelet Estimate Normal, RBC Morphology Normal, Sodium 135 L, Potassium 4.4, Chloride 101, Carbon Dioxide 24, Anion Gap 14.4, BUN 25 H, Creatinine 1.70 H, Estimated Creat Clear 31, Estimated GFR 29 L, Est GFR ( Amer) 35 L, Glucose 87, Lactate 1.2, Calcium 9.0, Total Bilirubin 0.7, AST 26, ALT 11 L, Alkaline Phosphatase 162 H, Troponin I < 0.01, NT-Pro-B Natriuret Pep 974 H, Total Protein 8.3 H, Albumin 4.8, Globulin 3.5 H, Albumin/Globulin Ratio 1.4 07/09/23 18:51: VBG pH 7.30 L, VBG pCO2 47.5, VBG pO2 36.2, VBG HCO3 22.9 L, VBG Total CO2 24.4, VBG O2 Saturation 67.6, VBG Base Excess -3.5 L 07/09/23 22:00: Troponin I < 0.01 07/10/23 01:00: Troponin I 0.01 07/10/23 04:50: Urine Color Yellow, Urine Appearance Cloudy, Urine pH 5.5, Ur Specific [place] 1.025, Urine Protein 1+, Urine Glucose (UA) Negative, Urine Ketones Negative, Urine Blood 1+, Urine Nitrate Negative, Urine Bilirubin Negative, Urine Urobilinogen 0.2, Ur Leukocyte Esterase 2+ A, Urine RBC 5-10, Urine WBC 50-100, Urine Bacteria 1+ 07/10/23 06:06: WBC 21.3 H*, RBC 3.71 L, Hgb 10.8 L, Hct 34.5 L, MCV 93.0, MCH 29.0, MCHC 31.2 L, RDW 14.2, Plt Count 323, MPV 8.0, Neut % (Auto) 87.6 H, Lymph % (Auto) 8.6 L, [place] % (Auto) 3.1, Eos % (Auto) 0.2, Baso % (Auto) 0.4, Neut # (Auto) 18.7 H, Lymph # (Auto) 1.8, [place] # (Auto) 0.7, Eos # (Auto) 0.1, Baso # (Auto) 0.1, Total Counted 100, Neutrophils % (Manual) 82 H, Band Neutrophils % 5.0, Lymphocytes % (Manual) 9 L, Monocytes % (Manual) 4, Platelet Estimate Normal, RBC Morphology Normal, Sodium 133 L, Potassium 4.0, Chloride 100, Carbon Dioxide 24, Anion Gap 13.0, BUN 31 H, Creatinine 1.80 H, Estimated Creat Clear 29, Estimated GFR 27 L, Est GFR ( Amer) 33 L, Glucose 96, Calcium 8.1 L, Total Bilirubin 0.5, AST 29, ALT 15 D, Alkaline Phosphatase 114, Total Protein 6.9, Albumin 3.8 D, Globulin 3.1, Albumin/Globulin Ratio 1.2 07/10/23 11:01: Chlamy pneumoniae PCR TNP, Adenovirus (PCR) Not detected, B. pertussis DNA (PCR) TNP, Coronavirus OC43 (PCR) Not detected, Coronavirus HKU1 (PCR) Not detected, Coronavirus 229E (PCR) Not detected, SARS-CoV-2 (PCR) Not detected, Coronavirus NL63 (PCR) Not detected, Human Metapneumovir PCR Not detected, Influenza A (H1) PCR Not detected, Influ A (H1N1/09) PCR Not detected, Influenza A (H3) PCR Not detected, Influenza Type A (PCR) Not detected, Influenza Type B (PCR) Not detected, M. pneumoniae (PCR) TNP, Parainfluenza 1 (PCR) Not detected, Parainfluenza 2 (PCR) Not detected, Parainfluenza 3 (PCR) Not detected, Parainfluenza 4 (PCR) Not detected, RSV (PCR) Detected A, Entero/Rhino (PCR) Not detected I & O for Last 24 hours: Intake & Output 07/07/23 07/08/23 07/09/23 07/10/23 23:59 23:59 23:59 23:59 Intake Total 910 / 910 Output Total 400 / 400 Balance 510 / 510 Weight 72.575 kg 71.21 kg Assessment and Plan *Assessment and plan (1) Sepsis: Status: Acute Qualifiers: Sepsis type: sepsis due to unspecified organism Sepsis acute organ dysfunction status: without acute organ dysfunction Qualified Code(s): A41.9 - Sepsis, unspecified organism Category: Medical Code(s):
[2023-07-11] VITALS (8 sets, daily range): BP systolic 103–119; BP diastolic 57–62; PULSE 68–80; RESP 18–24; TEMP 36.4–37.1; O2SAT 94–98; BMI 27.5
--- NOTE | 2023-07-11 10:08 | PC.NURSE ---
SRNA NOTE: pt has ambulated to and from bathroom twice this a.m. she uses x1 assistance. she has no c/o any issues during her activity. Kapil RENTERIA
--- NOTE | 2023-07-11 11:29 | XR_ITS ---
PROCEDURE INFORMATION: Exam: XR Chest Exam date and time: 07/11/2023 11:49 AM Age: 78 years old Clinical indication: Shortness of breath; Additional info: SOB TECHNIQUE: Imaging protocol: Radiologic exam of the chest. Views: 1 view. Total images: 1 COMPARISON: CT CHEST WO CON 07/10/2023 10:09 AM FINDINGS: Airway: Slight displacement of the trachea to the right is noted, which may be positional. Lungs: Patchy airspace opacities noted within the right upper and lower lobes consistent with developing pneumonia. Atelectatic and/or infiltrative changes noted within the left lung base. Interstitial prominence noted throughout both lungs. Pleural spaces: Unremarkable. No pleural effusion. No pneumothorax. Heart/Mediastinum: Heart demonstrates mild diffuse enlargement. Bones/joints: Unremarkable. IMPRESSION: 1. Patchy airspace opacities noted within the right upper and lower lobes consistent with developing pneumonia. 2. Atelectatic and/or infiltrative changes noted within the left lung base. 3. Interstitial prominence noted throughout both lungs. 4. Mild cardiomegaly.
[2023-07-11 12:51] LABS: NT Pro Brain Natriuretic Pep. 750 pg/mL (0-450)
--- NOTE | 2023-07-11 15:37 | EXP.PN ---
Subjective *Date: 07/11/23 *Time: 15:37 Interval history: patient was seen and evaluated at the bedside. denies chest pain, shortness of breath, nausea, vomiting, abdominal pain. Patient does not have any complaints at this time. feels better overall Exam Data for Last 24 hours Vital signs and Labs for Last 24 Hours: Temp Pulse Resp BP Pulse Ox O2 Del Method O2 Flow Rate 98.0 F 72 24 119/61 95 Room Air 2 07/11/23 08:00 07/11/23 11:11 07/11/23 08:00 07/11/23 08:00 07/11/23 08:00 07/11/23 13:00 07/11/23 06:44 Laboratory Results - last 24 hr 07/11/23 12:11: NT-Pro-B Natriuret Pep 750 H I & O for Last 24 hours: Intake & Output 07/08/23 07/09/23 07/10/23 07/11/23 23:59 23:59 23:59 23:59 Intake Total 1180 / 1680 1220 / 1220 Output Total 550 / 550 675 / 675 Balance 630 / 1130 545 / 545 Weight 72.575 kg 71.21 kg 70.534 kg Constitutional Constitutional: no acute distress *Routine HEENT Exam Head: Present normocephalic Eye: Present EOMI and PERRL ENT: Present mucous membranes moist *Routine Neck Exam Neck: Present supple; Absent lymphadenopathy *Routine Respiratory Exam Respiratory: Present CTA bilaterally *Routine Cardiovascular Exam Cardiovascular: Present RRR *Routine Abdominal Exam Abdominal: Present soft and normoactive bowel sounds; Absent tenderness *Routine Extremities Exam Extremities: Absent cyanosis, clubbing or edema *Routine Skin Exam Skin: Present warm; Absent rash *Routine Neurological Exam Neurological: Present alert and oriented X3 Assessment and Plan *Assessment and plan (1) Sepsis: Status: Acute Qualifiers: Sepsis type: sepsis due to unspecified organism Sepsis acute organ dysfunction status: without acute organ dysfunction Qualified Code(s): A41.9 - Sepsis, unspecified organism Category: Medical Code(s): A41.9 - Sepsis, unspecified organism (2) Pneumonia: Status: Acute Qualifiers: Pneumonia type: due to unspecified organism Laterality: bilateral Lung location: lower lobe of lung Qualified Code(s): J18.9 - Pneumonia, unspecified organism Category: Medical Code(s): J18.9 - Pneumonia, unspecified organism (3) Fibrosis of lung: Status: Acute Category: Medical Code(s): J84.10 - Pulmonary fibrosis, unspecified (4) ILD (interstitial lung disease): Status: Chronic Category: Medical Code(s): J84.9 - Interstitial pulmonary disease, unspecified (5) Congestive heart failure: Status: Acute Qualifiers: Heart failure chronicity: acute on chronic Heart failure type: unspecified Qualified Code(s): I50.9 - Heart failure, unspecified Category: Medical Code(s): I50.9 - Heart failure, unspecified (6) Hypothyroidism: Status: Acute Qualifiers: Hypothyroidism type: acquired Qualified Code(s): E03.9 - Hypothyroidism, unspecified Category: Medical Code(s): E03.9 - Hypothyroidism, unspecified (7) Parkinson disease: Status: Acute Qualifiers: Dyskinesia presence: unspecified whether dyskinesia Fluctuating manifestations: unspecified whether manifestations fluctuate Qualified Code(s): G20.A1 - Parkinson's disease without dyskinesia, without mention of fluctuations Category: Medical Code(s): G20 - Parkinson's disease (8) Chronic GERD: Status: Acute Category: Medical Code(s): K21.9 - Gastro-esophageal reflux disease without esophagitis (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
--- NOTE | 2023-07-11 16:44 | PC.NURSE ---
O2 SATURATION 89% ON ROOM AIR PER 1600 VITAL SIGNS. PATIENT NOTED TO BE ASLEEP UPON ENTERING ROOM. APPLIED 2LNC THAT PATIENTS WEARS AT HOME WHILE SLEEPING.
[2023-07-12] VITALS (9 sets, daily range): BP systolic 107–129; BP diastolic 54–62; PULSE 67–76; RESP 16–18; TEMP 36.2–36.9; O2SAT 83–99; BMI 27.5
--- NOTE | 2023-07-12 04:54 | PC.NURSE ---
Patient has rested well this shift. Confused on 0300 rounds with tech patient was confused on where she was and told tech leave my room and leave me alone with the sons help patient was redirected and allowed for care to be given. Patient requested a bath at this time and tech assisted. Patients lungs have fine crackles and inspritory wheezing, was provided with an incentive spirometer, education provided to son and patient. Son had some questions regarding patients medication, medications was reviewed with son and patient and it was found patient has not been receiving her cardidopa/levodopa discussed this finding with hospitalist, med rec was updated with correct dosage. Patient has purewick in place with adequate urinary output. Vitals have been stable. No acute changes noted.
--- NOTE | 2023-07-12 14:52 | EXP.PN ---
Subjective *Date: 07/12/23 *Time: 14:52 Interval history: patient was seen and evaluated at the bedside. denies chest pain, shortness of breath, nausea, vomiting, abdominal pain. Patient does not have any complaints at this time. feels better overall Exam Data for Last 24 hours Vital signs and Labs for Last 24 Hours: Temp Pulse Resp BP Pulse Ox O2 Del Method O2 Flow Rate 97.9 F 76 18 109/62 L 92 L Room Air 2 07/12/23 12:00 07/12/23 12:00 07/12/23 12:00 07/12/23 12:00 07/12/23 12:00 07/12/23 12:34 07/12/23 04:00 I & O for Last 24 hours: Intake & Output 07/09/23 07/10/23 07/11/23 07/12/23 23:59 23:59 23:59 23:59 Intake Total 1180 / 1680 1460 / 2000 780 / 780 Output Total 550 / 550 975 / 1325 1150 / 1150 Balance 630 / 1130 485 / 675 -370 / -370 Weight 72.575 kg 71.21 kg 70.534 kg 70.524 kg Microbiology Reports for the Last 24 Hours: Microbiology 07/10/23 04:50 Urine,Clean Catch Urine Culture - Final 07/10/23 11:01 Nose - Nasal MRSA Culture - Final Constitutional Constitutional: no acute distress *Routine HEENT Exam Head: Present normocephalic Eye: Present EOMI and PERRL ENT: Present mucous membranes moist *Routine Neck Exam Neck: Present supple; Absent lymphadenopathy *Routine Respiratory Exam Respiratory: Present CTA bilaterally *Routine Cardiovascular Exam Cardiovascular: Present RRR *Routine Abdominal Exam Abdominal: Present soft and normoactive bowel sounds; Absent tenderness *Routine Extremities Exam Extremities: Absent cyanosis, clubbing or edema *Routine Skin Exam Skin: Present warm; Absent rash *Routine Neurological Exam Neurological: Present alert and oriented X3 Assessment and Plan *Assessment and plan (1) Sepsis: Status: Acute Qualifiers: Sepsis type: sepsis due to unspecified organism Sepsis acute organ dysfunction status: without acute organ dysfunction Qualified Code(s): A41.9 - Sepsis, unspecified organism Category: Medical Code(s): A41.9 - Sepsis, unspecified organism (2) Pneumonia: Status: Acute Qualifiers: Pneumonia type: due to unspecified organism Laterality: bilateral Lung location: lower lobe of lung Qualified Code(s): J18.9 - Pneumonia, unspecified organism Category: Medical Code(s): J18.9 - Pneumonia, unspecified organism (3) Fibrosis of lung: Status: Acute Category: Medical Code(s): J84.10 - Pulmonary fibrosis, unspecified (4) ILD (interstitial lung disease): Status: Chronic Category: Medical Code(s): J84.9 - Interstitial pulmonary disease, unspecified (5) Congestive heart failure: Status: Acute Qualifiers: Heart failure chronicity: acute on chronic Heart failure type: unspecified Qualified Code(s): I50.9 - Heart failure, unspecified Category: Medical Code(s): I50.9 - Heart failure, unspecified (6) Hypothyroidism: Status: Acute Qualifiers: Hypothyroidism type: acquired Qualified Code(s): E03.9 - Hypothyroidism, unspecified Category: Medical Code(s): E03.9 - Hypothyroidism, unspecified (7) Parkinson disease: Status: Acute Qualifiers: Dyskinesia presence: unspecified whether dyskinesia Fluctuating manifestations: unspecified whether manifestations fluctuate Qualified Code(s): G20.A1 - Parkinson's disease without dyskinesia, without mention of fluctuations Category: Medical Code(s): G20 - Parkinson's disease (8) Chronic GERD: Status: Acute Category: Medical Code(s): K21.9 - Gastro-esophageal reflux disease without esophagitis (9) Dementia in Parkinson's disease: Status: Acute Category: Medical Code(s): G20.A1 - Parkinson's disease without dyskinesia, without mention of fluctuations; F02.80 - Dementia in other diseases classified elsewhere, unspecified severity, without behavioral disturban
--- NOTE | 2023-07-12 15:02 | EXP.PHA.CONS ---
Pharmacy Consult Date: 07/12/23 Time: 15:02 Referring provider: DR. SANTIAGO Reason for Consult:: VANCOMYCIN DOSING Allergies Allergy/AdvReac Type Severity Reaction Status Date / Time No Known Allergies Allergy Verified 07/07/23 15:31 Home Medications Medication Instructions Recorded Confirmed Type amantadine HCl 100 mg tablet 100 mg PO 0900,1300 Parkinsons 09/16/20 07/10/23 History duloxetine 20 mg capsule,delayed 20 mg PO BID Mood 09/16/20 07/10/23 History release gabapentin 300 mg capsule 300 mg PO 0900,1300 Pain 12/18/21 07/10/23 History methenamine hippurate 1 gram tablet 1 gm PO BID Infection 12/18/21 07/10/23 History spironolactone 50 mg tablet 50 mg PO DAILY Fluid 12/18/21 07/10/23 History ropinirole 4 mg tablet 4 mg PO QID 06/26/22 07/10/23 History azelastine 137 mcg (0.1 %) nasal 2 spray intranasal HS Allergy 07/10/23 07/10/23 History spray aerosol Symptoms budesonide-formoterol HFA 160 2 puff inhalation BID Breathing 07/10/23 07/10/23 History mcg-4.5 mcg/actuation aerosol Problems inhaler (Symbicort) cholecalciferol (vitamin D3) 25 25 mcg PO DAILY Supplement 07/10/23 07/10/23 History mcg (1,000 unit) capsule (Vitamin D3) gabapentin 300 mg capsule 600 mg PO HS Pain 07/10/23 07/10/23 History ipratropium 0.5 mg-albuterol 3 mg 3 ml inhalation Q6HP PRN shortness 07/10/23 07/10/23 History (2.5 mg base)/3 mL nebulization of breath or wheezing soln levothyroxine 25 mcg tablet 25 mcg PO DAILY Thyroid 07/10/23 07/10/23 History loratadine 10 mg tablet (Claritin) 10 mg PO DAILY allergy symptoms 07/10/23 07/10/23 History lorazepam 0.5 mg tablet 0.5 mg PO TID Anxiety 07/10/23 07/10/23 History mycophenolate mofetil 500 mg tablet 500 mg PO BID 07/10/23 07/10/23 History omeprazole 20 mg capsule,delayed 20 mg PO DAILY Acid Reflux 07/10/23 07/10/23 History release carbidopa ER 50 mg-levodopa 200 mg 0.5 tab PO 5XDAY 07/12/23 07/12/23 History tablet,extended release New Prescriptions to Start Prescriptions: Height: 1.6 m Weight: 70.524 kg Laboratory Results:: N/A Medical History: Medical History (Updated 07/10/23 @ 12:07 by Nikole Fernandez MD) Allergic rhinitis Breathlessness Dyspnea on exertion Fibrosis of lung History of rheumatoid arthritis ILD (interstitial lung disease) Nocturnal hypoxia NSIP (nonspecific interstitial pneumonia) Organizing pneumonia Restrictive lung disease Restrictive lung disease Assessment and Plan Assessment and plan all Dx Assessment and Plan for all problems:: Pharmacokinetic dosing service Objective: Patient: Floor: Age: 78 yo Serum creatinine: 1.80 mg/dL Height: 63.0 Inches Weight (kg): 70.5 Assessment: IBW (kg): 52.40 Dosing wt(kg): 70.5 Estimated Creatinine clearance (ml/min): 21.3 CRCL method: Cockcroft and Gault using ibw(default). Drug selected: Vancomycin Loading dose (mg): Vd (liters): 56.4 (factor used: 0.8 L/kg) Anbil (hr-1): 0.022 Half life (hrs): 31.51 CLvanco=?? 1.241 L/hr Recommended dose: 1000 mg Interval: 36 hrs Infusion time (hrs): 2.0 Predicted peak (mcg/mL): 31.7 Predicted trough (mcg/mL): 15.00 Total body weight is being used for vancomycin dosing. Recommendations: Give Vancomycin 1000 mg q 36 hrs with an expected Cpeak of 31.7 mcg/ml and an expected Ctrough of 15.00 mcg/ml AUC 0-24 /DELILAH Data: DELILAH 0.5 mcg/mL:?? AUC/DELILAH:? 1074.4 DELILAH 1.0 mcg/mL:?? AUC/DELILAH:? 537.2 --------- DELILAH 1.5 mcg/mL:?? AUC/DELILAH:? 358.1 DELILAH 2.0 mcg/mL:?? AUC/DELILAH:? 268.6 Thank you for the consult, will continue to follow. -KAILEE BEYER, PROSPERD
[2023-07-13] VITALS (9 sets, daily range): BP systolic 104–152; BP diastolic 58–86; PULSE 66–89; RESP 18–20; TEMP 36.6–36.9; O2SAT 90–100; BMI 27.5
--- NOTE | 2023-07-13 05:28 | PC.NURSE ---
Patient has had a decent night. Has been able to sleep through the night. Patient did request a purewck to sleep. RN agreed to allow the patient to sleep through the night but did educate the patient it will have to come off before breakfast as to promote mobility and strength. The patient agreed. the patient is in 2L NC, but only while sleeping. IS on RA during the day. Patient still has a croupy cough that is strong and productive. Patient has not complained of pain. No other issues noted
[2023-07-13 06:56] LABS: Basophils # 0.1 K/mm3 (0-0.2); Eosinophils # 0.3 K/mm3 (0.0-0.4); Eosinophils % 2.1 % (0.1-12.0); Hematocrit 37.6 % (37.0-47.0); Hemoglobin 11.9 g/dL (12.2-16.2); Lymphocytes # 3.3 K/mm3 (0.7-4.5); Lymphocytes % 24.5 % (10-50); Mean Corpuscular HGB Conc 31.7 g/dL (31.8-35.4); Mean Corpuscular Hemoglobin 29.5 pg (27.0-31.2); Mean Corpuscular Volume 93.1 fl (81-99); Mean Platelet Volume 8.5 fl (7.4-10.4); Monocytes # 0.7 K/mm3 (0.1-1.0); Neutrophils # 9.1 K/mm3 (1.8-7.8); Neutrophils % 67.4 % (37.0-80.0); Platelet Count 374 K/mm3 (142-424); Red Blood Count 4.04 M/mm3 (4.20-5.40); Red Cell Distribution Width 14.2 % (11.5-17.5); White Blood Count 13.5 K/mm3 (4.8-10.8)
[2023-07-13 07:03] LABS: Chloride 99 mmol/L (98-107); Sodium 137 mmol/L (136-145)
[2023-07-13 07:04] LABS: Potassium 3.4 mmoL/L (3.5-5.1)
[2023-07-13 07:06] LABS: Anion Gap 10.4 mEq/L (5-15); Blood Urea Nitrogen 18 mg/dl (7-17); Carbon Dioxide 31 mmol/L (22.0-30.0); Creatinine Clearance Estimated 47 mL/min (50-200); Estimated Glomerular Filt Rate 48 ml/min (>60); GFR (African American) 58 ML/MIN (>60)
[2023-07-13 07:07] LABS: Calcium 8.7 mg/dl (8.4-10.2); Glucose 91 mg/dl (74-100)
--- NOTE | 2023-07-13 09:08 | EXP.PHA.PN ---
Subjective *Date: 07/13/23 *Time: 09:08 Medical Exam Vital signs and Labs for Last 24 Hours: Vital Signs Temp Pulse Pulse Resp BP Pulse Ox O2 Del Method 07/13/23 08:57 Room Air 07/13/23 08:00 98.1 F 72 18 109/60 L 95 Room Air 07/13/23 07:42 Room Air 07/13/23 04:00 98.2 F 68 18 130/58 L 98 Nasal Cannula 07/13/23 07:00 Room Air 07/13/23 05:55 84 07/13/23 05:55 86 07/13/23 05:00 Nasal Cannula 07/13/23 00:00 Nasal Cannula 07/13/23 00:00 98.0 F 66 18 138/58 L 100 Nasal Cannula 07/13/23 03:00 Nasal Cannula 07/13/23 01:00 Nasal Cannula 07/12/23 23:00 Nasal Cannula 07/12/23 20:00 97.2 F L 74 18 107/59 L 97 Room Air 07/12/23 21:00 Nasal Cannula 07/12/23 20:00 Nasal Cannula 07/12/23 18:31 Nasal Cannula 07/12/23 18:20 74 07/12/23 18:20 74 07/12/23 18:20 83 L Room Air 07/12/23 16:00 97.9 F 69 16 108/60 L 93 L Room Air 07/12/23 16:14 Room Air 07/12/23 15:00 Room Air 07/12/23 12:34 Room Air 07/12/23 11:00 Room Air 07/12/23 12:00 97.9 F 76 18 109/62 L 92 L Room Air 07/12/23 11:44 71 07/12/23 11:44 73 07/12/23 11:44 90 L Room Air O2 Flow Rate 07/13/23 08:57 07/13/23 08:00 07/13/23 07:42 07/13/23 04:00 2 07/13/23 07:00 07/13/23 05:55 07/13/23 05:55 07/13/23 05:00 2 07/13/23 00:00 2 07/13/23 00:00 2 07/13/23 03:00 2 07/13/23 01:00 2 07/12/23 23:00 2 07/12/23 20:00 07/12/23 21:00 2 07/12/23 20:00 2 07/12/23 18:31 2 07/12/23 18:20 07/12/23 18:20 07/12/23 18:20 07/12/23 16:00 07/12/23 16:14 07/12/23 15:00 07/12/23 12:34 07/12/23 11:00 07/12/23 12:00 07/12/23 11:44 07/12/23 11:44 07/12/23 11:44 Intake and Output 07/12/23 07/13/23 07/13/23 23:59 07:59 15:59 Intake Total 590 / 1730 240 / 240 Output Total 450 / 1600 200 / 200 Balance 140 / 130 -200 / 40 240 / 40 Intake: Intake, Oral Amount 290 / 1130 240 / 240 Intake, Total IV Amount 300 / 600 Azithromycin 500 mg In 0.9 % 250 / 500 Sodium Chloride 250 ml @ 250 mls/hr IV Q24H [facility] Rx#:[id number] Ceftriaxone 1 gm 1 gm In 0.9 % 50 / 100 Sodium Chloride 50 ml @ 100 mls /hr IV Q12H [facility] Rx#:[id number] Output: Output, Urine Amount 450 / 1600 200 / 200 Other: Number of Unmeasured Voids 1 Weight 70.526 kg Patient Weight 07/13/23 23:59 Weight 70.526 kg Laboratory Results - last 24 hr 07/13/23 06:21: WBC 13.5 H, RBC 4.04 L, Hgb 11.9 L, Hct 37.6, MCV 93.1, MCH 29.5, MCHC 31.7 L, RDW 14.2, Plt Count 374, MPV 8.5, Neut % (Auto) 67.4, Lymph % (Auto) 24.5, [place] % (Auto) 5.0, Eos % (Auto) 2.1, Baso % (Auto) 1.0, Neut # (Auto) 9.1 H, Lymph # (Auto) 3.3, [place] # (Auto) 0.7, Eos # (Auto) 0.3, Baso # (Auto) 0.1, Sodium 137, Potassium 3.4 L, Chloride 99, Carbon Dioxide 31 H, Anion Gap 10.4, BUN 18 H, Creatinine 1.10 H, Estimated Creat Clear 47, Estimated GFR 48 L, Est GFR ( Amer) 58 L, Glucose 91, Calcium 8.7 I & O for Labs for Last 24 Hours: Intake & Output 07/10/23 07/11/23 07/12/23 07/13/23 23:59 23:59 23:59 23:59 Intake Total 1180 / 1680 1460 / 2000 1730 / 1730 240 / 240 Output Total 550 / 550 975 / 1325 1600 / 1600 200 / 200 Balance 630 / 1130 485 / 675 130 / 130 40 / 40 Weight 71.21 kg 70.534 kg 70.524 kg 70.526 kg Microbiology Reports for the Last 24 Hours: Microbiology 07/10/23 04:50 Urine,Clean Catch Urine Culture - Final 07/10/23 11:01 Nose - Nasal MRSA Culture - Final The patient's infection will respond to the chosen ABx?: Yes Is the patient receiving the right drug, dose, and route?: Yes Could a more targeted ABx be ordered?: No (WBC 21.7 TO 13.5, AFEBRILE. CONTINUING CURRENT ABX AND ADDING VANCO.)
--- NOTE | 2023-07-13 10:13 | EXP.ACUTE.PN ---
Subjective *Date: 07/13/23 *Time: 12:13 Interval history: Patient feeling little better this morning. Stable on room air. Still having significant cough. Awaiting sputum culture. MRSA swab positive however getting better on current antibiotics. No nausea or vomiting. Tolerating p.o. intake. Requiring assistance to ambulate. Discussion with family, patient open to rehab referral. Medical Exam Vital signs and Labs for Last 24 Hours: Vital Signs Temp Pulse Pulse Resp BP Pulse Ox O2 Del Method 07/13/23 19:59 98.4 F 82 20 152/86 H 90 L Room Air 07/13/23 18:46 Room Air 07/13/23 18:10 78 07/13/23 18:10 78 07/13/23 17:00 Room Air 07/13/23 15:46 97.9 F 89 19 104/63 L 90 L Room Air 07/13/23 15:32 Room Air 07/13/23 15:00 Room Air 07/13/23 12:36 Room Air 07/13/23 11:49 77 07/13/23 11:49 77 07/13/23 11:27 98.0 F 75 19 110/59 L 91 L Room Air 07/13/23 10:57 Room Air 07/13/23 08:00 Room Air 07/13/23 08:57 Room Air 07/13/23 08:00 98.1 F 72 18 109/60 L 95 Room Air 07/13/23 07:42 Room Air 07/13/23 04:00 98.2 F 68 18 130/58 L 98 Nasal Cannula 07/13/23 07:00 Room Air 07/13/23 05:55 84 07/13/23 05:55 86 07/13/23 05:00 Nasal Cannula 07/13/23 00:00 Nasal Cannula 07/13/23 00:00 98.0 F 66 18 138/58 L 100 Nasal Cannula 07/13/23 03:00 Nasal Cannula 07/13/23 01:00 Nasal Cannula 07/12/23 23:00 Nasal Cannula O2 Flow Rate 07/13/23 19:59 07/13/23 18:46 07/13/23 18:10 07/13/23 18:10 07/13/23 17:00 07/13/23 15:46 07/13/23 15:32 07/13/23 15:00 07/13/23 12:36 07/13/23 11:49 07/13/23 11:49 07/13/23 11:27 07/13/23 10:57 07/13/23 08:00 07/13/23 08:57 07/13/23 08:00 07/13/23 07:42 07/13/23 04:00 2 07/13/23 07:00 07/13/23 05:55 07/13/23 05:55 07/13/23 05:00 2 07/13/23 00:00 2 07/13/23 00:00 2 07/13/23 03:00 2 07/13/23 01:00 2 07/12/23 23:00 2 Intake and Output 07/13/23 07/13/23 07/13/23 07:59 15:59 23:59 Intake Total 480 / 480 0 / 480 Output Total 200 / 1000 800 / 1000 0 / 1000 Balance -200 / -520 -320 / -520 0 / -520 Intake: Intake, Oral Amount 480 / 480 0 / 480 Output: Output, Urine Amount 200 / 1000 800 / 1000 0 / 1000 Other: Number of Voids 1 Number of Unmeasured Voids 0 1 Weight 70.526 kg Patient Weight 07/13/23 23:59 Weight 70.526 kg Laboratory Results - last 24 hr 07/13/23 06:21: WBC 13.5 H, RBC 4.04 L, Hgb 11.9 L, Hct 37.6, MCV 93.1, MCH 29.5, MCHC 31.7 L, RDW 14.2, Plt Count 374, MPV 8.5, Neut % (Auto) 67.4, Lymph % (Auto) 24.5, [place] % (Auto) 5.0, Eos % (Auto) 2.1, Baso % (Auto) 1.0, Neut # (Auto) 9.1 H, Lymph # (Auto) 3.3, [place] # (Auto) 0.7, Eos # (Auto) 0.3, Baso # (Auto) 0.1, Sodium 137, Potassium 3.4 L, Chloride 99, Carbon Dioxide 31 H, Anion Gap 10.4, BUN 18 H, Creatinine 1.10 H, Estimated Creat Clear 47, Estimated GFR 48 L, Est GFR ( Amer) 58 L, Glucose 91, Calcium 8.7 I & O for Labs for Last 24 Hours: Intake & Output 07/10/23 07/11/23 07/12/23 07/13/23 23:59 23:59 23:59 23:59 Intake Total 1180 / 1680 1460 / 2000 1730 / 1730 480 / 480 Output Total 550 / 550 975 / 1325 1600 / 1600 1000 / 1000 Balance 630 / 1130 485 / 675 130 / 130 -520 / -520 Weight 71.21 kg 70.534 kg 70.524 kg 70.526 kg Microbiology Reports for the Last 24 Hours: Microbiology 07/09/23 20:30 Sputum - Expectorated Sputum Gram Stain - Final 07/09/23 20:30 Sputum - Expectorated Sputum Sputum Culture - Preliminary 07/09/23 18:51 Blood Blood Culture - Preliminary 07/09/23 18:54 Blood Blood Culture - Preliminary Constitutional: Present no acute distress, average body habitus and chronically ill appearing Head: Present atraumatic ENT: Present normal exam Respiratory: Present rhonchi, crackles and normal respiratory effort; Absent wheezes Ca
--- NOTE | 2023-07-13 10:13 | EXP.PULM.PN ---
Subjective *Date: 07/13/23 *Time: 11:35 Interval history: No acute respiratory vents over the weekend. Patient denies any new respiratory complaints. Pulmonology Exam Inpatient Vital signs and Labs for Last 24 Hours: Temp Pulse Resp BP Pulse Ox O2 Del Method O2 Flow Rate 98.1 F 72 18 109/60 L 95 Room Air 2 07/13/23 08:00 07/13/23 08:00 07/13/23 08:00 07/13/23 08:00 07/13/23 08:00 07/13/23 08:57 07/13/23 05:00 Laboratory Results - last 24 hr 07/13/23 06:21: WBC 13.5 H, RBC 4.04 L, Hgb 11.9 L, Hct 37.6, MCV 93.1, MCH 29.5, MCHC 31.7 L, RDW 14.2, Plt Count 374, MPV 8.5, Neut % (Auto) 67.4, Lymph % (Auto) 24.5, [place] % (Auto) 5.0, Eos % (Auto) 2.1, Baso % (Auto) 1.0, Neut # (Auto) 9.1 H, Lymph # (Auto) 3.3, [place] # (Auto) 0.7, Eos # (Auto) 0.3, Baso # (Auto) 0.1, Sodium 137, Potassium 3.4 L, Chloride 99, Carbon Dioxide 31 H, Anion Gap 10.4, BUN 18 H, Creatinine 1.10 H, Estimated Creat Clear 47, Estimated GFR 48 L, Est GFR ( Amer) 58 L, Glucose 91, Calcium 8.7 I & O for Labs for Last 24 Hours: Intake & Output 07/10/23 07/11/23 07/12/23 07/13/23 23:59 23:59 23:59 23:59 Intake Total 1180 / 1680 1460 / 2000 1730 / 1730 240 / 240 Output Total 550 / 550 975 / 1325 1600 / 1600 500 / 500 Balance 630 / 1130 485 / 675 130 / 130 -260 / -260 Weight 156 lb 15.859 oz 155 lb 8 oz 155 lb 7.661 oz 155 lb 7.731 oz Microbiology Reports for the Last 24 Hours: Microbiology 07/09/23 18:51 Blood Blood Culture - Preliminary 07/09/23 18:54 Blood Blood Culture - Preliminary 07/10/23 04:50 Urine,Clean Catch Urine Culture - Final 07/10/23 11:01 Nose - Nasal MRSA Culture - Final Constitutional: Present moderate distress Head: Present normocephalic and atraumatic ENT: Present normal exam, normal oropharynx and mucous membranes moist Neck: Present normal inspection and full ROM Respiratory: Present rhonchi, crackles, normal respiratory effort and able to speak in complete sentences; Absent wheezes or diminished air movement Cardiac: Present S1/S2, Tachycardia and radial pulses present GI: Present soft and distention; Absent tenderness or guarding Rectal (female): Present deferred (female): Present deferred Skin: Present intact; Absent cyanosis or jaundice Neuro: Present alert, awake and oriented x 3 Extremities: Present normal inspection; Absent clubbing or cyanosis Psychiatric: Present normal affect and cooperative Assessment and Plan *Assessment and plan (1) Acute hypoxic respiratory failure: Status: Acute Category: Medical Code(s): J96.01 - Acute respiratory failure with hypoxia (2) Pneumonia: Status: Acute Qualifiers: Laterality: bilateral Lung location: lower lobe of lung Pneumonia type: due to unspecified organism Qualified Code(s): J18.9 - Pneumonia, unspecified organism Category: Medical Code(s): J18.9 - Pneumonia, unspecified organism Plan Ms. Mathis is a 78-year-old patient rheumatoid arthritis, ILD on immunosuppressive therapy recently seen in the clinic presented to the hospital worsening respiratory's on admission chest x-ray found to be a left lower lobe pulmonary infiltrate and was admitted for further evaluation and management. Significant neutrophilic predominant leukocytosis upon admission. CT chest without contrast on admission of bilateral lower lobe consolidative changes, left greater than right. No effusions noted. Patient was initiated on ceftriaxone azithromycin upon admission. Interval update: No acute respiratory events over the weekend. Continue to remain on room air. Leukocytosis improving. Continue to receive ceftriaxone and azithromycin. Nasal MRSA PCR positive. Respiratory viral PCR positive for RSV. Blood cultures no growth 24 hours. Sputum staining and cultures pending. Will follow with results. Continue to ceftriaxone and azithromycin. Will discontinue vancomycin. Leukocytosis improving. Chest x-ray low lung volumes,
--- NOTE | 2023-07-13 10:17 | XR_ITS ---
FINAL REPORT TECHNIQUE: Single view chest CLINICAL HISTORY: PN FINDINGS: A single view of the chest was obtained. The heart and mediastinum are within normal limits. There is a mild right base opacity which may represent atelectasis or pneumonia. There is no pneumothorax. Osseous structures are unremarkable. IMPRESSION: Mild right base opacity which may represent atelectasis or pneumonia. Reviewed, Interpreted and Dictated by Mauro Carballo III, MD Transcribed by Lillie Fernández Authenticated and [facility]
--- NOTE | 2023-07-13 11:11 | HMH.OTEV ---
OT Inpatient Evaluation Rehab OT IP Evaluation Start: 07/12/23 10:38 Freq: ONCE Status: Active Protocol: Document 07/13/23 11:03 SHANDASAVITA (Rec: 07/13/23 11:10 JENNIE [id number]) Rehab OT IP Assessment Subjective History This is a 78F with PMHx significant for ILD, with pulmonary fibrosis, advanced dementia and parkinsons, CHF, hypoTH who presented to the ED with complaints of shortness of breath. Patient's helped to confirm data during interview due to patient history of advanced dementia. Patient has reportedly been having progressively worsening shortness of breath for the past 3 days. On arrival to the ED, patient was hypoxic to 76% on room air, febrile. Patient does wear oxygen at home, only at bedtime. Admitted for further treatment and management. Patient lives at home with . assist with ADLs as needed. Patient uses a RW to ambulate within home. Subjective I can get up. Instructed Patient on proper hand and foot placement to complete bed mobility, transfers, ambulation, and toileting. Patient completed all tasks with Min to Mod A. Left Patient sitting up in recliner at end of session. Objective Patient Orientation Person,Place,Name,Age,Birthday ,Year Right Upper Extremity Gross ROM WFL Left Upper Extremity Gross ROM WFL Bed Mobility bed mobility - supine/sit Assist Level Minimal x 1 (25% assist) Transfer Training Sit/Stand/Pivot Transfer Assist Level Minimal x 1 (25% assist) Chair Transfer Ability Minimal x 1 (25% assist) Chair Transfer Technique Sit to/from Ambulatory Chair Transfer Assistive Devices Rolling Walker Lower Body Dressing Ability Minimal Assistance Performing Toilet Hygiene Ability Standby Assistance Overall Commode/Toilet Transfer Ability Standby Assistance Rehab OT IP prob,goals,plan Problems Date of
--- NOTE | 2023-07-13 11:33 | HMH.PTEV ---
Physical Therapy Evaluation Rehab PT IP Evaluation Start: 07/12/23 10:38 Freq: ONCE Status: Active Protocol: Document 07/13/23 10:18 EMIR (Rec: 07/13/23 11:32 EMIR [id number]) Subjective/History History History Pt is a 78 y/o female who reported to [facility] ED on 07/09/23 with complaint of SOA. Per history & physical note, patient's helped to confirm data during interview due to patient history of advanced dementia. Patient has reportedly been having progressively worsening shortness of breath for the past 3 days. On arrival to the ED, patient was hypoxic to 76% on room air, febrile. Patient does wear oxygen at home, only at bedtime. Medical History: Allergic rhinitis Breathlessness Dyspnea on exertion Fibrosis of lung History of rheumatoid arthritis ILD (interstitial lung disease ) Nocturnal hypoxia NSIP (nonspecific interstitial pneumonia) Organizing pneumonia Restrictive lung disease Restrictive lung disease Subjective Subjective Pt's present at bedside during initial evaluation. Pt reports she lives in a single-story home with her without steps to enter. Pt reports prior to hospitalization she was using a rollator walker for ambulation. Pt reports her helps her with cooking , cleaning and lower body dressing such as her shoes at baseline. Pt reports she uses oxygen at night time only. Pt' s was present in the room during the initial evaluation and sta
--- NOTE | 2023-07-13 13:11 | SW/DCPLANNER ---
Addendum entered by Meli Irizarry 07/14/23 08:18: [facility] able to [facility] patient. Patient/ prefer to discharge to [facility]. I have updated and [facility] that patient will discharge today. Addendum entered by Meli Irizarry 07/13/23 15:09: [facility] stated that she is able to accept this patient. [facility] stated that she will be onsite to evaluate this patient today. [facility] is reviewing information. Original Note: I spoke w/ this patient, and granddaughter regarding plans once medically stable for discharge. PT/OT evaluated patient and stated that she could go SNF or home w/ home health and assistance from family. Patient's voiced that he did not feel he could care for patient at this time. Patient is agreeable to SNF level of care at time of discharge and prefers a [place] facility. Patient information will be faxed to [facility] today. Per patient is medically stable for discharge.
--- NOTE | 2023-07-13 16:20 | PC.NURSE ---
PT IS RESTING IN BED. ALERT AND ORIENTED X3. PT TOLERATED SITTING UP IN THE CHAIR FOR SEVERAL HOURS THIS SHIFT. PT AMBULATES WITH WALKER AND CONTACT GUARD ASSIST. UNSTEADY GAIT. LUNG SOUNDS HAVE SCATTERED RHONCHI AND CRACKLES. ABDOMEN SOFT/NON TENDER WITH ACTIVE BOWEL SOUNDS. EATING AND DRINKING FAIR. WILL CONTINUE TO MONITOR.
[2023-07-14] VITALS (7 sets, daily range): BP systolic 118–129; BP diastolic 54–70; PULSE 59–78; RESP 18–22; TEMP 36.5–36.9; O2SAT 90–95; BMI 27.2
[2023-07-14 06:54] LABS: Basophils # 0.2 K/mm3 (0-0.2); Basophils % 1.4 % (0.1-2.0); Eosinophils # 0.5 K/mm3 (0.0-0.4); Eosinophils % 2.7 % (0.1-12.0); Hematocrit 38.6 % (37.0-47.0); Hemoglobin 12.3 g/dL (12.2-16.2); Lymphocytes # 2.7 K/mm3 (0.7-4.5); Lymphocytes % 15.9 % (10-50); Mean Corpuscular HGB Conc 31.9 g/dL (31.8-35.4); Mean Corpuscular Hemoglobin 29.5 pg (27.0-31.2); Mean Corpuscular Volume 92.4 fl (81-99); Mean Platelet Volume 9.2 fl (7.4-10.4); Neutrophils # 12.4 K/mm3 (1.8-7.8); Neutrophils % 73.9 % (37.0-80.0); Platelet Count 440 K/mm3 (142-424); Red Blood Count 4.18 M/mm3 (4.20-5.40); Red Cell Distribution Width 14.2 % (11.5-17.5); White Blood Count 16.7 K/mm3 (4.8-10.8)
[2023-07-14 06:58] LABS: Chloride 97 mmol/L (98-107); MANUAL DIFFERENTIAL MANUAL DIFFERENTIAL (MANUAL DIFF); Sodium 136 mmol/L (136-145)
[2023-07-14 07:00] LABS: Blood Urea Nitrogen 22 mg/dl (7-17); Creatinine Clearance Estimated 39 mL/min (50-200); Estimated Glomerular Filt Rate 40 ml/min (>60); GFR (African American) 48 ML/MIN (>60); Potassium 3.8 mmoL/L (3.5-5.1)
[2023-07-14 07:01] LABS: Alanine Aminotransferase 16 U/L (12-78); Albumin Level 4.6 g/dl (3.5-5.0); Albumin/Globulin Ratio 1.1 (1.1-1.8); Alkaline Phosphatase 97 U/L (38-126); Anion Gap 13.8 mEq/L (5-15); Aspartate Amino Transferase 43 U/L (14-36); Bilirubin,Total 0.8 mg/dl (0.2-1.3); Calcium 8.9 mg/dl (8.4-10.2); Carbon Dioxide 29 mmol/L (22.0-30.0); Globulin 4.1 g/dL (1.3-3.2); Glucose 89 mg/dl (74-100); Magnesium 2.1 mg/dl (1.6-2.3); Total Protein,Serum 8.7 g/dl (6.3-8.2)
[2023-07-14 07:30] LABS: Eosinophils % 3 % (0-3); Lymphocytes % 30 % (10-50); Monocytes % 5 % (2-9); Neutrophils % 62 % (42-76); Total Cells Counted 100
[2023-07-14 07:31] LABS: RBC Morphology Normal
[2023-07-14 07:32] LABS: Platelet Estimate Slight Increase
--- NOTE | 2023-07-14 09:42 | EXP.PULM.PN ---
Subjective *Date: 07/14/23 *Time: 13:54 Interval history: No acute respiratory vents overnight. Patient denies any new respiratory complaints. Pulmonology Exam Inpatient Vital signs and Labs for Last 24 Hours: Temp Pulse Resp BP Pulse Ox O2 Del Method O2 Flow Rate 97.9 F 67 18 118/64 95 Room Air 2 07/14/23 07:34 07/14/23 07:34 07/14/23 07:34 07/14/23 07:34 07/14/23 08:00 07/14/23 08:21 07/14/23 05:00 Laboratory Results - last 24 hr 07/14/23 06:03: WBC 16.7 H, RBC 4.18 L, Hgb 12.3, Hct 38.6, MCV 92.4, MCH 29.5, MCHC 31.9, RDW 14.2, Plt Count 440 H, MPV 9.2, Neut % (Auto) 73.9, Lymph % (Auto) 15.9, [place] % (Auto) 6.0, Eos % (Auto) 2.7, Baso % (Auto) 1.4, Neut # (Auto) 12.4 H, Lymph # (Auto) 2.7, [place] # (Auto) 1.0, Eos # (Auto) 0.5 H, Baso # (Auto) 0.2, Total Counted 100, Neutrophils % (Manual) 62, Lymphocytes % (Manual) 30, Monocytes % (Manual) 5, Eosinophils % (Manual) 3, Platelet Estimate Slight increase, RBC Morphology Normal, Sodium 136, Potassium 3.8, Chloride 97 L, Carbon Dioxide 29, Anion Gap 13.8, BUN 22 H, Creatinine 1.30 H, Estimated Creat Clear 39, Estimated GFR 40 L, Est GFR ( Amer) 48 L, Glucose 89, Calcium 8.9, Magnesium 2.1, Total Bilirubin 0.8, AST 43 H, ALT 16, Alkaline Phosphatase 97, Total Protein 8.7 H D, Albumin 4.6, Globulin 4.1 H, Albumin/Globulin Ratio 1.1 I & O for Labs for Last 24 Hours: Intake & Output 07/11/23 07/12/23 07/13/23 07/14/23 23:59 23:59 23:59 23:59 Intake Total 1460 / 2000 1730 / 1730 480 / 480 240 / 240 Output Total 975 / 1325 1600 / 1600 1000 / 1100 600 / 600 Balance 485 / 675 130 / 130 -520 / -620 -360 / -360 Weight 155 lb 8 oz 155 lb 7.661 oz 155 lb 7.731 oz 153 lb 9.6 oz Microbiology Reports for the Last 24 Hours: Microbiology 07/09/23 18:51 Blood Blood Culture - Preliminary 07/09/23 18:54 Blood Blood Culture - Preliminary 07/09/23 20:30 Sputum - Expectorated Sputum Gram Stain - Final 07/09/23 20:30 Sputum - Expectorated Sputum Sputum Culture - Preliminary Constitutional: Present moderate distress Head: Present normocephalic and atraumatic ENT: Present normal exam, normal oropharynx and mucous membranes moist Neck: Present normal inspection and full ROM Respiratory: Present rhonchi, crackles, normal respiratory effort and able to speak in complete sentences; Absent wheezes or diminished air movement Cardiac: Present S1/S2, Tachycardia and radial pulses present GI: Present soft and distention; Absent tenderness or guarding Rectal (female): Present deferred (female): Present deferred Skin: Present intact; Absent cyanosis or jaundice Neuro: Present alert, awake and oriented x 3 Extremities: Present normal inspection; Absent clubbing or cyanosis Psychiatric: Present normal affect and cooperative Assessment and Plan *Assessment and plan (1) Acute hypoxic respiratory failure: Status: Acute Category: Medical Code(s): J96.01 - Acute respiratory failure with hypoxia (2) Pneumonia: Status: Acute Qualifiers: Laterality: bilateral Lung location: lower lobe of lung Pneumonia type: due to unspecified organism Qualified Code(s): J18.9 - Pneumonia, unspecified organism Category: Medical Code(s): J18.9 - Pneumonia, unspecified organism Plan Ms. Mathis is a 78-year-old patient rheumatoid arthritis, ILD on immunosuppressive therapy recently seen in the clinic presented to the hospital worsening respiratory's on admission chest x-ray found to be a left lower lobe pulmonary infiltrate and was admitted for further evaluation and management. Significant neutrophilic predominant leukocytosis upon admission. CT chest without contrast on admission of bilateral lower lobe consolidative changes, left greater than right. No effusions noted. Patient was initiated on ceftriaxone azithromycin upon admission. Nasal MRSA PCR positive. Respiratory viral PCR positive for RSV. Patient has been on room air throughout
--- NOTE | 2023-07-14 09:42 | EXP.DC.SUM ---
General Admission date:: 07/09/23 Discharge date: 07/14/23 HPI HPI HPI: This is a 78F with PMHx significant for ILD, with pulmonary fibrosis, advanced dementia and parkinsons, CHF, hypoTH who presented to the ED with complaints of shortness of breath. Patient's helped to confirm data during interview due to patient history of advanced dementia. Patient has reportedly been having progressively worsening shortness of breath for the past 3 days. On arrival to the ED, patient was hypoxic to 76% on room air, febrile. Patient does wear oxygen at home, only at bedtime. Admitted for further treatment and management> Hospital Course Hospital Course Hospital Course: 78F with PMHx significant for ILD, with pulmonary fibrosis, advanced dementia and Parkinson, CHF, hypoTH who presented to the ED with complaints of shortness of breath. On arrival. patient was febrile to 102.7, hemodynamically stable, but tachypnic,in appearance, with increased work of breathing, wheezing bilaterally. Patient BC obtained, started on IV Ceftriaxone and a Zithromax. Respiratory panel positive for RSV. Patient is continue to show improvement. This point she is wearing 2 L of oxygen overnight, on room air during the day. Evaluated by therapy, recommend placement for further skilled rehab. Stable to discharge. Problems addressed as follows: -Sepsis without acute organ dysfunction secondary to RLL PNA: - RSV respiratory infection -History of interstitial lung disease with fibrosis Patient initiated on broad-spectrum antibiotics on admission. Initial oxygen requirement. Gradually weaned during admission. Necessitating oxygen only at night and on room air during the day. Pulmonology was consulted during admission and assisted with care. Treated with azithromycin and Rocephin during admission. Transition to cefdinir 300 mg twice daily to complete 10-day course of antibiotics. Has completed empiric course of antibiotics with azithromycin and Rocephin. During admission, speech therapy evaluated and recommended mechanical soft diet. Recommend continuing DuoNebs every 6 hours as needed. Labs have shown improvement. White cell count stable at 16.7 today. Kidney function stable. Would benefit from repeat CBC, CMP, magnesium in 1 week. Will need to follow-up with pulmonology in a week. Stable to discharge to rehab for further care. -acute CHF Treated with Lasix during admission. Resume spironolactone at discharge. Patient appears euvolemic at this time. -Dementia with Parkinsons: On carbidopa-levodopa 5x daily, continue amantadine 100mg BID continue synthroid continue Protonix Continue home gabapentin dosage for neuropathy. Continue home Ativan as needed for anxiety Stable for discharge to nursing facility. Spent 30 minutes in discharge counseling, documentation, chart review, and direct care with patient. Exam Data for Last 24 hours Vital signs and Labs for Last 24 Hours: Temp Pulse Resp BP Pulse Ox O2 Del Method O2 Flow Rate 97.9 F 67 18 118/64 95 Room Air 2 07/14/23 07:34 07/14/23 07:34 07/14/23 07:34 07/14/23 07:34 07/14/23 08:00 07/14/23 08:21 07/14/23 05:00 Laboratory Results - last 24 hr 07/14/23 06:03: WBC 16.7 H, RBC 4.18 L, Hgb 12.3, Hct 38.6, MCV 92.4, MCH 29.5, MCHC 31.9, RDW 14.2, Plt Count 440 H, MPV 9.2, Neut % (Auto) 73.9, Lymph % (Auto) 15.9, [place] % (Auto) 6.0, Eos % (Auto) 2.7, Baso % (Auto) 1.4, Neut # (Auto) 12.4 H, Lymph # (Auto) 2.7, [place] # (Auto) 1.0, Eos # (Auto) 0.5 H, Baso # (Auto) 0.2, Total Counted 100, Neutrophils % (Manual) 62, Lymphocytes % (Manual) 30, Monocytes % (Manual) 5, Eosinophils % (Manual) 3, Platelet Estimate Slight increase, RBC Morphology Normal, Sodium 136, Potassium 3.8, Chloride 97 L, Carbon Dioxide 29, Anion Gap 13.8, BUN 22 H, Creatinine 1.30 H, Estimated Creat Clear 39, Estimated GFR 40 L, Est GFR ( Amer) 48 L, Glucose 89, Calcium 8.9, Magnesium 2.1, Total Bilirubin 0.8, AST
--- NOTE | 2023-07-14 10:42 | PC.NURSE ---
RESP CARE NOTE: Pt room air Oxygen saturation while sitting in chair at 95%. Pt walked 75 feet, Oxygen saturation 98% during the entire walk. RN notified of no need for oxygen at discharge.
--- NOTE | 2023-07-14 12:30 | PC.NURSE ---
report called to Dakota SANTIAGO at [facility].
== END 2023-07-14 13:06 | DRG 871 ==
LOC: ER 19:03 → 2ND 20:06
PROVIDERS: Internal Medicine Adolescent Medicine; Internal Medicine Pulmonary Disease; Nurse Practitioner Family; Admitting Provider Internal Medicine; Emergency Provider Emergency Medicine; PCP Internal Medicine; Visit Provider Internal Medicine
DX: A41.9 Sepsis, unspecified organism (principal); J18.9 Pneumonia, unspecified organism; J96.01 Acute respiratory failure with hypoxia; J84.10 Pulmonary fibrosis, unspecified; M06.9 Rheumatoid arthritis, unspecified; I50.9 Heart failure, unspecified; E03.9 Hypothyroidism, unspecified; G20.A1 Parkinson's disease without dyskinesia, without mention of fluctuations; F02.80 Dementia in other diseases classified elsewhere, unspecified severity, without behavioral disturbance, psychotic disturbance, mood disturbance, and anxiety; B97.4 Respiratory syncytial virus as the cause of diseases classified elsewhere
CPT/HCPCS: 36415; 71045; 71250; 80048; 80053; 81001; 82803; 83605; 83735; 83880; 84484; 85007; 85025; 87040; 87070; 87081; 87086; 87205; 87632; 87635; 92610; 93005; 94640; 97116; 97162; 97165; 97530; 99285; J0131; J0456; J0696; J3370

== ENCOUNTER → 2023-08-06 14:35 | Outpatient (CLI) | payer MEDICARE, SELFPAY | PROVIDERS: PCP Internal Medicine; Visit Provider Internal Medicine Pulmonary Disease | DX: R06.02 Shortness of breath (principal); J84.10 Pulmonary fibrosis, unspecified | CPT/HCPCS: 94762 ==

== ENCOUNTER 2023-09-02 11:31 | Day surgery (SDC) | payer MEDICARE, SELFPAY ==
[2023-09-02 12:03] VITALS: BP 133/91; PULSE 62; RESP 18; TEMP 36.4; O2SAT 94; BMI 28.1
[2023-09-02] MEDS: LACTATED RINGERS 1000ML 1,000 ML 100 ML IV (12:23)
--- NOTE | 2023-09-02 13:03 | EXP.ANES.CKL ---
[facility] Disclaimer: The information contained in this section may have been updated after the patient was seen, as this information can be updated by other users. Medical History Allergic rhinitis Arthritis Breathlessness Dyspnea on exertion Edema Fibrosis of lung History of COVID-19 History of gastroesophageal reflux (GERD) History of rheumatoid arthritis ILD (interstitial lung disease) Nocturnal hypoxia NSIP (nonspecific interstitial pneumonia) Organizing pneumonia Parkinson disease Pneumonia Restrictive lung disease Sleep apnea Thyroid disease Urinary tract infection Surgical History History of tubal ligation Family History Other Stroke Social History Smoking Status: Never smoker alcohol intake: never substance use type: denies use current occupational status: retired Travel in the last 8 weeks: None household members: spouse housing: house caffeine: Yes [facility] Anesthesia Checklist Patient Identification Patient Identification: Arm Band and Verbal (Name & ) Structural Data Admitted From: Home Planned Operative Procedure/s: EGD Consent for Planned Operative Procedure(s) Verified: Yes NPO Status Verified Time NPO: 00:00 Additional verifications Anesthesia Reactions: No Airway Assessment Mallampati Score:: Class IV C-Spine Mobility Assessed: Yes TMJ Mobility Assessed: Yes Dentition: Edentulous Neurological Assessment Level of Consciousness: Awake Hx Seizures: No Numbness or tingling in extremities: No Anesthesia Plan Anesthesia Risk discussed: Yes Anesthesia Plan: Verified ASA Class: III Anesthesia Type: MAC
[2023-09-02 13:50] VITALS: O2SAT 94
[2023-09-02 14:05] VITALS: BP 102/67; PULSE 51; RESP 14; TEMP 36.2; O2SAT 95
--- NOTE | 2023-09-02 14:07 | HMH.SCOPE ---
Procedure: Date: 09/02/23 Patient Date of :: 1945 Procedure Performed:: EGD Indications:: The patient is a 78-year-old who presents for EGD evaluation of chronic dysphagia symptom. The patient has a past medical history of Parkinson's disease. Performing Provider:: Trent Gomez MD Referring Provider:: Hossein Grimaldo MD Sedation:: See RN records Procedure:: The gastroscope was gently passed through the incisoral orifice into the oral cavity and under direct visualization the esophagus was intubated. The endoscope was passed down the esophagus, through the stomach, and into the duodenum. Color, texture, mucosa, and anatomy of the esophagus, stomach, and duodenum were carefully examined with the scope. Findings:: There was some tortuosity of the distal esophagus. There was a mild, benign appearing stenosis at the distal esophagus. Biopsies were obtained for histology. The Z-line was measured at 36 cm. Esophageal dilatation was performed serially with 15 to 18 mm TTS balloon. There was a hiatal hernia approximately 2 cm in size. In the antrum and body of the stomach there was a moderate amount of inflammation and linear erythema. Biopsies were obtained for histology. The examined duodenum appeared normal. Recommendations:: Await pathology results Follow-up with referring provider Complications:: None Estimated blood obtained (mL): 0 Colonoscopy Component Colonoscopy Component Was a colonoscopy performed during today's procedure?: No
[2023-09-02 14:15] VITALS: BP 108/57; PULSE 51; RESP 15; O2SAT 97
[2023-09-02 14:25] VITALS: BP 115/62; PULSE 53; RESP 16; O2SAT 93
[2023-09-02 14:35] VITALS: BP 112/59; PULSE 54; RESP 16; O2SAT 94
== END 2023-09-02 14:48 | disposition home or self-care (01) ==
PROVIDERS: PCP Internal Medicine; Visit Provider Internal Medicine
PROC: 0DJ08ZZ Inspection of Upper Intestinal Tract, Via Natural or Artificial Opening Endoscopic (ICD-10-PCS; CPT 43235; principal; 2023-09-02 13:30)
DX: R13.10 Dysphagia, unspecified (principal); G20.A1 Parkinson's disease without dyskinesia, without mention of fluctuations; K22.89 Other specified disease of esophagus; K44.9 Diaphragmatic hernia without obstruction or gangrene; K22.2 Esophageal obstruction; K31.89 Other diseases of stomach and duodenum
CPT/HCPCS: 43239; 43249; 88305; C1726

== ENCOUNTER 2023-09-18 07:31 | Outpatient (CLI) | payer MEDICARE, SELFPAY ==
[2023-09-18] MEDS: ALBUTEROL 0.083% 2.5 MG/3 ML NEB IH (08:53)
== END 2023-09-18 23:59 ==
LOC: RT 07:31
PROVIDERS: PCP Internal Medicine; Visit Provider Internal Medicine Pulmonary Disease
DX: R06.09 Other forms of dyspnea (principal)
CPT/HCPCS: 94060; 94618; 94727; 94729

== ENCOUNTER 2023-10-20 11:57 | Outpatient (CLI) | payer MEDICARE, SELFPAY ==
--- NOTE | 2023-10-20 12:06 | XR_ITS ---
FINAL REPORT CLINICAL HISTORY: Nonspecific cough COMPARISON: 07/13/2023 FINDINGS: Two views of the chest were obtained. The heart size and pulmonary vascularity are within normal limits. The mediastinum is normal. No acute pulmonary abnormality is identified. There is no pneumothorax. The bony thorax is intact. IMPRESSION: No active cardiopulmonary disease. Reviewed, Interpreted and Dictated by Mauro Carballo III, MD Transcribed by Corrina Rios Authenticated and [facility]
== END 2023-10-20 23:59 ==
PROVIDERS: PCP Internal Medicine; Visit Provider Internal Medicine Pulmonary Disease
DX: R05.9 Cough, unspecified (principal)
CPT/HCPCS: 71046

== ENCOUNTER 2023-10-24 09:06 | Emergency (ER) | payer MEDICARE, SELFPAY ==
[2023-10-24] VITALS (10 sets, daily range): BP systolic 96–117; BP diastolic 46–68; PULSE 56–66; RESP 18–58; TEMP 36.6–36.8; O2SAT 88–96; BMI 27.4
--- NOTE | 2023-10-24 09:28 | HMH.EDGENADL ---
Discharge Plan Disposition Patient Disposition: Home, Self-Care Condition: Fair Prescriptions Prescriptions: New doxycycline monohydrate 100 mg capsule 100 mg PO BID 14 Days Qty: 28 0RF amoxicillin-pot clavulanate 875-125 mg tablet 1 tab PO BID 14 Days Qty: 20 0RF No Action ropinirole 4 mg tablet 4 mg PO QID fluticasone propion-salmeterol [Advair Diskus] 500-50 mcg/dose blister with device 1 inh inhalation BID Qty: 180 2RF azelastine 137 mcg (0.1 %) aerosol,spray 2 spray intranasal HS 90 Days Qty: 30 2RF Rx Instructions: administer into each nostril albuterol sulfate 90 mcg/actuation HFA aerosol inhaler 2 inh inhalation QID PRN (Reason: shortness of breath or wheezing) 90 Days Qty: 8.5 2RF cholecalciferol (vitamin D3) [Vitamin D3] 25 mcg (1,000 unit) Capsule 25 mcg PO DAILY mycophenolate mofetil 500 mg tablet 500 mg PO BID Hold Instructions: pending follow-up with Pulmonology levothyroxine 25 mcg tablet 25 mcg PO DAILY Patient Comments: TAKE 1 TABLET BY MOUTH ONCE DAILY ipratropium-albuterol 0.5 mg-3 mg(2.5 mg base)/3 mL solution for nebulization 3 ml inhalation Q6HP PRN (Reason: shortness of breath or wheezing) omeprazole 20 mg capsule,delayed release(DR/EC) 20 mg PO DAILY azelastine 137 mcg (0.1 %) aerosol,spray 2 spray intranasal HS Rx Instructions: administer into each nostril carbidopa-levodopa 50-200 mg tablet extended release 0.5 tab PO 5XDAY lorazepam 0.5 mg tablet 0.5 mg PO TID PRN (Reason: Anxiety) 3 Days Qty: 9 0RF gabapentin 300 MG capsule 300 mg PO 0900,1300 30 Days Qty: 60 0RF gabapentin 300 mg capsule 600 mg PO HS 30 Days Qty: 60 0RF amantadine HCl 100 MG tablet 100 mg PO 0900,1300 duloxetine 20 MG capsule,delayed release(DR/EC) 20 mg PO BID methenamine hippurate 1 GM tablet 1 gm PO BID spironolactone 50 MG tablet 50 mg PO DAILY Referrals Follow up/Referrals: Hossein Grimaldo MD [Primary Care Provider] - See instructions Activity Restrictions/Add. Instructions Additional Instructions/Restrictions: I have prescribed 2 antibiotics for you to take for your pneumonia. Please follow-up with your primary care doctor or counterintelligence specialist as soon as possible. Please return with any new or worsening symptoms. Please drink plenty of liquids and continue your other lung medications that your counterintelligence specialist prescribed. Clinical Impressions Clinical Impression: Pneumonia Instructions Patient Instructions: DI for Pneumonia -- Adult Discharge ED Provider: Faheem Segura Adult HPI General Chief complaint: Upper Respiratory Infection Stated complaint: lower back pain abd pain Time Seen by Provider: 10/24/23 09:28 Mode of Arrival: Ambulatory Source of Information: Patient Limitations: No Limitations Description of Symptoms (Recalled from ER Triage Doc. by RN): Patient complaint of cough and a lot phelm in the mornings. Relative states the patient has had a decline in function and has not been eating well. History of Present Illness HPI narrative: Patient is a 78-year-old female with history of CHF, ILD, COPD, Parkinson's disease, presenting with approximately 1 week of frequent productive cough, she has had similar symptoms in the past attributable to pneumonia, she has supplemental oxygen in the evenings of nasal cannula, no fevers or chills, she has had recent appointment with her counterintelligence specialist and received a chest x-ray that was not concerning at that time per counterintelligence specialist for acute infectious precipitant. She did have medication changes at that time and has been compliant with all medications. No fevers or chills. Family member at bedside states she has had generalized fatigue but no falls, decreased p.o. intake however has been able to maintain liquid intake. Patient denies any chest pain at this time. She does describe occasional shortness of breath however reports this is chronic, no orthopnea or exertional dyspnea. No syncope or presyncope or palpitations. She reports she is not currently taking any antibiotics. Of note patient does have history of dementia per chart review however patient is alert, oriented, able to provide appropriate history at this time. History corroborated by family member at bedside. Symptoms were gradual in onset, stable in course. Please note that above description of symptoms, in this electronic medical record under categorization of recalled from ER triage doctor by RN are reflective of an initial nursing assessment, however, is not reflective of my full history and physical exam that was personally taken and clarified. Consequentially, this preceding description of symptoms, which may include the patient's categorized chief complaint in the EMR, do not reflect my personal clinical impression, and the ultimate description of history of present illness and patient stated complaints should be deferred to this section of the note. Unless stated otherwise or congruent with this section of the note, additional signs, symptoms, or incongruence should be interpreted as inaccurate with my clinical impression. Related Data Home Medications Medication Instructions Recorded Confirmed amantadine HCl 100 mg tablet 100 mg PO 0900,1300 Parkinsons 09/16/20 10/20/23 duloxetine 20 mg capsule,delayed 20 mg PO BID Mood 09/16/20 10/20/23 release methenamine hippurate 1 gram tablet 1 gm PO BID Infection 12/18/21 10/20/23 spironolactone 50 mg tablet 50 mg PO DAILY Fluid 12/18/21 10/20/23 ropinirole 4 mg tablet 4 mg PO QID 06/26/22 10/20/23 azelastine 137 mcg (0.1 %) nasal 2 spray intranasal HS Allergy 07/10/23 10/20/23 spray aerosol Symptoms cholecalciferol (vitamin D3) 25 25 mcg PO DAILY Supplement 07/10/23 10/20/23 mcg (1,000 unit) capsule (Vitamin D3) ipratropium 0.5 mg-albuterol 3 mg 3 ml inhalation Q6HP PRN shortness 07/10/23 10/20/23 (2.5 mg base)/3 mL nebulization of breath or wheezing soln levothyroxine 25 mcg tablet 25 mcg PO DAILY Thyroid 07/10/23 10/20/23 mycophenolate mofetil 500 mg tablet 500 mg PO BID 07/10/23 10/20/23 omeprazole 20 mg capsule,delayed 20 mg PO DAILY Acid Reflux 07/10/23 10/20/23 release carbidopa ER 50 mg-levodopa 200 mg 0.5 tab PO 5XDAY 07/12/23 10/20/23 tablet,extended release Previous Rx's Medication Instructions Recorded gabapentin 300 mg capsule 300 mg PO 0900,1300 Pain 30 days 07/14/23 #60 caps gabapentin 300 mg capsule 600 mg (2 x 300 mg) PO HS Pain 30 07/14/23 days #60 caps lorazepam 0.5 mg tablet 0.5 mg PO TID PRN Anxiety 3 days 07/14/23 #9 tabs albuterol sulfate 90 mcg/actuation 2 inh inhalation QID PRN shortness 10/20/23 aerosol inhaler of breath or wheezing 90 days #8.5 grams azelastine 137 mcg (0.1 %) nasal 2 spray intranasal HS 90 days #30 10/20/23 spray aerosol mL fluticasone 500 mcg-salmeterol 50 1 inh inhalation BID #180 ea 10/20/23 mcg/dose blistr powdr for inhalation (Advair Diskus) amoxicillin 875 mg-potassium 1 tab PO BID 14 days #20 tabs 10/24/23 clavulanate 125 mg tablet doxycycline monohydrate 100 mg 100 mg PO BID 14 days #28 caps 10/24/23 capsule Allergies Allergy/AdvReac Type Severity Reaction Status Date / Time No Known Allergies Allergy Verified 10/20/23 13:00 [facility] Disclaimer: The information contained in this section may have been updated after the patient was seen, as this information can be updated by other users. Medical History Urinary tract infection Sleep apnea Pneumonia History of COVID-19 History of gastroesophageal reflux (GERD) Thyroid disease Parkinson disease Arthritis Edema Fibrosis of lung Breathlessness Nocturnal hypoxia Allergic rhinitis Restrictive lung disease ILD (interstitial lung disease) History of rheumatoid arthritis NSIP (nonspecific interstitial pneumonia) Organizing pneumonia Dyspnea on exertion Surgical History History of tubal ligation Family History Other Stroke Social History Smoking Status: Never smoker alcohol intake: never substance use type: denies use current occupational status: retired Travel in the last 8 weeks: None household members: spouse housing: house caffeine: Yes ROS Obtained: Yes Systems reviewed as appropriate & no additional complaints except as documented As per HPI Physical Exam General General appearance: alert and in no apparent distress Head Head exam: atraumatic and normocephalic Eye Eye exam: Present normal appearance Neck Neck exam: Present normal inspection Chest Chest inspection: Present normal inspection and symmetric chest wall rise Respiratory Respiratory exam: Present normal lung sounds bilaterally and other (Bilateral crackles); Absent respiratory distress, accessory muscle use or prolonged expiratory phase Cardiovascular Cardiovascular exam: Present regular rate Abdominal Exam Abdominal exam: Present soft Neurological Exam Neurological exam: Present alert and oriented X3 Psychiatric Psychiatric exam: Present normal affect and normal mood Skin Skin exam: Present warm and dry Medical Decision Making Medical Records Medical records reviewed: Yes I reviewed the patient's medical records. Nikunj Inquiry Pt receiving controlled substance: No Vital Signs: 10/24/23 09:08 10/24/23 09:16 10/24/23 09:30 Temperature 97.9 F Temperature Source Oral Pulse Rate 65 61 Pulse Rate [Radial] 66 Respiratory Rate 18 Blood Pressure 117/46 L 103/60 L Blood Pressure [Right Arm] 117/46 L Blood Pressure Mean Blood Pressure Mean [Right Arm] 69 Blood Pressure Source Blood Pressure Source [Right Arm] Automatic Cuff Blood Pressure Position Blood Pressure Position [Right Arm] Sitting 02 Sat by Pulse Oximetry 95 94 L 96 Oxygen Delivery Method Room Air 10/24/23 10:30 10/24/23 11:00 10/24/23 11:30 Temperature Temperature Source Pulse Rate 65 57 L 58 L Pulse Rate [Radial] Respiratory Rate 58 H Blood Pressure 115/54 L 101/48 L 114/55 L Blood Pressure [Right Arm] Blood Pressure Mean 75 Blood Pressure Mean [Right Arm] Blood Pressure Source Blood Pressure Source [Right Arm] Blood Pressure Position Blood Pressure Position [Right Arm] 02 Sat by Pulse Oximetry 93 L 93 L 94 L Oxygen Delivery Method 10/24/23 12:00 10/24/23 12:30 10/24/23 13:00 Temperature Temperature Source Pulse Rate 56 L 56 L 66 Pulse Rate [Radial] Respiratory Rate 18 20 Blood Pressure 107/54 L 96/53 L 101/68 L Blood Pressure [Right Arm] Blood Pressure Mean 68 79 Blood Pressure Mean [Right Arm] Blood Pressure Source Blood Pressure Source [Right Arm] Blood Pressure Position Blood Pressure Position [Right Arm] 02 Sat by Pulse Oximetry 94 L 95 88 L Oxygen Delivery Method 10/24/23 13:32 Temperature 98.2 F Temperature Source Oral Pulse Rate 59 L Pulse Rate [Radial] Respiratory Rate 18 Blood Pressure 101/68 L Blood Pressure [Right Arm] Blood Pressure Mean Blood Pressure Mean [Right Arm] Blood Pressure Source Automatic Cuff Blood Pressure Source [Right Arm] Blood Pressure Position Sitting Blood Pressure Position [Right Arm] 02 Sat by Pulse Oximetry Oxygen Delivery Method Room Air Lab Data Lab Results 10/24/23 09:28: WBC 21.3 H*, RBC 3.73 L, Hgb 10.7 L, Hct 34.5 L, MCV 92.5, MCH 28.7, MCHC 31.1 L, RDW 16.4, Plt Count 414, MPV 8.0, Neut % (Auto) 78.8, Lymph % (Auto) 11.2, [place] % (Auto) 4.2, Eos % (Auto) 4.6, Baso % (Auto) 1.1, Neut # (Auto) 16.8 H, Lymph # (Auto) 2.4, [place] # (Auto) 0.9, Eos # (Auto) 1.0 H, Baso # (Auto) 0.2, Total Counted 100, Neutrophils % (Manual) 75, Lymphocytes % (Manual) 15, Monocytes % (Manual) 5, Eosinophils % (Manual) 4 H, Basophils % (Manual) 1.0, Platelet Estimate Slight increase, RBC Morphology Normal, Sodium 137, Potassium 4.1, Chloride 109 H, Carbon Dioxide 22, Anion Gap 10.1, BUN 42 H, Creatinine 1.40 H, Estimated Creat Clear 36, Estimated GFR 36 L, Est GFR ( Amer) 44 L, Glucose 91, Calcium 9.3, Total Bilirubin 0.3, AST 16, ALT 10 L, Alkaline Phosphatase 210 H, NT-Pro-B Natriuret Pep 292, Total Protein 7.1, Albumin 3.4 L, Globulin 3.7 H, Albumin/Globulin Ratio 0.9 L 10/24/23 09:56: SARS-CoV-2 (PCR) Not detected, Influenza A Untype (PCR) Not detected, Influenza Type B (PCR) Not detected 10/24/23 10:29: Urine Color Yellow, Urine Appearance Clear, Urine pH 6.0, Ur Specific [place] >= 1.030, Urine Protein Trace, Urine Glucose (UA) Negative, Urine Ketones Negative, Urine Blood 2+, Urine Nitrate Positive, Urine Bilirubin Negative, Urine Urobilinogen 0.2, Ur Leukocyte Esterase 2+ A, Urine RBC 5-10, Urine WBC Tntc, Ur Squamous Epith Cells 5-10, Urine Bacteria 4+ 10/24/23 09:28 10/24/23 09:28 Orders (Tests/Meds): ED MEDICATIONS Discontinued Medications Generic Name Dose Route Start Last Admin Trade Name Freq PRN Reason Stop Dose Admin Sodium Chloride 10 ml 10/24/23 09:40 Sodium Chloride 0.9% 10ml Flush Syringe IV 11/23/23 09:39 NEEDED PRN Maintain IV Site ORDERS Category Date Time Status XR chest 2V Stat Exams 10/24/23 09:51 Completed BNP [Brain Natriuretic Peptide] Stat Lab 10/24/23 09:28 Completed Complete Blood Count Auto Diff Stat Lab 10/24/23 09:28 Completed Comprehensive Metabolic Panel Stat Lab 10/24/23 09:28 Completed Rapid PCR Covid and Flu A/B Stat Lab 10/24/23 09:56 Completed Urinalysis and Microscopic Stat Lab 10/24/23 10:29 Completed Blood Culture Stat Micro 10/24/23 10:14 Received Urine Culture Stat Micro 10/24/23 10:29 Received Medical Decision Narrative: Patient with history and exam per above presenting for evaluation of productive cough Diagnoses considered include COPD exacerbation, CHF exacerbation, pneumonia, minimal clinical evidence at this time to suggest ACS, patient is overall nontoxic-appearing, breathing comfortably on room air upon my evaluation and subsequent evaluations, and recent pulmonology appointment where she was describing similar symptoms and thought to be stable and without overt infectious precipitant ED workup and treatment included: ED MEDICATIONS Discontinued Medications Generic Name Dose Route Start Last Admin Trade Name Freq PRN Reason Stop Dose Admin Sodium Chloride 10 ml 10/24/23 09:40 Sodium Chloride 0.9% 10ml Flush Syringe IV 11/23/23 09:39 NEEDED PRN Maintain IV Site ORDERS Category Date Time Status XR chest 2V Stat Exams 10/24/23 09:51 Completed BNP [Brain Natriuretic Peptide] Stat Lab 10/24/23 09:28 Completed Complete Blood Count Auto Diff Stat Lab 10/24/23 09:28 Completed Comprehensive Metabolic Panel Stat Lab 10/24/23 09:28 Completed Rapid PCR Covid and Flu A/B Stat Lab 10/24/23 09:56 Completed Urinalysis and Microscopic Stat Lab 10/24/23 10:29 Completed Blood Culture Stat Micro 10/24/23 10:14 Received Urine Culture Stat Micro 10/24/23 10:29 Received Labs were independently interpreted by me, significant for leukocytosis to 21, patient has baseline leukocytosis however not as elevated, however has had similar such white blood counts in the past, BNP within normal limits, creatinine within normal limits, blood cultures pending Imaging was independently visualized and interpreted by me, significant for worsening of chronic bilateral interstitial opacities, concerning clinically for infectious precipitant. Please refer to radiology report for full details. My clinical impression at this time is most consistent with healthcare acquired pneumonia and patient with chronic lung disease. I had extensive shared decision making with patient and family member at bedside, again history of dementia but is alert and oriented and able to express as well as guide decision making with family member at bedside, her perception of her clinical status and wishes at this time. After shared decision making, largely led by family member at bedside however patient is in agreement, patient is wishing to be discharged at this time and family member at bedside expresses comfort with this. My clinical impression is consistent with pneumonia and will initiate antibiotics. Family member will ensure very close follow-up and strict return precautions. I discussed multiple pneumonia scoring criteria with patient for which she is overall intermediate risk and is either appropriate for outpatient or inpatient management, inpatient management as I discussed with the patient is not without risks either especially in the setting of comorbidities including history of dementia and patient may benefit overall from being at home environment, supervised by family members. That being said I did offer admission and patient and family member are amenable to discharge at this time and that is the request. I discussed my clinical impression with patient and answered all questions. At this time, the evidence for any other entities in the differential is insufficient to warrant any further testing or ED observation. This was explained to the patient. The patient was advised that persistent or worsening symptoms require further evaluation. I confirmed the patient's understanding of this discussion. Critical Care Critical Care Time Critical Care Time: No
[2023-10-24 09:50] LABS: Basophils # 0.2 K/mm3 (0-0.2); Basophils % 1.1 % (0.1-2.0); Eosinophils % 4.6 % (0.1-12.0); Hematocrit 34.5 % (37.0-47.0); Hemoglobin 10.7 g/dL (12.2-16.2); Lymphocytes # 2.4 K/mm3 (0.7-4.5); Lymphocytes % 11.2 % (10-50); Mean Corpuscular HGB Conc 31.1 g/dL (31.8-35.4); Mean Corpuscular Hemoglobin 28.7 pg (27.0-31.2); Mean Corpuscular Volume 92.5 fl (81-99); Monocytes # 0.9 K/mm3 (0.1-1.0); Monocytes % 4.2 % (1.7-9.3); Neutrophils # 16.8 K/mm3 (1.8-7.8); Neutrophils % 78.8 % (37.0-80.0); Platelet Count 414 K/mm3 (142-424); Red Blood Count 3.73 M/mm3 (4.20-5.40); Red Cell Distribution Width 16.4 % (11.5-17.5); White Blood Count 21.3 K/mm3 (4.8-10.8)
--- NOTE | 2023-10-24 09:51 | XR_ITS ---
PROCEDURE INFORMATION: Exam: XR Chest Exam date and time: 10/24/2023 10:07 AM Age: 78 years old Clinical indication: Shortness of breath; Additional info: SOA for 1 week, possible aspiration TECHNIQUE: Imaging protocol: Radiologic exam of the chest. Views: 2 views. COMPARISON: CR XR CHEST 2V 10/20/2023 12:09 PM FINDINGS: Lungs: Peribronchial thickening and coarse interstitial opacities in both lungs have worsened since 10/20/2023. Pleural spaces: No pleural effusion. No pneumothorax. Heart/Mediastinum: No cardiomegaly or vascular congestion. Bones/joints: No fractures or bone lesions. IMPRESSION: Interstitial opacities and peribronchial thickening have worsened in both lungs since 10/20/2023 likely due to pneumonia, either viral or atypical, or perhaps pulmonary edema. Aspiration pneumonitis is less likely.
[2023-10-24 09:53] LABS: MANUAL DIFFERENTIAL MANUAL DIFFERENTIAL (MANUAL DIFF)
--- NOTE | 2023-10-24 09:53 | ECG_ITS ---
APPROVED REPORT Exam: Resting ECG HR:64 bpm ECG Measurements Heart Rate 64 AXES SC 170 P 60 QRSd 108 QRS 54 QT 377 T 68 QTc 387 Conclusion SINUS RHYTHM Electronically signed by : WINDY ROJAS, 10/24/2023 17:22:08
[2023-10-24 09:58] LABS: Chloride 109 mmol/L (98-107); Potassium 4.1 mmoL/L (3.5-5.1); Sodium 137 mmol/L (136-145)
[2023-10-24 10:00] LABS: Alanine Aminotransferase 10 U/L (12-78); Aspartate Amino Transferase 16 U/L (14-36); Blood Urea Nitrogen 42 mg/dl (7-17); Creatinine Clearance Estimated 36 mL/min (50-200); Estimated Glomerular Filt Rate 36 ml/min (>60); GFR (African American) 44 ML/MIN (>60)
[2023-10-24 10:01] LABS: Albumin Level 3.4 g/dl (3.5-5.0); Albumin/Globulin Ratio 0.9 (1.1-1.8); Alkaline Phosphatase 210 U/L (38-126); Anion Gap 10.1 mEq/L (5-15); Bilirubin,Total 0.3 mg/dl (0.2-1.3); Calcium 9.3 mg/dl (8.4-10.2); Carbon Dioxide 22 mmol/L (22.0-30.0); Globulin 3.7 g/dL (1.3-3.2); Glucose 91 mg/dl (74-100); Total Protein,Serum 7.1 g/dl (6.3-8.2)
[2023-10-24 10:07] LABS: Coronavirus 19, PCR Not Detected (NotDetected); Influenza A, PCR Not Detected (NotDetected); Influenza B, PCR Not Detected (NotDetected)
[2023-10-24 10:25] LABS: NT Pro Brain Natriuretic Pep. 292 pg/mL (0-450)
[2023-10-24 10:35] LABS: Eosinophils % 4 % (0-3); Lymphocytes % 15 % (10-50); Monocytes % 5 % (2-9); Neutrophils % 75 % (42-76); Platelet Estimate Slight Increase; RBC Morphology Normal; Total Cells Counted 100
[2023-10-24 10:39] LABS: Microscopic, Urine URINE MICROSCOPIC (MICROSCOPIC)
[2023-10-24 10:44] LABS: Appearance,Urine CLEAR (Clear); Bilirubin,Urine Negative (Negative); Blood, Urine 2+ (Negative); Color,Urine YELLOW (Yellow); Glucose,Urine (UA) Negative (Negative); Ketones,Urine Negative (Negative); Leukocyte Esterase,Urine 2+ (Negative); Nitrate,Urine POSITIVE (Negative); Protein,Urine TRACE (Negative); Specific Gravity, Urine >= 1.030 (1.005-1.030); Urobilinogen,Urine 0.2 EU/dl (0.2)
[2023-10-24 11:07] LABS: Bacteria,Urine 4+ /lpf; WBC,Urine TNTC #/hpf (0-3)
--- NOTE | 2023-10-29 11:20 | PC.NURSE ---
reviewed urine culture with , pt was dc with doxycycline and augmentin, NTD
== END 2023-10-24 13:32 | disposition home or self-care (01) ==
PROVIDERS: Emergency Provider Emergency Medicine; PCP Internal Medicine
DX: J18.9 Pneumonia, unspecified organism (principal); R05.9 Cough, unspecified; R53.83 Other fatigue; R06.02 Shortness of breath; J44.9 Chronic obstructive pulmonary disease, unspecified; G20.C Parkinsonism, unspecified; F03.90 Unspecified dementia, unspecified severity, without behavioral disturbance, psychotic disturbance, mood disturbance, and anxiety; I50.9 Heart failure, unspecified; G47.30 Sleep apnea, unspecified; E07.9 Disorder of thyroid, unspecified; M06.9 Rheumatoid arthritis, unspecified; J84.10 Pulmonary fibrosis, unspecified; D72.829 Elevated white blood cell count, unspecified
CPT/HCPCS: 71046; 80053; 81001; 83880; 85007; 85025; 87040; 87086; 87636; 93005; 99285

== ENCOUNTER 2023-10-26 13:25 | Observation (INO) | payer MEDICARE, SELFPAY ==
[2023-10-26] VITALS (11 sets, daily range): BP systolic 98–137; BP diastolic 44–72; PULSE 58–70; RESP 16–20; TEMP 36.4–36.7; O2SAT 95–100; BMI 27.4; BMI 27.3
--- NOTE | 2023-10-26 13:44 | XR_ITS ---
FINAL REPORT CLINICAL HISTORY: worsened cough/shortness of breath, recent dx PNA COMPARISON: 10/24/2023 FINDINGS: Two views of the chest were obtained. The heart size and pulmonary vascularity are within normal limits. The mediastinum is normal. Persistent mild bibasilar opacities likely represent atelectasis or pneumonia. There is no pneumothorax. The bony thorax is intact. IMPRESSION: Persistent mild bibasilar opacities, likely atelectasis or pneumonia Reviewed, Interpreted and Dictated by Mauro Carballo III, MD Transcribed by Corrina Rios Authenticated and [facility]
--- NOTE | 2023-10-26 13:52 | HMH.EDGENADL ---
Discharge Plan Disposition Patient Disposition: Admitted Clinical Impressions Clinical Impression: Leukocytosis, SUGEY (acute kidney injury), Hyperkalemia, General weakness Discharge ED Provider: Brandi Donahue General Adult HPI General Chief complaint: Weakness Stated complaint: pnemonia worse Time Seen by Provider: 10/26/23 13:33 Mode of Arrival: Ambulatory Source of Information: Patient and Spouse Limitations: No Limitations Description of Symptoms (Recalled from ER Triage Doc. by RN): dont feel good was diagnosed with pna last week History of Present Illness HPI narrative: This patient is a 78-year-old female with a history of Parkinson's disease, hypothyroidism, interstitial lung disease, GERD, aortic insufficiency, CHF, and recent diagnosis of pneumonia presenting to the emergency department for evaluation with concern she is no better since being evaluated here two days ago. She states that she has been taking her antibiotic home, but she has not been feeling better. She has complained to her of some abdominal pain and nausea and has had poor appetite. Her advises that she is very sick and needs to be admitted. Patient denies any other concerns or complaints at this time, such as chest pain, shortness of breath, or other issues. She states that she just does not feel good and cannot stop coughing. On medical record review, when she was evaluated here 2 days ago, she was found to have leukocytosis of 21.3 as well as mild anemia with a hemoglobin of 10.7. She has chronically had leukocytosis on medical record review. Creatinine at that time was 1.4 with a baseline of around 1.1-1.3. X-ray demonstrated interstitial opacities and peribronchial thickening since 10/19 which radiology noted was likely atypical pneumonia versus edema. Based on clinical presentation, the patient was felt to have pneumonia. Family elected for discharge after being offered admission per medical record review, so patient was subsequently discharged home on doxycycline and Augmentin. Related Data Home Medications Medication Instructions Recorded Confirmed amantadine HCl 100 mg tablet 100 mg PO 0900,1300 Parkinsons 09/16/20 10/20/23 duloxetine 20 mg capsule,delayed 20 mg PO BID Mood 09/16/20 10/20/23 release methenamine hippurate 1 gram tablet 1 gm PO BID Infection 12/18/21 10/20/23 spironolactone 50 mg tablet 50 mg PO DAILY Fluid 12/18/21 10/20/23 ropinirole 4 mg tablet 4 mg PO QID 06/26/22 10/20/23 azelastine 137 mcg (0.1 %) nasal 2 spray intranasal HS Allergy 07/10/23 10/20/23 spray aerosol Symptoms cholecalciferol (vitamin D3) 25 25 mcg PO DAILY Supplement 07/10/23 10/20/23 mcg (1,000 unit) capsule (Vitamin D3) ipratropium 0.5 mg-albuterol 3 mg 3 ml inhalation Q6HP PRN shortness 07/10/23 10/20/23 (2.5 mg base)/3 mL nebulization of breath or wheezing soln levothyroxine 25 mcg tablet 25 mcg PO DAILY Thyroid 07/10/23 10/20/23 mycophenolate mofetil 500 mg tablet 500 mg PO BID 07/10/23 10/20/23 omeprazole 20 mg capsule,delayed 20 mg PO DAILY Acid Reflux 07/10/23 10/20/23 release carbidopa ER 50 mg-levodopa 200 mg 0.5 tab PO DAY 07/12/23 10/20/23 tablet,extended release Previous Rx's Medication Instructions Recorded gabapentin 300 mg capsule 300 mg PO 0900,1300 Pain 30 days 07/14/23 #60 caps gabapentin 300 mg capsule 600 mg (2 x 300 mg) PO HS Pain 30 07/14/23 days #60 caps lorazepam 0.5 mg tablet 0.5 mg PO TID PRN Anxiety 3 days 07/14/23 #9 tabs albuterol sulfate 90 mcg/actuation 2 inh inhalation QID PRN shortness 10/20/23 aerosol inhaler of breath or wheezing 90 days #8.5 grams azelastine 137 mcg (0.1 %) nasal 2 spray intranasal HS 90 days #30 10/20/23 spray aerosol mL fluticasone 500 mcg-salmeterol 50 1 inh inhalation BID #180 ea 10/20/23 mcg/dose blistr powdr for inhalation (Advair Diskus) amoxicillin 875 mg-potassium 1 tab PO BID 14 days #20 tabs 10/24/23 clavulanate 125 mg tablet doxycycline monohydrate 100 mg 100 mg PO BID 14 days #28 caps 10/24/23 capsule Allergies Allergy/AdvReac Type Severity Reaction Status Date / Time No Known Allergies Allergy Verified 10/20/23 13:00 [facility] Disclaimer: The information contained in this section may have been updated after the patient was seen, as this information can be updated by other users. Medical History Urinary tract infection Sleep apnea Pneumonia History of COVID-19 History of gastroesophageal reflux (GERD) Thyroid disease Parkinson disease Arthritis Edema Fibrosis of lung Breathlessness Nocturnal hypoxia Allergic rhinitis Restrictive lung disease ILD (interstitial lung disease) History of rheumatoid arthritis NSIP (nonspecific interstitial pneumonia) Organizing pneumonia Dyspnea on exertion Surgical History History of tubal ligation Family History Other Stroke Social History Smoking Status: Never smoker alcohol intake: never substance use type: denies use current occupational status: retired Travel in the last 8 weeks: None household members: spouse housing: house caffeine: Yes ROS Obtained: Yes All systems reviewed & no additional complaints except as documented Physical Exam General General appearance: alert and in no apparent distress Head Head exam: atraumatic and normocephalic Eye Eye exam: Present normal appearance, PERRL and EOMI ENT ENT exam: Present normal exam, normal oropharynx, mucous membranes moist and normal external ear exam Neck Neck exam: Present normal inspection, full ROM and trachea midline; Absent tenderness Chest Chest inspection: Present normal inspection and symmetric chest wall rise; Absent tenderness Respiratory Respiratory exam: Present normal lung sounds bilaterally; Absent respiratory distress, wheezes, stridor or accessory muscle use Cardiovascular Cardiovascular exam: Present regular rate and normal rhythm Abdominal Exam Abdominal exam: Present soft; Absent distention, tenderness or guarding Extremities Exam Extremities exam: Present normal inspection, full ROM and normal capillary refill; Absent tenderness or edema Back Exam Back exam: Present normal inspection and full ROM; Absent tenderness Neurological Exam Neurological exam: Present alert, oriented X3, CN II-XII intact and normal gait; Absent motor sensory deficit Psychiatric Psychiatric exam: Present normal affect and normal mood Skin Skin exam: Present warm and dry Medical Decision Making Medical Records Medical records reviewed: Yes I reviewed the patient's medical records. Nikunj Inquiry Pt receiving controlled substance: No Vital Signs: 10/26/23 13:32 10/26/23 13:35 Temperature 97.6 F Temperature Source Oral Pulse Rate 61 Pulse Rate [Right Radial] 62 Respiratory Rate 20 18 Blood Pressure 112/59 L Blood Pressure [Right Arm] 112/59 L Blood Pressure Mean 76 Blood Pressure Mean [Right Arm] 76 02 Sat by Pulse Oximetry 96 95 Oxygen Delivery Method Room Air Lab Data Lab results reviewed: Yes I reviewed the patient's lab results. Lab Results 10/26/23 14:05: WBC 27.8 H* D, RBC 4.13 L, Hgb 11.8 L, Hct 38.1, MCV 92.3, MCH 28.6, MCHC 31.0 L, RDW 16.4, Plt Count 455 H, MPV 8.0, Neut % (Auto) 82.1 H, Lymph % (Auto) 10.3, [place] % (Auto) 3.4, Eos % (Auto) 3.0, Baso % (Auto) 1.2, Neut # (Auto) 22.8 H, Lymph # (Auto) 2.9, [place] # (Auto) 0.9, Eos # (Auto) 0.8 H, Baso # (Auto) 0.3 H, Total Counted 100, Neutrophils % (Manual) 87 H, Lymphocytes % (Manual) 11, Monocytes % (Manual) 1 L, Eosinophils % (Manual) 1, Platelet Estimate Normal, RBC Morphology Normal, Sodium 139, Potassium 5.2 H D, Chloride 108 H, Carbon Dioxide 23, Anion Gap 13.2, BUN 50 H, Creatinine 1.70 H D, Estimated Creat Clear 29, Estimated GFR 29 L, Est GFR ( Amer) 35 L D, Glucose 106 H, Calcium 10.1, Total Bilirubin 0.6, AST 12 L, ALT 6 L D, Alkaline Phosphatase 221 H, NT-Pro-B Natriuret Pep 392, Total Protein 7.9, Albumin 3.8, Globulin 4.1 H, Albumin/Globulin Ratio 0.9 L, Lipase 38 10/26/23 14:15: Procalcitonin 0.215 10/26/23 14:05 10/26/23 14:05 Orders (Tests/Meds): ED MEDICATIONS Generic Name Dose Route Start Last Admin Trade Name Freq PRN Reason Stop Dose Admin Lactated Ringer's 1,000 mls @ 999 mls/hr 10/26/23 14:27 10/26/23 14:43 Lactated Ringer's 1000 Ml Bag IV 10/26/23 15:27 999 mls/hr .Q1H1M ONE Administration Lactated Ringer's 1,000 mls @ 100 mls/hr 10/26/23 14:45 Lactated Ringer's 1000 Ml Bag IV 11/25/23 14:44 .Q10H ALEJA Ondansetron HCl 4 mg 10/26/23 14:43 Ondansetron 4mg/2ml Vial IV 11/25/23 14:42 Q8HP PRN Nausea Discontinued Medications Generic Name Dose Route Start Last Admin Trade Name Freq PRN Reason Stop Dose Admin Ondansetron HCl 4 mg 10/26/23 14:27 10/26/23 14:43 Ondansetron 4mg/2ml Vial IV 10/26/23 14:28 4 mg ONCE ONE Administration ORDERS Category Date Time Status XR chest 2V Stat Exams 10/26/23 13:44 Taken BNP [Brain Natriuretic Peptide] Stat Lab 10/26/23 14:05 Completed CMP [Comprehensive Metabolic Panel] Stat Lab 10/26/23 14:05 Completed Complete Blood Count Auto Diff AMLAB Lab 10/27/23 06:00 Ordered Complete Blood Count Auto Diff Stat Lab 10/26/23 14:05 Completed Comprehensive Metabolic Panel AMLAB Lab 10/27/23 06:00 Ordered Lipase Stat Lab 10/26/23 14:05 Completed Magnesium AMLAB Lab 10/27/23 06:00 Ordered Procalcitonin Stat Lab 10/26/23 14:15 Completed Rapid PCR Covid and Flu A/B Stat Lab 10/26/23 14:35 Ordered Urinalysis and Microscopic Stat Lab 10/26/23 13:52 Ordered Blood Culture Stat Micro 10/26/23 15:25 Ordered ECG Data Tracing #1: I reviewed this ECG and interpreted as documented below: Normal sinus rhythm with a ventricular rate of [address] changes concerning for ischemia. Normal axis and intervals. ECG initial impression date: 10/26/23 ECG initial impression time: 14:36 Tracing #2: I reviewed this ECG and interpreted as documented below: Normal sinus rhythm with a ventricular of [address] elevations concerning for ischemia. Normal axis and intervals. ECG initial impression date: 10/26/23 ECG initial impression time: 14:36 Medical Decision Narrative: In summary, this patient is a 78-year-old female presenting to the Emergency Department for evaluation of feeling unwell in the setting of recent diagnosis of pneumonia and poor oral intake at home. Differential diagnoses considered include but are not limited to failed outpatient treatment of pneumonia, CHF exacerbation, dehydration, SUGEY. Ruling out the most morbid conditions drove assessment. On exam, the patient is overall nontoxic-appearing with reassuring vital signs on cardiac telemetry. Cardiopulmonary and abdominal exams are benign. Workup included CBC, CMP, lipase, BNP, urinalysis, chest x-ray, and EKG. EKG IS REASSURING. I independently interpreted XR prior to the radiologist read and noted no obvious large focal consolidation that concerns me for pneumonia. Please see their read for final interpretation. Labs were obtained that demonstrated significant leukocytosis, SUGEY, hyperkalemia, and overall concerns for dehydration. A bolus of IV fluids as well as IV zofran were administered. Blood cultures and urine culture added for further infectious workup given significant leukocytosis, though she appears to have had some chronic leukocytosis on medical record review. I do feel that the patient would benefit from admission for fluid resuscitation and continued monitoring to determine if she has leukocytosis as a result of infection, such as bacteremia, or if she potentially has underlying hematologic disorder. I had an interactive discussion with the hospitalist, Dr. Alonzo, who admitted the patient for further evaluation and management. Critical Care Critical Care Time Critical Care Time: No
[2023-10-26 14:16] LABS: Basophils # 0.3 K/mm3 (0-0.2); Basophils % 1.2 % (0.1-2.0); Eosinophils # 0.8 K/mm3 (0.0-0.4); Hematocrit 38.1 % (37.0-47.0); Hemoglobin 11.8 g/dL (12.2-16.2); Lymphocytes # 2.9 K/mm3 (0.7-4.5); Lymphocytes % 10.3 % (10-50); Mean Corpuscular Hemoglobin 28.6 pg (27.0-31.2); Mean Corpuscular Volume 92.3 fl (81-99); Monocytes # 0.9 K/mm3 (0.1-1.0); Monocytes % 3.4 % (1.7-9.3); Neutrophils # 22.8 K/mm3 (1.8-7.8); Neutrophils % 82.1 % (37.0-80.0); Platelet Count 455 K/mm3 (142-424); Red Blood Count 4.13 M/mm3 (4.20-5.40); Red Cell Distribution Width 16.4 % (11.5-17.5); White Blood Count 27.8 K/mm3 (4.8-10.8)
[2023-10-26 14:20] LABS: Chloride 108 mmol/L (98-107); Potassium 5.2 mmoL/L (3.5-5.1); Sodium 139 mmol/L (136-145)
[2023-10-26 14:23] LABS: Alanine Aminotransferase 6 U/L (12-78); Albumin Level 3.8 g/dl (3.5-5.0); Albumin/Globulin Ratio 0.9 (1.1-1.8); Alkaline Phosphatase 221 U/L (38-126); Anion Gap 13.2 mEq/L (5-15); Aspartate Amino Transferase 12 U/L (14-36); Bilirubin,Total 0.6 mg/dl (0.2-1.3); Blood Urea Nitrogen 50 mg/dl (7-17); Calcium 10.1 mg/dl (8.4-10.2); Carbon Dioxide 23 mmol/L (22.0-30.0); Creatinine Clearance Estimated 29 mL/min (50-200); Estimated Glomerular Filt Rate 29 ml/min (>60); GFR (African American) 35 ML/MIN (>60); Globulin 4.1 g/dL (1.3-3.2); Glucose 106 mg/dl (74-100); Total Protein,Serum 7.9 g/dl (6.3-8.2)
[2023-10-26 14:24] LABS: Lipase 38 U/L (23-300)
[2023-10-26 14:27] LABS: MANUAL DIFFERENTIAL MANUAL DIFFERENTIAL (MANUAL DIFF)
--- NOTE | 2023-10-26 14:30 | ECG_ITS ---
APPROVED REPORT Exam: Resting ECG HR:61 bpm ECG Measurements Heart Rate 61 AXES PA 172 P 29 QRSd 95 QRS 81 QT 384 T 30 QTc 387 Conclusion SINUS RHYTHM PROBABLE LATERAL MYOCARDIAL INFARCTION , OF INDETERMINATE AGE [35 ms Q WAVE IN I/aVL/V5/V6] ABNORMAL ECG UNCONFIRMED REPORT Electronically signed by : Matheus Arnold, 10/26/2023 22:53:22
[2023-10-26 14:33] LABS: NT Pro Brain Natriuretic Pep. 392 pg/mL (0-450)
[2023-10-26] MEDS: ONDANSETRON 4MG/2ML VIAL 4 MG IV (14:43)
[2023-10-26] MEDS: LACTATED RINGERS 1000ML 1,000 ML 999 ML IV (14:43)
[2023-10-26 15:06] LABS: Eosinophils % 1 % (0-3); Lymphocytes % 11 % (10-50); Monocytes % 1 % (2-9); Neutrophils % 87 % (42-76); Platelet Estimate Normal; RBC Morphology Normal; Total Cells Counted 100
[2023-10-26 15:16] LABS: Procalcitonin 0.215 ng/mL (0.0-2.0)
--- NOTE | 2023-10-26 15:31 | PC.NURSE ---
pt ambulatory to bathroom x1 person assist
[2023-10-26 15:38] LABS: Coronavirus 19, PCR Not Detected (NotDetected); Influenza A, PCR Not Detected (NotDetected); Influenza B, PCR Not Detected (NotDetected)
[2023-10-26 15:38] LABS: Microscopic, Urine URINE MICROSCOPIC (MICROSCOPIC)
[2023-10-26 15:46] LABS: Appearance,Urine CLOUDY (Clear); Bilirubin,Urine Negative (Negative); Blood, Urine 1+ (Negative); Color,Urine YELLOW (Yellow); Glucose,Urine (UA) Negative (Negative); Ketones,Urine Negative (Negative); Leukocyte Esterase,Urine 2+ (Negative); Nitrate,Urine Negative (Negative); Protein,Urine 1+ (Negative); Specific Gravity, Urine 1.025 (1.005-1.030); Urobilinogen,Urine 0.2 EU/dl (0.2)
[2023-10-26 16:09] LABS: WBC,Urine 20-50 #/hpf (0-3)
--- NOTE | 2023-10-26 16:25 | PC.NURSE ---
report called to Aida SANTIAGO
--- NOTE | 2023-10-26 16:47 | PC.NURSE ---
arrived by w/c from ED
[2023-10-26] MEDS: CEFEPIME HCL 2 GM in 0.9 % SODIUM CHLORIDE 100 ML IV (17:25)
[2023-10-26] MEDS: LACTATED RINGERS 1000ML 1,000 ML 100 ML IV (17:25)
--- NOTE | 2023-10-26 18:01 | EXP.HP ---
History of Present Illness *Admission Date: 10/26/23 *Reason for visit:: Cough, general malaise *History of present illness: Ms. Mathis is a 78-year-old female with history of Parkinson's disease, hypothyroidism, interstitial lung disease, GERD, aortic insufficiency, CHF, and recent diagnosis of pneumonia presenting to the emergency department for evaluation with concern she is no better since being evaluated here two days ago. States she has been taking her antibiotics that she was sent home with 2 days ago. Has had persistent cough. thinks its gotten worse, patient says that she feels little bit better. Patient is also had some nausea, sensation of food getting stuck. No tamara emesis however. Does have abdominal pain after she eats. Decreased p.o. intake. Had her esophagus stretched a few months ago by GI. is concerned that she is very sick and needs thorough going over . Patient denies significant shortness of breath, hemoptysis, fever or chills, significant chest pain. States she just has not felt good and feels quite weak. Workup in the ER concerning for SUGEY. X-ray stable from 2 days ago with parabronchial thickening. White cell count more elevated at 27,000. Medicine consulted for admission and further management. On evaluation, patient is on room air and comfortable in bed. Has a cough during interview that is rhonchorous and sounds mildly productive. Provides good history though her thinks she is leaving things out and not being as honest as she needs to be. 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 Complains of decreased p.o. intake, also mentions that she had her esophagus stretched a few months ago. Patient's been eating less because sometimes it hurts. Able to tolerate liquids without difficulty. Has been taking diclofenac for arthritis. [facility] Disclaimer: The information contained in this section may have been updated after the patient was seen, as this information can be updated by other users. Medical History Urinary tract infection Sleep apnea Pneumonia History of COVID-19 History of gastroesophageal reflux (GERD) Thyroid disease Parkinson disease Arthritis Edema Fibrosis of lung Breathlessness Nocturnal hypoxia Allergic rhinitis Restrictive lung disease ILD (interstitial lung disease) History of rheumatoid arthritis NSIP (nonspecific interstitial pneumonia) Organizing pneumonia Dyspnea on exertion Surgical History History of tubal ligation Family History Other Stroke Social History Smoking Status: Never smoker alcohol intake: never substance use type: denies use current occupational status: retired Travel in the last 8 weeks: None household members: spouse housing: house caffeine: Yes Review of Systems Review of Systems Review of systems (narrative): 14 point review of systems performed, pertinent positives and negatives as per [facility] Meds Home Medications and Allergies Home Medications Medication Instructions Recorded Confirmed Type amantadine HCl 100 mg tablet 100 mg PO 0900,1300 Parkinsons 09/16/20 10/26/23 History duloxetine 20 mg capsule,delayed 20 mg PO BID Mood 09/16/20 10/26/23 History release methenamine hippurate 1 gram tablet 1 gm PO BID Infection 12/18/21 10/26/23 History ropinirole 4 mg tablet 4 mg PO BID 06/26/22 10/26/23 History azelastine 137 mcg (0.1 %) nasal 2 spray intranasal HS Allergy 07/10/23 10/26/23 History spray aerosol Symptoms cholecalciferol (vitamin D3) 25 25 mcg PO DAILY Supplement 07/10/23 10/26/23 History mcg (1,000 unit) capsule (Vitamin D3) ipratropium 0.5 mg-albuterol 3 mg 3 ml inhalation Q6HP PRN shortness 07/10/23 10/26/23 History (2.5 mg base)/3 mL nebulization of breath or wheezing soln levothyroxine 25 mcg tablet 25 mcg PO DAILY Thyroid 07/10/23 10/26/23 History carbidopa ER 50 mg-levodopa 200 mg 0.5 tab PO 5XDAY 07/12/23 10/26/23 History tablet,extended release gabapentin 300 mg capsule 300 mg PO 0900,1300 Pain 30 days 07/14/23 10/26/23 Rx #60 caps gabapentin 300 mg capsule 600 mg (2 x 300 mg) PO HS Pain 30 07/14/23 10/26/23 Rx days #60 caps lorazepam 0.5 mg tablet 0.5 mg PO TID PRN Anxiety 3 days 07/14/23 10/26/23 Rx #9 tabs albuterol sulfate 90 mcg/actuation 2 inh inhalation QID PRN shortness 10/20/23 10/26/23 Rx aerosol inhaler of breath or wheezing 90 days #8.5 grams azelastine 137 mcg (0.1 %) nasal 2 spray intranasal HS 90 days #30 10/20/23 10/26/23 Rx spray aerosol mL fluticasone 500 mcg-salmeterol 50 1 inh inhalation BID #180 ea 10/20/23 10/26/23 Rx mcg/dose blistr powdr for inhalation (Advair Diskus) amoxicillin 875 mg-potassium 1 tab PO BID 14 days #20 tabs 10/24/23 10/26/23 Rx clavulanate 125 mg tablet doxycycline monohydrate 100 mg 100 mg PO BID 14 days #28 caps 10/24/23 10/26/23 Rx capsule diclofenac sodium 75 mg 75 mg PO BID 10/26/23 10/26/23 History tablet,delayed release New Prescriptions to Start Prescriptions: Allergies Allergy/AdvReac Type Severity Reaction Status Date / Time No Known Allergies Allergy Verified 10/20/23 13:00 Exam Data for Last 24 hours Vital signs and Labs for Last 24 Hours: Temp Pulse Resp BP Pulse Ox O2 Del Method 97.8 F 58 L 16 98/44 L 95 Room Air 10/26/23 17:02 10/26/23 17:02 10/26/23 17:02 10/26/23 17:02 10/26/23 17:02 10/26/23 17:02 Laboratory Results - last 24 hr 10/26/23 14:05: WBC 27.8 H* D, RBC 4.13 L, Hgb 11.8 L, Hct 38.1, MCV 92.3, MCH 28.6, MCHC 31.0 L, RDW 16.4, Plt Count 455 H, MPV 8.0, Neut % (Auto) 82.1 H, Lymph % (Auto) 10.3, [place] % (Auto) 3.4, Eos % (Auto) 3.0, Baso % (Auto) 1.2, Neut # (Auto) 22.8 H, Lymph # (Auto) 2.9, [place] # (Auto) 0.9, Eos # (Auto) 0.8 H, Baso # (Auto) 0.3 H, Total Counted 100, Neutrophils % (Manual) 87 H, Lymphocytes % (Manual) 11, Monocytes % (Manual) 1 L, Eosinophils % (Manual) 1, Platelet Estimate Normal, RBC Morphology Normal, Sodium 139, Potassium 5.2 H D, Chloride 108 H, Carbon Dioxide 23, Anion Gap 13.2, BUN 50 H, Creatinine 1.70 H D, Estimated Creat Clear 29, Estimated GFR 29 L, Est GFR ( Amer) 35 L D, Glucose 106 H, Calcium 10.1, Total Bilirubin 0.6, AST 12 L, ALT 6 L D, Alkaline Phosphatase 221 H, NT-Pro-B Natriuret Pep 392, Total Protein 7.9, Albumin 3.8, Globulin 4.1 H, Albumin/Globulin Ratio 0.9 L, Lipase 38 10/26/23 14:15: Procalcitonin 0.215 10/26/23 15:35: Urine Color Yellow, Urine Appearance Cloudy, Urine pH 6.0, Ur Specific [place] 1.025, Urine Protein 1+, Urine Glucose (UA) Negative, Urine Ketones Negative, Urine Blood 1+, Urine Nitrate Negative, Urine Bilirubin Negative, Urine Urobilinogen 0.2, Ur Leukocyte Esterase 2+ A, Urine RBC None, Urine WBC 20-50, Ur Squamous Epith Cells None, Urine Bacteria None 10/26/23 15:37: SARS-CoV-2 (PCR) Not detected, Influenza A Untype (PCR) Not detected, Influenza Type B (PCR) Not detected I & O for Last 24 hours: Intake & Output 10/23/23 10/24/23 10/25/23 10/26/23 23:59 23:59 23:59 23:59 Intake Total 0 / 0 Output Total 0 / 0 Balance 0 / 0 Weight 67.812 kg Constitutional Constitutional: no acute distress, average body habitus, chronically ill appearing and cooperative *Routine HEENT Exam Head: Present normocephalic and atraumatic Eye: Present EOMI, PERRL and normal accommodation ENT: Present mucous membranes moist *Routine Neck Exam Neck: Present supple, full ROM and trachea midline *Routine Respiratory Exam Respiratory: Present prolonged expiratory phase, rhonchi, crackles and able to speak in complete sentences; Absent wheezes *Routine Cardiovascular Exam Cardiovascular: Present RRR, Normal S1 and Normal S2 *Routine Abdominal Exam Abdominal: Present soft, normoactive bowel sounds and tenderness (Mild epigastric); Absent organomegaly *Routine Rectal Exam Rectal:: deferred *Routine Genitalia Exam Genitalia:: deferred *Routine Extremities Exam Extremities: Present full ROM, pulses intact and normal capillary refill; Absent cyanosis, clubbing or edema *Routine Skin Exam Skin: Present intact, dry and warm *Routine Neurological Exam Neurological: Present alert, oriented X3, moving all extremities and normal speech Routine Psychiatric Exam Psychiatric: Present cooperative Assessment and Plan *Assessment and plan (1) SUGEY (acute kidney injury): Status: Acute Category: Medical Code(s): N17.9 - Acute kidney failure, unspecified (2) Urinary tract infection: Status: Acute Category: Medical Code(s): N39.0 - Urinary tract infection, site not specified (3) General weakness: Status: Acute Category: Medical Code(s): R53.1 - Weakness (4) Leukocytosis: Status: Acute Category: Medical Code(s): D72.829 - Elevated white blood cell count, unspecified (5) Pneumonia: Status: Acute Category: Medical Code(s): J18.9 - Pneumonia, unspecified organism (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: Status: Acute Category: Medical Code(s): G20.A1 - Parkinson's disease without dyskinesia, without mention of fluctuations; F02.80 - Dementia in other diseases classified elsewhere, unspecified severity, without behavioral disturbance, psychotic disturbance, mood disturbance, and anxiety (7) Chronic GERD: Status: Acute Category: Medical Code(s): K21.9 - Gastro-esophageal reflux disease without esophagitis (8) Parkinson disease: Status: Acute Qualifiers: Dyskinesia presence: unspecified whether dyskinesia Fluctuating manifestations: unspecified whether manifestations fluctuate Qualified Code(s): G20.A1 - Parkinson's disease without dyskinesia, without mention of fluctuations Category: Medical Code(s): G20 - Parkinson's disease (9) Hypothyroidism: Status: Acute Qualifiers: Hypothyroidism type: acquired Qualified Code(s): E03.9 - Hypothyroidism, unspecified Category: Medical Code(s): E03.9 - Hypothyroidism, unspecified (10) ILD (interstitial lung disease): Status: Chronic Category: Medical Code(s): J84.9 - Interstitial pulmonary disease, unspecified Plan 78-year-old female with multiple comorbidities. Presented to the ER because she just was not feeling better after initiating treatment for pneumonia. Found to have SUGEY, concern for UTI, worsening leukocytosis. Discussed case with ER physician, request admission for IV antibiotics, further workup and monitoring. Medicine agreed to admit. Patient on room air. with her supplements history. Problems addressed as follows: Atypical pneumonia Leukocytosis UTI -Chest x-ray reviewed, Concern for atelectasis versus pneumonia. No large area of airspace disease or focal consolidation - Continue cefepime 2 g every 12 hours, initiate azithromycin 500 mg daily - No oxygen requirement at this time. Will consult pulmonology to assist with care. chest imaging personally reviewed, concern for atypical pneumonia versus atelectasis - Currently on room air, goal sats greater 90% - DuoNebs every 6 hours scheduled - Continue Advair 500/50 twice daily -Persistent leukocytosis over the past year, will obtain peripheral smear. SUGEY on CKD Baseline creatinine 1.1-1.3, currently 1.7 with elevated BUN at 50. Gentle IV hydration, repeat labs in the morning with CBC, CMP, magnesium. 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 Gomez in August. Esophageal dilation performed. Hiatal hernia present. -Initiate pantoprazole 40 mg IV nightly -Liquid diet -Monitor for tolerance of p.o. intake. - Patient not currently on a PPI, plan to discharge on PPI Neuropathy: Continue gabapentin 600 mg at night and 300 mg morning at lunch Anxiety: Continue Ativan 0.5 mg 3 times a day as needed; continue Cymbalta 20 mg twice daily for mood Parkinson's: Continue carbidopa/levodopa 50/200 mg tablet 0.5 tablet 5 times a day; continue amantadine 100 mg twice daily Hypothyroid: Continue levothyroxine 25 mcg daily Restless leg: Continue ropinirole 4 mg twice daily PT and OT consulted to assist with care, given patient's weakness and debility, will evaluate for placement versus home health with PT versus home with no therapy Full code Heparin subcu 3 times daily Full liquid diet
[2023-10-26] MEDS: IPRATROPIUM/ALBUTEROL 3 ML NEB IH (18:36)
[2023-10-26] MEDS: FLUTICASONE/SALMETEROL 500/50MCG DISKUS 1 PUFF IH (18:36)
--- NOTE | 2023-10-26 18:36 | PC.NURSE ---
Pt is resting in bed. SHe states she wears 2L O2 NC HS. SHe is currently on RA. Pt and are poor historians on her home medications. Education provided. IV ABX infusing. Call light within reach.
[2023-10-26] MEDS: AZITHROMYCIN 500 MG in 0.9 % SODIUM CHLORIDE 250 ML 250 MG IV (19:21)
[2023-10-26] MEDS: CARBIDOPA/LEVODOPA CR 50/200MG TABLET 0.5 EACH PO (21:03)
[2023-10-26] MEDS: GABAPENTIN 300MG CAPSULE 600 MG PO (21:04)
[2023-10-26] MEDS: ROPINIROLE 4 MG 4 EACH PO (21:05)
[2023-10-27] VITALS (7 sets, daily range): BP systolic 95–130; BP diastolic 41–63; PULSE 61–74; RESP 16–18; TEMP 36.4–36.9; O2SAT 92–99; BMI 28.5
[2023-10-27] MEDS: IPRATROPIUM/ALBUTEROL 3 ML NEB IH ×3 (00:41→18:53)
--- NOTE | 2023-10-27 03:20 | PC.NURSE ---
Pt is alert and oriented x4 and currently tolerating 2L of O2 at this time. Pt put on O2 herself around 2300 this shift, she states that she always wears 2L at HS. Pt remains on a full liquid diet, and is tolerating fluids and antibiotic tharapy well. Pt has been coughing intermittently this shift and has been given a specimen cup for sputum collection. MRSA swab collected and sent to lab. Pt has no complaints at this time and denies pain and needs.
[2023-10-27] MEDS: CEFEPIME HCL 2 GM in 0.9 % SODIUM CHLORIDE 100 ML IV (04:07)
[2023-10-27] MEDS: CARBIDOPA/LEVODOPA CR 50/200MG TABLET 0.5 EACH PO (04:07)
[2023-10-27 07:53] LABS: Basophils # 0.3 K/mm3 (0-0.2); Basophils % 1.1 % (0.1-2.0); Eosinophils # 1.1 K/mm3 (0.0-0.4); Eosinophils % 4.5 % (0.1-12.0); Hemoglobin 11.1 g/dL (12.2-16.2); Lymphocytes # 2.2 K/mm3 (0.7-4.5); Lymphocytes % 9.2 % (10-50); Mean Corpuscular HGB Conc 30.8 g/dL (31.8-35.4); Mean Corpuscular Hemoglobin 29.2 pg (27.0-31.2); Mean Corpuscular Volume 94.9 fl (81-99); Mean Platelet Volume 8.2 fl (7.4-10.4); Monocytes % 4.4 % (1.7-9.3); Neutrophils % 80.8 % (37.0-80.0); Platelet Count 373 K/mm3 (142-424); Red Blood Count 3.79 M/mm3 (4.20-5.40); Red Cell Distribution Width 16.4 % (11.5-17.5); White Blood Count 23.5 K/mm3 (4.8-10.8)
[2023-10-27 07:58] LABS: Alanine Aminotransferase 9 U/L (12-78); Albumin Level 3.4 g/dl (3.5-5.0); Albumin/Globulin Ratio 0.8 (1.1-1.8); Alkaline Phosphatase 170 U/L (38-126); Anion Gap 12.7 mEq/L (5-15); Aspartate Amino Transferase 16 U/L (14-36); Bilirubin,Total 0.6 mg/dl (0.2-1.3); Calcium 9.1 mg/dl (8.4-10.2); Carbon Dioxide 22 mmol/L (22.0-30.0); Chloride 109 mmol/L (98-107); Globulin 4.1 g/dL (1.3-3.2); Glucose 77 mg/dl (74-100); Potassium 4.7 mmoL/L (3.5-5.1); Sodium 139 mmol/L (136-145); Total Protein,Serum 7.5 g/dl (6.3-8.2)
[2023-10-27 08:09] LABS: MANUAL DIFFERENTIAL MANUAL DIFFERENTIAL (MANUAL DIFF)
[2023-10-27 08:29] LABS: Blood Urea Nitrogen 40 mg/dl (7-17); Creatinine Clearance Estimated 43 mL/min (50-200); Estimated Glomerular Filt Rate 43 ml/min (>60); GFR (African American) 53 ML/MIN (>60)
[2023-10-27 08:30] LABS: Eosinophils % 3 % (0-3); Lymphocytes % 14 % (10-50); Monocytes % 2 % (2-9); Neutrophils % 81 % (42-76); Platelet Estimate Normal; RBC Morphology Normal; Total Cells Counted 100
[2023-10-27] MEDS: ENOXAPARIN 30MG/0.3ML SYRINGE 30 MG SQ (09:39)
[2023-10-27] MEDS: GABAPENTIN 300MG CAPSULE 300 MG PO ×2 (09:39→13:24)
[2023-10-27] MEDS: DULOXETINE 20 MG 1 EACH PO ×2 (09:39→20:23)
[2023-10-27] MEDS: LEVODOPA PO ×4 (09:40→20:24)
[2023-10-27] MEDS: LEVOTHYROXINE 25 MCG 1 EACH PO (09:40)
[2023-10-27] MEDS: CARBIDOPA PO ×4 (09:40→20:24)
--- NOTE | 2023-10-27 09:45 | HMH.PHAINT1 ---
Pharmacy Intervention Comments: Home medication list verified via outside pharmacy and patient's medication bottles.
[2023-10-27] MEDS: AMANTADINE 100 MG 1 EACH PO (10:02)
--- NOTE | 2023-10-27 10:05 | HMH.PTEV ---
Physical Therapy Evaluation Rehab PT IP Evaluation Start: 10/26/23 18:11 Freq: ONCE Status: Active Protocol: Document 10/27/23 10:02 MALISSA (Rec: 10/27/23 10:05 [email or web address]) Subjective/History History History Per H&P: Ms. Mathis is a 78-year-old female with history of Parkinson's disease, hypothyroidism, interstitial lung disease, GERD, aortic insufficiency, CHF, and recent diagnosis of pneumonia presenting to the emergency department for evaluation with concern she is no better since being evaluated here two days ago. States she has been taking her antibiotics that she was sent home with 2 days ago. Has had persistent cough. thinks its gotten worse, patient says that she feels little bit better. Patient is also had some nausea, sensation of food getting stuck. No tamara emesis however. Does have abdominal pain after she eats. Decreased p.o. intake. Had her esophagus stretched a few months ago by GI. is concerned that she is very sick and needs thorough going over . Patient denies significant shortness of breath, hemoptysis, fever or chills, significant chest pain . States she just has not felt good and feels quite weak . Workup in the ER concerning for SUGEY. X-ray stable from 2 days ago with parabronchial thickening. White cell count more elevated at 27,000. Medicine consulted for admission and further management. Subjective Subjective PLOF per pt report: Lives with in a 2-story home with 3STE with BHRs. IND with mobility with intermittent use of RW. Not driving prior to admission. New diagnosis of cancer in past 12 No months? Rehab PT IP Eval Objective Appearance Patient Behavior Appropriate,Cooperative Patient Orientation Person,Place,Birthday, Situation Difficulty following instructions none Speech Pattern Clear Ambulation Patient Able to Ambulate Yes Ambulation Observation IP General Gait Pattern Observation No Deviations/Normal Ambulation Distance (feet) 30 Ambulation Assistive Device Rolling Walker Ambulation Ability Minimal x 1 (25% assist) Balance Ability to Arise Able, uses arms to help Sitting Balance Steady, safe Standing Balance Steady, wide stance Transfers Bed Transfer Ability Supervision/Stand by Sit to Stand Bed Transfer Ability Contact Guard/Hand Hold Rehab PT IP prob,goals,plan Problems Date of Evaluation: 10/27/23 PT IP Problems Transfers,Gait,Balance,Safety Rehab Potential Rehab Potential Good Equipment Needs Assistive Devices Rolling / Wheeled Walker Plan PT Intervention Plan Gait,Balance,Safety, Therapeutic Exercise Other Intervention Plan 1-2 times PT Plan Frequency Daily Duration LOS Discharge Goals Bed Transfer Ability Independent Sit to Stand Chair Transfer Ability Independent Ambulation Assistive Device Rolling Walker Ambulation Distance (feet) 100 Discharge Plan PT Discharge Plan Pt safe to d/c home when deemed medically necessary d/t current level of mobility, home set-up, and family support. Pt demo'd ambulation with RW and CGA (required Min A once d/t one posterior LOB with initial gait). PT recommending PT services to address endurance and strength deficits. Pt would benefit from skilled PT while at [facility] to prevent further functional decline and maximize safety with mobility. PHYSICIAN CERTIFICATION: I certify the specified therapy services for Emily Mathis are required, authorized, and reviewed every 30 days.
--- NOTE | 2023-10-27 12:06 | SW/DCPLANNER ---
Addendum entered by Meli Irizarry 10/28/23 14:09: [facility]/ Yous[facility] stated that services will begin this week. Addendum entered by Meli Irizarry 10/28/23 08:05: Patient information/order will be faxed to [facility] this AM. The plan for this patient is to return home today. Original Note: I spoke w/ this patient regarding plans once medically stable for discharge. PT/OT evaluated patient and recommended home w/ home health services. Patient is agreeable to home health and prefers to use [facility]. I will set up home health services once medically stable for discharge. stated that patient will be ready for discharge tomorrow pending no setbacks.
--- NOTE | 2023-10-27 13:01 | HMH.OTEV ---
OT Inpatient Evaluation Rehab OT IP Evaluation Start: 10/26/23 18:11 Freq: ONCE Status: Active Protocol: Document 10/27/23 11:50 JENNIE (Rec: 10/27/23 13:01 JENNIE [id number]) Rehab OT IP Assessment Subjective History Ms. Mathis is a 78-year-old female with history of Parkinson's disease, hypothyroidism, interstitial lung disease, GERD, aortic insufficiency, CHF, and recent diagnosis of pneumonia presenting to the emergency department for evaluation with concern she is no better since being evaluated here two days ago. States she has been taking her antibiotics that she was sent home with 2 days ago. Has had persistent cough. thinks its gotten worse, patient says that she feels little bit better. Patient is also had some nausea, sensation of food getting stuck. No tamara emesis however. Does have abdominal pain after she eats. Decreased p.o. intake. Had her esophagus stretched a few months ago by GI. is concerned that she is very sick and needs thorough going over . Patient denies significant shortness of breath, hemoptysis, fever or chills, significant chest pain . States she just has not felt good and feels quite weak . Workup in the ER concerning for SUGEY. X-ray stable from 2 days ago with parabronchial thickening. White cell count more elevated at 27,000. Medicine consulted for admission and further management. On evaluation, patient is on room air and comfortable in bed. Has a cough during interview that is rhonchorous and sounds mildly productive. Provides good history though her thinks she is leaving things out and not being as honest as she needs to be. 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 Complains of decreased p.o. intake, also mentions that she had her esophagus stretched a few months ago. Patient's been eating less because sometimes it hurts. Able to tolerate liquids without difficulty. Has been taking diclofenac for arthritis. Rehab OT IP prob,goals,plan Problems Date of Evaluation: 10/27/23 OT IP Problems Bed Mobility,Transfers,Balance ,Self care,Safety Rehab Potential Rehab Potential Good Equipment Needs Assistive Devices Rolling / Wheeled Walker Plan OT intervention Plan Bed Mobility,Transfers,Balance ,Self care,Safety,Therapeutic Exercise OT Plan Frequency Daily Duration LOS Discharge Goals Bed Mobility Ability Independent Sit to Stand Chair Transfer Ability Independent Chair Transfer Ability Independent Chair Transfer Technique Sit to/from Ambulatory Chair Transfer Assistive Devices Rolling Walker Discharge Plan OT Discharge Plan Pt safe to d/c home when deemed medically necessary d/t current level of mobility, home set-up, and family support. Pt demo'd ambulation with RW and CGA (required Min A once d/t one posterior LOB with initial gait). Patient completed toileting, LB drsg, and bed mobility with SBA. OT recommending services to address endurance and strength deficits. Pt would benefit from skilled OT while at [facility] to prevent further functional decline and maximize safety with mobility. Eval Complexity Eval Charge Codes 06327 - Low Complexity PHYSICIAN CERTIFICATION: I certify the specified therapy services for Emily Mathis are required, authorized, and reviewed every 30 days.
--- NOTE | 2023-10-27 13:57 | EXP.ACUTE.PN ---
Subjective *Date: 10/27/23 *Time: 14:03 Interval history: Patient clinically looking better today. White cell count still elevated at 23,000. Afebrile overnight. Wore oxygen overnight at baseline of 2 L. at bedside. Patient did not eat breakfast as she did not like how it tasted. Requesting regular diet for lunch, will advance diet today. No nausea or vomiting. Therapy evaluating this Medical Exam Vital signs and Labs for Last 24 Hours: Vital Signs Temp Pulse Pulse Resp BP BP Pulse Ox 10/27/23 12:44 10/27/23 11:08 64 10/27/23 11:08 64 10/27/23 11:08 99 10/27/23 10:57 10/27/23 08:21 10/27/23 08:00 10/27/23 08:00 97.9 F 67 18 105/41 L 96 10/27/23 08:00 10/27/23 06:32 10/27/23 04:37 10/27/23 04:00 97.6 F 62 16 95/52 L 98 10/27/23 02:54 10/27/23 01:00 10/27/23 00:41 61 10/27/23 00:41 66 10/26/23 23:39 100 10/26/23 23:00 10/26/23 21:00 10/26/23 20:00 100 10/26/23 20:00 97.8 F 68 18 99/58 L 100 10/26/23 18:36 63 10/26/23 18:36 63 10/26/23 18:36 95 10/26/23 18:34 10/26/23 17:02 97.8 F 58 L 16 98/44 L 95 10/26/23 17:00 98.1 F 58 L 20 101/49 L 10/26/23 16:01 70 18 101/49 L 95 10/26/23 15:35 63 111/52 L 95 10/26/23 15:00 59 L 137/67 95 10/26/23 14:30 61 135/72 95 O2 Del Method O2 Flow Rate 10/27/23 12:44 Room Air 10/27/23 11:08 10/27/23 11:08 10/27/23 11:08 Room Air 10/27/23 10:57 Room Air 10/27/23 08:21 Room Air 10/27/23 08:00 Room Air 10/27/23 08:00 Room Air 10/27/23 08:00 Room Air 10/27/23 06:32 Nasal Cannula 2 10/27/23 04:37 Nasal Cannula 2 10/27/23 04:00 Room Air 10/27/23 02:54 Nasal Cannula 2 10/27/23 01:00 Nasal Cannula 2 10/27/23 00:41 10/27/23 00:41 10/26/23 23:39 Room Air 10/26/23 23:00 Room Air 10/26/23 21:00 Room Air 10/26/23 20:00 Room Air 10/26/23 20:00 Room Air 10/26/23 18:36 10/26/23 18:36 10/26/23 18:36 Room Air 10/26/23 18:34 Room Air 10/26/23 17:02 Room Air 10/26/23 17:00 Room Air 10/26/23 16:01 10/26/23 15:35 Room Air 10/26/23 15:00 Room Air 10/26/23 14:30 Room Air Intake and Output 10/26/23 10/27/23 10/27/23 23:59 07:59 15:59 Intake Total 1010 / 1010 480 / 480 Output Total 0 / 0 0 / 0 0 / 0 Balance 1010 / 1010 0 / 480 480 / 480 Intake: Intake, Oral Amount 360 / 360 480 / 480 Intake, Total IV Amount 650 / 650 Azithromycin 500 mg In 0.9 % 250 / 250 Sodium Chloride 250 ml @ 250 mls/hr IV Q24H ALEJA Rx#: [id number] Lactated Ringers 1000ML 1,000 400 / 400 ml @ 100 mls/hr IV .Q10H ALEJA Rx #:[id number] Output: Output, Urine Amount 0 / 0 0 / 0 0 / 0 Other: Number of Unmeasured Voids 1 1 Weight 67.812 kg 70.488 kg Patient Weight 10/27/23 23:59 Weight 70.488 kg Laboratory Results - last 24 hr 10/26/23 14:05: WBC 27.8 H* D, RBC 4.13 L, Hgb 11.8 L, Hct 38.1, MCV 92.3, MCH 28.6, MCHC 31.0 L, RDW 16.4, Plt Count 455 H, MPV 8.0, Neut % (Auto) 82.1 H, Lymph % (Auto) 10.3, [place] % (Auto) 3.4, Eos % (Auto) 3.0, Baso % (Auto) 1.2, Neut # (Auto) 22.8 H, Lymph # (Auto) 2.9, [place] # (Auto) 0.9, Eos # (Auto) 0.8 H, Baso # (Auto) 0.3 H, Total Counted 100, Neutrophils % (Manual) 87 H, Lymphocytes % (Manual) 11, Monocytes % (Manual) 1 L, Eosinophils % (Manual) 1, Platelet Estimate Normal, RBC Morphology Normal, Sodium 139, Potassium 5.2 H D, Chloride 108 H, Carbon Dioxide 23, Anion Gap 13.2, BUN 50 H, Creatinine 1.70 H D, Estimated Creat Clear 29, Estimated GFR 29 L, Est GFR ( Amer) 35 L D, Glucose 106 H, Calcium 10.1, Total Bilirubin 0.6, AST 12 L, ALT 6 L D, Alkaline Phosphatase 221 H, NT-Pro-B Natriuret Pep 392, Total Protein 7.9, Albumin 3.8, Globulin 4.1 H, Albumin/Globulin Ratio 0.9 L, Lipase 38 10/26/23 14:15: Procalcitonin 0.215 10/26/23 15:35: Urine Color Yellow, Urine Appearance Cloudy, Urine pH 6.0, Ur Specific [place] 1.025, Urine Protein 1+, Urine Glucose (UA) Negative, Urine Ketones Negative, Urine Blood 1+, Urine Nitrate Negative, Urine Bilirubin Negative, Urine Urobilinogen 0.2, Ur Leukocyte Esterase 2+ A, Urine RBC None, Urine WBC 20-50, Ur Squamous Epith Cells None, Urine Bacteria None 10/26/23 15:37: SARS-CoV-2 (PCR) Not detected, Influenza A Untype (PCR) Not detected, Influenza Type B (PCR) Not detected 10/27/23 06:40: WBC 23.5 H*, RBC 3.79 L, Hgb 11.1 L, Hct 36.0 L, MCV 94.9, MCH 29.2, MCHC 30.8 L, RDW 16.4, Plt Count 373, MPV 8.2, Neut % (Auto) 80.8 H, Lymph % (Auto) 9.2 L, [place] % (Auto) 4.4, Eos % (Auto) 4.5, Baso % (Auto) 1.1, Neut # (Auto) 19.0 H, Lymph # (Auto) 2.2, [place] # (Auto) 1.0, Eos # (Auto) 1.1 H, Baso # (Auto) 0.3 H, Total Counted 100, Neutrophils % (Manual) 81 H, Lymphocytes % (Manual) 14, Monocytes % (Manual) 2, Eosinophils % (Manual) 3, Platelet Estimate Normal, RBC Morphology Normal, Sodium 139, Potassium 4.7, Chloride 109 H, Carbon Dioxide 22, Anion Gap 12.7, BUN 40 H, Creatinine 1.20 H D, Estimated Creat Clear 43, Estimated GFR 43 L, Est GFR ( Amer) 53 L D, Glucose 77 D, Calcium 9.1, Magnesium 2.0, Total Bilirubin 0.6, AST 16 D, ALT 9 L D, Alkaline Phosphatase 170 H, Total Protein 7.5, Albumin 3.4 L D, Globulin 4.1 H, Albumin/Globulin Ratio 0.8 L I & O for Labs for Last 24 Hours: Intake & Output 10/24/23 10/25/23 10/26/23 10/27/23 23:59 23:59 23:59 23:59 Intake Total 1010 / 1010 480 / 480 Output Total 0 / 0 0 / 0 Balance 1010 / 1010 480 / 480 Weight 67.812 kg 70.488 kg Constitutional: Present no acute distress, average body habitus and chronically ill appearing Head: Present atraumatic ENT: Present normal exam Respiratory: Present crackles (Diffuse, nonfocal) and normal respiratory effort; Absent rhonchi or wheezes Cardiac: Present Reg Rate and Rhythm GI: Present soft and normal bowel sounds; Absent distention or tenderness Extremities: Present normal inspection and full ROM Skin: Present intact; Absent erythema Neuro: Present Resting Tremor, Grossly Intact, alert, awake, oriented x 3 and moves all extremities Assessment and Plan *Assessment and plan (1) SUGEY (acute kidney injury): Status: Acute Category: Medical Code(s): N17.9 - Acute kidney failure, unspecified (2) Urinary tract infection: Status: Acute Category: Medical Code(s): N39.0 - Urinary tract infection, site not specified (3) General weakness: Status: Acute Category: Medical Code(s): R53.1 - Weakness (4) Leukocytosis: Status: Acute Category: Medical Code(s): D72.829 - Elevated white blood cell count, unspecified (5) Pneumonia: Status: Acute Category: Medical Code(s): J18.9 - Pneumonia, unspecified organism (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: Status: Acute Category: Medical Code(s): G20.A1 - Parkinson's disease without dyskinesia, without mention of fluctuations; F02.80 - Dementia in other diseases classified elsewhere, unspecified severity, without behavioral disturbance, psychotic disturbance, mood disturbance, and anxiety (7) Chronic GERD: Status: Acute Category: Medical Code(s): K21.9 - Gastro-esophageal reflux disease without esophagitis (8) Parkinson disease: Status: Acute Qualifiers: Dyskinesia presence: unspecified whether dyskinesia Fluctuating manifestations: unspecified whether manifestations fluctuate Qualified Code(s): G20.A1 - Parkinson's disease without dyskinesia, without mention of fluctuations Category: Medical Code(s): G20 - Parkinson's disease (9) Hypothyroidism: Status: Acute Qualifiers: Hypothyroidism type: acquired Qualified Code(s): E03.9 - Hypothyroidism, unspecified Category: Medical Code(s): E03.9 - Hypothyroidism, unspecified (10) ILD (interstitial lung disease): Status: Chronic Category: Medical Code(s): J84.9 - Interstitial pulmonary disease, unspecified Plan 78-year-old female with multiple comorbidities. Presented to the ER because she just was not feeling better after initiating treatment for pneumonia. Found to have SUGEY, concern for UTI, worsening leukocytosis. Discussed case with ER physician, request admission for IV antibiotics, further workup and monitoring. Medicine agreed to admit. Patient on room air. at bedside. Updated of plan. Awaiting therapy eval's. Would like to see continued improvement in white count before discharging home. Continues to require inpatient management. Problems addressed as follows: Atypical pneumonia Leukocytosis UTI -Lung exam stable with diffuse crackles. Baseline oxygen requirement of 2 L. Goal sats greater 90% -Discussed case with pulmonology this morning, given her clinical stability, will hold on CT of chest. White cell count improving at 23.5. Continue IV antibiotics. - DuoNebs every 6 hours scheduled - Continue Advair 500/50 twice daily -Peripheral smear pending -CBC, CMP, magnesium ordered for the morning. SUGEY on CKD: Baseline creatinine 1.1-1.3, 1.2 on morning labs with BUN of 40. Showing improvement with hydration. GERD/dysphagia -Reviewed outpatient notes from Dr. Gomez, patient has hiatal hernia and some mild irritation of esophagus. Continue treatment with PPI. -Advance diet this morning at patient's request. No nausea or vomiting. Tolerating well - plan to discharge on PPI Neuropathy: Continue gabapentin 600 mg at night and 300 mg morning at lunch Anxiety: Continue Ativan 0.5 mg 3 times a day as needed; continue Cymbalta 20 mg twice daily for mood Parkinson's: Continue carbidopa/levodopa 50/200 mg tablet 0.5 tablet 5 times a day; continue amantadine 100 mg twice daily Hypothyroid: Continue levothyroxine 25 mcg daily Restless leg: Continue ropinirole 4 mg twice daily PT and OT consulted to assist with care, given patient's weakness and debility, will evaluate for placement versus home health with PT versus home with no therapy Full code Heparin subcu 3 times daily Full liquid diet
[2023-10-27] MEDS: CEFEPIME HCL 1 GM in 0.9 % SODIUM CHLORIDE 50 ML IV (16:15)
--- NOTE | 2023-10-27 16:33 | PC.NURSE ---
Patient has tolerated sitting up in chair for several hours today. Eating and drinking fair, however the pt states while swallowing it feels that it gets stuck in her chest. Lung sounds diminished with bilateral crackles. Abdomen soft and non-tender with active bowel sounds. Ambulates to the bathroom with walker. V/S stable. O2 saturation 95-99 on room air. Will continue to monitor.
[2023-10-27] MEDS: AZITHROMYCIN 500 MG in 0.9 % SODIUM CHLORIDE 250 ML 250 MG IV (17:06)
[2023-10-27] MEDS: FLUTICASONE/SALMETEROL 500/50MCG DISKUS 1 PUFF IH (18:53)
[2023-10-27] MEDS: ROPINIROLE 4 MG 1 EACH PO (20:23)
[2023-10-27] MEDS: OXYBUTYNIN 5MG TAB 5 MG PO (20:25)
[2023-10-27] MEDS: PANTOPRAZOLE 40MG VIAL 40 MG IV ×2 (20:25)
[2023-10-27] MEDS: GABAPENTIN 600MG TABLET 600 MG PO (20:25)
[2023-10-27] MEDS: SODIUM CHLORIDE 0.9% 10ML VIAL 10 ML IV ×2 (20:27)
[2023-10-27] MEDS: LORazepam 0.5MG TABLET 0.5 MG PO (20:36)
[2023-10-28 00:06] VITALS: PULSE 79; O2SAT 96
[2023-10-28] MEDS: IPRATROPIUM/ALBUTEROL 3 ML NEB IH ×3 (00:06→11:40)
--- NOTE | 2023-10-28 00:26 | PC.NURSE ---
Pt having moments of confusion. Reoriented pt, pt made comfortable and repositioned safety bed alarm set, call light within reach.
--- NOTE | 2023-10-28 03:48 | PC.NURSE ---
Pt is alert to self and situation at this time. Pt tolerated RA well and applied O2 at HS, and has been tolerating 2L well since. Pt lungs remain diminished and fine crackles can still be heard at the bases. Pt has attempted to get out of bed several times this shift without assistance and the alarm has sounded. Attempts to reorient pt are successful for a short time. Pt denies pain and needs when asked.
[2023-10-28 04:00] VITALS: BP 102/58; PULSE 75; RESP 16; TEMP 36.6; O2SAT 91; BMI 28.5
[2023-10-28] MEDS: CEFEPIME HCL 1 GM in 0.9 % SODIUM CHLORIDE 50 ML IV (04:04)
[2023-10-28] MEDS: LEVODOPA PO ×2 (04:04→08:46)
[2023-10-28] MEDS: CARBIDOPA PO ×2 (04:04→08:46)
[2023-10-28] MEDS: LORazepam 0.5MG TABLET 0.5 MG PO (05:31)
[2023-10-28] MEDS: LEVOTHYROXINE 25 MCG 1 EACH PO (06:07)
[2023-10-28] MEDS: AMANTADINE 100 MG 1 EACH PO (06:07)
[2023-10-28] MEDS: ROPINIROLE 4 MG 1 EACH PO (06:07)
[2023-10-28] MEDS: FLUTICASONE/SALMETEROL 500/50MCG DISKUS 1 PUFF IH (06:30)
[2023-10-28 06:54] VITALS: PULSE 63; O2SAT 93
[2023-10-28 07:01] LABS: Basophils # 0.2 K/mm3 (0-0.2); Basophils % 1.1 % (0.1-2.0); Eosinophils # 0.9 K/mm3 (0.0-0.4); Eosinophils % 4.3 % (0.1-12.0); Hematocrit 34.4 % (37.0-47.0); Hemoglobin 10.8 g/dL (12.2-16.2); Lymphocytes # 2.2 K/mm3 (0.7-4.5); Lymphocytes % 10.7 % (10-50); Mean Corpuscular HGB Conc 31.4 g/dL (31.8-35.4); Mean Corpuscular Hemoglobin 28.9 pg (27.0-31.2); Mean Corpuscular Volume 92.2 fl (81-99); Monocytes # 0.9 K/mm3 (0.1-1.0); Monocytes % 4.2 % (1.7-9.3); Neutrophils # 16.3 K/mm3 (1.8-7.8); Neutrophils % 79.8 % (37.0-80.0); Platelet Count 462 K/mm3 (142-424); Red Blood Count 3.73 M/mm3 (4.20-5.40); Red Cell Distribution Width 16.4 % (11.5-17.5); White Blood Count 20.4 K/mm3 (4.8-10.8)
[2023-10-28 07:14] LABS: Albumin Level 3.4 g/dl (3.5-5.0); Albumin/Globulin Ratio 0.9 (1.1-1.8); Alkaline Phosphatase 168 U/L (38-126); Bilirubin,Total 0.4 mg/dl (0.2-1.3); Chloride 108 mmol/L (98-107); Magnesium 2.2 mg/dl (1.6-2.3); Potassium 4.9 mmoL/L (3.5-5.1); Sodium 137 mmol/L (136-145); Total Protein,Serum 7.4 g/dl (6.3-8.2)
--- NOTE | 2023-10-28 07:17 | P.DS_ITS ---
General Admission date:: 10/26/23 Discharge date: 10/28/23 HPI HPI HPI: Ms. Mathis is a 78-year-old female with history of Parkinson's disease, hypothyroidism, interstitial lung disease, GERD, aortic insufficiency, CHF, and recent diagnosis of pneumonia presenting to the emergency department for evaluation with concern she is no better since being evaluated here two days ago. States she has been taking her antibiotics that she was sent home with 2 days ago. Has had persistent cough. thinks its gotten worse, patient says that she feels little bit better. Patient is also had some nausea, sensation of food getting stuck. No tamara emesis however. Does have abdominal pain after she eats. Decreased p.o. intake. Had her esophagus stretched a few months ago by GI. is concerned that she is very sick and needs thorough going over . Patient denies significant shortness of breath, hemoptysis, fever or chills, significant chest pain. States she just has not felt good and feels quite weak. Workup in the ER concerning for SUGEY. X-ray stable from 2 days ago with parabronchial thickening. White cell count more elevated at 27,000. Medicine consulted for admission and further management. On evaluation, patient is on room air and comfortable in bed. Has a cough during interview that is rhonchorous and sounds mildly productive. Provides good history though her thinks she is leaving things out and not being as honest as she needs to be. 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 Complains of decreased p.o. intake, also mentions that she had her esophagus stretched a few months ago. Patient's been eating less because sometimes it hurts. Able to tolerate liquids without difficulty. Has been taking diclofenac for arthritis. Hospital Course Hospital Course Hospital Course: 78-year-old female with multiple comorbidities. Presented to the ER because she just was not feeling better after initiating treatment for pneumonia. Found to have SUGEY, concern for UTI, worsening leukocytosis. Discussed case with ER physician, request admission for IV antibiotics, further workup and monitoring. Medicine agreed to admit. Patient on room air. at bedside. Updated of plan. Awaiting therapy eval's. Would like to see continued improvement in white count before discharging home. Continues to require inpatient management. Problems addressed as follows: Atypical pneumonia Leukocytosis UTI -Lung exam stable with diffuse crackles. Baseline oxygen requirement of 2 L. Goal sats greater 90%. Pulmonology was consulted, discussed case with them during admission. Given her stability on exam, will hold on CAT scan at this time. White cell count improving with antibiotics. Transition to oral antibiotics at discharge. Continue DuoNebs at home. Continue Advair twice daily at home. Peripheral smear pending to evaluate for leukocytosis as it appears to have been persistent over the past 1 to 2 years. Concern for infections/inflammation/blood dyscrasia. On room air necessitating only nighttime oxygen on day of discharge. Follow-up with pulmonology as an outpatient. Extensive discussion about patient's cough and Parkinson's and persistence of her symptoms with her underlying interstitial lung disease. Of note, urine culture growing gram-negative rods/E. coli from culture obtained 316. Discharged on antibiotics based on sensitivity (cefdinir) along with azithromycin for both respiratory and urinary coverage. SUGEY on CKD: Baseline creatinine 1.1-1.3, 1.3 on morning of discharge. At baseline after hydration. GERD/dysphagia -Reviewed outpatient notes from Dr. Gomez, patient has hiatal hernia and some mild irritation of esophagus. Continue treatment with PPI. Tolerated advancement in diet. Did not eat all of her meals however most of the time it was because she did not like the food. No nausea or vomiting. Continue PPI at discharge. Follow-up with GI as scheduled Neuropathy: Continue gabapentin 600 mg at night and 300 mg morning at lunch Anxiety: Continue Ativan 0.5 mg 3 times a day as needed; continue Cymbalta 20 mg twice daily for mood Parkinson's: Continue carbidopa/levodopa 50/200 mg tablet 0.5 tablet 5 times a day; continue amantadine 100 mg twice daily Hypothyroid: Continue levothyroxine 25 mcg daily Restless leg: Continue ropinirole 4 mg twice daily PT and OT consulted to assist with care, given patient's weakness and debility, Therapy evaluated for safe dispo home, recommended home with home health. Referral placed at discharge. Total time spent on discharge 36 minutes in counseling, documentation, chart review, and direct care with patient. Exam Data for Last 24 hours Vital signs and Labs for Last 24 Hours: Temp Pulse Resp BP Pulse Ox O2 Del Method O2 Flow Rate 98 F 63 16 102/58 L 93 L Room Air 2 10/28/23 04:00 10/28/23 06:54 10/28/23 04:00 10/28/23 04:00 10/28/23 06:54 10/28/23 06:54 10/28/23 04:32 Laboratory Results - last 24 hr 10/27/23 06:40: WBC 23.5 H*, RBC 3.79 L, Hgb 11.1 L, Hct 36.0 L, MCV 94.9, MCH 29.2, MCHC 30.8 L, RDW 16.4, Plt Count 373, MPV 8.2, Neut % (Auto) 80.8 H, Lymph % (Auto) 9.2 L, [place] % (Auto) 4.4, Eos % (Auto) 4.5, Baso % (Auto) 1.1, Neut # (Auto) 19.0 H, Lymph # (Auto) 2.2, [place] # (Auto) 1.0, Eos # (Auto) 1.1 H, Baso # (Auto) 0.3 H, Total Counted 100, Neutrophils % (Manual) 81 H, Lymphocytes % (Manual) 14, Monocytes % (Manual) 2, Eosinophils % (Manual) 3, Platelet Estimate Normal, RBC Morphology Normal, Sodium 139, Potassium 4.7, Chloride 109 H, Carbon Dioxide 22, Anion Gap 12.7, BUN 40 H, Creatinine 1.20 H D, Estimated Creat Clear 43, Estimated GFR 43 L, Est GFR ( Amer) 53 L D, Glucose 77 D, Calcium 9.1, Magnesium 2.0, Total Bilirubin 0.6, AST 16 D, ALT 9 L D, Alkaline Phosphatase 170 H, Total Protein 7.5, Albumin 3.4 L D, Globulin 4.1 H, Albumin/Globulin Ratio 0.8 L I & O for Last 24 hours: Intake & Output 10/25/23 10/26/23 10/27/23 10/28/23 23:59 23:59 23:59 23:59 Intake Total 1010 / 1010 1010 / 1370 360 / 360 Output Total 0 / 0 0 / 0 Balance 1010 / 1010 1010 / 1370 360 / 360 Weight 67.812 kg 70.488 kg 70.488 kg Constitutional Constitutional: no acute distress, average body habitus, chronically ill appearing and cooperative *Routine HEENT Exam Head: Present normocephalic Eye: Present EOMI and PERRL ENT: Present mucous membranes moist Comments: false teeth in place *Routine Neck Exam Neck: Present supple; Absent lymphadenopathy *Routine Respiratory Exam Respiratory: Present crackles and normal respiratory effort; Absent rhonchi or wheezes *Routine Cardiovascular Exam Cardiovascular: Present RRR *Routine Abdominal Exam Abdominal: Present soft and normoactive bowel sounds; Absent tenderness *Routine Rectal Exam Patient deferred: visual exam *Routine Exam Patient deferred: external exam *Routine Extremities Exam Extremities: Absent cyanosis, clubbing or edema *Routine Skin Exam Skin: Present intact and warm; Absent rash *Routine Neurological Exam Neurological: Present alert, oriented X3, moving all extremities and tremors; Absent altered mental status Comments: writhing and wiggling in bedside chair, prominent Parkinson's Sx present on exam today Routine Psychiatric Exam Psychiatric: Present normal affect Results Data Completed and Pending Labs on day of discharge: Labs from last 24 hours 10/27/23 06:40 WBC 23.5 H* RBC 3.79 L Hgb 11.1 L Hct 36.0 L MCV 94.9 MCH 29.2 MCHC 30.8 L RDW 16.4 Plt Count 373 MPV 8.2 Neut % (Auto) 80.8 H Lymph % (Auto) 9.2 L [place] % (Auto) 4.4 Eos % (Auto) 4.5 Baso % (Auto) 1.1 Neut # (Auto) 19.0 H Lymph # (Auto) 2.2 [place] # (Auto) 1.0 Eos # (Auto) 1.1 H Baso # (Auto) 0.3 H Total Counted 100 Neutrophils % (Manual) 81 H Lymphocytes % (Manual) 14 Monocytes % (Manual) 2 Eosinophils % (Manual) 3 Platelet Estimate Normal RBC Morphology Normal Sodium 139 Potassium 4.7 Chloride 109 H Carbon Dioxide 22 Anion Gap 12.7 BUN 40 H Creatinine 1.20 H D Estimated Creat Clear 43 Estimated GFR 43 L Est GFR ( Amer) 53 L D Glucose 77 D Calcium 9.1 Magnesium 2.0 Total Bilirubin 0.6 AST 16 D ALT 9 L D Alkaline Phosphatase 170 H Total Protein 7.5 Albumin 3.4 L D Globulin 4.1 H Albumin/Globulin Ratio 0.8 L DS: Diagnosis Discharge Diagnosis (1) SUGEY (acute kidney injury): Status: Acute Code(s): N17.9 - Acute kidney failure, unspecified (2) Urinary tract infection: Status: Acute Code(s): N39.0 - Urinary tract infection, site not specified (3) General weakness: Status: Acute Code(s): R53.1 - Weakness (4) Leukocytosis: Status: Acute Code(s): D72.829 - Elevated white blood cell count, unspecified (5) Pneumonia: Status: Acute Code(s): J18.9 - Pneumonia, unspecified organism (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: Status: Acute Code(s): G20.A1 - Parkinson's disease without dyskinesia, without mention of fluctuations; F02.80 - Dementia in other diseases classified elsewhere, unspecified severity, without behavioral disturbance, psychotic disturbance, mood disturbance, and anxiety (7) Chronic GERD: Status: Acute Code(s): K21.9 - Gastro-esophageal reflux disease without esophagitis (8) Parkinson disease: Status: Acute Code(s): G20 - Parkinson's disease Qualifiers: Dyskinesia presence: unspecified whether dyskinesia Fluctuating manifestations: unspecified whether manifestations fluctuate Qualified Code(s): G20.A1 - Parkinson's disease without dyskinesia, without mention of fluctuations (9) Hypothyroidism: Status: Acute Code(s): E03.9 - Hypothyroidism, unspecified Qualifiers: Hypothyroidism type: acquired Qualified Code(s): E03.9 - Hypothyroidism, unspecified (10) ILD (interstitial lung disease): Status: Chronic Code(s): J84.9 - Interstitial pulmonary disease, unspecified Meds Home Medications and Allergies Home Medications Medication Instructions Recorded Confirmed Type amantadine HCl 100 mg tablet 100 mg PO 0700,1100 09/16/20 10/27/23 History duloxetine 20 mg capsule,delayed 20 mg PO BID 09/16/20 10/26/23 History release methenamine hippurate 1 gram tablet 1 gm PO BID 12/18/21 10/26/23 History ropinirole 4 mg tablet 4 mg PO BID 06/26/22 10/27/23 History azelastine 137 mcg (0.1 %) nasal 2 spray intranasal HS 07/10/23 10/26/23 History spray aerosol cholecalciferol (vitamin D3) 25 25 mcg PO DAILY Supplement 07/10/23 10/26/23 History mcg (1,000 unit) capsule (Vitamin D3) levothyroxine 25 mcg tablet 25 mcg PO DAILY 07/10/23 10/26/23 History carbidopa ER 50 mg-levodopa 200 mg 0.5 - 1 tab PO 5XDAY 07/12/23 10/27/23 History tablet,extended release gabapentin 300 mg capsule 300 mg PO 0900,1300 Pain 30 days 07/14/23 10/27/23 Rx #60 caps gabapentin 300 mg capsule 600 mg (2 x 300 mg) PO HS Pain 30 07/14/23 10/27/23 Rx days #60 caps lorazepam 0.5 mg tablet 0.5 mg PO TID PRN Anxiety 3 days 07/14/23 10/26/23 Rx #9 tabs albuterol sulfate 90 mcg/actuation 2 inh inhalation QID PRN shortness 10/20/23 10/26/23 Rx aerosol inhaler of breath or wheezing 90 days #8.5 grams fluticasone 500 mcg-salmeterol 50 1 inh inhalation BID #180 ea 10/20/23 10/26/23 Rx mcg/dose blistr powdr for inhalation (Advair Diskus) oxybutynin chloride 10 mg 10 mg PO DAILY 10/27/23 10/27/23 History tablet,extended release 24 hr spironolactone 50 mg tablet 100 mg PO DAILY 10/27/23 10/27/23 History azithromycin 500 mg tablet 500 mg PO DAILY 1 day #1 tab 10/28/23 Rx cefdinir 300 mg capsule 300 mg PO BID 4 days #8 caps 10/28/23 Rx pantoprazole 40 mg tablet,delayed 40 mg PO HS 30 days #30 tabs 10/28/23 Rx release New Prescriptions to Start Prescriptions: Matheus Monroy cefdinir Matheus Alonzo pantoprazole Matheus Alonzo Allergies Allergy/AdvReac Type Severity Reaction Status Date / Time No Known Allergies Allergy Verified 10/20/23 13:00 Discharge Plan Disposition Patient Disposition: Home Health Service Condition: Fair Discharge Order Discharge Orders: Discharge Order (Routine); Ordered 10/28/23 Ordered By: Matheus Alonzo Follow up Plan Follow up with: Hossein Grimaldo MD [Primary Care Provider] - 11/04/23 10:00 am Nikole Fernandez MD [Physician] - 11/10/23 1:00 pm Prescriptions/Medication Reconciliation: New pantoprazole 40 mg Tablet,Delayed Release (Dr/Ec) 40 mg PO HS 30 Days Qty: 30 0RF azithromycin 500 mg tablet 500 mg PO DAILY 1 Days Qty: 1 0RF cefdinir 300 mg capsule 300 mg PO BID 4 Days Qty: 8 0RF Continued ropinirole 4 mg tablet 4 mg PO BID Patient Comments: Pt's states pt takes med BID, not QID fluticasone propion-salmeterol [Advair Diskus] 500-50 mcg/dose blister with device 1 inh inhalation BID Qty: 180 2RF albuterol sulfate 90 mcg/actuation HFA aerosol inhaler 2 inh inhalation QID PRN (Reason: shortness of breath or wheezing) 90 Days Qty: 8.5 2RF cholecalciferol (vitamin D3) [Vitamin D3] 25 mcg (1,000 unit) Capsule 25 mcg PO DAILY levothyroxine 25 mcg tablet 25 mcg PO DAILY Patient Comments: TAKE 1 TABLET BY MOUTH ONCE DAILY azelastine 137 mcg (0.1 %) aerosol,spray 2 spray intranasal HS Rx Instructions: administer into each nostril carbidopa-levodopa 50-200 mg tablet extended release 0.5 - 1 tab PO 5XDAY lorazepam 0.5 mg tablet 0.5 mg PO TID PRN (Reason: Anxiety) 3 Days Qty: 9 0RF gabapentin 300 MG capsule 300 mg PO 0900,1300 30 Days Qty: 60 0RF gabapentin 300 mg capsule 600 mg PO HS 30 Days Qty: 60 0RF oxybutynin chloride 10 mg tablet extended release 24hr 10 mg PO DAILY Patient Comments: TAKE 1 TABLET BY MOUTH ONCE DAILY spironolactone 50 mg tablet 100 mg PO DAILY Patient Comments: TAKE 2 TABLETS BY MOUTH ONCE DAILY amantadine HCl 100 MG tablet 100 mg PO 0700,1100 duloxetine 20 MG capsule,delayed release(DR/EC) 20 mg PO BID methenamine hippurate 1 GM tablet 1 gm PO BID Discontinued diclofenac sodium 75 mg tablet,delayed release (DR/EC) 75 mg PO BID doxycycline monohydrate 100 mg capsule 100 mg PO BID 14 Days Qty: 28 0RF amoxicillin-pot clavulanate 875-125 mg tablet 1 tab PO BID 14 Days Qty: 20 0RF Problem Reconciliation Problems Reviewed?: Yes Patient Discharge Instructions ACTIVITY: Continue current activity and Ambulate as tolerated DIET: continue same diet Patient Instructions: Dehydration, DI for Dehydration -- Adult, DI for Pneumonia -- Adult, Acute Kidney Injury, DI for Urinary Tract Infection (UTI), DI for Leukocytosis, DI for Acute Kidney Injury Providers Primary Care Provider: Hossein Grimaldo Admit Provider: Matheus Alonzo Attending Provider: Matheus Alonzo
[2023-10-28 07:18] LABS: MANUAL DIFFERENTIAL MANUAL DIFFERENTIAL (MANUAL DIFF)
[2023-10-28 08:00] VITALS: BP 94/59; PULSE 69; RESP 16; TEMP 36.4; O2SAT 90
[2023-10-28 08:18] LABS: Anion Gap 8.9 mEq/L (5-15); Blood Urea Nitrogen 34 mg/dl (7-17); Calcium 9.2 mg/dl (8.4-10.2); Carbon Dioxide 25 mmol/L (22.0-30.0); Creatinine Clearance Estimated 40 mL/min (50-200); Estimated Glomerular Filt Rate 40 ml/min (>60); GFR (African American) 48 ML/MIN (>60); Glucose 85 mg/dl (74-100)
[2023-10-28] MEDS: ENOXAPARIN 30MG/0.3ML SYRINGE 30 MG SQ (08:46)
[2023-10-28] MEDS: OXYBUTYNIN 5MG TAB 5 MG PO (08:46)
[2023-10-28] MEDS: DULOXETINE 20 MG 1 EACH PO (08:46)
[2023-10-28] MEDS: GABAPENTIN 300MG CAPSULE 300 MG PO (08:46)
[2023-10-28 08:57] LABS: Alanine Aminotransferase 5 U/L (12-78); Aspartate Amino Transferase 16 U/L (14-36)
[2023-10-28 09:56] LABS: Eosinophils % 9 % (0-3); Lymphocytes % 9 % (10-50); Monocytes % 10 % (2-9); Neutrophils % 66 % (42-76); Total Cells Counted 100
[2023-10-28 09:57] LABS: Anisocytosis 1+; Platelet Estimate Moderate Increase; Poikilocytosis 1+
[2023-10-28 10:00] LABS: Polychromasia 1+
[2023-10-28 11:40] VITALS: PULSE 80; PULSE 82
[2023-10-28 19:22] LABS: Peripheral Smear Review Scanned Result
--- NOTE | 2023-11-02 15:32 | CARE MANAGER ---
Attempted to contact patient x2 related to hospital discharge. Left VM message. JACK Riddle
== END 2023-10-28 12:19 | disposition home health service (06) ==
LOC: ER 14:45 → 2ND 15:30
PROVIDERS: Admitting Provider Internal Medicine Adolescent Medicine; Emergency Provider Emergency Medicine; PCP Internal Medicine; Visit Provider Internal Medicine Adolescent Medicine
DX: N17.9 Acute kidney failure, unspecified (principal); N39.0 Urinary tract infection, site not specified; R53.1 Weakness; D72.829 Elevated white blood cell count, unspecified; J18.9 Pneumonia, unspecified organism; G20.A1 Parkinson's disease without dyskinesia, without mention of fluctuations; F02.80 Dementia in other diseases classified elsewhere, unspecified severity, without behavioral disturbance, psychotic disturbance, mood disturbance, and anxiety; K21.9 Gastro-esophageal reflux disease without esophagitis; E03.9 Hypothyroidism, unspecified; J84.9 Interstitial pulmonary disease, unspecified; Z86.16 Personal history of COVID-19; Z79.899 Other long term (current) drug therapy; N18.9 Chronic kidney disease, unspecified; R06.09 Other forms of dyspnea
CPT/HCPCS: 36415; 71046; 80053; 81001; 83690; 83735; 83880; 84145; 85007; 85025; 87040; 87070; 87081; 87086; 87205; 87636; 93005; 94640; 97110; 97116; 97165; 97530; 99285; G0378; J0456; J0692; J2405

== ENCOUNTER 2023-12-01 14:00 | Outpatient (CLI) | payer MEDICARE, SELFPAY ==
[2023-12-01 14:48] LABS: Hematocrit 34.8 % (37.0-47.0); Hemoglobin 10.5 g/dL (12.2-16.2); Mean Corpuscular HGB Conc 30.3 g/dL (31.8-35.4); Mean Corpuscular Hemoglobin 28.2 pg (27.0-31.2); Mean Corpuscular Volume 92.9 fl (81-99); Platelet Count 537 K/mm3 (142-424); Red Blood Count 3.74 M/mm3 (4.20-5.40); Red Cell Distribution Width 16.7 % (11.5-17.5); White Blood Count 18.1 K/mm3 (4.8-10.8)
[2023-12-01 14:52] LABS: MANUAL DIFFERENTIAL MANUAL DIFFERENTIAL (MANUAL DIFF)
[2023-12-01 15:08] LABS: Albumin Level 4.5 g/dl (3.5-5.0); Anion Gap 14.1 mEq/L (5-15); Blood Urea Nitrogen 33 mg/dl (7-17); Calcium 10.1 mg/dl (8.4-10.2); Carbon Dioxide 26 mmol/L (22.0-30.0); Chloride 104 mmol/L (98-107); Estimated Glomerular Filt Rate 54 ml/min (>60); GFR (African American) 65 ML/MIN (>60); Glucose 73 mg/dl (74-100); Phosphorous 3.9 mg/dl (2.5-4.5); Potassium 4.1 mmoL/L (3.5-5.1); Sodium 140 mmol/L (136-145)
[2023-12-01 15:16] LABS: Intact Parathyroid Hormone < 3.4 pg/mL (7.5-53.5)
[2023-12-01 15:20] LABS: 25-OH Vitamin D, Total 50.7 ng/mL (30-100)
[2023-12-01 15:47] LABS: Hypochromasia 2+; Lymphocytes % 13 % (10-50); Neutrophils % 87 % (42-76); Platelet Estimate Moderate Increase; Total Cells Counted 100
[2023-12-01 16:51] LABS: Microscopic, Urine URINE MICROSCOPIC (MICROSCOPIC)
[2023-12-01 19:08] LABS: Appearance,Urine CLEAR (Clear); Bilirubin,Urine Negative (Negative); Blood, Urine 1+ (Negative); Color,Urine YELLOW (Yellow); Glucose,Urine (UA) Negative (Negative); Ketones,Urine Negative (Negative); Leukocyte Esterase,Urine 1+ (Negative); Nitrate,Urine Negative (Negative); Protein,Urine Negative (Negative); Specific Gravity, Urine >= 1.030 (1.005-1.030); Urobilinogen,Urine 0.2 EU/dl (0.2)
[2023-12-01 19:54] LABS: Bacteria,Urine Trace /lpf
[2023-12-01 20:05] LABS: Creatinine,Urine Random 109 mg/dL (Not Estab.)
== END 2023-12-01 23:59 | disposition home or self-care (01) ==
LOC: LAB.DROPOF 14:01
PROVIDERS: PCP Internal Medicine; Visit Provider Internal Medicine Nephrology
DX: N18.31 Chronic kidney disease, stage 3a (principal); B96.89 Other specified bacterial agents as the cause of diseases classified elsewhere; R82.90 Unspecified abnormal findings in urine
CPT/HCPCS: 80069; 81001; 82306; 82570; 83970; 84156; 85007; 85014; 85018; 85048; 85049; 87086

== ENCOUNTER 2023-12-17 12:38 | Outpatient (CLI) | payer MEDICARE, SELFPAY ==
[2023-12-17 14:20] VITALS: PULSE 57
[2023-12-17] MEDS: ALBUTEROL 0.083% 2.5 MG/3 ML NEB IH (14:20)
--- NOTE | 2023-12-17 14:40 | CT_ITS ---
FINAL REPORT CLINICAL HISTORY: .high res x 3 COMPARISON: 07/10/2023 FINDINGS: CT CHEST HIGH RESOLUTION 1.[address] axial slices were performed through the chest at 10 mm intervals utilizing high-resolution protocol. Supine inspiration and expiration and prone inspiration high-resolution CT images were obtained.Coronal reformatted images were submitted. This study was performed with techniques to keep radiation doses as low as reasonably achievable (ALARA). Individualized dose reduction techniques using automated exposure control or adjustment of mA and/or kV according to the patient's size were employed. There is no axillary adenopathy. There is no hilar or mediastinal mass or adenopathy. Heart size is enlarged. There is no pericardial or pleural effusion. There is mild, predominantly peripheral, interstitial fibrosis. Mild diffuse groundglass opacities may represent alveolitis or edema. There are several small areas of air trapping, predominantly in the upper lobes, on the expiration imaging. There is no evidence of bronchiectasis or emphysema. Limited images of the upper abdomen are unremarkable. IMPRESSION: Mild, predominantly peripheral, interstitial fibrosis. Mild groundglass opacities may represent alveolitis or edema. Reviewed, Interpreted and Dictated by Mauro Carballo III, MD Transcribed by Shanda Ibanez Authenticated and [facility]
== END 2023-12-17 23:59 | disposition home or self-care (01) ==
LOC: RT 12:41
PROVIDERS: PCP Internal Medicine; Visit Provider Internal Medicine Pulmonary Disease
DX: R06.09 Other forms of dyspnea (principal); J84.9 Interstitial pulmonary disease, unspecified
CPT/HCPCS: 71250; 94060; 94618; 94640; 94726; 94729

== ENCOUNTER 2023-12-23 15:26 | Outpatient (CLI) | payer MEDICARE, SELFPAY ==
--- NOTE | 2023-12-23 15:40 | XR_ITS ---
FINAL REPORT CLINICAL HISTORY: FALL--HIP PAIN FINDINGS: Right hip Three views were obtained. There is no acute fracture or dislocation. Mild degenerative changes are present. No soft tissue abnormality is identified. IMPRESSION: No acute process. If symptoms are severe or persists, CT may be helpful. Reviewed, Interpreted and Dictated by Mauro Carballo III, MD Transcribed by Marbella Ray Authenticated and [facility]
== END 2023-12-23 23:59 | disposition home or self-care (01) ==
LOC: RAD 15:28
PROVIDERS: PCP Internal Medicine; Visit Provider Internal Medicine
DX: M25.551 Pain in right hip (principal); W19.XXXA Unspecified fall, initial encounter
CPT/HCPCS: 73502

== ENCOUNTER 2024-01-27 12:14 | Emergency (ER) | payer MEDICARE, SELFPAY ==
[2024-01-27 12:15] VITALS: BP 118/52; PULSE 61; RESP 18; TEMP 36.9; O2SAT 96; BMI 27.4
--- NOTE | 2024-01-27 12:30 | XR_ITS ---
FINAL REPORT CLINICAL HISTORY: Nonspecific cough COMPARISON: 10/26/2023 FINDINGS: Diffuse interstitial prominence having a chronic appearance. No acute pulmonary density is evident. There is no evidence of effusion or other pleural disease. The mediastinum has a normal appearance. The cardiac silhouette is unremarkable. IMPRESSION: Chronic findings without acute process. Reviewed, Interpreted and Dictated by Napoleon Higginbotham MD Transcribed by Corrina Rios Authenticated and . [facility]
--- NOTE | 2024-01-27 12:31 | HMH.EDGENADL ---
Discharge Plan Disposition Patient Disposition: Home, Self-Care Prescriptions Prescriptions: New prednisone 50 mg tablet 50 mg PO DAILY 5 Days Qty: 5 0RF azithromycin 500 mg tablet See Rx Instructions .ROUTE .COMPLEX Qty: 3 0RF Rx Instructions: For 250 mg dose pack: take 500 mg today (day 1), then 250 mg for 4 days (days 2-5) No Action ropinirole 4 mg tablet 4 mg PO BID Patient Comments: Pt's states pt takes med BID, not QID mycophenolate mofetil 250 mg capsule 250 mg PO BID Qty: 120 2RF formoterol fumarate [Perforomist] 20 mcg/2 mL solution for nebulization 2 ml inhalation BID 90 Days Qty: 180 3RF budesonide 0.25 mg/2 mL suspension for nebulization 0.25 mg inhalation BID 90 Days Qty: 360 3RF albuterol sulfate 90 mcg/actuation HFA aerosol inhaler 2 inh inhalation QID PRN (Reason: shortness of breath or wheezing) 90 Days Qty: 8.5 2RF cholecalciferol (vitamin D3) [Vitamin D3] 25 mcg (1,000 unit) Capsule 25 mcg PO DAILY levothyroxine 25 mcg tablet 25 mcg PO DAILY Patient Comments: TAKE 1 TABLET BY MOUTH ONCE DAILY azelastine 137 mcg (0.1 %) aerosol,spray 2 spray intranasal HS Rx Instructions: administer into each nostril carbidopa-levodopa 50-200 mg tablet extended release 0.5 - 1 tab PO 5XDAY lorazepam 0.5 mg tablet 0.5 mg PO TID PRN (Reason: Anxiety) 3 Days Qty: 9 0RF gabapentin 300 MG capsule 300 mg PO 0900,1300 30 Days Qty: 60 0RF gabapentin 300 mg capsule 600 mg PO HS 30 Days Qty: 60 0RF oxybutynin chloride 10 mg tablet extended release 24hr 10 mg PO DAILY Patient Comments: TAKE 1 TABLET BY MOUTH ONCE DAILY spironolactone 50 mg tablet 100 mg PO DAILY Patient Comments: TAKE 2 TABLETS BY MOUTH ONCE DAILY pantoprazole 40 mg Tablet,Delayed Release (Dr/Ec) 40 mg PO HS 30 Days Qty: 30 0RF amantadine HCl 100 MG tablet 100 mg PO 0700,1100 duloxetine 20 MG capsule,delayed release(DR/EC) 20 mg PO BID methenamine hippurate 1 GM tablet 1 gm PO BID Referrals Follow up/Referrals: Hossein Grimaldo MD [Primary Care Provider] - See instructions Activity Restrictions/Add. Instructions Additional Instructions/Restrictions: At this time it was felt you are safe to be discharged home. If new or worsening symptoms please do not hesitate to return the emergency department. Please take your medications as prescribed and call and schedule an appointment to follow-up with Dr. Fernandez. Clinical Impressions Clinical Impression: Lower respiratory infection Discharge ED Provider: Bryan Avery General Adult HPI General Chief complaint: Upper Respiratory Infection Stated complaint: cough, congestion Time Seen by Provider: 01/27/24 12:15 Mode of Arrival: Wheelchair Source of Information: Patient Limitations: No Limitations Description of Symptoms (Recalled from ER Triage Doc. by RN): Patient states she has had cough and congestion since Thursday. History of Present Illness HPI narrative: Patient is a 78-year-old female with past medical history of restrictive lung disease, Parkinson's, pulmonary fibrosis who presents to the emergency department for evaluation of cough. Onset was acute, over the last 5 days. Persistent. She called Dr. Fernandez who recommended she come here for evaluation. No chest pain. No shortness of breath she is mainly just complaining about the cough. She is not on home oxygen at baseline. No other acute complaints at this time. Related Data Home Medications Medication Instructions Recorded Confirmed amantadine HCl 100 mg tablet 100 mg PO 0700,1100 09/16/20 12/17/23 duloxetine 20 mg capsule,delayed 20 mg PO BID 09/16/20 12/17/23 release methenamine hippurate 1 gram tablet 1 gm PO BID 12/18/21 12/17/23 ropinirole 4 mg tablet 4 mg PO BID 06/26/22 12/17/23 azelastine 137 mcg (0.1 %) nasal 2 spray intranasal HS 07/10/23 12/17/23 spray aerosol cholecalciferol (vitamin D3) 25 25 mcg PO DAILY Supplement 07/10/23 12/17/23 mcg (1,000 unit) capsule (Vitamin D3) levothyroxine 25 mcg tablet 25 mcg PO DAILY 07/10/23 12/17/23 carbidopa ER 50 mg-levodopa 200 mg 0.5 - 1 tab PO 5XDAY 07/12/23 12/17/23 tablet,extended release oxybutynin chloride 10 mg 10 mg PO DAILY 10/27/23 12/17/23 tablet,extended release 24 hr spironolactone 50 mg tablet 100 mg PO DAILY 10/27/23 12/17/23 Previous Rx's Medication Instructions Recorded gabapentin 300 mg capsule 300 mg PO 0900,1300 Pain 30 days 07/14/23 #60 caps gabapentin 300 mg capsule 600 mg (2 x 300 mg) PO HS Pain 30 07/14/23 days #60 caps lorazepam 0.5 mg tablet 0.5 mg PO TID PRN Anxiety 3 days 07/14/23 #9 tabs albuterol sulfate 90 mcg/actuation 2 inh inhalation QID PRN shortness 10/20/23 aerosol inhaler of breath or wheezing 90 days #8.5 grams pantoprazole 40 mg tablet,delayed 40 mg PO HS 30 days #30 tabs 10/28/23 release budesonide 0.25 mg/2 mL suspension 0.25 mg (2 mL) inhalation BID 90 11/10/23 for nebulization days #360 mL formoterol fumarate 20 mcg/2 mL 2 ml inhalation BID 90 days #180 mL 11/10/23 solution for nebulization (Perforomist) mycophenolate mofetil 250 mg 250 mg PO BID #120 caps 12/17/23 capsule azithromycin 500 mg tablet See Rx Instructions PO .COMPLEX #3 01/27/24 tabs prednisone 50 mg tablet 50 mg PO DAILY 5 days #5 tabs 01/27/24 Allergies Allergy/AdvReac Type Severity Reaction Status Date / Time No Known Allergies Allergy Verified 12/17/23 15:11 [facility] Disclaimer: The information contained in this section may have been updated after the patient was seen, as this information can be updated by other users. Medical History Urinary tract infection Sleep apnea Pneumonia History of COVID-19 History of gastroesophageal reflux (GERD) Thyroid disease Parkinson disease Arthritis Edema Fibrosis of lung Breathlessness Nocturnal hypoxia Allergic rhinitis Restrictive lung disease ILD (interstitial lung disease) History of rheumatoid arthritis NSIP (nonspecific interstitial pneumonia) Organizing pneumonia Dyspnea on exertion Surgical History History of tubal ligation Family History Other Stroke Social History Smoking Status: Never smoker alcohol intake: never substance use type: denies use current occupational status: retired Travel in the last 8 weeks: None household members: spouse housing: house caffeine: Yes ROS Obtained: Yes Systems reviewed as appropriate & no additional complaints except as documented Physical Exam General General appearance: alert and in no apparent distress Head Head exam: atraumatic and normocephalic Eye Eye exam: Present PERRL and EOMI ENT ENT exam: Present mucous membranes moist Neck Neck exam: Present normal inspection Chest Chest inspection: Present normal inspection and symmetric chest wall rise Respiratory Respiratory exam: Present wheezes (Scant, global); Absent respiratory distress Cardiovascular Cardiovascular exam: Present regular rate and normal rhythm Abdominal Exam Abdominal exam: Present soft; Absent tenderness Extremities Exam Extremities exam: Present normal inspection Neurological Exam Neurological exam: Present alert Psychiatric Psychiatric exam: Present normal affect Skin Skin exam: Present warm and dry Medical Decision Making Nikunj Inquiry Pt receiving controlled substance: No Vital Signs: 01/27/24 12:15 01/27/24 13:33 Temperature 98.4 F Temperature Source Oral Pulse Rate 60 Pulse Rate [Radial] 61 Respiratory Rate 18 Blood Pressure 124/50 L Blood Pressure [Right Arm] 118/52 L Blood Pressure Mean [Right Arm] 74 Blood Pressure Source [Right Arm] Automatic Cuff Blood Pressure Position [Right Arm] Sitting 02 Sat by Pulse Oximetry 96 93 L Oxygen Delivery Method Room Air Room Air Lab Data Lab Results 01/27/24 12:35: VBG pH 7.36, VBG pCO2 45.3, VBG pO2 34.3, VBG HCO3 24.7, VBG Total CO2 26.1, VBG O2 Saturation 66.4, VBG Base Excess -0.8, VBG Lactic Acid 1.4 01/27/24 12:45: WBC 12.6 H, RBC 3.88 L, Hgb 10.7 L, Hct 34.7 L, MCV 89.7, MCH 27.6, MCHC 30.8 L, RDW 16.3, Plt Count 412, MPV 7.8, Neut % (Auto) 67.6, Lymph % (Auto) 21.4, [place] % (Auto) 5.6, Eos % (Auto) 4.3, Baso % (Auto) 1.2, Neut # (Auto) 8.5 H, Lymph # (Auto) 2.7, [place] # (Auto) 0.7, Eos # (Auto) 0.5 H, Baso # (Auto) 0.2, Sodium 139, Potassium 3.7, Chloride 101, Carbon Dioxide 29, Anion Gap 12.7, BUN 22 H, Creatinine 1.00, Estimated Creat Clear 50, Estimated GFR 54 L, Est GFR ( Amer) 65, Glucose 87, Calcium 9.8, Total Bilirubin 0.4, AST 17, ALT 9 L, Alkaline Phosphatase 90, Total Protein 8.0, Albumin 4.2, Globulin 3.8 H, Albumin/Globulin Ratio 1.1 01/27/24 12:45 01/27/24 12:45 Orders (Tests/Meds): ED MEDICATIONS Discontinued Medications Generic Name Dose Route Start Last Admin Trade Name Freq PRN Reason Stop Dose Admin Albuterol/Ipratropium 3 ml 01/27/24 12:30 01/27/24 13:00 Ipratropium/Albuterol 3 Ml Neb IH 01/27/24 12:31 3 ml ONCE ONE Administration Methylprednisolone Sodium Succinate 125 mg 01/27/24 12:33 01/27/24 13:00 Methylprednisolone Sod Succ 125mg Vial IV 01/27/24 12:34 125 mg ONCE ONE Administration ORDERS Category Date Time Status XR chest 2V Stat Exams 01/27/24 12:30 Completed CBC w/Auto Diff [Complete Blood Count Auto Diff] Stat Lab 01/27/24 12:45 Completed CMP [Comprehensive Metabolic Panel] Stat Lab 01/27/24 12:45 Completed Full Resp Panel w/COVID ([facility]) Routine Lab 01/27/24 14:20 Ordered VBG [Venous Blood Gas] Stat RT 01/27/24 12:35 Completed ECG Data Tracing #1: Independently interpreted by me rate is 60, rhythm is regular, axis is normal, no ST elevation in anatomical contiguous leads, QTc 388. Medical Decision Narrative: In summary patient is a 78-year-old female with past medical history described above who presents emergency department for evaluation of cough. Patient is hemodynamically stable nontoxic-appearing upon arrival, afebrile. Differential diagnosis includes viral respiratory infection, pneumonia, among others. Workup will be conducted with hematologic labs, two-view chest x-ray. Initial inventions include steroids, DuoNeb. Initial workup reviewed by me, mild leukocytosis 12.6 which is actually improved from baseline, stable anemia, compensated VBG, no SUGEY or critical electrolyte abnormality. Chest x-ray formally read as chronic findings without acute process. Upon repeat evaluation patient continued to be well-appearing, no hypoxia requiring nasal cannula, no significant tachypnea. Given this patient is appropriate for discharge at this time will be discharged with a course of prednisone and azithromycin to cover atypicals as well as provide anti-inflammatory effect. Case was discussed with Dr. Fernandez and viral swab will be collected prior to discharge in an effort to expedite patient's evaluation on outpatient basis. Critical Care Critical Care Time Critical Care Time: No
[2024-01-27 12:53] LABS: Lactate Venous 1.4 mmol/L (0.4-2.0); VBG Base Excess -0.8 mmol/L (-2.4-2.3); VBG HCO3 24.7 mmol/L (23-30); VBG Oxygen Saturation 66.4 % (50-70); VBG PCO2 45.3 mmol/L (35-51); VBG PH 7.36 mmol/L (7.31-7.41); VBG PO2 34.3 mmol/L (28-40); VBG Total CO2 26.1 mmol/L (23-27)
[2024-01-27 12:54] LABS: Basophils # 0.2 K/mm3 (0-0.2); Basophils % 1.2 % (0.1-2.0); Eosinophils # 0.5 K/mm3 (0.0-0.4); Eosinophils % 4.3 % (0.1-12.0); Hematocrit 34.7 % (37.0-47.0); Hemoglobin 10.7 g/dL (12.2-16.2); Lymphocytes # 2.7 K/mm3 (0.7-4.5); Lymphocytes % 21.4 % (10-50); Mean Corpuscular HGB Conc 30.8 g/dL (31.8-35.4); Mean Corpuscular Hemoglobin 27.6 pg (27.0-31.2); Mean Corpuscular Volume 89.7 fl (81-99); Mean Platelet Volume 7.8 fl (7.4-10.4); Monocytes # 0.7 K/mm3 (0.1-1.0); Monocytes % 5.6 % (1.7-9.3); Neutrophils # 8.5 K/mm3 (1.8-7.8); Neutrophils % 67.6 % (37.0-80.0); Platelet Count 412 K/mm3 (142-424); Red Blood Count 3.88 M/mm3 (4.20-5.40); Red Cell Distribution Width 16.3 % (11.5-17.5); White Blood Count 12.6 K/mm3 (4.8-10.8)
[2024-01-27] MEDS: IPRATROPIUM/ALBUTEROL 3 ML NEB IH (13:00)
[2024-01-27] MEDS: METHYLPREDNISOLONE SOD SUCC 125MG VIAL 125 MG IV (13:00)
[2024-01-27 13:12] LABS: Alanine Aminotransferase 9 U/L (12-78); Albumin Level 4.2 g/dl (3.5-5.0); Albumin/Globulin Ratio 1.1 (1.1-1.8); Alkaline Phosphatase 90 U/L (38-126); Anion Gap 12.7 mEq/L (5-15); Aspartate Amino Transferase 17 U/L (14-36); Bilirubin,Total 0.4 mg/dl (0.2-1.3); Blood Urea Nitrogen 22 mg/dl (7-17); Calcium 9.8 mg/dl (8.4-10.2); Carbon Dioxide 29 mmol/L (22.0-30.0); Chloride 101 mmol/L (98-107); Creatinine Clearance Estimated 50 mL/min (50-200); Estimated Glomerular Filt Rate 54 ml/min (>60); GFR (African American) 65 ML/MIN (>60); Globulin 3.8 g/dL (1.3-3.2); Glucose 87 mg/dl (74-100); Potassium 3.7 mmoL/L (3.5-5.1); Sodium 139 mmol/L (136-145)
--- NOTE | 2024-01-27 13:19 | ECG_ITS ---
APPROVED REPORT Exam: Resting ECG HR:60 bpm ECG Measurements Heart Rate 60 AXES IA 176 P 52 QRSd 101 QRS 76 QT 387 T 40 QTc 388 Conclusion SINUS RHYTHM PROBABLE LATERAL MYOCARDIAL INFARCTION , OF INDETERMINATE AGE [35 ms Q WAVE IN I/aVL/V5/V6] ABNORMAL ECG Electronically signed by : MAUREEN RAMÍREZ, 01/27/2024 15:15:47
[2024-01-27 13:33] VITALS: BP 124/50; PULSE 60; O2SAT 93
[2024-01-27 14:29] LABS: Adenovirus,PCR Not Detected (NotDetected); Bordetella Pertussis Not Detected (NotDetected); Chlamydophila Pneumoniae, PCR Not Detected (NotDetected); Coronavirus 19, PCR Not Detected (NotDetected); Coronavirus 229E Not Detected (NotDetected); Coronavirus NL63 Not Detected (NotDetected); Coronavirus OC43 Not Detected (NotDetected); Coronovirus HKU1,PCR Not Detected (NotDetected); Human Metapneumovirus Not Detected (NotDetected); Influenza A, PCR Not Detected (NotDetected); Influenza AH1, 2009 Not Detected (NotDetected); Influenza AH1, PCR Not Detected (NotDetected); Influenza AH3,PCR Not Detected (NotDetected); Influenza B, PCR Not Detected (NotDetected); Mycoplasma Pneumoniae, PCR Not Detected (NotDetected); Parainfluenza 1, PCR Not Detected (NotDetected); Parainfluenza 2, PCR Not Detected (NotDetected); Parainfluenza 3, PCR Not Detected (NotDetected); Parainfluenza 4, PCR Not Detected (NotDetected); Respiratory Syncytial Virus Not Detected (NotDetected); Rhinovirus/Enterovirus Not Detected (NotDetected)
[2024-01-27 14:34] VITALS: BP 113/50; PULSE 62; RESP 16; TEMP 36.8; O2SAT 96
== END 2024-01-27 14:34 | disposition home or self-care (01) ==
PROVIDERS: Emergency Provider Emergency Medicine; PCP Internal Medicine
DX: J22 Unspecified acute lower respiratory infection (principal); J84.9 Interstitial pulmonary disease, unspecified; R05.9 Cough, unspecified; G20.C Parkinsonism, unspecified; E03.9 Hypothyroidism, unspecified; K21.9 Gastro-esophageal reflux disease without esophagitis
CPT/HCPCS: 71046; 80053; 82803; 85025; 87581; 87632; 87635; 87798; 93005; 96374; 99284; J2930; J7620

== ENCOUNTER 2024-01-31 18:53 | Emergency (ER) | payer MEDICARE, SELFPAY ==
--- NOTE | 2024-01-31 | ECG_ITS ---
APPROVED REPORT Exam: Resting ECG HR:63 bpm ECG Measurements Heart Rate 63 AXES SD 161 P 82 QRSd 96 QRS 56 QT 359 T 78 QTc 366 Conclusion SINUS RHYTHM NORMAL ECG Electronically signed by : BRI JAIMES, 01/31/2024 21:41:55
[2024-01-31 19:06] VITALS: BP 147/74; PULSE 64; RESP 20; TEMP 36.8; O2SAT 98; BMI 27.4
--- NOTE | 2024-01-31 19:09 | ED_ITS ---
<Statement entered by Brandi Donahue DO - 01/31/24 23:29> I was consulted by the SHEILA, and we discussed the complexity of the problems being addressed. I approved the treatment and management plan for this patient's care in the emergency department, thus performing a substantive portion of the medical decision making. Brandi Donahue DO Discharge Plan Disposition Patient Disposition: Home, Self-Care Condition: Good Prescriptions Prescriptions: New sulfamethoxazole-trimethoprim [Bactrim DS] 800-160 mg tablet 1 tab PO Q12H 7 Days Qty: 14 0RF No Action ropinirole 4 mg tablet 4 mg PO BID Patient Comments: Pt's states pt takes med BID, not QID mycophenolate mofetil 250 mg capsule 250 mg PO BID Qty: 120 2RF formoterol fumarate [Perforomist] 20 mcg/2 mL solution for nebulization 2 ml inhalation BID 90 Days Qty: 180 3RF budesonide 0.25 mg/2 mL suspension for nebulization 0.25 mg inhalation BID 90 Days Qty: 360 3RF albuterol sulfate 90 mcg/actuation HFA aerosol inhaler 2 inh inhalation QID PRN (Reason: shortness of breath or wheezing) 90 Days Qty: 8.5 2RF cholecalciferol (vitamin D3) [Vitamin D3] 25 mcg (1,000 unit) Capsule 25 mcg PO DAILY levothyroxine 25 mcg tablet 25 mcg PO DAILY Patient Comments: TAKE 1 TABLET BY MOUTH ONCE DAILY azelastine 137 mcg (0.1 %) aerosol,spray 2 spray intranasal HS Rx Instructions: administer into each nostril carbidopa-levodopa 50-200 mg tablet extended release 0.5 - 1 tab PO 5XDAY lorazepam 0.5 mg tablet 0.5 mg PO TID PRN (Reason: Anxiety) 3 Days Qty: 9 0RF gabapentin 300 MG capsule 300 mg PO 0900,1300 30 Days Qty: 60 0RF gabapentin 300 mg capsule 600 mg PO HS 30 Days Qty: 60 0RF oxybutynin chloride 10 mg tablet extended release 24hr 10 mg PO DAILY Patient Comments: TAKE 1 TABLET BY MOUTH ONCE DAILY spironolactone 50 mg tablet 100 mg PO DAILY Patient Comments: TAKE 2 TABLETS BY MOUTH ONCE DAILY pantoprazole 40 mg Tablet,Delayed Release (Dr/Ec) 40 mg PO HS 30 Days Qty: 30 0RF amantadine HCl 100 MG tablet 100 mg PO 0700,1100 duloxetine 20 MG capsule,delayed release(DR/EC) 20 mg PO BID methenamine hippurate 1 GM tablet 1 gm PO BID prednisone 50 mg tablet 50 mg PO DAILY 5 Days Qty: 5 0RF azithromycin 500 mg tablet See Rx Instructions .ROUTE .COMPLEX Qty: 3 0RF Rx Instructions: For 250 mg dose pack: take 500 mg today (day 1), then 250 mg for 4 days (days 2-5) Referrals Follow up/Referrals: Provider,Referral, [Primary Care Provider] - See instructions Discharge ED Provider: Brandi Donahue HPI <KAYLAN Rizo - Last Filed: 01/31/24 23:28> General Chief Complaint: Weakness Stated Complaint: cp Time Seen by Provider: 01/31/24 19:09 History of Present Illness HPI narrative: Patient presents for evaluation of weakness and epigastric abdominal pain. Patient states that she had epigastric abdominal pain that began yesterday with no associated nausea vomiting diarrhea. Patient states it has not gone away and she has been very weak today and has had no appetite. She denies chest pain fever chills hemoptysis hematochezia melena nausea vomit diarrhea. Last bowel movement was yesterday. Related Data Home Medications Medication Instructions Recorded Confirmed amantadine HCl 100 mg tablet 100 mg PO 0700,1100 09/16/20 12/17/23 duloxetine 20 mg capsule,delayed 20 mg PO BID 09/16/20 12/17/23 release methenamine hippurate 1 gram tablet 1 gm PO BID 12/18/21 12/17/23 ropinirole 4 mg tablet 4 mg PO BID 06/26/22 12/17/23 azelastine 137 mcg (0.1 %) nasal 2 spray intranasal HS 07/10/23 12/17/23 spray aerosol cholecalciferol (vitamin D3) 25 25 mcg PO DAILY Supplement 07/10/23 12/17/23 mcg (1,000 unit) capsule (Vitamin D3) levothyroxine 25 mcg tablet 25 mcg PO DAILY 07/10/23 12/17/23 carbidopa ER 50 mg-levodopa 200 mg 0.5 - 1 tab PO 5XDAY 07/12/23 12/17/23 tablet,extended release oxybutynin chloride 10 mg 10 mg PO DAILY 10/27/23 12/17/23 tablet,extended release 24 hr spironolactone 50 mg tablet 100 mg PO DAILY 10/27/23 12/17/23 Previous Rx's Medication Instructions Recorded gabapentin 300 mg capsule 300 mg PO 0900,1300 Pain 30 days 07/14/23 #60 caps gabapentin 300 mg capsule 600 mg (2 x 300 mg) PO HS Pain 30 07/14/23 days #60 caps lorazepam 0.5 mg tablet 0.5 mg PO TID PRN Anxiety 3 days 07/14/23 #9 tabs albuterol sulfate 90 mcg/actuation 2 inh inhalation QID PRN shortness 10/20/23 aerosol inhaler of breath or wheezing 90 days #8.5 grams pantoprazole 40 mg tablet,delayed 40 mg PO HS 30 days #30 tabs 10/28/23 release budesonide 0.25 mg/2 mL suspension 0.25 mg (2 mL) inhalation BID 90 11/10/23 for nebulization days #360 mL formoterol fumarate 20 mcg/2 mL 2 ml inhalation BID 90 days #180 mL 11/10/23 solution for nebulization (Perforomist) mycophenolate mofetil 250 mg 250 mg PO BID #120 caps 12/17/23 capsule azithromycin 500 mg tablet See Rx Instructions PO .COMPLEX #3 01/27/24 tabs prednisone 50 mg tablet 50 mg PO DAILY 5 days #5 tabs 01/27/24 sulfamethoxazole 800 1 tab PO Q12H 7 days #14 tabs 01/31/24 mg-trimethoprim 160 mg tablet (Bactrim DS) Allergies Allergy/AdvReac Type Severity Reaction Status Date / Time No Known Allergies Allergy Verified 12/17/23 15:11 [facility] <KAYLAN Rizo - Last Filed: 01/31/24 23:28> [facility] Disclaimer: The information contained in this section may have been updated after the patient was seen, as this information can be updated by other users. Medical History Urinary tract infection Sleep apnea Pneumonia History of COVID-19 History of gastroesophageal reflux (GERD) Thyroid disease Parkinson disease Arthritis Edema Fibrosis of lung Breathlessness Nocturnal hypoxia Allergic rhinitis Restrictive lung disease ILD (interstitial lung disease) History of rheumatoid arthritis NSIP (nonspecific interstitial pneumonia) Organizing pneumonia Dyspnea on exertion Surgical History History of tubal ligation Family History Other Stroke Social History Smoking Status: Never smoker alcohol intake: never substance use type: denies use current occupational status: retired Travel in the last 8 weeks: None household members: spouse housing: house caffeine: Yes <KAYLAN Rizo - Last Filed: 01/31/24 23:28> ROS Obtained: Yes Systems reviewed as appropriate & no additional complaints except as documented Physical Exam <KAYLAN Rizo - Last Filed: 01/31/24 23:28> General General appearance: alert and in no apparent distress Respiratory Respiratory exam: Present normal lung sounds bilaterally; Absent respiratory distress Cardiovascular Cardiovascular exam: Present regular rate and normal rhythm Abdominal Exam Abdominal exam: Present soft, tenderness (In the epigastrium focally) and normal bowel sounds; Absent guarding, rebound or rigidity Back Exam Back exam: Present normal inspection and full ROM; Absent tenderness Neurological Exam Neurological exam: Present alert, oriented X3 and CN II-XII intact Psychiatric Psychiatric exam: Present depressed and flat affect Skin Skin exam: Present warm, dry and normal color HEART Score <KAYLAN Rizo - Last Filed: 01/31/24 23:28> HEART Score HEART Score assessment performed?: No Critical Care <KAYLAN Rizo - Last Filed: 01/31/24 23:28> Critical Care Time Critical Care Time: No Medical Decision Making <KAYLAN Rizo - Last Filed: 01/31/24 23:28> Medical Records Medical records reviewed: Yes I reviewed the patient's medical records. Nikunj Inquiry Pt receiving controlled substance: No Vital Signs Vital Signs: 01/31/24 19:06 01/31/24 22:03 01/31/24 22:31 Temperature 98.2 F Temperature Source Oral Pulse Rate 63 61 Pulse Rate [Left Radial] 64 Respiratory Rate 20 Blood Pressure 142/71 H 130/69 Blood Pressure [Right Arm] 147/74 H Blood Pressure Mean 85 76 Blood Pressure Mean [Right Arm] 98 02 Sat by Pulse Oximetry 98 96 94 L Oxygen Delivery Method Room Air Lab Data Lab results reviewed: Yes I reviewed the patient's lab results. Labs: Lab Results 01/31/24 19:05: WBC 12.5 H, RBC 4.33, Hgb 11.7 L, Hct 38.9, MCV 89.9, MCH 27.1, MCHC 30.2 L, RDW 16.3, Plt Count 454 H, MPV 7.3 L, Neut % (Auto) 87.3 H, Lymph % (Auto) 10.8, Arthur % (Auto) 1.5 L, Eos % (Auto) 0.1, Baso % (Auto) 0.3, Neut # (Auto) 10.9 H, Lymph # (Auto) 1.4, Arthur # (Auto) 0.2, Eos # (Auto) 0.0, Baso # (Auto) 0.0, Total Counted 100, Neutrophils % (Manual) 81 H, Lymphocytes % (Manual) 15, Monocytes % (Manual) 1 L, Eosinophils % (Manual) 2, Metamyelocytes % 1.0, Platelet Estimate Slight increase, RBC Morphology Normal, Sodium 140, Potassium 4.2, Chloride 105, Carbon Dioxide 26, Anion Gap 13.2, BUN 30 H, C reatinine 1.10 H, Estimated Creat Clear 45, Estimated GFR 48 L, Est GFR ( Amer) 58 L, Glucose 120 H, Calcium 9.5, Magnesium 2.1, Total Bilirubin 0.5, AST 21, ALT 9 L, Alkaline Phosphatase 85, Troponin I < 0.01, Total Protein 8.1, Albumin 4.4, Globulin 3.7 H, Albumin/Globulin Ratio 1.2, Lipase 75, TSH 1.55 01/31/24 19:50: Urine Color Yellow, Urine Appearance Clear, Urine pH 6.0, Ur Specific [place] 1.025, Urine Protein Negative, Urine Glucose (UA) Negative, Urine Ketones Negative, Urine Blood Negative, Urine Nitrate Negative, Urine Bilirubin Negative, Urine Urobilinogen 0.2, Ur Leukocyte Esterase Trace, Urine WBC 3-5, Urine Bacteria 1+ 01/31/24 19:05 01/31/24 19:05 Response Orders (Tests/Meds): ED MEDICATIONS Discontinued Medications Generic Name Dose Route Start Last Admin Trade Name Freq PRN Reason Stop Dose Admin Acetaminophen 1,000 mg 01/31/24 19:16 01/31/24 19:50 Acetaminophen 1,000mg/100ml Vial IV 01/31/24 19:17 1,000 mg ONCE ONE Administration Belladonna Alkaloids 60 ml 01/31/24 20:25 01/31/24 20:46 Belladonna Alkaloids 60 Ml Ml PO 01/31/24 20:26 60 ml ONCE ONE Administration Lactated Ringer's 1,000 mls @ 999 mls/hr 01/31/24 19:16 01/31/24 19:50 Lactated Ringer's 1000 Ml Bag IV 01/31/24 20:16 999 mls/hr .Q1H1M ONE Administration Iopamidol 75 ml 01/31/24 21:16 01/31/24 21:18 Iopamidol-370 (76%);100ml Bottle IV 01/31/24 21:17 75 ml ONCE ONE Administration Ketorolac Tromethamine 15 mg 01/31/24 19:16 01/31/24 19:50 Ketorolac 30mg/Ml Vial IV 01/31/24 19:17 15 mg ONCE ONE Administration Sodium Chloride 10 ml 01/31/24 21:16 01/31/24 21:18 Sodium Chloride 0.9% 10ml Syr (Rad Only) IV 01/31/24 21:17 10 ml ONCE ONE Administration ORDERS Category Date Time Status CT abdomen pelvis w con Stat Cat Scan 01/31/24 20:04 Completed Chest XR -- portable [XR chest portable] Stat Exams 01/31/24 19:16 Completed CBC w/Auto Diff [Complete Blood Count Auto Diff] Stat Lab 01/31/24 19:05 Completed CMP [Comprehensive Metabolic Panel] Stat Lab 01/31/24 19:05 Completed Lipase Stat Lab 01/31/24 19:05 Completed Magnesium Stat Lab 01/31/24 19:05 Completed TSH [Thyroid Stimulating Hormone] Stat Lab 01/31/24 19:05 Completed Trop I [Troponin I] Stat Lab 01/31/24 19:05 Completed Troponin I Q3H Lab 01/31/24 22:30 Ordered Troponin I Q3H Lab 02/01/24 01:30 Ordered UA [Urinalysis and Microscopic] Stat Lab 01/31/24 19:50 Completed MDM Narrative Medical Decision Narrative: In summary patient is a 78-year-old female who presents to the emergency department for evaluation of gastric abdominal pain and weakness. Patient is hemodynamically stable upon arrival, afebrile. Physical exam is remarkable for epigastric tenderness to palpation with normal bowel sounds and no rebound no guarding no rigidity.. Differential diagnosis includes ulcer versus esophagitis versus constipation versus gastroenteritis etc. Initial workup will be conducted with hematologic labs urinalysis CT scan abdomen pelvis. Initial interventions include crystalloid bolus Toradol Tylenol antiemetics. Initial workup reviewed by me shows patient has leukocytes and 1+ bacteria on her urinalysis, she has slightly worsening creatinine of 1.1 with slightly worse GFR of 48 but patient has apparent chronic kidney disease as well. My informal interpretation of her CT scan abdomen pelvis did not show any evidence of acute processes with exception of thickened bladder wall correlates prior to radiology read. Upon repeat evaluation at acceptable resolution of her symptoms and feels ready to go home. Given this appropriate discharge and will be discharged with a prescription of Bactrim with first dose given here. <Brandi Donahue, DO - Last Filed: 01/31/24 23:29> Vital Signs Vital Signs: 01/31/24 19:06 01/31/24 22:03 01/31/24 22:31 Temperature 98.2 F Temperature Source Oral Pulse Rate 63 61 Pulse Rate [Left Radial] 64 Respiratory Rate 20 Blood Pressure 142/71 H 130/69 Blood Pressure [Right Arm] 147/74 H Blood Pressure Mean 85 76 Blood Pressure Mean [Right Arm] 98 02 Sat by Pulse Oximetry 98 96 94 L Oxygen Delivery Method Room Air Lab Data Labs: Lab Results 01/31/24 19:05: WBC 12.5 H, RBC 4.33, Hgb 11.7 L, Hct 38.9, MCV 89.9, MCH 27.1, MCHC 30.2 L, RDW 16.3, Plt Count 454 H, MPV 7.3 L, Neut % (Auto) 87.3 H, Lymph % (Auto) 10.8, Arthur % (Auto) 1.5 L, Eos % (Auto) 0.1, Baso % (Auto) 0.3, Neut # (Auto) 10.9 H, Lymph # (Auto) 1.4, Arthur # (Auto) 0.2, Eos # (Auto) 0.0, Baso # (Auto) 0.0, Total Counted 100, Neutrophils % (Manual) 81 H, Lymphocytes % (Manual) 15, Monocytes % (Manual) 1 L, Eosinophils % (Manual) 2, Metamyelocytes % 1.0, Platelet Estimate Slight increase, RBC Morphology Normal, Sodium 140, Potassium 4.2, Chloride 105, Carbon Dioxide 26, Anion Gap 13.2, BUN 30 H, C reatinine 1.10 H, Estimated Creat Clear 45, Estimated GFR 48 L, Est GFR ( Amer) 58 L, Glucose 120 H, Calcium 9.5, Magnesium 2.1, Total Bilirubin 0.5, AST 21, ALT 9 L, Alkaline Phosphatase 85, Troponin I < 0.01, Total Protein 8.1, Albumin 4.4, Globulin 3.7 H, Albumin/Globulin Ratio 1.2, Lipase 75, TSH 1.55 01/31/24 19:50: Urine Color Yellow, Urine Appearance Clear, Urine pH 6.0, Ur Specific [place] 1.025, Urine Protein Negative, Urine Glucose (UA) Negative, Urine Ketones Negative, Urine Blood Negative, Urine Nitrate Negative, Urine Bilirubin Negative, Urine Urobilinogen 0.2, Ur Leukocyte Esterase Trace, Urine WBC 3-5, Urine Bacteria 1+ Response Orders (Tests/Meds): ED MEDICATIONS Discontinued Medications Generic Name Dose Route Start Last Admin Trade Name Freq PRN Reason Stop Dose Admin Acetaminophen 1,000 mg 01/31/24 19:16 01/31/24 19:50 Acetaminophen 1,000mg/100ml Vial IV 01/31/24 19:17 1,000 mg ONCE ONE Administration Belladonna Alkaloids 60 ml 01/31/24 20:25 01/31/24 20:46 Belladonna Alkaloids 60 Ml Ml PO 01/31/24 20:26 60 ml ONCE ONE Administration Lactated Ringer's 1,000 mls @ 999 mls/hr 01/31/24 19:16 01/31/24 19:50 Lactated Ringer's 1000 Ml Bag IV 01/31/24 20:16 999 mls/hr .Q1H1M ONE Administration Iopamidol 75 ml 01/31/24 21:16 01/31/24 21:18 Iopamidol-370 (76%);100ml Bottle IV 01/31/24 21:17 75 ml ONCE ONE Administration Ketorolac Tromethamine 15 mg 01/31/24 19:16 01/31/24 19:50 Ketorolac 30mg/Ml Vial IV 01/31/24 19:17 15 mg ONCE ONE Administration Sodium Chloride 10 ml 01/31/24 21:16 01/31/24 21:18 Sodium Chloride 0.9% 10ml Syr (Rad Only) IV 01/31/24 21:17 10 ml ONCE ONE Administration ORDERS Category Date Time Status CT abdomen pelvis w con Stat Cat Scan 01/31/24 20:04 Completed Chest XR -- portable [XR chest portable] Stat Exams 01/31/24 19:16 Completed CBC w/Auto Diff [Complete Blood Count Auto Diff] Stat Lab 01/31/24 19:05 Completed CMP [Comprehensive Metabolic Panel] Stat Lab 01/31/24 19:05 Completed Lipase Stat Lab 01/31/24 19:05 Completed Magnesium Stat Lab 01/31/24 19:05 Completed TSH [Thyroid Stimulating Hormone] Stat Lab 01/31/24 19:05 Completed Trop I [Troponin I] Stat Lab 01/31/24 19:05 Completed Troponin I Q3H Lab 01/31/24 22:30 Ordered Troponin I Q3H Lab 02/01/24 01:30 Ordered UA [Urinalysis and Microscopic] Stat Lab 01/31/24 19:50 Completed ECG Data Tracing #1: Attestation: I reviewed this ECG and interpreted as documented below: ECG Narrative: Normal sinus rhythm with a ventricular rate of [address] changes concerning for ischemia. Normal axis and intervals. ECG initial impression date: 01/31/24 ECG initial impression time: 18:54
--- NOTE | 2024-01-31 19:16 | XR_ITS ---
PROCEDURE INFORMATION: Exam: XR Chest Exam date and time: 01/31/2024 8:55 PM Age: 78 years old Clinical indication: Chest wall pain; Additional info: Chest pain TECHNIQUE: Imaging protocol: Radiologic exam of the chest. Views: 1 view. COMPARISON: CR XR CHEST 2V 01/27/2024 12:47 PM FINDINGS: Lungs: Minimal peripheral interstitial prominence. No consolidation. Pleural spaces: Unremarkable. No pleural effusion. No pneumothorax. Heart/Mediastinum: Unremarkable. No cardiomegaly. Vasculature: Unremarkable. Bones/joints: Unremarkable. IMPRESSION: No acute findings.
[2024-01-31 19:28] LABS: Chloride 105 mmol/L (98-107); Potassium 4.2 mmoL/L (3.5-5.1); Sodium 140 mmol/L (136-145)
[2024-01-31 19:30] LABS: Alanine Aminotransferase 9 U/L (12-78); Aspartate Amino Transferase 21 U/L (14-36); Blood Urea Nitrogen 30 mg/dl (7-17); Creatinine Clearance Estimated 45 mL/min (50-200); Estimated Glomerular Filt Rate 48 ml/min (>60); GFR (African American) 58 ML/MIN (>60)
[2024-01-31 19:31] LABS: Albumin Level 4.4 g/dl (3.5-5.0); Albumin/Globulin Ratio 1.2 (1.1-1.8); Alkaline Phosphatase 85 U/L (38-126); Anion Gap 13.2 mEq/L (5-15); Basophils % 0.3 % (0.1-2.0); Bilirubin,Total 0.5 mg/dl (0.2-1.3); Calcium 9.5 mg/dl (8.4-10.2); Carbon Dioxide 26 mmol/L (22.0-30.0); Eosinophils % 0.1 % (0.1-12.0); Globulin 3.7 g/dL (1.3-3.2); Glucose 120 mg/dl (74-100); Hematocrit 38.9 % (37.0-47.0); Hemoglobin 11.7 g/dL (12.2-16.2); Lymphocytes # 1.4 K/mm3 (0.7-4.5); Lymphocytes % 10.8 % (10-50); Magnesium 2.1 mg/dl (1.6-2.3); Mean Corpuscular HGB Conc 30.2 g/dL (31.8-35.4); Mean Corpuscular Hemoglobin 27.1 pg (27.0-31.2); Mean Corpuscular Volume 89.9 fl (81-99); Mean Platelet Volume 7.3 fl (7.4-10.4); Monocytes # 0.2 K/mm3 (0.1-1.0); Monocytes % 1.5 % (1.7-9.3); Neutrophils # 10.9 K/mm3 (1.8-7.8); Neutrophils % 87.3 % (37.0-80.0); Platelet Count 454 K/mm3 (142-424); Red Blood Count 4.33 M/mm3 (4.20-5.40); Red Cell Distribution Width 16.3 % (11.5-17.5); Total Protein,Serum 8.1 g/dl (6.3-8.2); White Blood Count 12.5 K/mm3 (4.8-10.8)
[2024-01-31 19:36] LABS: MANUAL DIFFERENTIAL MANUAL DIFFERENTIAL (MANUAL DIFF)
[2024-01-31 19:45] LABS: Troponin I < 0.01 ng/ml (0.00-0.034)
[2024-01-31] MEDS: KETOROLAC 30MG/ML VIAL 15 MG IV (19:50)
[2024-01-31] MEDS: LACTATED RINGERS 1000ML 1,000 ML 999 ML IV (19:50)
[2024-01-31] MEDS: ACETAMINOPHEN 1,000MG/100ML VIAL 1000 MG IV (19:50)
[2024-01-31 19:54] LABS: Microscopic, Urine URINE MICROSCOPIC (MICROSCOPIC)
--- NOTE | 2024-01-31 19:57 | PC.NURSE ---
I rounded on the pt, no new complaints at this time. pt states her pain is an 8/10. I medicated her for pain. I took Mrs. Mathis a warm blankets. she declines needing anything else at this time.
[2024-01-31 20:00] LABS: Appearance,Urine CLEAR (Clear); Bilirubin,Urine Negative (Negative); Blood, Urine Negative (Negative); Color,Urine YELLOW (Yellow); Glucose,Urine (UA) Negative (Negative); Ketones,Urine Negative (Negative); Leukocyte Esterase,Urine TRACE (Negative); Nitrate,Urine Negative (Negative); Protein,Urine Negative (Negative); Specific Gravity, Urine 1.025 (1.005-1.030); Urobilinogen,Urine 0.2 EU/dl (0.2)
[2024-01-31 20:02] LABS: Thyroid Stimulating Hormone 1.55 uIU/mL (0.465-4.68)
--- NOTE | 2024-01-31 20:04 | CT_ITS ---
PROCEDURE INFORMATION: Exam: CT Abdomen And Pelvis With Contrast Exam date and time: 01/31/2024 9:13 PM Age: 78 years old Clinical indication: Abdominal pain; Epigastric; Additional info: Epigastric abdominal pain TECHNIQUE: Imaging protocol: Computed tomography of the abdomen and pelvis with contrast. Radiation optimization: All CT scans at this facility use at least one of these dose optimization techniques: automated exposure control; mA and/or kV adjustment per patient size (includes targeted exams where dose is matched to clinical indication); or iterative reconstruction. Contrast material: ISOVUE; Contrast volume: 75 ml; Contrast route: IV; COMPARISON: 1. CT HR CHEST X3 12/17/2023 2:42 PM 2. CR XR HIP RT 2-3V W/PELVIS 12/23/2023 3:45 PM FINDINGS: Lungs: There are mild interstitial changes at the lung bases. No focal consolidation. Heart: The heart is mildly enlarged. Diaphragm: A small hiatal hernia is present. Liver: Normal. No mass. Gallbladder and biliary ducts: Normal. No calcified stones. No ductal dilation. Pancreas: Normal. No ductal dilation. Spleen: Normal. No splenomegaly. Adrenal glands: Normal. No mass. Kidneys and ureters: Normal. No hydronephrosis. Stomach and bowel: Significant fecal content is present throughout the colon. No obstruction. No mucosal thickening. Appendix: No evidence of appendicitis. Intraperitoneal space: Unremarkable. No free air. No significant fluid collection. Vasculature: Mild calcific atherosclerotic disease without aneurysm or dissection. Lymph nodes: Unremarkable. No enlarged lymph nodes. Urinary bladder: There is urinary bladder wall thickening. Reproductive: Unremarkable as visualized. Bones/joints: Significant facet arthropathy from L3 through S1. Severe degenerative disc disease noted at L4-L5. Grade 1 anterolisthesis is present at L4-L5. No acute fracture. Soft tissues: Unremarkable. IMPRESSION: 1. Bladder wall thickening may represent cystitis. 2. Other nonurgent findings as detailed.
[2024-01-31 20:08] LABS: Bacteria,Urine 1+ /lpf
[2024-01-31 20:22] LABS: Eosinophils % 2 % (0-3); Lymphocytes % 15 % (10-50); Monocytes % 1 % (2-9); Neutrophils % 81 % (42-76); Total Cells Counted 100
[2024-01-31 20:25] LABS: Platelet Estimate Slight Increase; RBC Morphology Normal
[2024-01-31 20:34] LABS: Lipase 75 U/L (23-300)
[2024-01-31] MEDS: BELLADONNA ALKALOIDS 60 ML ML PO (20:46)
[2024-01-31] MEDS: IOPAMIDOL-370 (76%);100ML BOTTLE 75 ML IV (21:18)
[2024-01-31] MEDS: SODIUM CHLORIDE 0.9% 10ML SYR (RAD ONLY) 10 ML IV (21:18)
[2024-01-31 22:03] VITALS: BP 142/71; PULSE 63; O2SAT 96
[2024-01-31 22:31] VITALS: BP 130/69; PULSE 61; O2SAT 94
[2024-01-31 23:01] VITALS: BP 138/72; PULSE 60; O2SAT 95
[2024-01-31 23:31] VITALS: BP 151/71; PULSE 61; O2SAT 96
[2024-02-01 00:04] VITALS: BP 151/71; PULSE 61; RESP 16; TEMP 36.8; O2SAT 96
== END 2024-02-01 00:05 | disposition home or self-care (01) ==
PROVIDERS: Physician Assistant; Emergency Provider Emergency Medicine
DX: N39.0 Urinary tract infection, site not specified (principal); R10.816 Epigastric abdominal tenderness; R53.1 Weakness; E03.9 Hypothyroidism, unspecified; K21.9 Gastro-esophageal reflux disease without esophagitis
CPT/HCPCS: 71045; 74177; 80053; 81001; 83690; 83735; 84443; 84484; 85007; 85025; 93005; 96361; 96374; 96375; 99285; J0131; J1885; J7120; Q9967

== ENCOUNTER 2024-02-28 11:09 | Emergency (ER) | payer MEDICARE, SELFPAY ==
[2024-02-28] VITALS (10 sets, daily range): BP systolic 99–115; BP diastolic 47–59; PULSE 47–63; RESP 16; TEMP 36.6–36.8; O2SAT 94–99; BMI 27.4
--- NOTE | 2024-02-28 11:40 | CT_ITS ---
PROCEDURE INFORMATION: Exam: CT Thoracic Spine Without Contrast Exam date and time: 02/28/2024 1:24 PM Age: 78 years old Clinical indication: Injury or trauma; Fall; Blunt trauma (contusions or hematomas); Additional info: Trauma, fall >65, R rib pain, sacral pain TECHNIQUE: Imaging protocol: Computed tomography of the thoracic spine without contrast. Radiation optimization: All CT scans at this facility use at least one of these dose optimization techniques: automated exposure control; mA and/or kV adjustment per patient size (includes targeted exams where dose is matched to clinical indication); or iterative reconstruction. COMPARISON: CT CERVICAL SPINE WO CON 02/28/2024 1:20 PM FINDINGS: Bones/joints: No evidence of acute fracture or malalignment. Multi-level degenerative disc disease, most prominent from T8-T11. Soft tissues: Unremarkable. IMPRESSION: 1. No evidence of acute osseous abnormality in the thoracic spine. 2. Multi-level degenerative disc disease.
--- NOTE | 2024-02-28 11:40 | CT_ITS ---
PROCEDURE INFORMATION: Exam: CT Lumbar Spine Without Contrast Exam date and time: 02/28/2024 1:27 PM Age: 78 years old Clinical indication: Injury or trauma; Fall; Blunt trauma (contusions or hematomas); Additional info: Trauma, fall >65, R rib pain, sacral pain TECHNIQUE: Imaging protocol: Computed tomography of the lumbar spine without contrast. Radiation optimization: All CT scans at this facility use at least one of these dose optimization techniques: automated exposure control; mA and/or kV adjustment per patient size (includes targeted exams where dose is matched to clinical indication); or iterative reconstruction. COMPARISON: CT LUMBAR SPINE WO CON 02/28/2024 1:27 PM FINDINGS: Bones/joints: There are 5 [id number] vertebral bodies in the lumbar spine. No evidence of acute fracture or malalignment. Levocurvature in the lower lumbar spine with grade 1 left lateral listhesis of L4 on L5 and grade 1 right lateral listhesis of L5 on S1, both with severe contralateral disc space narrowing and reactive endplate osteophytosis. Grade 1 anterolisthesis at L4-L5. No pars defects. Moderate to severe degenerative disc disease in the lower lumbar spine, most prominent at L4-L5. Moderate to severe degenerative facet arthropathy from L3-S1. Chronic fracture deformity noted in the right transverse processes of L1 and L2. Soft tissues: Unremarkable. IMPRESSION: 1. No evidence of acute osseous abnormality in the lumbar spine. 2. Chronic ancillary findings are detailed above.
--- NOTE | 2024-02-28 11:40 | CT_ITS ---
PROCEDURE INFORMATION: Exam: CT Cervical Spine Without Contrast Exam date and time: 02/28/2024 1:20 PM Age: 78 years old Clinical indication: Injury or trauma; Fall; Additional info: Trauma, fall >65, R rib pain, sacral pain TECHNIQUE: Imaging protocol: Computed tomography of the cervical spine without contrast. Radiation optimization: All CT scans at this facility use at least one of these dose optimization techniques: automated exposure control; mA and/or kV adjustment per patient size (includes targeted exams where dose is matched to clinical indication); or iterative reconstruction. COMPARISON: CT CERVICAL SPINE WO CON 02/28/2024 1:20 PM FINDINGS: Bones: No evidence of acute fracture or malalignment. Multi-level degenerative changes result in variable degrees of neuroforaminal narrowing, most prominent from C3-C5. Grade 1 anterolisthesis at C4-C5 and C6-C7, also likely degenerative. Facet alignment is well maintained. Lungs: No acute abnormality or suspicious mass lesion in the visualized lung apices. Soft tissues: Unremarkable. IMPRESSION: 1. No evidence of acute osseous abnormality in the cervical spine. 2. Multi-level degenerative changes.
--- NOTE | 2024-02-28 11:40 | CT_ITS ---
PROCEDURE INFORMATION: Exam: CTA Abdomen and Pelvis With Contrast Exam date and time: 02/28/2024 1:36 PM Age: 78 years old Clinical indication: Injury or trauma; Fall; Blunt trauma; Other: Sacral; Additional info: Trauma, fall >65, R rib pain, sacral pain TECHNIQUE: Imaging protocol: Computed tomographic angiography of the abdomen and pelvis with contrast. Exam focused on the arteries. 3D rendering (Not supervised by radiologist): MIP and/or 3D reconstructed images were created by the technologist. Radiation optimization: All CT scans at this facility use at least one of these dose optimization techniques: automated exposure control; mA and/or kV adjustment per patient size (includes targeted exams where dose is matched to clinical indication); or iterative reconstruction. Contrast material: ISOVUE 370; Contrast volume: 100 ml; Contrast route: INTRAVENOUS (IV); COMPARISON: CT BONY PELVIS 02/28/2024 1:32 PM FINDINGS: Aorta: Mild calcific arteriosclerosis throughout the abdominal aorta. No abdominal aortic aneurysm or dissection. Celiac trunk and mesenteric arteries: No aneurysm, occlusion, or significant stenosis. Renal arteries: No aneurysm, occlusion, or significant stenosis. Right iliac arteries: No aneurysm, occlusion, or significant stenosis. Left iliac arteries: No aneurysm, occlusion, or significant stenosis. Liver: Unremarkable. Gallbladder and biliary ducts: Unremarkable. Pancreas: Unremarkable. Spleen: Unremarkable. Adrenal glands: Unremarkable. Kidneys and ureters: Unremarkable. Stomach and bowel: Moderate stool burden in the colon. No evidence of bowel obstruction or acute inflammatory changes in the gastrointestinal tract. Appendix: No evidence of appendicitis. Intraperitoneal space: No free fluid. No pneumoperitoneum. Lymph nodes: Unremarkable. Urinary bladder: Unremarkable. Reproductive: Within normal limits for age. Bones/joints: No acute osseous abnormality. Soft tissues: Unremarkable. IMPRESSION: 1. No acute findings in the abdomen or pelvis. 2. Concurrent chest CTA and CTs of the thoracic and lumbar spine are reported separately.
--- NOTE | 2024-02-28 11:40 | CT_ITS ---
PROCEDURE INFORMATION: Exam: CTA Chest With Contrast Exam date and time: 02/28/2024 1:36 PM Age: 78 years old Clinical indication: Injury or trauma; Fall; Blunt trauma (contusions or hematomas); Additional info: Trauma, fall >65, R rib pain, sacral pain TECHNIQUE: Imaging protocol: Computed tomographic angiography of the chest with contrast. Exam focused on the arteries. 3D rendering (Not supervised by radiologist): MIP and/or 3D reconstructed images were created by the technologist. Radiation optimization: All CT scans at this facility use at least one of these dose optimization techniques: automated exposure control; mA and/or kV adjustment per patient size (includes targeted exams where dose is matched to clinical indication); or iterative reconstruction. Contrast material: ISOVUE 370; Contrast volume: 100 ml; Contrast route: INTRAVENOUS (IV); COMPARISON: CT ANGIO CHEST PE PROTOCOL 12/17/2021 9:21 PM FINDINGS: Pulmonary arteries: No evidences pulmonary emboli. Aorta: Ascending aortic ectasia. No thoracic aortic aneurysm or dissection. Lungs: Low lung volumes with diffuse lobular mosaic airspace attenuation, nonspecific. No evidence of acute airspace infiltrate or pulmonary edema, noting low lung volumes limit evaluation for airspace disease. Few calcified pulmonary granulomata consistent with chronic sequelae of prior granulomatous disease. Pleural spaces: No pneumothorax. No pleural effusion. Heart: Global cardiomegaly. No significant pericardial effusion. Coronary arteries: Mild calcific coronary artery disease. Lymph nodes: Calcified mediastinal lymph nodes consistent with chronic sequelae of prior granulomatous disease. Diaphragm: Small hiatal hernia. Bones/joints: No evidence of acute osseous abnormality. Soft tissues: Unremarkable. IMPRESSION: 1. No acute findings in the chest. 2. Low lung volumes with diffuse lobular mosaic airspace attenuation, nonspecific. Findings can be seen with small airways or microvascular disease. 3. Global cardiomegaly. 4. Small hiatal hernia. 5. Mild calcific coronary artery disease. 6. Concurrent CTA abdomen/pelvis and CTs of the thoracic and lumbar spine are reported separately.
--- NOTE | 2024-02-28 11:40 | CT_ITS ---
PROCEDURE INFORMATION: Exam: CT Pelvis Without Contrast; Skeletal Exam date and time: 02/28/2024 1:32 PM Age: 78 years old Clinical indication: Injury or trauma; Fall; Blunt trauma (contusions or hematomas); Bilateral; Pelvic region; Additional info: Trauma, fall >65, R rib pain, sacral pain TECHNIQUE: Imaging protocol: Computed tomography of the pelvis without contrast. Exam focused on the skeleton. Radiation optimization: All CT scans at this facility use at least one of these dose optimization techniques: automated exposure control; mA and/or kV adjustment per patient size (includes targeted exams where dose is matched to clinical indication); or iterative reconstruction. COMPARISON: CT ABDOMEN PELVIS W CON 01/31/2024 9:13 PM FINDINGS: Bones/joints: No evidence of acute fracture or malalignment. Pubic symphysis and bilateral sacroiliac joints are congruent. Soft tissues: Unremarkable. IMPRESSION: No evidence of acute osseous abnormality in the pelvis.
--- NOTE | 2024-02-28 11:40 | CT_ITS ---
PROCEDURE INFORMATION: Exam: CT Head Without Contrast Exam date and time: 02/28/2024 1:16 PM Age: 78 years old Clinical indication: Injury or trauma; Fall; Blunt trauma (contusions or hematomas); Additional info: Trauma, fall >65, R rib pain, sacral pain TECHNIQUE: Imaging protocol: Computed tomography of the head without contrast. Radiation optimization: All CT scans at this facility use at least one of these dose optimization techniques: automated exposure control; mA and/or kV adjustment per patient size (includes targeted exams where dose is matched to clinical indication); or iterative reconstruction. COMPARISON: [facility] SOFT TISSUE HEAD/NECK 03/04/2017 3:30 PM FINDINGS: Brain: Central and cortical brain atrophy evident, appropriate for patient age. There is nonspecific periventricular low attenuation, likely microangiopathic disease. No acute intracranial hemorrhage. 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 Cerebral ventricles: No ventriculomegaly. Paranasal sinuses: Visualized sinuses are unremarkable. No fluid levels. Mastoid air cells: Visualized mastoid air cells are well aerated. Bones: Unremarkable. No acute fracture. Soft tissues: Unremarkable. IMPRESSION: No acute intracranial abnormality.
--- NOTE | 2024-02-28 11:42 | [facility].EDGENADL ---
Discharge Plan Disposition Patient Disposition: Home, Self-Care Prescriptions Prescriptions: New methocarbamol 500 mg tablet 1,000 mg PO TID Qty: 30 0RF No Action ropinirole 4 mg tablet 4 mg PO BID Patient Comments: Pt's states pt takes med BID, not QID mycophenolate mofetil 250 mg capsule 250 mg PO BID Qty: 120 2RF formoterol fumarate [Perforomist] 20 mcg/2 mL solution for nebulization 2 ml inhalation BID 90 Days Qty: 180 3RF budesonide 0.25 mg/2 mL suspension for nebulization 0.25 mg inhalation BID 90 Days Qty: 360 3RF albuterol sulfate 90 mcg/actuation HFA aerosol inhaler 2 inh inhalation QID PRN (Reason: shortness of breath or wheezing) 90 Days Qty: 8.5 2RF prednisone 10 mg tablet 10 mg PO DIRECTED Qty: 32 0RF Rx Instructions: see taper instructions: 4 tabs po qam x 5 days; 3 tabs po qam x 2 days; 2 tabs po qam x 2 days; 1 tab po qam x 2 days; then stop cefdinir 300 mg capsule 300 mg PO BID Qty: 20 0RF lorazepam 0.5 mg tablet 0.5 mg PO TID PRN (Reason: anxiety) Qty: 90 1RF hydrocodone-acetaminophen 5-325 mg tablet 1 tab PO Q8H PRN (Reason: pain) Qty: 21 0RF cholecalciferol (vitamin D3) [Vitamin D3] 25 mcg (1,000 unit) Capsule 25 mcg PO DAILY levothyroxine 25 mcg tablet 25 mcg PO DAILY Patient Comments: TAKE 1 TABLET BY MOUTH ONCE DAILY azelastine 137 mcg (0.1 %) aerosol,spray 2 spray intranasal HS Rx Instructions: administer into each nostril carbidopa-levodopa 50-200 mg tablet extended release 0.5 - 1 tab PO 5XDAY gabapentin 300 MG capsule 300 mg PO 0900,1300 30 Days Qty: 60 0RF gabapentin 300 mg capsule 600 mg PO HS 30 Days Qty: 60 0RF oxybutynin chloride 10 mg tablet extended release 24hr 10 mg PO DAILY Patient Comments: TAKE 1 TABLET BY MOUTH ONCE DAILY spironolactone 50 mg tablet 100 mg PO DAILY Patient Comments: TAKE 2 TABLETS BY MOUTH ONCE DAILY pantoprazole 40 mg Tablet,Delayed Release (Dr/Ec) 40 mg PO HS 30 Days Qty: 30 0RF amantadine HCl 100 MG tablet 100 mg PO 0700,1100 duloxetine 20 MG capsule,delayed release(DR/EC) 20 mg PO BID methenamine hippurate 1 GM tablet 1 gm PO BID prednisone 50 mg tablet 50 mg PO DAILY 5 Days Qty: 5 0RF azithromycin 500 mg tablet See Rx Instructions .ROUTE .COMPLEX Qty: 3 0RF Rx Instructions: For 250 mg dose pack: take 500 mg today (day 1), then 250 mg for 4 days (days 2-5) sulfamethoxazole-trimethoprim [Bactrim DS] 800-160 mg tablet 1 tab PO Q12H 7 Days Qty: 14 0RF Referrals Follow up/Referrals: Hossein Grimaldo MD [Primary Care Provider] - See instructions Activity Restrictions/Add. Instructions Additional Instructions/Restrictions: At this time it was felt you are safe to be discharged home. If new or worsening symptoms please do not hesitate to return the emergency department. For pain please take 1000 mg of acetaminophen and take your medication as prescribed. If the prescribed medication (methocarbamol) does not make her sleepy it is okay to take the pain medicine that was prescribed by your family doctor. Clinical Impressions Clinical Impression: Fall, Rib pain on right side Discharge ED Provider: Brandi Donahue General Adult HPI <Brandi Donahue DO - Last Filed: 02/28/24 15:09> General Chief complaint: Fall Stated complaint: ao 02/26 fell pain in side Time Seen by Provider: 02/28/24 11:16 Mode of Arrival: Wheelchair Source of Information: Patient and Spouse Limitations: No Limitations Description of Symptoms (Recalled from ER Triage Doc. by RN): pt states she fell yesterday while standing and landed on a broom. pt c/o R rib pain that is sharp in nature and 10/10. pt denies hitting her head or LOC. pt states she has a hx of parkinsons and has frequent falls. History of Present Illness HPI narrative: This patient is a 78-year-old female with a history of hypothyroidism, Parkinson's disease, LATRICIA, and CHF presenting to the emergency department for evaluation with concern for right rib pain. Patient reports that she had a fall yesterday, which is not unusual for her. She notes it was a mechanical ground-level fall, but she did hit her right ribs. She did not hit her head or lose consciousness. She states she falls all the time, which is why she did not come in initially, but since then she has had persistent right rib pain that is worse when she takes a deep breath. She notes she is having to limit her breaths secondary to the pain. She denies any other concerns, such as headache, vision changes, numbness, tingling, back pain, or other concerns. She has otherwise been in her usual state of health. She does not take any blood thinners. Related Data Home Medications Medication Instructions Recorded Confirmed amantadine HCl 100 mg tablet 100 mg PO 0700,1100 09/16/20 02/25/24 duloxetine 20 mg capsule,delayed 20 mg PO BID 09/16/20 02/25/24 release methenamine hippurate 1 gram tablet 1 gm PO BID 12/18/21 02/25/24 ropinirole 4 mg tablet 4 mg PO BID 06/26/22 02/25/24 azelastine 137 mcg (0.1 %) nasal 2 spray intranasal HS 07/10/23 02/25/24 spray cholecalciferol (vitamin D3) 25 25 mcg PO DAILY Supplement 07/10/23 02/25/24 mcg (1,000 unit) capsule (Vitamin D3) levothyroxine 25 mcg tablet 25 mcg PO DAILY 07/10/23 02/25/24 carbidopa ER 50 mg-levodopa 200 mg 0.5 - 1 tab PO DAY 07/12/23 02/25/24 tablet,extended release oxybutynin chloride 10 mg 10 mg PO DAILY 10/27/23 02/25/24 tablet,extended release 24 hr spironolactone 50 mg tablet 100 mg PO DAILY 10/27/23 02/25/24 Previous Rx's Medication Instructions Recorded gabapentin 300 mg capsule 300 mg PO 0900,1300 Pain 30 days 07/14/23 #60 caps gabapentin 300 mg capsule 600 mg (2 x 300 mg) PO HS Pain 30 07/14/23 days #60 caps albuterol sulfate 90 mcg/actuation 2 inh inhalation QID PRN shortness 10/20/23 aerosol inhaler of breath or wheezing 90 days #8.5 grams pantoprazole 40 mg tablet,delayed 40 mg PO HS 30 days #30 tabs 10/28/23 release budesonide 0.25 mg/2 mL suspension 0.25 mg (2 mL) inhalation BID 90 11/10/23 for nebulization days #360 mL formoterol fumarate 20 mcg/2 mL 2 ml inhalation BID 90 days #180 mL 11/10/23 solution for nebulization (Perforomist) mycophenolate mofetil 250 mg 250 mg PO BID #120 caps 12/17/23 capsule azithromycin 500 mg tablet See Rx Instructions PO .COMPLEX #3 01/27/24 tabs prednisone 50 mg tablet 50 mg PO DAILY 5 days #5 tabs 01/27/24 sulfamethoxazole 800 1 tab PO Q12H 7 days #14 tabs 01/31/24 mg-trimethoprim 160 mg tablet (Bactrim DS) cefdinir 300 mg capsule 300 mg PO BID #20 caps 02/10/24 prednisone 10 mg tablet 10 mg PO DIRECTED #32 tabs 02/10/24 lorazepam 0.5 mg tablet 0.5 mg PO TID PRN anxiety #90 tabs 02/22/24 hydrocodone 5 mg-acetaminophen 325 1 tab PO Q8H PRN pain #21 tabs 02/24/24 mg tablet methocarbamol 500 mg tablet 1,000 mg (2 x 500 mg) PO TID rib 02/28/24 pain #30 tabs Allergies Allergy/AdvReac Type Severity Reaction Status Date / Time No Known Allergies Allergy Verified 02/28/24 11:36 [facility] <Brandi Donahue DO - Last Filed: 02/28/24 15:09> [facility] Disclaimer: The information contained in this section may have been updated after the patient was seen, as this information can be updated by other users. Medical History Urinary tract infection Sleep apnea Pneumonia History of COVID-19 History of gastroesophageal reflux (GERD) Thyroid disease Parkinson disease Arthritis Edema Fibrosis of lung Breathlessness Nocturnal hypoxia Allergic rhinitis Restrictive lung disease ILD (interstitial lung disease) History of rheumatoid arthritis NSIP (nonspecific interstitial pneumonia) Organizing pneumonia Dyspnea on exertion Surgical History History of tubal ligation Family History Other Stroke Social History (Reviewed 02/28/24 @ 11:51 by STANLEY Bhatia Smoking Status: Never smoker alcohol intake: never substance use type: denies use current occupational status: retired Travel in the last 8 weeks: None household members: spouse housing: house caffeine: Yes <Brandi Donahue DO - Last Filed: 02/28/24 15:09> ROS Obtained: Yes All systems reviewed & no additional complaints except as documented Physical Exam <Brandi Donahue DO - Last Filed: 02/28/24 15:09> General General appearance: alert, in no apparent distress and obese Head Head exam: atraumatic and normocephalic Eye Eye exam: Present normal appearance, PERRL and EOMI ENT ENT exam: Present normal exam, normal oropharynx, mucous membranes moist and normal external ear exam Neck Neck exam: Present normal inspection, full ROM and trachea midline; Absent tenderness Chest Chest inspection: Present symmetric chest wall rise and tenderness (Right posterior lateral ribs with associated bruising) Respiratory Respiratory exam: Present normal lung sounds bilaterally; Absent respiratory distress, wheezes, stridor or accessory muscle use Cardiovascular Cardiovascular exam: Present regular rate and normal rhythm Abdominal Exam Abdominal exam: Present soft and tenderness (Right flank); Absent distention or guarding Extremities Exam Extremities exam: Present normal inspection, full ROM and normal capillary refill; Absent tenderness or edema Back Exam Back exam: Present normal inspection and full ROM; Absent tenderness Neurological Exam Neurological exam: Present alert, oriented X3 and CN II-XII intact; Absent motor sensory deficit Psychiatric Psychiatric exam: Present normal affect and normal mood Skin Skin exam: Present warm and dry Medical Decision Making <Brandi Donahue DO - Last Filed: 02/28/24 15:09> Medical Records Medical records reviewed: Yes I reviewed the patient's medical records. Nikunj Inquiry Pt receiving controlled substance: No Vital Signs: 02/28/24 11:18 02/28/24 11:28 02/28/24 11:30 Temperature 98.3 F Temperature Source Oral Pulse Rate 62 62 Pulse Rate [Left] 63 Respiratory Rate 16 Blood Pressure 103/50 L 111/58 L Blood Pressure [Right Arm] 103/50 L Blood Pressure Mean [Right Arm] 67 Blood Pressure Source [Right Arm] Automatic Cuff Blood Pressure Position [Right Arm] Sitting 02 Sat by Pulse Oximetry 95 95 94 L Oxygen Delivery Method Room Air Room Air Room Air 02/28/24 12:33 02/28/24 13:45 02/28/24 14:31 Temperature Temperature Source Pulse Rate 52 L 55 L 49 L Pulse Rate [Left] Respiratory Rate Blood Pressure 109/49 L 114/59 L Blood Pressure [Right Arm] Blood Pressure Mean [Right Arm] Blood Pressure Source [Right Arm] Blood Pressure Position [Right Arm] 02 Sat by Pulse Oximetry 95 96 97 Oxygen Delivery Method Room Air 02/28/24 15:00 02/28/24 15:40 02/28/24 16:01 Temperature Temperature Source Pulse Rate 47 L 52 L 48 L Pulse Rate [Left] Respiratory Rate Blood Pressure 99/54 L 104/47 L 115/59 L Blood Pressure [Right Arm] Blood Pressure Mean [Right Arm] Blood Pressure Source [Right Arm] Blood Pressure Position [Right Arm] 02 Sat by Pulse Oximetry 94 L 95 99 Oxygen Delivery Method Room Air Room Air Room Air 02/28/24 16:30 Temperature 97.9 F Temperature Source Pulse Rate 59 L Pulse Rate [Left] Respiratory Rate 16 Blood Pressure 115/59 L Blood Pressure [Right Arm] Blood Pressure Mean [Right Arm] Blood Pressure Source [Right Arm] Blood Pressure Position [Right Arm] 02 Sat by Pulse Oximetry Oxygen Delivery Method Lab Data Lab results reviewed: Yes I reviewed the patient's lab results. Lab Results 02/28/24 12:05: WBC 14.1 H, RBC 4.23, Hgb 11.9 L, Hct 37.2, MCV 88.1, MCH 28.1, MCHC 31.9, RDW 17.7 H, Plt Count 332, MPV 8.1, Neut % (Auto) 78.1, Lymph % (Auto) 13.4, [place] % (Auto) 5.5, Eos % (Auto) 2.1, Baso % (Auto) 1.0, Neut # (Auto) 11.0 H, Lymph # (Auto) 1.9, [place] # (Auto) 0.8, Eos # (Auto) 0.3, Baso # (Auto) 0.1, PT 9.8 L, INR 0.86 L, APTT 24.4, Sodium 136, Potassium 5.0, Chloride 104, Carbon Dioxide 25, Anion Gap 12.0, BUN 33 H, Creatinine 1.20 H, Estimated Creat Clear 42, Estimated GFR 43 L, Est GFR ( Amer) 53 L, Glucose 80, Calcium 9.5, Total Bilirubin 0.7, AST 17, ALT 8 L, Alkaline Phosphatase 74, Total Protein 8.1, Albumin 4.2, Globulin 3.9 H, Albumin/Globulin Ratio 1.1 02/28/24 14:05: Urine Color Yellow, Urine Appearance Clear, Urine pH 6.0, Ur Specific [place] 1.010, Urine Protein Negative, Urine Glucose (UA) Negative, Urine Ketones Negative, Urine Blood Trace-i, Urine Nitrate Negative, Urine Bilirubin Negative, Urine Urobilinogen 0.2, Ur Leukocyte Esterase Trace, Urine RBC Occasional, Urine WBC 10-20, Ur Squamous Epith Cells 3-5 02/28/24 12:05 02/28/24 12:05 Orders (Tests/Meds): ED MEDICATIONS Discontinued Medications Generic Name Dose Route Start Last Admin Trade Name Freq PRN Reason Stop Dose Admin Acetaminophen 1,000 mg 02/28/24 11:53 02/28/24 12:02 Acetaminophen 500mg Tab PO 02/28/24 11:54 1,000 mg ONCE ONE Administration Doxycycline Hyclate 100 mg 02/28/24 12:32 02/28/24 12:41 Doxycycline Hycl 100 Mg Tablet PO 02/28/24 12:33 Not Given ONCE ONE Lactated Ringer's 500 mls @ 999 mls/hr 02/28/24 12:35 02/28/24 12:50 Lactated Ringer's 500ml IV 02/28/24 13:05 999 mls/hr .Q31M ONE Administration Iopamidol 100 ml 02/28/24 13:35 02/28/24 13:36 Iopamidol-370 (76%);100ml Bottle IV 02/28/24 13:36 100 ml ONCE ONE Administration Ketorolac Tromethamine 15 mg 02/28/24 11:53 02/28/24 12:03 Ketorolac 30mg/Ml Vial IV 02/28/24 11:54 15 mg ONCE ONE Administration Lidocaine 1 each 02/28/24 11:53 02/28/24 12:02 Lidocaine 5% Transdermal Patch TP 02/28/24 11:54 1 each ONCE ONE Administration Methocarbamol 500 mg 02/28/24 11:53 02/28/24 12:02 Methocarbamol 500mg Tablet PO 02/28/24 11:54 500 mg ONCE ONE Administration Sodium Chloride 10 ml 02/28/24 13:35 02/28/24 13:36 Sodium Chloride 0.9% 10ml Syr (Rad Only) IV 02/28/24 13:36 10 ml ONCE ONE Administration Sodium Chloride 50 ml 02/28/24 13:35 02/28/24 13:36 0.9 % Sodium Chloride 50 Ml Vial IV 02/28/24 13:36 50 ml ONCE ONE Administration ORDERS Category Date Time Status CT angio abdomen pelvis Stat Cat Scan 02/28/24 11:[address] angio chest PE protocol Stat Cat Scan 02/28/24 11:[address] bony pelvis Stat Cat Scan 02/28/24 11:[address] cervical spine wo con Stat Cat Scan 02/28/24 11:[address] head/brain wo con Stat Cat Scan 02/28/24 11:[address] lumbar spine wo con Stat Cat Scan 02/28/24 11:[address] thoracic spine wo con Stat Cat Scan 02/28/24 11:40 Completed Activated Partial Thrombo Time Stat Lab 02/28/24 12:05 Completed CBC w/Auto Diff [Complete Blood Count Auto Diff] Stat Lab 02/28/24 12:05 Completed CMP [Comprehensive Metabolic Panel] Stat Lab 02/28/24 12:05 Completed PT INR [Prothrombin Time INR] Stat Lab 02/28/24 12:05 Completed UA [Urinalysis and Microscopic] Stat Lab 02/28/24 14:05 Completed Urine Culture Stat Micro 02/28/24 14:05 Received Medical Decision Narrative: In summary, this patient is a 78-year-old female presenting to the Emergency Department for evaluation of right rib pain after a mechanical ground-level fall yesterday. Differential diagnoses considered include but are not limited to rib fractures, contusion, strain/sprain, liver laceration, pneumothorax. Ruling out the most morbid conditions drove assessment. It should be noted patient's history includes Parkinson's disease, CHF, interstitial lung disease, GERD, dementia which may or may not be at goal therapy. This complicates all aspects of care by increasing patient's risk for morbidity. On exam, the patient is sitting upright in no acute distress with reassuring vital signs on cardiac telemetry. She has right rib bruising and tenderness as well as right flank tenderness. Workup included trauma CT scans including CT head without contrast, CT spines and pelvis without contrast, and CTA chest, abdomen, and pelvis. I also obtain basic lab work and coags. Patient was given topical Lidoderm patch as well as IV Toradol, oral Tylenol, and oral Robaxin for symptomatic improvement of pain. On reassessment, the patient is resting comfortably and states she is feeling some better. She was able to ambulate to the bathroom with assistance. Labs demonstrated mild leukocytosis, which appears to be chronic on medical record review. Her kidney function is around her baseline. No other acutely concerning abnormalities on labs. CT reads are pending at this time. Patient care signed out to the oncoming provider, Dr. Avery, pending CT and disposition. <Bryan Avery MD - Last Filed: 02/29/24 00:11> Vital Signs: 02/28/24 11:18 02/28/24 11:28 02/28/24 11:30 Temperature 98.3 F Temperature Source Oral Pulse Rate 62 62 Pulse Rate [Left] 63 Respiratory Rate 16 Blood Pressure 103/50 L 111/58 L Blood Pressure [Right Arm] 103/50 L Blood Pressure Mean [Right Arm] 67 Blood Pressure Source [Right Arm] Automatic Cuff Blood Pressure Position [Right Arm] Sitting 02 Sat by Pulse Oximetry 95 95 94 L Oxygen Delivery Method Room Air Room Air Room Air 02/28/24 12:33 02/28/24 13:45 02/28/24 14:31 Temperature Temperature Source Pulse Rate 52 L 55 L 49 L Pulse Rate [Left] Respiratory Rate Blood Pressure 109/49 L 114/59 L Blood Pressure [Right Arm] Blood Pressure Mean [Right Arm] Blood Pressure Source [Right Arm] Blood Pressure Position [Right Arm] 02 Sat by Pulse Oximetry 95 96 97 Oxygen Delivery Method Room Air 02/28/24 15:00 02/28/24 15:40 02/28/24 16:01 Temperature Temperature Source Pulse Rate 47 L 52 L 48 L Pulse Rate [Left] Respiratory Rate Blood Pressure 99/54 L 104/47 L 115/59 L Blood Pressure [Right Arm] Blood Pressure Mean [Right Arm] Blood Pressure Source [Right Arm] Blood Pressure Position [Right Arm] 02 Sat by Pulse Oximetry 94 L 95 99 Oxygen Delivery Method Room Air Room Air Room Air 02/28/24 16:30 Temperature 97.9 F Temperature Source Pulse Rate 59 L Pulse Rate [Left] Respiratory Rate 16 Blood Pressure 115/59 L Blood Pressure [Right Arm] Blood Pressure Mean [Right Arm] Blood Pressure Source [Right Arm] Blood Pressure Position [Right Arm] 02 Sat by Pulse Oximetry Oxygen Delivery Method Lab Data Lab Results 02/28/24 12:05: WBC 14.1 H, RBC 4.23, Hgb 11.9 L, Hct 37.2, MCV 88.1, MCH 28.1, MCHC 31.9, RDW 17.7 H, Plt Count 332, MPV 8.1, Neut % (Auto) 78.1, Lymph % (Auto) 13.4, [place] % (Auto) 5.5, Eos % (Auto) 2.1, Baso % (Auto) 1.0, Neut # (Auto) 11.0 H, Lymph # (Auto) 1.9, [place] # (Auto) 0.8, Eos # (Auto) 0.3, Baso # (Auto) 0.1, PT 9.8 L, INR 0.86 L, APTT 24.4, Sodium 136, Potassium 5.0, Chloride 104, Carbon Dioxide 25, Anion Gap 12.0, BUN 33 H, Creatinine 1.20 H, Estimated Creat Clear 42, Estimated GFR 43 L, Est GFR ( Amer) 53 L, Glucose 80, Calcium 9.5, Total Bilirubin 0.7, AST 17, ALT 8 L, Alkaline Phosphatase 74, Total Protein 8.1, Albumin 4.2, Globulin 3.9 H, Albumin/Globulin Ratio 1.1 02/28/24 14:05: Urine Color Yellow, Urine Appearance Clear, Urine pH 6.0, Ur Specific [place] 1.010, Urine Protein Negative, Urine Glucose (UA) Negative, Urine Ketones Negative, Urine Blood Trace-i, Urine Nitrate Negative, Urine Bilirubin Negative, Urine Urobilinogen 0.2, Ur Leukocyte Esterase Trace, Urine RBC Occasional, Urine WBC 10-20, Ur Squamous Epith Cells 3-5 Orders (Tests/Meds): ED MEDICATIONS Discontinued Medications Generic Name Dose Route Start Last Admin Trade Name Freq PRN Reason Stop Dose Admin Acetaminophen 1,000 mg 02/28/24 11:53 02/28/24 12:02 Acetaminophen 500mg Tab PO 02/28/24 11:54 1,000 mg ONCE ONE Administration Doxycycline Hyclate 100 mg 02/28/24 12:32 02/28/24 12:41 Doxycycline Hycl 100 Mg Tablet PO 02/28/24 12:33 Not Given ONCE ONE Lactated Ringer's 500 mls @ 999 mls/hr 02/28/24 12:35 02/28/24 12:50 Lactated Ringer's 500ml IV 02/28/24 13:05 999 mls/hr .Q31M ONE Administration Iopamidol 100 ml 02/28/24 13:35 02/28/24 13:36 Iopamidol-370 (76%);100ml Bottle IV 02/28/24 13:36 100 ml ONCE ONE Administration Ketorolac Tromethamine 15 mg 02/28/24 11:53 02/28/24 12:03 Ketorolac 30mg/Ml Vial IV 02/28/24 11:54 15 mg ONCE ONE Administration Lidocaine 1 each 02/28/24 11:53 02/28/24 12:02 Lidocaine 5% Transdermal Patch TP 02/28/24 11:54 1 each ONCE ONE Administration Methocarbamol 500 mg 02/28/24 11:53 02/28/24 12:02 Methocarbamol 500mg Tablet PO 02/28/24 11:54 500 mg ONCE ONE Administration Sodium Chloride 10 ml 02/28/24 13:35 02/28/24 13:36 Sodium Chloride 0.9% 10ml Syr (Rad Only) IV 02/28/24 13:36 10 ml ONCE ONE Administration Sodium Chloride 50 ml 02/28/24 13:35 02/28/24 13:36 0.9 % Sodium Chloride 50 Ml Vial IV 02/28/24 13:36 50 ml ONCE ONE Administration ORDERS Category Date Time Status CT angio abdomen pelvis Stat Cat Scan 02/28/24 11:[address] angio chest PE protocol Stat Cat Scan 02/28/24 11:[address] bony pelvis Stat Cat Scan 02/28/24 11:[address] cervical spine wo con Stat Cat Scan 02/28/24 11:[address] head/brain wo con Stat Cat Scan 02/28/24 11:[address] lumbar spine wo con Stat Cat Scan 02/28/24 11:[address] thoracic spine wo con Stat Cat Scan 02/28/24 11:40 Completed Activated Partial Thrombo Time Stat Lab 02/28/24 12:05 Completed CBC w/Auto Diff [Complete Blood Count Auto Diff] Stat Lab 02/28/24 12:05 Completed CMP [Comprehensive Metabolic Panel] Stat Lab 02/28/24 12:05 Completed PT INR [Prothrombin Time INR] Stat Lab 02/28/24 12:05 Completed UA [Urinalysis and Microscopic] Stat Lab 02/28/24 14:05 Completed Urine Culture Stat Micro 02/28/24 14:05 Received Medical Decision Narrative: In summary, this patient is a 78-year-old female presenting to the Emergency Department for evaluation of right rib pain after a mechanical ground-level fall yesterday. Differential diagnoses considered include but are not limited to rib fractures, contusion, strain/sprain, liver laceration, pneumothorax. Ruling out the most morbid conditions drove assessment. It should be noted patient's history includes Parkinson's disease, CHF, interstitial lung disease, GERD, dementia which may or may not be at goal therapy. This complicates all aspects of care by increasing patient's risk for morbidity. On exam, the patient is sitting upright in no acute distress with reassuring vital signs on cardiac telemetry. She has right rib bruising and tenderness as well as right flank tenderness. Workup included trauma CT scans including CT head without contrast, CT spines and pelvis without contrast, and CTA chest, abdomen, and pelvis. I also obtain basic lab work and coags. Patient was given topical Lidoderm patch as well as IV Toradol, oral Tylenol, and oral Robaxin for symptomatic improvement of pain. On reassessment, the patient is resting comfortably and states she is feeling some better. She was able to ambulate to the bathroom with assistance. Labs demonstrated mild leukocytosis, which appears to be chronic on medical record review. Her kidney function is around her baseline. No other acutely concerning abnormalities on labs. CT reads are pending at this time. Patient care signed out to the oncoming provider, Dr. Avery, pending CT and disposition. Bryan Avery: Upon assumption of care patient is hemodynamically stable. Workup reviewed by me, hematologic labs are nonactionable. Trauma survey remarkable for no acute pathology. Upon repeat evaluation patient was resting comfortably in bed, was ambulatory at bedside and is appropriate for outpatient management at this time. Critical Care <Brandi Donahue, DO - Last Filed: 02/28/24 15:09> Critical Care Time Critical Care Time: No
[2024-02-28] MEDS: LIDOCAINE 5% TRANSDERMAL PATCH 1 EACH TP (12:02)
[2024-02-28] MEDS: ACETAMINOPHEN 500MG TAB 1000 MG PO (12:02)
[2024-02-28] MEDS: METHOCARBAMOL 500MG TABLET 500 MG PO (12:02)
[2024-02-28] MEDS: KETOROLAC 30MG/ML VIAL 15 MG IV (12:03)
[2024-02-28 12:15] LABS: Basophils # 0.1 K/mm3 (0-0.2); Eosinophils # 0.3 K/mm3 (0.0-0.4); Eosinophils % 2.1 % (0.1-12.0); Hematocrit 37.2 % (37.0-47.0); Hemoglobin 11.9 g/dL (12.2-16.2); Lymphocytes # 1.9 K/mm3 (0.7-4.5); Lymphocytes % 13.4 % (10-50); Mean Corpuscular HGB Conc 31.9 g/dL (31.8-35.4); Mean Corpuscular Hemoglobin 28.1 pg (27.0-31.2); Mean Corpuscular Volume 88.1 fl (81-99); Mean Platelet Volume 8.1 fl (7.4-10.4); Monocytes # 0.8 K/mm3 (0.1-1.0); Monocytes % 5.5 % (1.7-9.3); Neutrophils % 78.1 % (37.0-80.0); Platelet Count 332 K/mm3 (142-424); Red Blood Count 4.23 M/mm3 (4.20-5.40); Red Cell Distribution Width 17.7 % (11.5-17.5); White Blood Count 14.1 K/mm3 (4.8-10.8)
[2024-02-28 12:19] LABS: Chloride 104 mmol/L (98-107); Sodium 136 mmol/L (136-145)
[2024-02-28 12:22] LABS: Alanine Aminotransferase 8 U/L (12-78); Albumin Level 4.2 g/dl (3.5-5.0); Albumin/Globulin Ratio 1.1 (1.1-1.8); Alkaline Phosphatase 74 U/L (38-126); Aspartate Amino Transferase 17 U/L (14-36); Bilirubin,Total 0.7 mg/dl (0.2-1.3); Blood Urea Nitrogen 33 mg/dl (7-17); Carbon Dioxide 25 mmol/L (22.0-30.0); Creatinine Clearance Estimated 42 mL/min (50-200); Estimated Glomerular Filt Rate 43 ml/min (>60); GFR (African American) 53 ML/MIN (>60); Globulin 3.9 g/dL (1.3-3.2); Total Protein,Serum 8.1 g/dl (6.3-8.2)
[2024-02-28 12:23] LABS: Calcium 9.5 mg/dl (8.4-10.2); Glucose 80 mg/dl (74-100)
[2024-02-28 12:24] LABS: Activated Partial Thrombo Time 24.4 seconds (22.8-30.6); INR 0.86 (0.9-1.1); Prothrombin Time 9.8 seconds (10.1-12.5)
[2024-02-28] MEDS: RINGERS SOLUTION,LACTATED 500 ML 999 ML IV (12:50)
[2024-02-28] MEDS: IOPAMIDOL-370 (76%);100ML BOTTLE 100 ML IV (13:36)
[2024-02-28] MEDS: SODIUM CHLORIDE 0.9% 10ML SYR (RAD ONLY) 10 ML IV (13:36)
[2024-02-28] MEDS: 0.9 % SODIUM CHLORIDE 50 ML VIAL IV (13:36)
--- NOTE | 2024-02-28 13:59 | PC.NURSE ---
pt in bathroom attempting to give a urine sample
[2024-02-28 14:09] LABS: Microscopic, Urine URINE MICROSCOPIC (MICROSCOPIC)
[2024-02-28 14:12] LABS: Appearance,Urine CLEAR (Clear); Bilirubin,Urine Negative (Negative); Blood, Urine TRACE-I (Negative); Color,Urine YELLOW (Yellow); Glucose,Urine (UA) Negative (Negative); Ketones,Urine Negative (Negative); Leukocyte Esterase,Urine TRACE (Negative); Nitrate,Urine Negative (Negative); Protein,Urine Negative (Negative); Urobilinogen,Urine 0.2 EU/dl (0.2)
[2024-02-28 14:26] LABS: RBC,Urine Occasional #/hpf (0-3)
--- NOTE | 2024-02-28 16:33 | PC.NURSE ---
patient ambulated from bed into hallway with steady gait.
== END 2024-02-28 16:40 | disposition home or self-care (01) ==
PROVIDERS: Emergency Provider Emergency Medicine; PCP Internal Medicine
DX: R07.81 Pleurodynia (principal); B96.89 Other specified bacterial agents as the cause of diseases classified elsewhere; I11.0 Hypertensive heart disease with heart failure; I50.9 Heart failure, unspecified; G20.C Parkinsonism, unspecified; F03.90 Unspecified dementia, unspecified severity, without behavioral disturbance, psychotic disturbance, mood disturbance, and anxiety; J84.9 Interstitial pulmonary disease, unspecified; E03.9 Hypothyroidism, unspecified; W19.XXXA Unspecified fall, initial encounter
CPT/HCPCS: 70450; 71275; 72125; 72128; 72131; 72192; 74174; 80053; 81001; 85025; 85610; 85730; 87086; 96374; 99285; J1885; J7120; Q9967

== ENCOUNTER 2024-03-11 09:26 | Outpatient (CLI) | payer MEDICARE, SELFPAY ==
--- NOTE | 2024-03-11 09:31 | XR_ITS ---
FINAL REPORT TECHNIQUE: Chest PA & Lateral CLINICAL HISTORY: Pneumonia COMPARISON: 01/31/2024 FINDINGS: 2 views of the chest were performed. The heart size is normal. The mediastinum is within normal limits. There is no acute cardiopulmonary process. There are no pleural effusions. There is no pneumothorax. The bony thorax appears intact. IMPRESSION: No acute cardiopulmonary process. Reviewed, Interpreted and Dictated by Ronnell Linda MD Transcribed by Corrina Rios Authenticated and [facility]
== END 2024-03-11 23:59 | disposition home or self-care (01) ==
LOC: RAD 09:28
PROVIDERS: PCP Internal Medicine; Visit Provider Internal Medicine Pulmonary Disease
DX: J18.9 Pneumonia, unspecified organism; R06.02 Shortness of breath
CPT/HCPCS: 71046

== ENCOUNTER 2024-03-17 20:43 | Emergency (ER) | payer MEDICARE, SELFPAY ==
[2024-03-17] VITALS (8 sets, daily range): BP systolic 105–130; BP diastolic 44–85; PULSE 60–67; RESP 16–18; TEMP 36.7–36.8; O2SAT 92–96; BMI 27.4
--- NOTE | 2024-03-17 21:09 | CT_ITS ---
PROCEDURE INFORMATION: Exam: CT Neck With Contrast Exam date and time: 03/17/2024 10:02 PM Age: 78 years old Clinical indication: Other: Hoarseness; Additional info: Progressive hoarseness, SOA TECHNIQUE: Imaging protocol: Computed tomography of the neck with contrast. Radiation optimization: All CT scans at this facility use at least one of these dose optimization techniques: automated exposure control; mA and/or kV adjustment per patient size (includes targeted exams where dose is matched to clinical indication); or iterative reconstruction. Contrast material: ISOVUE; Contrast volume: 75 ml; Contrast route: IV; COMPARISON: CT CERVICAL SPINE WO CON 02/28/2024 1:20 PM FINDINGS: Brain: Visualized intracranial vessels are patent. Orbital cavities: Bilateral cataract extractions. Salivary glands: Normal. Glands are normal in size. Pharynx: No evidence for pharyngeal wall thickening. Parapharyngeal fat planes appear normal. No peritonsillar abscess. Prevertebral and retropharyngeal spaces: No significant prevertebral soft tissue swelling. Larynx: Normal epiglottis. Thyroid: Normal. No enlarged or calcified nodules. Trachea: Visualized trachea is unremarkable. Lungs: Upper visualized lungs appear normal. Lymph nodes: No significant cervical adenopathy. Vasculature: The visualized dural sinuses are patent. Bones/joints: Multilevel degenerative change of the cervical spine. Multilevel moderate to severe facet arthropathy. Soft tissues: Intrinsic tongue musculature appears normal. Paralaryngeal soft tissues appear normal. Other findings: Mild generalized atrophy. IMPRESSION: 1. Negative acute neck CT. 2. If the patient has persistent hoarseness indirect laryngoscopy may be indicated.
--- NOTE | 2024-03-17 21:09 | CT_ITS ---
PROCEDURE INFORMATION: Exam: CTA Chest With Contrast Exam date and time: 03/17/2024 10:06 PM Age: 78 years old Clinical indication: Shortness of breath; Additional info: Progressive hoarseness, SOA TECHNIQUE: Imaging protocol: Computed tomographic angiography of the chest with contrast. Exam focused on the arteries. 3D rendering (Not supervised by radiologist): MIP and/or 3D reconstructed images were created by the technologist. Radiation optimization: All CT scans at this facility use at least one of these dose optimization techniques: automated exposure control; mA and/or kV adjustment per patient size (includes targeted exams where dose is matched to clinical indication); or iterative reconstruction. Contrast material: ISOVUE; Contrast volume: 70 ml; Contrast route: INTRAVENOUS (IV); COMPARISON: CT ANGIO CHEST PE PROTOCOL 02/28/2024 1:36 PM FINDINGS: Pulmonary arteries: Normal. No pulmonary emboli. Aorta: Unremarkable. No aortic aneurysm. No aortic dissection. Lungs: Scattered atelectasis bilaterally. No consolidation. No masses. Pleural spaces: Unremarkable. No pneumothorax. No pleural effusion. Heart: Unremarkable. No cardiomegaly. No pericardial effusion. Lymph nodes: Unremarkable. No enlarged lymph nodes. Bones/joints: Unremarkable. No acute fracture. Soft tissues: Unremarkable. IMPRESSION: No acute findings.
--- NOTE | 2024-03-17 21:25 | ED_ITS ---
Discharge Plan Disposition Patient Disposition: Home, Self-Care Condition: Good Prescriptions Prescriptions: No Action ropinirole 4 mg tablet 4 mg PO BID Patient Comments: Pt's states pt takes med BID, not QID mycophenolate mofetil 250 mg capsule 250 mg PO BID Qty: 120 2RF formoterol fumarate [Perforomist] 20 mcg/2 mL solution for nebulization 2 ml inhalation BID 90 Days Qty: 180 3RF budesonide 0.25 mg/2 mL suspension for nebulization 0.25 mg inhalation BID 90 Days Qty: 360 3RF albuterol sulfate 90 mcg/actuation HFA aerosol inhaler 2 inh inhalation QID PRN (Reason: shortness of breath or wheezing) 90 Days Qty: 8.5 2RF prednisone 10 mg tablet 10 mg PO DIRECTED Qty: 32 0RF Rx Instructions: see taper instructions: 4 tabs po qam x 5 days; 3 tabs po qam x 2 days; 2 tabs po qam x 2 days; 1 tab po qam x 2 days; then stop cefdinir 300 mg capsule 300 mg PO BID Qty: 20 0RF lorazepam 0.5 mg tablet 0.5 mg PO TID PRN (Reason: anxiety) Qty: 90 1RF hydrocodone-acetaminophen 5-325 mg tablet 1 tab PO Q8H PRN (Reason: pain) Qty: 21 0RF prednisone 20 mg tablet 40 mg PO DAILY 5 Days Qty: 15 0RF Rx Instructions: Take 40mg daily for 5 days followed 20mg daily for 5 days cholecalciferol (vitamin D3) [Vitamin D3] 25 mcg (1,000 unit) Capsule 25 mcg PO DAILY levothyroxine 25 mcg tablet 25 mcg PO DAILY Patient Comments: TAKE 1 TABLET BY MOUTH ONCE DAILY azelastine 137 mcg (0.1 %) aerosol,spray 2 spray intranasal HS Rx Instructions: administer into each nostril carbidopa-levodopa 50-200 mg tablet extended release 0.5 - 1 tab PO 5XDAY gabapentin 300 MG capsule 300 mg PO 0900,1300 30 Days Qty: 60 0RF gabapentin 300 mg capsule 600 mg PO HS 30 Days Qty: 60 0RF oxybutynin chloride 10 mg tablet extended release 24hr 10 mg PO DAILY Patient Comments: TAKE 1 TABLET BY MOUTH ONCE DAILY spironolactone 50 mg tablet 100 mg PO DAILY Patient Comments: TAKE 2 TABLETS BY MOUTH ONCE DAILY pantoprazole 40 mg Tablet,Delayed Release (Dr/Ec) 40 mg PO HS 30 Days Qty: 30 0RF amantadine HCl 100 MG tablet 100 mg PO 0700,1100 duloxetine 20 MG capsule,delayed release(DR/EC) 20 mg PO BID methenamine hippurate 1 GM tablet 1 gm PO BID prednisone 50 mg tablet 50 mg PO DAILY 5 Days Qty: 5 0RF sulfamethoxazole-trimethoprim [Bactrim DS] 800-160 mg tablet 1 tab PO Q12H 7 Days Qty: 14 0RF methocarbamol 500 mg tablet 1,000 mg PO TID Qty: 30 0RF Referrals Follow up/Referrals: Hossein Grimaldo MD [Primary Care Provider] - See instructions Celeste Lara APRN [Nurse Practitioner] - See instructions Activity Restrictions/Add. Instructions Additional Instructions/Restrictions: You were evaluated in the emergency department today. Please follow-up very closely with your primary care provider as well as ENT. You have chronic elevation in your white blood cell count, for which I recommend outpatient follow-up as well. Return to the emergency department for new or worsening symptoms Clinical Impressions Clinical Impression: Hoarseness of voice, Leukocytosis Print Language Print Language: Polish Discharge ED Provider: Brandi Donahue General Adult HPI General Chief complaint: Upper Respiratory Infection Stated complaint: poss laryngitis Time Seen by Provider: 03/17/24 20:47 Mode of Arrival: Wheelchair Source of Information: Patient and Significant Other Limitations: No Limitations Description of Symptoms (Recalled from ER Triage Doc. by RN): pt presents to ER with for sore throat and hoarseness, states she was diagnosed with laryngitis 2-[address] Grimaldo, she has seen him three times last visit being this past thursday, she has also seen Dr Fernandez, she has been on several rounds of antibiotics with no relief History of Present Illness HPI narrative: This patient is a 78-year-old female with a history of Parkinson's disease, history of pneumonia, interstitial lung disease, allergic rhinitis, LATRICIA, and chronic GERD presenting to the emergency department for evaluation with concern for hoarseness. Patient states that for the last 2 weeks, she has had sore throat and hoarseness for which has been evaluated by her primary care provider and Dr. Jaramillo. She states has been on multiple rounds of antibiotics and steroids with no improvement, and her voice has become more more hoarse. She states that she does not have any shortness of breath at rest, but anytime she tries to talk she feels like she cannot get her breath. No trouble swallowing, stridor, or other concerns. Related Data Home Medications ?Medication ?Instructions ?Recorded ?Confirmed amantadine HCl 100 mg tablet 100 mg PO 0700,1100 09/16/20 03/14/24 duloxetine 20 mg capsule,delayed 20 mg PO BID 09/16/20 03/14/24 release methenamine hippurate 1 gram tablet 1 gm PO BID 12/18/21 03/14/24 ropinirole 4 mg tablet 4 mg PO BID 06/26/22 03/14/24 azelastine 137 mcg (0.1 %) nasal 2 spray intranasal HS 07/10/23 03/14/24 spray cholecalciferol (vitamin D3) 25 25 mcg PO DAILY Supplement 07/10/23 03/14/24 mcg (1,000 unit) capsule (Vitamin D3) levothyroxine 25 mcg tablet 25 mcg PO DAILY 07/10/23 03/14/24 carbidopa ER 50 mg-levodopa 200 mg 0.5 - 1 tab PO 07/12/23 03/14/24 tablet,extended release oxybutynin chloride 10 mg 10 mg PO DAILY 10/27/23 03/14/24 tablet,extended release 24 hr spironolactone 50 mg tablet 100 mg PO DAILY 10/27/23 03/14/24 Previous Rx's ?Medication ?Instructions ?Recorded gabapentin 300 mg capsule 300 mg PO 0900,1300 Pain 30 days 07/14/23 #60 caps gabapentin 300 mg capsule 600 mg (2 x 300 mg) PO HS Pain 30 07/14/23 days #60 caps albuterol sulfate 90 mcg/actuation 2 inh inhalation QID PRN shortness 10/20/23 aerosol inhaler of breath or wheezing 90 days #8.5 grams pantoprazole 40 mg tablet,delayed 40 mg PO HS 30 days #30 tabs 10/28/23 release budesonide 0.25 mg/2 mL suspension 0.25 mg (2 mL) inhalation BID 90 11/10/23 for nebulization days #360 mL formoterol fumarate 20 mcg/2 mL 2 ml inhalation BID 90 days #180 mL 11/10/23 solution for nebulization (Perforomist) mycophenolate mofetil 250 mg 250 mg PO BID #120 caps 12/17/23 capsule prednisone 50 mg tablet 50 mg PO DAILY 5 days #5 tabs 01/27/24 sulfamethoxazole 800 1 tab PO Q12H 7 days #14 tabs 01/31/24 mg-trimethoprim 160 mg tablet (Bactrim DS) cefdinir 300 mg capsule 300 mg PO BID #20 caps 02/10/24 prednisone 10 mg tablet 10 mg PO DIRECTED #32 tabs 02/10/24 lorazepam 0.5 mg tablet 0.5 mg PO TID PRN anxiety #90 tabs 02/22/24 hydrocodone 5 mg-acetaminophen 325 1 tab PO Q8H PRN pain #21 tabs 02/24/24 mg tablet methocarbamol 500 mg tablet 1,000 mg (2 x 500 mg) PO TID rib 02/28/24 pain #30 tabs prednisone 20 mg tablet 40 mg (2 x 20 mg) PO DAILY 5 days 03/07/24 #15 tabs Allergies Allergy/AdvReac Type Severity Reaction Status Date / Time No Known Allergies Allergy Verified 03/17/24 21:06 [facility] Disclaimer: The information contained in this section may have been updated after the patient was seen, as this information can be updated by other users. Medical History Urinary tract infection Sleep apnea Pneumonia History of COVID-19 History of gastroesophageal reflux (GERD) Thyroid disease Parkinson disease Arthritis Edema Fibrosis of lung Breathlessness Nocturnal hypoxia Allergic rhinitis Restrictive lung disease ILD (interstitial lung disease) History of rheumatoid arthritis NSIP (nonspecific interstitial pneumonia) Organizing pneumonia Dyspnea on exertion Surgical History History of tubal ligation Family History Other Stroke Social History Smoking Status: Never smoker alcohol intake: never substance use type: denies use current occupational status: retired Travel in the last 8 weeks: None household members: spouse housing: house caffeine: Yes ROS Obtained: Yes All systems reviewed & no additional complaints except as documented Physical Exam General General appearance: alert and in no apparent distress Comment: Sitting upright in wheelchair in no distress. Speaking with whispering voice. Head Head exam: atraumatic and normocephalic Eye Eye exam: Present normal appearance, PERRL and EOMI ENT ENT exam: Present normal exam, normal oropharynx, mucous membranes moist and normal external ear exam Neck Neck exam: Present normal inspection, full ROM and trachea midline; Absent tenderness Chest Chest inspection: Present normal inspection and symmetric chest wall rise; Absent tenderness Respiratory Respiratory exam: Present normal lung sounds bilaterally; Absent respiratory distress, wheezes, stridor or accessory muscle use Cardiovascular Cardiovascular exam: Present regular rate and normal rhythm Abdominal Exam Abdominal exam: Present soft; Absent distention, tenderness or guarding Extremities Exam Extremities exam: Present normal inspection, full ROM and normal capillary refill; Absent tenderness or edema Back Exam Back exam: Present normal inspection and full ROM; Absent tenderness Neurological Exam Neurological exam: Present alert, oriented X3 and CN II-XII intact; Absent motor sensory deficit Psychiatric Psychiatric exam: Present normal affect and normal mood Skin Skin exam: Present warm and dry Medical Decision Making Medical Records Medical records reviewed: Yes I reviewed the patient's medical records. Nikunj Inquiry Pt receiving controlled substance: No Vital Signs: 03/17/24 20:45 03/17/24 20:52 03/17/24 21:00 Temperature 98.2 F Temperature Source Oral Pulse Rate 65 61 Pulse Rate [Left Radial] 67 Respiratory Rate 18 Blood Pressure 124/68 125/52 L Blood Pressure [Right Arm] 124/68 Blood Pressure Mean 84 76 Blood Pressure Mean [Right Arm] 86 Blood Pressure Source Blood Pressure Source [Right Arm] Automatic Cuff Blood Pressure Position Blood Pressure Position [Right Arm] Sitting 02 Sat by Pulse Oximetry 94 L 96 96 Oxygen Delivery Method Room Air Room Air Room Air 03/17/24 21:15 03/17/24 21:28 03/17/24 21:30 Temperature Temperature Source Pulse Rate 66 62 Pulse Rate [Left Radial] Respiratory Rate Blood Pressure 128/85 Blood Pressure [Right Arm] Blood Pressure Mean 96 Blood Pressure Mean [Right Arm] Blood Pressure Source Blood Pressure Source [Right Arm] Blood Pressure Position Blood Pressure Position [Right Arm] 02 Sat by Pulse Oximetry 92 L 93 L Oxygen Delivery Method 03/17/24 22:31 03/17/24 23:04 Temperature 98.0 F Temperature Source Oral Pulse Rate 60 60 Pulse Rate [Left Radial] Respiratory Rate 16 18 Blood Pressure 105/44 L 130/70 Blood Pressure [Right Arm] Blood Pressure Mean 70 Blood Pressure Mean [Right Arm] Blood Pressure Source Automatic Cuff Blood Pressure Source [Right Arm] Blood Pressure Position Sitting Blood Pressure Position [Right Arm] 02 Sat by Pulse Oximetry 94 L Oxygen Delivery Method Room Air Lab Data Lab results reviewed: Yes I reviewed the patient's lab results. Lab Results 03/17/24 21:25: WBC 21.5 H*, RBC 3.99 L, Hgb 11.6 L, Hct 35.2 L, MCV 88.1, MCH 29.1, MCHC 33.1, RDW 18.9 H, Plt Count 438 H, MPV 9.4, Neut % (Auto) 85.9 H, L ymph % (Auto) 8.5 L, Phelps % (Auto) 3.8, Eos % (Auto) 0.8, Baso % (Auto) 1.0, N eut # (Auto) 18.6 H, Lymph # (Auto) 1.9, Phelps # (Auto) 0.8, Eos # (Auto) 0.2, Baso # (Auto) 0.2, Total Counted 100, Neutrophils % (Manual) 85 H, Lymphocytes % (Manual) 8 L, Monocytes % (Manual) 7, Toxic Vacuolation 1+, Platelet Estimate Not Reportable, RBC Morphology Normal, Ovalocytes 1+, Acanthocytes (Spur) 1+, ESR Cancelled, Sodium 136, Potassium 5.7 H, Chloride 103, Carbon Dioxide 29, Anion Gap 9.7, BUN 36 H, Creatinine 0.90, Estimated Creat Clear 50, Estimated GFR 61, Est GFR ( Amer) 73, Glucose 99, Calcium 9.6, Total Bilirubin 0.5, AST 13 L, ALT 10 L, Alkaline Phosphatase 117, C-Reactive Protein 2.5, Total Protein 7.2, Albumin 4.0, Globulin 3.2, Albumin/Globulin Ratio 1.3 03/17/24 21:25 03/17/24 21:25 Orders (Tests/Meds): ED MEDICATIONS Discontinued Medications Generic Name Dose Route Start Last Admin Trade Name Freq PRN Reason Stop Dose Admin Iopamidol 145 ml 03/17/24 22:04 03/17/24 22:06 Iopamidol-370 (76%);100ml Bottle IV 03/17/24 22:05 145 ml ONCE ONE Administration Sodium Chloride 50 ml 03/17/24 22:04 03/17/24 22:06 0.9 % Sodium Chloride 50 Ml Vial IV 03/17/24 22:05 50 ml ONCE ONE Administration Sodium Chloride 10 ml 03/17/24 22:04 03/17/24 22:06 Sodium Chloride 0.9% 10ml Syr (Rad Only) IV 03/17/24 22:05 10 ml ONCE ONE Administration ORDERS Category Date Time Status CT soft tissue neck w con Stat Cat Scan 03/17/24 21:09 Completed CTA Chest [CT angio chest PE protocol] Stat Cat Scan 03/17/24 21:09 Completed CBC w/Auto Diff [Complete Blood Count Auto Diff] Stat Lab 03/17/24 21:25 Completed CMP [Comprehensive Metabolic Panel] Stat Lab 03/17/24 21:25 Completed CRP [C-Reactive Protein] Stat Lab 03/17/24 21:25 Completed Medical Decision Narrative: In summary, this patient is a 78-year-old female presenting to the Emergency Department for evaluation of hoarse voice and sore throat for 2 to 3 weeks. Differential diagnoses considered include but are not limited to pharyngitis, laryngitis, vocal cord mass, abscess. Ruling out the most morbid conditions drove assessment. I reviewed patient's past medical records and noted previous PCP evaluations for similar issues over the last several weeks.. I noted her PCP notes as well as her pulmonology note. She is awaiting an outpatient ENT referral. On exam, the patient is sitting upright in no acute distress with no stridor, increased work of breathing, or other concerns. Vitals are reassuring on cardiac telemetry. workup included CBC, CMP, ESR, CRP, CT soft tissue neck with IV contrast, and CTA PE protocol. I independently interpreted CT scans prior to the radiologist read and noted no obvious large mass or abscess in her neck. Please see their read for final interpretation. Labs were obtained that demonstrated chronic leukocytosis that is slightly worsening, but patient states that she is on antibiotics. CRP is reassuring without significant elevation that would suggest significant infection. On reassessment, patient is resting comfortably with normal vitals on cardiac telemetry and no increased work of breathing. No stridor or adventitious lung sounds. Ultimately, CT scans do not demonstrate any obvious causes of the patient's symptoms, and she already has ENT referral in place. I reiterated to her the importance of following up with ENT for further evaluation and management. I feel we have excluded life-threatening pathology that would require admission or further observation at this time. I gave very strict return precautions and discharge the patient with instructions for close outpatient follow-up. Critical Care Critical Care Time Critical Care Time: No
[2024-03-17 21:33] LABS: Basophils # 0.2 K/mm3 (0-0.2); Eosinophils # 0.2 K/mm3 (0.0-0.4); Eosinophils % 0.8 % (0.1-12.0); Hematocrit 35.2 % (37.0-47.0); Hemoglobin 11.6 g/dL (12.2-16.2); Lymphocytes # 1.9 K/mm3 (0.7-4.5); Lymphocytes % 8.5 % (10-50); Mean Corpuscular HGB Conc 33.1 g/dL (31.8-35.4); Mean Corpuscular Hemoglobin 29.1 pg (27.0-31.2); Mean Corpuscular Volume 88.1 fl (81-99); Mean Platelet Volume 9.4 fl (7.4-10.4); Monocytes # 0.8 K/mm3 (0.1-1.0); Monocytes % 3.8 % (1.7-9.3); Neutrophils # 18.6 K/mm3 (1.8-7.8); Neutrophils % 85.9 % (37.0-80.0); Platelet Count 438 K/mm3 (142-424); Red Blood Count 3.99 M/mm3 (4.20-5.40); Red Cell Distribution Width 18.9 % (11.5-17.5)
[2024-03-17 21:36] LABS: MANUAL DIFFERENTIAL MANUAL DIFFERENTIAL (MANUAL DIFF)
[2024-03-17 21:37] LABS: White Blood Count 21.5 K/mm3 (4.8-10.8)
[2024-03-17 21:41] LABS: Alanine Aminotransferase 10 U/L (12-78); Albumin/Globulin Ratio 1.3 (1.1-1.8); Alkaline Phosphatase 117 U/L (38-126); Anion Gap 9.7 mEq/L (5-15); Aspartate Amino Transferase 13 U/L (14-36); Bilirubin,Total 0.5 mg/dl (0.2-1.3); Blood Urea Nitrogen 36 mg/dl (7-17); Calcium 9.6 mg/dl (8.4-10.2); Carbon Dioxide 29 mmol/L (22.0-30.0); Chloride 103 mmol/L (98-107); Creatinine Clearance Estimated 50 mL/min (50-200); Estimated Glomerular Filt Rate 61 ml/min (>60); GFR (African American) 73 ML/MIN (>60); Globulin 3.2 g/dL (1.3-3.2); Glucose 99 mg/dl (74-100); Potassium 5.7 mmoL/L (3.5-5.1); Sodium 136 mmol/L (136-145); Total Protein,Serum 7.2 g/dl (6.3-8.2)
[2024-03-17 21:46] LABS: C-Reactive Protein 2.5 mg/L (0-4)
[2024-03-17] MEDS: SODIUM CHLORIDE 0.9% 10ML SYR (RAD ONLY) 10 ML IV (22:06)
[2024-03-17] MEDS: 0.9 % SODIUM CHLORIDE 50 ML VIAL IV (22:06)
[2024-03-17] MEDS: IOPAMIDOL-370 (76%);100ML BOTTLE 145 ML IV (22:06)
--- NOTE | 2024-03-17 22:09 | PC.NURSE ---
pt returned from radiology via wheelchair
[2024-03-17 23:03] LABS: Lymphocytes % 8 % (10-50); Monocytes % 7 % (2-9); Neutrophils % 85 % (42-76); Total Cells Counted 100; Toxic Vacuolation 1+
[2024-03-17 23:05] LABS: Acanthocytes 1+; Ovalocytes 1+; RBC Morphology Normal
== END 2024-03-17 23:14 | disposition home or self-care (01) ==
PROVIDERS: Emergency Provider Emergency Medicine; PCP Internal Medicine
DX: R49.0 Dysphonia (principal); D72.829 Elevated white blood cell count, unspecified; E87.5 Hyperkalemia; K21.9 Gastro-esophageal reflux disease without esophagitis; E03.9 Hypothyroidism, unspecified; J84.9 Interstitial pulmonary disease, unspecified
CPT/HCPCS: 70491; 71275; 80053; 85007; 85025; 85027; 86140; 99284; Q9967

== ENCOUNTER 2024-04-19 09:43 | Outpatient (CLI) | payer MEDICARE, SELFPAY ==
[2024-04-19 10:15] VITALS: PULSE 69; PULSE 72
[2024-04-19] MEDS: ALBUTEROL 0.083% 2.5 MG/3 ML NEB IH (10:15)
[2024-04-19 12:20] LABS: Basophils # 0.2 K/mm3 (0-0.2); Eosinophils # 0.4 K/mm3 (0.0-0.4); Eosinophils % 2.3 % (0.1-12.0); Hematocrit 35.3 % (37.0-47.0); Hemoglobin 11.2 g/dL (12.2-16.2); Lymphocytes # 3.2 K/mm3 (0.7-4.5); Lymphocytes % 19.4 % (10-50); Mean Corpuscular HGB Conc 31.7 g/dL (31.8-35.4); Mean Corpuscular Hemoglobin 28.7 pg (27.0-31.2); Mean Corpuscular Volume 90.6 fl (81-99); Monocytes # 0.8 K/mm3 (0.1-1.0); Monocytes % 4.9 % (1.7-9.3); Neutrophils % 72.3 % (37.0-80.0); Platelet Count 477 K/mm3 (142-424); Red Blood Count 3.89 M/mm3 (4.20-5.40); Red Cell Distribution Width 17.9 % (11.5-17.5); White Blood Count 16.6 K/mm3 (4.8-10.8)
[2024-04-19 12:22] LABS: MANUAL DIFFERENTIAL MANUAL DIFFERENTIAL (MANUAL DIFF)
[2024-04-19 12:45] LABS: Albumin Level 4.1 g/dl (3.5-5.0); Chloride 105 mmol/L (98-107); Potassium 4.2 mmoL/L (3.5-5.1); Sodium 137 mmol/L (136-145)
[2024-04-19 12:47] LABS: Blood Urea Nitrogen 25 mg/dl (7-17); Estimated Glomerular Filt Rate 48 ml/min (>60); GFR (African American) 58 ML/MIN (>60)
[2024-04-19 12:48] LABS: Alanine Aminotransferase 7 U/L (12-78); Albumin/Globulin Ratio 1.2 (1.1-1.8); Alkaline Phosphatase 115 U/L (38-126); Anion Gap 9.2 mEq/L (5-15); Aspartate Amino Transferase 11 U/L (14-36); Bilirubin,Total 0.5 mg/dl (0.2-1.3); Calcium 9.6 mg/dl (8.4-10.2); Carbon Dioxide 27 mmol/L (22.0-30.0); Globulin 3.3 g/dL (1.3-3.2); Glucose 94 mg/dl (74-100); Total Protein,Serum 7.4 g/dl (6.3-8.2)
[2024-04-19 12:53] LABS: C-Reactive Protein 16.6 mg/L (0-4)
[2024-04-19 14:17] LABS: Lymphocytes % 29 % (10-50); Monocytes % 2 % (2-9); Neutrophils % 69 % (42-76); Platelet Estimate Slight Increase; RBC Morphology Normal; Total Cells Counted 100
== END 2024-04-19 23:59 | disposition home or self-care (01) ==
LOC: RT 09:44
PROVIDERS: PCP Internal Medicine; Visit Provider Internal Medicine Pulmonary Disease
DX: J45.909 Unspecified asthma, uncomplicated (principal); R06.09 Other forms of dyspnea; J84.9 Interstitial pulmonary disease, unspecified
CPT/HCPCS: 36415; 80053; 85007; 85025; 85027; 86140; 94060; 94640; J7613

== ENCOUNTER 2024-06-07 14:34 | Outpatient (CLI) | payer MEDICARE, SELFPAY ==
--- NOTE | 2024-06-07 14:38 | XR_ITS ---
PROCEDURE INFORMATION: Exam: XR Left Shoulder Exam date and time: 06/07/2024 2:40 PM Age: 79 years old Clinical indication: Pain; Shoulder; Left; Additional info: Left shoulder pain TECHNIQUE: Imaging protocol: Radiologic exam of the left shoulder. Views: 2 or more views. COMPARISON: CT ANGIO CHEST PE PROTOCOL 03/17/2024 10:06 PM FINDINGS: Bones/joints: Mild Degenerative changes in the acromioclavicular joint and glenohumeral joint. There is no evidence of acute fracture.There is no evidence of malalignment or dislocation. Soft tissues: Normal. IMPRESSION: There is no evidence of acute fracture.There is no evidence of malalignment or dislocation.
== END 2024-06-07 23:59 | disposition home or self-care (01) ==
LOC: RAD 14:35
PROVIDERS: PCP Internal Medicine; Visit Provider Internal Medicine
DX: M25.512 Pain in left shoulder (principal)
CPT/HCPCS: 73030

== ENCOUNTER 2024-09-02 12:08 | Outpatient (CLI) | payer MEDICARE, SELFPAY ==
--- NOTE | 2024-09-02 12:16 | XR_ITS ---
FINAL REPORT TECHNIQUE: Chest PA & Lateral CLINICAL HISTORY: SOB COMPARISON: 01/27/2024 FINDINGS: 2 views of the chest were performed. The heart size is normal. The lungs are underinflated. The mediastinum is within normal limits. There is no acute cardiopulmonary process. There are no pleural effusions. There is no pneumothorax. There is mild thoracic scoliosis apex to the patient's right. IMPRESSION: Lungs are underinflated, with no acute cardiopulmonary process. Reviewed, Interpreted and Dictated by Ronnell Linda MD Transcribed by Fidelina Foster Authenticated and [facility]
== END 2024-09-02 23:59 | disposition home or self-care (01) ==
PROVIDERS: PCP Internal Medicine Adolescent Medicine; Visit Provider Internal Medicine Pulmonary Disease
DX: R06.02 Shortness of breath (principal); J18.9 Pneumonia, unspecified organism
CPT/HCPCS: 71046; 87070; 87077; 87186; 87205

== ENCOUNTER 2024-10-17 08:17 | Outpatient (CLI) | payer MEDICARE, MEDICAID, SELFPAY ==
[2024-10-17 09:10] VITALS: PULSE 63; PULSE 71
[2024-10-17] MEDS: ALBUTEROL 0.083% 2.5 MG/3 ML NEB IH (09:10)
[2024-10-17 09:38] LABS: ABG Base Excess -1.8 mmol/L (-2.4-2.3); ABG HCO3 22.7 mmhg (22.0-26.0); ABG Oxygen Saturation 93 % (90-100); ABG PCO2 35.6 mmhg (35.0-45.0); ABG PH 7.42 mmol/L (7.35-7.45); ABG PO2 67.4 mmhg (80-100); ABG TCO2 23.8 mmhg (23-27)
== END 2024-10-17 23:59 | disposition home or self-care (01) ==
LOC: RT 08:19
PROVIDERS: PCP Internal Medicine Adolescent Medicine; Visit Provider Internal Medicine Pulmonary Disease
DX: J84.10 Pulmonary fibrosis, unspecified (principal); J44.9 Chronic obstructive pulmonary disease, unspecified
CPT/HCPCS: 82803; 94060; 94640; J7613

== ENCOUNTER 2025-01-03 10:16 | Outpatient (CLI) | payer MEDICARE, MEDICAID, SELFPAY ==
--- NOTE | 2025-01-03 10:20 | XR_ITS ---
FINAL REPORT CLINICAL HISTORY: Shoulder pain COMPARISON: None FINDINGS: RIGHT SHOULDER 2 views demonstrate no acute fracture or dislocation. The visualized joint spaces are normally aligned. The soft tissues are unremarkable. IMPRESSION: No acute bony abnormality. Reviewed, Interpreted and Dictated by Ronnell Linda MD Transcribed by Trupti Tejada Authenticated and [facility]
--- NOTE | 2025-01-03 10:20 | XR_ITS ---
FINAL REPORT CLINICAL HISTORY: Shoulder pain COMPARISON: None FINDINGS: LEFT SHOULDER 2 views demonstrate no acute fracture or dislocation. The visualized joint spaces are normally aligned. The soft tissues are unremarkable. IMPRESSION: No acute bony abnormality. Reviewed, Interpreted and Dictated by Ronnell Linda MD Transcribed by Trupti Tejada Authenticated and [facility]
== END 2025-01-03 23:59 | disposition home or self-care (01) ==
LOC: RAD 10:17
PROVIDERS: PCP Internal Medicine Adolescent Medicine; Visit Provider Physician Assistant
DX: M25.512 Pain in left shoulder (principal)
CPT/HCPCS: 73030

== ENCOUNTER 2025-01-25 12:01 | Outpatient (CLI) | payer MEDICARE, MEDICAID, SELFPAY ==
--- OUTSIDE RECORDS SUMMARY | 2025-01-25 12:04 | XMS_ITS | Clinical Summary ---
Author Organization [facility] Address [address] [place] [address] Care Team Providers Care Steam Table Attendant Name Role Phone Hossein Grimaldo MD Primary Care Provider [phone] Allergies Active Allergy Reactions Criticality Noted Date Comments Propranolol Swelling High 01/08/2024 Medications carbidopa-levo dopa CR (Sinemet CR) 50-200 MG ER tablet 8 Active amantadine (Symmetrel) 100 MG tablet TAKE 1 TABLET BY MOUTH IN THE MORNING AND 1 TABLET AT LUNCH 1 Active DULoxetine (Cymbalta) [address] capsule Take 1 capsule (20 mg) by mouth 2 (two) times a day. 1 Active gabapentin (Neurontin) 300 MG capsule 9 Active rOPINIRole (Requip) 4 MG tablet TAKE 1 TABLET BY MOUTH 4 TIMES DAILY DIRECTED 1 Active folic acid (Folvite) 1 MG tablet 9 Active cholecalcifero l (Vitamin D-3) 25 MCG (1000 UT) capsule 8 Active nitroglycerin (Nitrostat) 0.4 MG SL tablet nitroglycerin 0.[address] 1 tablet as needed by sublingual route. Active Azelastine HCl 137 MCG/SPRAY solution USE 2 SPRAY(S) IN EACH NOSTRIL AT BEDTIME NIGHTLY 3 Active Symbicort 160-4.5 MCG/ACT inhaler Inhale 2 puffs. 3 Active ipratropium-al buterol (Duo-Neb) 0.5-2.5 mg/3 mL nebulizer solution 3 Active levothyroxine (Synthroid, Levoxyl) 25 MCG tablet Take 1 tablet (25 mcg) by mouth 1 (one) time each day. 3 Active LORazepam (Ativan) 1 MG tablet TAKE 1/2 (ONE-HALF) TABLET BY MOUTH THREE TIMES DAILY 3 Active mycophenolate (Cellcept) 500 MG tablet Take 1 tablet (500 mg) by mouth. 3 Active spironolactone (Aldactone) 50 MG tablet Take 2 tablets (100 mg) by mouth 1 (one) time each day. 3 Active LORazepam (Ativan) 0.5 MG tablet TAKE ONE TABLET BY MOUTH THREE TIMES DAILY NEEDED FOR NERVES MAY CAUSE DROWSINESS 3 Active trospium (Sanctura) 20 MG tablet Take 1 tablet (20 mg) by mouth 2 (two) times a day. 3 Active loratadine (Claritin) 10 MG tablet 1 tablet (10 mg). 3 Active diclofenac (Voltaren) 75 MG EC tablet Take 1 tablet (75 mg) by mouth 2 (two) times a day. Do not crush, chew, or split. 60 tablet 3 4 Active acetaminophen (Tylenol) 500 MG tablet Take 1 tablet (500 mg) by mouth. Active budesonide (Pulmicort) 0.25 MG/2ML nebulizer solution USE 1 VIAL IN NEBULIZER TWICE DAILY 4 Active fluticasone-sa lmeterol (Advair Diskus) 500-50 MCG/ACT diskus inhaler INHALE 1 DOSE BY MOUTH TWICE DAILY 4 Active formoterol (Perforomist) 20 MCG/2ML nebulizer solution INHALE 2 ML TWICE DAILY 4 Active methenamine hippurate (Hiprex) 1 g tablet Take 1 tablet (1 g) by mouth 2 (two) times a day. 4 Active methocarbamol (Robaxin) 500 MG tablet TAKE 1 TABLET BY MOUTH THREE TIMES DAILY FOR RIB PAIN 4 Active oxybutynin XL (Ditropan-XL) 10 MG 24 hr tablet Take 1 tablet (10 mg) by mouth 1 (one) time each day. 4 Active mycophenolate (Cellcept) 250 MG capsule Take 1 capsule (250 mg) by mouth 2 (two) times a day. 4 Active fluticasone (Flonase) 50 MCG/ACT nasal spray [place] 1 spray every day by intranasal route as needed. Active HYDROcodone-ac etaminophen ([place]) 5-325 MG tablet Take 1 tablet (5 mg of hydrocodone) by mouth every 8 (eight) hours if needed. 4 Active omeprazole (PriLOSEC) [address] capsule 4 Active denosumab (Prolia) 60 MG/ML injection Inject 1 mL (60 mg) under the skin. Active omeprazole (PriLOSEC) [address] capsule 4 Active Hospital, Clinic, or Other Facility Administered Medication Ordered Dose Route Frequency Start Date End Date Status sodium chloride 0.9 % flush 3 mLIndications:Chronic pain of right knee 3 mL IV As needed 05/31/2024 Active Active Problems Problem Noted Date Diagnosed Date Arthritis of knee 08/21/2020 Aortic valve disorder 01/19/2020 Atypical chest pain 01/19/2020 Dyspnea on exertion 01/19/2020 Echocardiogram abnormal 01/19/2020 Disorder of thyroid gland 10/29/2016 Hypermetropia 10/29/2016 Osteoporosis 10/29/2016 Presbyopia 10/29/2016 Regular astigmatism 10/29/2016 Rheumatoid arthritis 10/29/2016 Tibial plateau fracture 06/25/2016 Parkinson's disease 11/26/2015 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 Vitreous detachment of right eye 10/26/2015 Immunizations Immunization Administration Dates Next Due Hep B, adult 05/01/1997,10/27/1996 Influenza, injectable, quadrivalent 11/2019,04/10/2019,05/10/2018, 017,06/10/2016 Pneumococcal Conjugate PCV 7 06/10/2016 SARS-CoV-2, Unspecified 11/21/2020,10/23/2020 Family History Medical History Relation Name Comments Osteoporosis Mother Relation Name Status Comments Mother Social History Tobacco Use Types Packs/Day Years Used Date Smoking Tobacco: Never Smokeless Tobacco: Never Tobacco Cessation:Counseling Given: Not Answered Alcohol Use Standard Drinks/Week Comments No 0 (1 standard drink = 0.6 oz pur e alcohol) PHQ-2 Answer Date Recorded Patient Health Questionnaire-2 Score 0 09/24/2023 PHQ-2A Answer Date Recorded Patient Health Questionnaire-2 Score 0 06/02/2023 Comments No Sex and Gender Information Value Date Recorded Sex Assigned at Not on file Legal Sex Female 8:47 PM EDT Gender Identity Not on file Sexual Orientation Not on file Last Filed Vital Signs Vital Sign Reading Time Taken Comments Blood Pressure 111/59 05/31/2024 11:32 AM EDT Pulse 56 05/31/2024 11:32 AM EDT Temperature 36 C (96.8 F) 05/31/2024 10:17 AM EDT Respiratory Rate 16 05/31/2024 11:32 AM EDT Oxygen Saturation 91% 05/31/2024 11:32 AM EDT Inhaled Oxygen Concentration - - Weight 68.9 kg (152 lb) 05/31/2024 10:17 AM EDT Height 157.5 cm (5' 2 ) 05/31/2024 10:17 AM EDT Body Mass Index 27.8 05/31/2024 10:17 AM EDT Plan of Treatment Health Maintenance Due Date Last Done Comments [facility]-Bone Density Scan 1945 [facility]-Hepatitis C Screening 1945 [facility]Medicare Annual Wellness (AWV) 1945 [facility]-/Child/Adol SDOH Screenings 1945 [facility]- SDOH Screenings 1963 [facility]-Adult SDOH Screenings 1963 [facility]-DTaP,Tdap,and Td Vaccines (1 - Tdap) 1964 [facility]-Zoster Vaccines (1 of 2) 1964 [facility]-Pneumococcal Vaccine: 50+ Years (1 of 1 - PCV) 1995 06/10/2016 [facility]-RSV Vaccine: 60+ Years or (1 - 1-dose 75+ series) 2020 [id number] Vaccine (4 - season) 2024 06/10/2021, 11/21/2020, 10/23/2020 [facility]-Depression Screening 09/24/2024 09/24/2023 [facility]-Influenza Vaccine Completed 05/25/2024 , 04/10/2021, 06/13/2020, Additional history exists [facility]-Obesity Intervention Completed 024, 05/04/2024, 09/24/2023, Additional history exists HPV Vaccines Aged Out No longer eligi ble based on patient's age to complete this topic [facility]-HIB Vaccines Aged Out No longer e ligible based on patient's age to complete this topic [facility]-Hepatitis A Vaccines Aged Out No longer eligible based on patient's age to complete this topic [facility]-IPV Vaccines Aged Out No longer e ligible based on patient's age to complete this topic [facility]-Rotavirus Vaccines Aged Out No lo nger eligible based on patient's age to complete this topic Insurance [facility] [place] [address] Care Teams Steam Table Attendant Relationship Specialty Start Date End Date Hossein Grimaldo MD [address] [place] [address] [address] [place] [id number] PCP - General 12/21/20
--- OUTSIDE RECORDS SUMMARY | 2025-01-25 12:04 | XMS_ITS | Data Portability ---
Author Organization DEEPAK MANUEL [facility] [place] [facility] Address [address] [place] [address] Care Team Providers Care Integrated Circuit Layout Designer Name Role Phone NORAH QUINN Winding Rack Operator SHIRLEY FRANCISCO Mobility Scooter Repairer NIKOLE FERNANDEZ [employer] Advisor MERARY ALICIA Picking Machine Operator TAL BARILLAS Primary Care Provider Assessment Encounter Date Assessment Date Assessment LastModified by Organization Details LastModified Time 02/02/2024 02/02/2024 Assessment: 1. Parkinson's Disease 2. Partial benefit from medications 3. Disabled 4. Disabled by poor balance and risk of falling 5. She has access to a cane and walker but only uses some of the time Plan: 1. Continue current Carbidopa ER 50mg- Levodopa 200mg dosing 1/2 tablet five times per day 2. I encouraged her to use a cane, walker, or wheelchair in the house to prevent falls 3. There are no other medications available 4. I encouraged they leave the current 1/2 dosing of Carbidopa ER 50mg- Levodopa 200mg intact. 5. I spoke of my intended longterm at the end of 2023, follow up will be scheduled with Valeria Mckeon PA-C in this department. 6. Follow up in August 2024 with Valeria Mckeon PA-C [email or web address] Not available 02/03/2024 21:22:09 09/19/2024 09/19/2024 Impression: 1. Aortic insufficiency: Chronic problem, stable (Mild AI per October 2021 ECHO). ECHO 10/30/2021: Mild AI, mild MR with LAE. 2. Interstitial lung disease: Chronic problem, recent admission for right lower lobe pneumonia No evidence of pulmonary hypertension on October 2021 echocardiogram. 3. Rheumatoid arthritis (Dr. Norah Quinn) 4. Hypothyroidism 5. Parkinson's disease. Plan: Mrs Mathis has recently moved into a nursing facility in [facility]. Although she appears to be stable from a cardiovascular standpoint, her reports that she was told she had an irregular heart rate with her recent pulmonology visit. Unfortunately, I do not have documentation of this encounter, and it does not appear that she was advised to seek further care or get an EKG at the time. Is therefore impossible to know what this irregular heart rate was from (AF versus other). I strongly recommended that she have a EKG performed if further instances of irregular heart rates are detected. Med changes: None. Continue with an intermittent dosing regimen i.e. adding doses of furosemide if she gains 3 pounds of weight in 24 hours, or 5 pounds over 1 week. RTC: We will plan to see her back in the office in 6 months, or sooner if needed. [email or web address] Not available 09/20/2024 12:50:19 10/13/2024 10/13/2024 79-year-old female with history of recurrent urinary tract infections presenting with urgency urinary incontinence. Infections controlled with methenamine. Urgency incontinence persists. Functional limitations contribute. Management continues to focus on urinary control. Urgency Urinary Incontinence: Patient on oxybutynin. Review efficacy. Consider functional incontinence impact. Monitor for further needs. [email or web address] Not available 10/13/2024 18:53:30 Plan of Treatment Reminders Order Date Submit Date Provider Last Modified By Organization Details Last Modified Time Details Appointments RECHECK 2024 02:15P M MERARY ALICIA MD Not available Not available Not available LEVEL 2 2024 02:30P M SHIRLEY FRANCISCO MD Not available Not available Not available NEUROLOG Y RECHECK 2024 02:30P M BEATRIZ NESBITT MD Not available Not available Not available Lab urinalys is panel, auto 2024 025 [facility], [address], [address], [place], [address], 10/14/2024 19:37:00 urinalys is panel, auto 2023 024 [facility], [address], [address], [place], [address], 02/25/2024 17:04:45 culture, [facility] [address] [place], [address], 02/26/2024 11:12:37 Referral None recorded . Procedures None recorded . Surgeries None recorded . Imaging None recorded . Medication Orders None recorded . Patient TargetsNo targets recorded. Patient Instructions Encounter Date Encounter Id Patient Instructions Last Modified By Organization Details Last Modified Time 04/15/2024 [id number] pt states her distance vision is good without her glasses and that she primarily uses them to read she states she can read well with them upon asking her he states this is correct stable exam recheck 1 yr [email or web address] Not available 04/15/2024 15:29:39 09/19/2024 [id number] body mass index: care instructions Not available 09/20/2024 12:50:45 10/13/2024 [id number] - Continue takin g methenamine as a preventive measure for urinary tract infections. - Keep using oxybutynin extended-release as prescribed for urgency urinary incontinence. - Monitor urinary symptoms and report any changes. - Ensure easy access to restroom facilities to minimize functional incontinence effects. - Contact the clinic if experiencing new or worsening symptoms. [email or web address] Not available 10/13/2024 18:53:33 Reason for Referral None Reported. Results Created Date Observation Date Name Description Value Unit Range Abnormal Flag Note LastModifiedBy Organization Detail LastModifiedTime 01/14/20 24 01/18/2024 URINE CULTU RE urine culture COLON Y COUNT : > 100,0 00 CFU/M L Three or more isola amadeo; mixed uroge nital yaquelin . Not Available [facility] [address] [place], [address], 01/18/2024 11:46:21 02/25/20 24 02/29/2024 URINE CULTU RE urine culture COLON Y COUNT : > 100,0 00 CFU/M L Three or more isola amadeo; mixed uroge nital yaquelin . Not Available [facility] [address] [facility], [place], [address], 02/29/2024 13:26:40 02/25/20 24 02/25/2024 urina lysis panel , auto Unknown Analyte Clean Catch Not Available [facility] [address], [place], [address], 02/25/2024 15:09:21 02/25/20 24 02/25/2024 urina lysis panel , auto Unknown Analyte Yellow Not Available [facility] [address], [place], [address], 02/25/2024 15:09:21 02/25/20 24 02/25/2024 urina lysis panel , auto Unknown Analyte Clear Not Available [facility] [address], [place], [address], 02/25/2024 15:09:21 02/25/20 24 02/25/2024 urina lysis panel , auto Unknown Analyte 1.020 Not Available [facility] [address], [place], [address], 02/25/2024 15:09:21 02/25/20 24 02/25/2024 urina lysis panel , auto Unknown Analyte 1.003- 1.035 Not Available [facility] [address], [place], [address], 02/25/2024 15:09:21 02/25/20 24 02/25/2024 urina lysis panel , auto Unknown Analyte 5.0 Not Available [facility] [address], [place], [address], 02/25/2024 15:09:21 02/25/20 24 02/25/2024 urina lysis panel , auto Unknown Analyte 5.0-8. 0 Not Available [facility] [address], [place], [address], 02/25/2024 15:09:21 02/25/20 24 02/25/2024 urina lysis panel , auto Unknown Analyte 500 Hernan/ul (++) Not Available [facility] [address], [place], [address], 02/25/2024 15:09:21 02/25/20 24 02/25/2024 urina lysis panel , auto Unknown Analyte Negati ve Not Available [facility] [address], [place], [address], 02/25/2024 15:09:21 02/25/20 24 02/25/2024 urina lysis panel , auto Unknown Analyte Negati ve Not Available [facility] [address], [place], [address], 02/25/2024 15:09:21 02/25/20 24 02/25/2024 urina lysis panel , auto Unknown Analyte Negati ve Not Available [facility] [address], [place], [address], 02/25/2024 15:09:21 07/18/20 24 02/25/2024 urina lysis panel , auto Unknown Analyte Trace Not Available [facility] [address], [place], [address], 02/25/2024 15:09:21 02/25/20 24 02/25/2024 urina lysis panel , auto Unknown Analyte Negati ve Not Available [facility] [address], [place], [address], 02/25/2024 15:09:21 02/25/20 24 02/25/2024 urina lysis panel , auto Unknown Analyte Normal Not Available [facility] [address], [place], [address], 02/25/2024 15:09:21 02/25/20 24 02/25/2024 urina lysis panel , auto Unknown Analyte Normal Not Available [facility] [address], [place], [address], 02/25/2024 15:09:21 02/25/20 24 02/25/2024 urina lysis panel , auto Unknown Analyte Negati ve Not Available [facility] [address], [place], [address], 02/25/2024 15:09:21 02/25/20 24 02/25/2024 urina lysis panel , auto Unknown Analyte Negati ve Not Available [facility] [address], [place], [address], 02/25/2024 15:09:21 02/25/20 24 02/25/2024 urina lysis panel , auto Unknown Analyte Normal Not Available [facility] [address], [place], [address], 02/25/2024 15:09:21 02/25/20 24 02/25/2024 urina lysis panel , auto Unknown Analyte Normal 1 mg/dl Not Available [facility] [address], [place], [address], 02/25/2024 15:09:21 02/25/20 24 02/25/2024 urina lysis panel , auto Unknown Analyte Negati ve Not Available [facility] [address], [place], [address], 02/25/2024 15:09:21 02/25/20 24 02/25/2024 urina lysis panel , auto Unknown Analyte Negati ve Not Available [facility] [address], [place], [address], 02/25/2024 15:09:21 02/25/20 24 02/25/2024 urina lysis panel , auto Unknown Analyte 50 Kevin/ul Not Available [facility] [address], [place], [address], 02/25/2024 15:09:21 02/25/20 24 02/25/2024 urina lysis panel , auto Unknown Analyte Negati ve Not Available [facility] [address], [place], [address], 02/25/2024 15:09:21 10/14/19 25 10/13/2024 urina lysis panel , auto Unknown Analyte Clean Catch Not Available [facility] [address], [place], [address], 10/13/2024 16:22:44 10/14/19 25 10/13/2024 urina lysis panel , auto Unknown Analyte Yellow Not Available [facility] [address], [place], [address], 10/13/2024 16:22:44 10/14/19 25 10/13/2024 urina lysis panel , auto Unknown Analyte Clear Not Available [facility] [address], [place], [address], 10/13/2024 16:22:44 10/14/19 25 10/13/2024 urina lysis panel , auto Unknown Analyte 1.010 Not Available [facility] [address], [place], [address], 10/13/2024 16:22:44 10/14/19 25 10/13/2024 urina lysis panel , auto Unknown Analyte 1.003 - 1.030 Not Available [facility] [address], [place], [address], 10/13/2024 16:22:44 10/14/19 25 10/13/2024 urina lysis panel , auto Unknown Analyte 6.0 Not Available [facility] [address], [place], [address], 10/13/2024 16:22:44 10/14/19 25 10/13/2024 urina lysis panel , auto Unknown Analyte 5.0 - 8.0 Not Available [facility] [address], [place], [address], 10/13/2024 16:22:44 10/14/19 25 10/13/2024 urina lysis panel , auto Unknown Analyte Negati ve Not Available [facility] [address], [place], [address], 10/13/2024 16:22:44 10/14/19 25 10/13/2024 urina lysis panel , auto Unknown Analyte Negati ve Not Available [facility] [address], [place], [address], 10/13/2024 16:22:44 10/14/19 25 10/13/2024 urina lysis panel , auto Unknown Analyte Negati ve Not Available [facility] [address], [place], [address], 10/13/2024 16:22:44 10/14/19 25 10/13/2024 urina lysis panel , auto Unknown Analyte Negati ve Not Available [facility] [address], [place], [address], 10/13/2024 16:22:44 10/14/19 25 10/13/2024 urina lysis panel , auto Unknown Analyte Negati ve Not Available [facility] [address], [place], [address], 10/13/2024 16:22:44 10/14/19 25 10/13/2024 urina lysis panel , auto Unknown Analyte Negati ve Not Available [facility] [address], [place], [address], 10/13/2024 16:22:44 10/14/19 25 10/13/2024 urina lysis panel , auto Unknown Analyte Normal Not Available [facility] [address], [place], [address], 10/13/2024 16:22:44 10/14/19 25 10/13/2024 urina lysis panel , auto Unknown Analyte Normal Not Available [facility] [place] [address], [place], [address], 10/13/2024 16:22:44 10/14/19 25 10/13/2024 urina lysis panel , auto Unknown Analyte Negati ve Not Available [facility] [address], [place], [address], 10/13/2024 16:22:44 10/14/19 25 10/13/2024 urina lysis panel , auto Unknown Analyte Negati ve Not Available [facility] [address], [place], [address], 10/13/2024 16:22:44 10/14/19 25 10/13/2024 urina lysis panel , auto Unknown Analyte Normal Not Available [facility] [place] [address], [place], [address], 10/13/2024 16:22:44 10/14/19 25 10/13/2024 urina lysis panel , auto Unknown Analyte Normal Not Available [facility] [address], [place], [address], 10/13/2024 16:22:44 10/14/19 25 10/13/2024 urina lysis panel , auto Unknown Analyte Negati ve Not Available [facility] [address], [place], [address], 10/13/2024 16:22:44 10/14/19 25 10/13/2024 urina lysis panel , auto Unknown Analyte Negati ve Not Available [facility] [address], [place], [address], 10/13/2024 16:22:44 10/14/19 25 10/13/2024 urina lysis panel , auto Unknown Analyte Negati ve Not Available [facility] [address], [place], [address], 10/13/2024 16:22:44 10/14/19 25 10/13/2024 urina lysis panel , auto Unknown Analyte Negati ve Not Available [facility] [address] [facility] [address], [place], [address], 10/13/2024 16:22:44 Result Notes None recorded. Problems Name Problem SNOMED Code Status Onset Date Resolution Date Notes Provider Name and Address Organization Details Recorded Time Combined form of senile cataract 19917477 Completed 201509/05/2021 From Automate d Load;Pro vider: Shirley Francisco; at: Active SHIRLEY FRANCISCO MD [address] [place] [address], [address], [facility] 2 15:41:00 Vitreous detachme nt of right eye 20446112705 9105 Active 2015 From Automate d Load;Pro vider: Shirley Francisco;St atus: Active SHIRLEY FRANCISCO MD [address] [place] [address], [address], [facility] 3 14:45:21 Parkinso n's disease 74151795 Active 2015 From Automate d Load;Pro vider: Shirley Bateman; atus: Active SHIRLEY FRANCISCO MD [address] [place] [address], [address], [facility] 3 14:45:21 Osteopor osis 38111272 Active 2016 Kelly tuttle, [facility] 7 13:28:18 Rheumato id arthriti s 68882938 Active 2016 Kelly tuttle, [facility] 7 13:28:35 Disorder of thyroid gland 26270708 [facility] 13:28:54 Hypermet ropia 06376154 Completed 201609/05/2021 SHIRLEY FRANCISCO MD [address] [place] [address], [address], [facility] 2 15:41:30 Regular astigmat ism 42952532 Active 2016 SHIRLEY FRANCISCO MD [address] [place] [address], [address], [facility] 3 14:45:21 Presbyop ia 17707929 Active 2016 SHIRLEY FRANCISCO MD [address] [place] [address], [address], [facility] 3 14:45:21 Aortic valve disorder 2320414 Active 2019 TIO MULLINS MD [address] [place] [address], [address], [facility] 0 08:21:29 Dyspnea on exertion 19433059 Active 2019 TIO MULLINS MD [address] [place] [address], [address], [facility] 0 08:21:31 Atypical chest pain 377399984 Active 2019 TIO MULLINS MD [address] [place] [address], [address], [facility] 0 08:21:33 Echocard iogram abnormal 483899882 Active 2019 TIO MULLINS MD [address] [place] [address], [address], [facility] 0 08:21:37 Myopia 45804916 Active 2021 SHIRLEY FRANCISCO MD [address] [place] [address], [facility] 3 14:45:21 Urge incontin ence of urine 97807450 Active 2021 TEJAL WANG JR, MD [address] [place] [address] 1, [facility] 2 15:02:13 Recurren t urinary tract infectio n 200408716 Active 2021 TEJAL WANG JR, MD [address] [place] [address], [address], [facility] 2 15:02:15 Secondar y cataract 595554125 Active 2021 SHIRLEY FRANCISCO MD [address] [place] [address], [address] 1, [facility] 3 14:45:21 Visual hallucin ations 92164685 Active 2022 SHIRLEY FRANCISCO MD [address] [place] [address], [address], [facility] 3 14:45:56 Acute urinary tract infectio n 310896518 Active 2022 TEJAL WANG JR, MD [address] [place] [address], [address] 1, [facility] 3 07:10:48 Problem Notes None recorded. Procedures Surgical History Date Name Laterality Status Provider Name and Address Organization Details Recorded Time EKG completed Edie Griggs [facility] 05/02/2022 14:52:19 Echocardiogram completed MERARY ALICIA MD [address] [place] [address], [address] 10/30/2021 17:05:57 022 Cystoscopy - female completed TEJAL WANG JR, MD [address] [place] [address], [address], [facility] 09/25/2021 13:05:22 022 Refraction completed SHRILEY FRANCISCO MD [address] [place] [address], [address] 09/05/2021 15:38:00 Cataract Extraction - Kielar completed SHIRLEY FRANCISCO MD [address] [place] [address], [address] 07/31/2021 06:24:39 021 Cataract (left) removal with iol completed Cata Hernandez [facility] 08/01/2021 11:03:00 021 Cataract Extraction - Kielar completed SHIRLEY FRANCISCO MD [address] [place] [address], [address], [facility] 06/26/2021 06:28:12 021 Cataract (right) removal with iol completed Bre Prakash [facility] 06/27/2021 12:59:27 Axial Length, A-Scan completed SHIRLEY FRANCISCO MD [address] [place] [address], [address], [facility] 06/13/2021 14:13:28 Refraction completed SHIRLEY FRANCISCO MD [address] [place] [address], [address] 12/19/2019 15:42:29 020 Electromyography (EMG) with Nerve Conduction Study (NCV) completed Daniella Rodriguez (Camille) [facility] 08/31/2019 13:30:32 019 Airway Resistance completed Ancasaroj Rios [facility] 05/02/2019 08:34:09 019 Diffusion Capacity completed [facility] 05/02/2019 08:34:05 019 Lung Volumes, Plethysmography completed [facility] 05/02/2019 08:34:07 019 Spirometry completed [facility] 05/02/2019 08:34:02 019 Stress Test - Echo Dobutamine completed TIO MULLINS MD [address] [place] [address], [address], [facility] 04/18/2019 11:45:24 019 Echocardiogram - Dobutamine Stress Test completed TIO MULLINS MD [address] [place] [address], [address], [facility] 04/18/2019 11:44:18 019 Refraction completed SHIRLEY FRANCISCO MD [address] [place] [address], [address], [facility] 11/03/2018 14:12:37 018 Refraction completed SHIRLEY FRANCISCO MD [address] [place] [address], [address], [facility] 10/29/2017 13:41:13 017 Refraction completed SHIRLEY FRANCISCO MD [address] [place] [address], [address], [facility] 10/29/2016 14:20:57 Other completed [facility] 03/25/2019 10:54:09 Other completed Edie Short [facility] 03/25/2019 10:54:22 Imaging Results None recorded. Procedure Notes None recorded. Medical Equipment None Reported. Allergies No known drug allergies Medications Name Sig Start Date Stop Date Status Note LastModified by Organization Details LastModified Time Prescript ion - Change 07/03 completed CARbidop a/Levodo pa New Medicine Plan Not Available Not Available Not Available Prescript ion - Clarifica tion 02/23 completed Medicati on Informat ion Not Available Not Available Not Available Prescript ion - New 02/23 completed Not Available Not Available Not Available amantadin e HCl 100 mg tablet TAKE 1 TABLET BY MOUTH IN THE MORNING AND 1 TABLET AT LUNCH 2023 active Not Available Not Available Not Avai lable celecoxib 200 mg capsule Take 1 capsule every day by oral route. 05/19 completed Not Available Not Available Not Available furosemid e 40 mg tablet Take 1 tablet every day by oral route. active Not Available Not Available No t Available Miralax 17 gram/dose oral powder Take by oral route. 10/29 completed Not Available Not Available Not Available methocarb sergey 500 mg tablet Take 2 tablets 3 times a day by oral route. active Not Available Not Available No t Available gabapenti n 600 mg tablet Take 1 tablet every day by oral route at bedtime. 05/02 completed Not Available Not Available Not Available ropinirol e 1 mg tablet Take 1 tablet every day by oral route at bedtime. 02/05 completed Not Available Not Available Not Available oxybutyni n chloride ER 10 mg tablet,ex tended release 24 hr Take 1 tablet every day by oral route. 2023 active Not Available Not Available Not Avai lable benzonata te 200 mg capsule Take 1 capsule twice a day by oral route. active Not Available Not Available No t Available mycopheno late mofetil 250 mg capsule Take 1 capsule twice a day by oral route. active Not Available Not Available No t Available senna 8.6 mg tablet Take 2 tablets every day by oral route as needed. 05/02 completed Not Available Not Available Not Available ondansetr on HCl 4 mg tablet Take 1 tablet every 4 hours by oral route as needed. 10/29 completed Not Available Not Available Not Available prednison e 20 mg tablet Take 1 tablet every day by oral route. 05/02 completed Not Available Not Available Not Available clonazepa m 0.5 mg tablet 1/2 tablet AM and noon x 1 week, then 2nd week (if right hand tremor still occurs, use 1 whole tablet AM and noon thereaft er 11/03 completed Not Available Not Available Not Available carbidopa ER 50 mg-levodo pa 200 mg tablet,ex tended release TAKE 1/2 TO 1 (ONE-KARON F TO ONE) TABLET BY MOUTH FIVE TIMES DAILY 2023 active Not Available Not Available Not Avai lable Biscolax 10 mg rectal supposito ry Insert 1 supposit ory every day by rectal route as needed. 05/02 completed Not Available Not Available Not Available amantadin e HCl 100 mg capsule Take 1 capsule twice a day by oral route. 02/05 completed Not Available Not Available Not Available acetamino phen 500 mg tablet Take 2 tablets every 6 hours by oral route as needed. 10/29 completed Not Available Not Available Not Available spironola ctone 25 mg tablet Take 1 tablet every day by oral route. 01/27 completed Not Available Not Available Not Available levothyro xine 75 mcg tablet Take 1 tablet every day by oral route. 01/27 completed Not Available Not Available Not Available ketorolac 0.5 % eye drops INSTILL 1 DROP INTO LEFT EYE 4 TIMES PER DAY 09/05 completed Not Available Not Available Not Available mycopheno late mofetil 500 mg tablet Take 1 tablet twice a day by oral route. 11/04 completed Not Available Not Available Not Available methenami ne hippurate 1 gram tablet Take 1 tablet by mouth twice daily 2023 active Not Available Not Available Not Avai lable prednisol one acetate 1 % eye drops,shonda pension INSTILL 1 DROP INTO LEFT EYE 4 TIMES PER DAY 09/05 completed Not Available Not Available Not Available lorazepam 0.5 mg tablet Take 1 tablet twice a day by oral route as needed. 05/19 completed Not Available Not Available Not Available methotrex ate sodium 2.5 mg tablet 01/27 completed Instruct ions: Take 4 tablets each Thursday. Go for monthly labs.;Me dication Descript ion: methotre xate; Dosage:4 ; Route:or al; refills: 0; Quantity :30 tablet Not Available Not Available Not Available levothyro xine 50 mcg tablet Take 1 tablet every day by oral route. 07/21 completed Not Available Not Available Not Available ropinirol e 2 mg tablet TAKE 1 TAB BY MOUTH AT 8AM, NOON, 3PM, 6PM, AND 9PM 08/31 completed Not Available Not Available Not Available Synthroid 88 mcg tablet Daily 09/02 completed Frequenc y: daily;Me dication Descript ion: levothyr oxine; Dosage:1 ; Route:or al; refills: 0; Quantity :30 tablet Not Available Not Available Not Available nitroglyc dylan 0.4 mg sublingua l tablet Place 1 tablet as needed by sublingu al route. 2022 active Not Available Not Available Not Avai lable gabapenti n 300 mg capsule Take 1 capsule 3 times a day by oral route. active Takes 1 @ 11AM, 1 @ 3PM & 2 @ bedtime Not Available Not Available Not Available omeprazol e 20 mg capsule,d elayed release Take 1 capsule every day by oral route. active Not Available Not Available No t Available folic acid 1 mg tablet Take 1 tablet every day by oral route. 05/02 completed Not Available Not Available Not Available lorazepam 1 mg tablet Take 1 tablet 3 times a day by oral route. active Not Available Not Available No t Available azelastin e 137 mcg (0.1 %) nasal spray Dauphin 2 sprays twice a day by intranas al route as needed. active Not Available Not Available No t Available cefuroxim e axetil 500 mg tablet Take 1 tablet every 12 hours by oral route. 2023 active Not Available Not Available Not Avai lable carbidopa 25 mg-levodo pa 100 mg tablet 1 tab po BID 02/23 completed Not Available Not Available Not Available fluticaso ne propionat e 50 mcg/actua tion nasal spray,shonda pension Dauphin 1 spray every day by intranas al route as needed. active Not Available Not Available No t Available spironola ctone 50 mg tablet Take 1 tablet every day by oral route. active Not Available Not Available No t Available ropinirol e 4 mg tablet TAKE 1 TABLET BY MOUTH 4 TIMES DAILY DIRECTED 2023 active Not Available Not Available Not Avai lable oxycodone 5 mg tablet Take 1 tablet every 4 hours by oral route as needed. 03/02 completed Not Available Not Available Not Available Bactrim DS 800 mg-160 mg tablet Take 1 tablet every 12 hours by oral route. 12/04/ 2023 01/06 /2024 completed Not Available Not Available Not Available moxifloxa courtney 0.5 % eye drops INSTILL 1 DROP INTO LEFT EYE 4 TIMES PER DAY 09/05 completed Not Available Not Available Not Available Senna Plus 8.6 mg-50 mg tablet Take 2 tablets every day by oral route as needed. 10/29 completed Not Available Not Available Not Available Prilosec OTC 20 mg tablet,de layed release Take by oral route. 05/04 completed Not Available Not Available Not Available trospium 20 mg tablet Take 1 tablet twice a day by oral route for 90 days. 2022 active Not Available Not Available Not Avai lable duloxetin e 20 mg capsule,d elayed release Take 1 capsule twice a day by oral route. active Not Available Not Available No t Available duloxetin e 30 mg capsule,d elayed release Take 1 capsule every day by oral route. 12/20 completed Not Available Not Available Not Available Anacin-3 with Codeine (acetamin ophen) 325 mg-15 mg tablet Take by oral route. 07/03 completed Not Available Not Available Not Available calcium 02/23 completed Not Available Not Available Not Available Calcium 600 1 daily 07/21 completed Not Available Not Available Not Available biotin active Not Available Not Availa ble Not Available Sinemet 03/02 completed Not Available Not Available Not Available Tylenol PRN 01/27 completed Not Available Not Available Not Available fiber 09/02 completed Not Available Not Available Not Available Vitamin D3 qd active Not Available Not Available Not Available ibandrona te 09/02 completed Medicati on Descript ion: ibandron ate; refills: 0 Not Available Not Available Not Available Symbicort 160 mcg-4.5 mcg/actua tion HFA aerosol inhaler Inhale 2 puffs twice a day by inhalati on route. active Not Available Not Available No t Available ropinirol e ER 4 mg tablet,ex tended release 24 hr 08/31 completed Not Available Not Available Not Available Nuvigil 150 mg tablet 09/02 completed Medicati on Descript ion: armodafi nil; Route:or al; refills: 0 Not Available Not Available Not Available levothyro xine 50 mcg capsule Take 0.5 capsules every day by oral route. active 05/19/23 - takes 25 mg QD - Dr. Grimaldo Not Available Not Available Not Available Probiotic 09/02 completed Not Available Not Available Not Available ipratropi um 0.5 mg-albute rol 2.5 mg/2.5 mL solution for nebulizat ion Inhale 2.5 mL every day by inhalati on route as needed. active Not Available Not Available No t Available biotin 1,000 mcg chewable tablet Take 1 tablet every day by oral route. 07/03 completed Not Available Not Available Not Available Gemtesa 75 mg tablet Take 1 tablet every day by oral route. 2023 active Not Available Not Available Not Avai lable albuterol 90 mcg-budes onide 80 mcg/actua tion HFA aerosol inhaler Inhale by inhalati on route. active Not Available Not Available No t Available Vitals Date Recorded Body height Body mass index (BMI) Body weight Oxygen saturation Oxygen saturation in Arterial blood by Pulse oximetry Heart rate Systolic blood pressure Diastolic blood pressure Provider Name and Address Organization Details Last Updated DateTime 5 157.48 cm 25.2 kg/m2 79317.7 5 g 93 % 93 % 55 /min 104 mm[Hg] 62 mm[Hg] Coni Calhoun [facility] 5 16:00:22 Date Recorded Body height Body mass index (BMI) Body weight Provider Name and Address Organization Details Last Updated DateTime 10/13/2024 157.48 cm 27.4 kg/m2 45090.86 g Angyshira Bass [facility] 10/13/2024 16:05:53 Date Recorded Body height Oxygen saturation Oxygen saturation in Arterial blood by Pulse oximetry Heart rate Systolic blood pressure Diastolic blood pressure Provider Name and Address Organization Details Last Updated DateTime 5 157.48 cm 93 % 93 % 59 /min 106 mm[Hg] 64 mm[Hg] Adela Samanta [facility] 5 13:07:06 Date Recorded Body height Heart rate Oxygen saturation Oxygen saturation in Arterial blood by Pulse oximetry Systolic blood pressure Diastolic blood pressure Provider Name and Address Organization Details Last Updated DateTime 4 157.48 cm 78 /min 96 % 96 % 110 mm[Hg] 60 mm[Hg] Adela England [facility] 13:12:18 Date Recorded Body height Body mass index (BMI) Body weight Provider Name and Address Organization Details Last Updated DateTime 02/25/2024 157.48 cm 27.4 kg/m2 58027.86 g Karyn Sunshine [facility] 02/25/2024 14:41:35 Date Recorded Body height Provider Name an d Address Organization Details Last Updated DateTime 04/15/2024 157.48 cm Swetha Dawson [facility] 04/15/2024 13:59:00 Social History Question Answer Notes LastModified by Organizat ion Details LastModified Time Tobacco Smoking Status [facility]2016 10:31:07 What Is Your Level Of Caffeine Consumption? Moderate [email or web address] Information not available 08/29/2016 How Much Tobacco Do You Chew? None Information not available 06/28/2019 Which Illicit Or Recreational Drugs Have You Used? None Information not available 06/28/2019 Live Alone Or With Others? With Others Information not available 06/28/2019 Marital Status [email or web address] Informatio n not available 08/29/2016 What Was The Date Of Your Most Recent Tobacco Screening? 10/13/2024 [email or web address] Information not available 10/13/2024 How Much Tobacco Do You Smoke? No [email or web address] Information not available 08/29/2016 Has Tobacco Cessation Counseling Been Provided? No [email or web address] Information not available 10/30/2021 How Many Years Have You Smoked Tobacco? 0 Information not available 12/31/2020 Sex: Unknown Functional Status Question Answer Note LastModified by Organizat ion Details LastModified Time What is your level of alcohol consumption? None Information not available 08/29/2016 Do you or have you ever used smokeless tobacco? 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 Never used electronic cigarettes Information not available 03/25/2019 Mental Status None recorded. Family History Relationship Description Onset Age of this Age Resolved Age Notes LastModified by Organization Details LastModified Time Unspecified Relation Diabetes mellitus [email or web address] Not available 2016 10:30:21 Unspecified Relation Heart disease Not available 2016 10:30:50 Father Family history of stroke Not available 2016 10:30:29 Son Family history of malignant neoplasm skin [email or web address] Not available 04/11 08:23:19 Mother Cataract [email or web address] Not available 10/29/2016 13:29:24 Mother Age related macular degeneration [email or web address] Not available 13:29:43 Maternal Aunt Age related macular degeneration [email or web address] Not available 13:29:43 Medical History Condition Response Diabetes N Allergies/Hayfever Y Arthritis Y Parkinson's Disease Y Eye Trauma N Tuberculosis Y Age-related Macular Degeneration N Cancer Y Double Vision N RD/retinal tear N Ocular trauma N Thyroid Problems Y Cataract N Glaucoma N Diabetic Eye Disease N Thyroid Disorder Y Osteoporosis Y Lazy Eye N Glasses/Contacts Y Gynecological HistoryNo gynecological history recorded. Obstetrics History GPAL:G 0 P 0 0 0 0 Immunizations Vaccine Type Date Status Note Provider Nam e and Address Organization Details Recorded Time Influenza, split virus, quadrivalent, preservative 7 completed Trish Grimaldo [facility] 09/02/2017 14:58:36 Influenza, split virus, quadrivalent, preservative 6 completed Fariba Horan [facility] 09/02/2016 14:14:21 pneumococcal conjugate PCV 7 6 completed Fariba Horan [facility] 09/02/2016 14:15:05 Influenza, split virus, quadrivalent, preservative 8 completed Olena Moore [facility] 02/23/2019 14:39:04 Influenza, split virus, quadrivalent, preservative 9 completed Osiris López [facility] 06/28/2019 10:10:52 Influenza, split virus, quadrivalent, preservative 0 completed Gracie Harris [facility] 07/03/2020 15:26:57 SARS-COV-2 (COVID-19) vaccine, UNSPECIFIED 1 completed Edie Short null, [facility] 05/01/2021 11:04:36 SARS-COV-2 (COVID-19) vaccine, UNSPECIFIED 1 completed Edie Short null, [facility] 05/01/2021 11:04:26 Past Encounters Encounter ID Performer Location Encounter Start Date Encounter Closed Date Diagnosis/Indication Diagnosis SNOMED-CT Code Diagnosis ICD10 Code Diagnosis Note [id number] SHIRLEY BATEMAN MD NEUROLOGY [facility] [address] [place] [id number] 09/02/2016 13:28:03 09/02/2016 14:48:20 Parkinson's disease 01323319 G20 [id number] SHIRLEY FRANCISCO MD OPHTHALMO [address] [place] [id number] 5 10/29/2016 13:10:13 10/29/2016 14:34:23 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 4 [id number] SHIRLEY BATEMAN MD NEUROLOGY [facility] [address] [place] [id number] 03/02/2017 14:57:12 03/02/2017 16:32:18 Parkinson's disease 84247353 G20 [id number] SHIRLEY BATEMAN MD NEUROLOGY [facility] [address] [place] [id number] 09/02/2017 14:52:49 09/02/2017 15:59:42 Parkinson's disease 03398879 G20 [id number] SHIRLEY FRANCISCO MD [address]ALMO [address] [address] [place] [id number] 10/29/2017 12:59:47 10/29/2017 15:25:51 Combined form of senile cataract 58782983 H25.813 slow progressio n Hypermetropia 80509268 H 52.03 Regular astigmatism 6890 5002 H52.223 Presbyopia 47496962 H52. 4 [id number] SHIRLEY FRANCISCO MD OPHTHALMO LOGY [place] [address] [place] [address],[address] [place] [id number] 02/15/2018 13:41:51 02/15/2018 14:42:03 Hypermetropia 29841045 H52.03 Regular astigmatism 6890 5002 H52.223 Presbyopia 81162394 H52. 4 [id number] SHIRLEY BATEMAN MD [facility]UROLOGY [facility] [address] [place] [id number] 2 02/22/2018 13:22:35 02/22/2018 15:03:23 Parkinson's disease 43475355 G20 [id number] SHIRLEY BATEMAN MD NEUROLOGY [facility] [address] [facility] [address] [place] [id number] 03/23/2018 14:43:48 03/23/2018 15:59:21 Parkinson's disease 38168338 G20 Drug-induc ed dyskinesia 885998469 T50.905D Abnormal g ait due to muscle weakness 164072274 M62.81 [id number] SHIRLEY BATEMAN MD NEUROLOGY [facility] [address] [facility] [address] [place] [id number] 05/06/2018 14:14:18 05/06/2018 16:29:10 Parkinson's disease 68440138 G20 Resting tremor 64489761 G25.2 Dyskinesia 7028263 G24.9 Abnormal g ait due to impairment of balance 280529950 R26.89 [id number] SHIRLEY BATEMAN MD NEUROLOGY [facility] [address] [place] [id number] 06/17/2018 14:13:57 06/17/2018 16:14:40 Parkinson's disease 78168094 G20 Drug-induc ed dyskinesia 399314184 T50.905D [id number] SHIRLEY BATEMAN MD NEUROLOGY [facility] [address] [facility] [address] [place] [id number] 08/26/2018 14:58:20 08/26/2018 16:49:29 Parkinson's disease 31852680 G20 [id number] SHIRLEY FRANCISCO MD OPHTHALMO LOGY [address] [place] [address] 11/03/2018 13:11:04 11/03/2018 14:20:45 Combined form of senile cataract 73719162 H25.813 slow progressio n Vitreous d etachment of right eye 6741816241 37066 H43.811 stable Hypermetropia 23149351 H 52.03 Regular astigmatism 6890 5002 H52.223 Presbyopia 27701776 H52. 4 [id number] SHIRLEY BATEMAN MD [facility]UROLOGY [facility] [address] [place] [address] 02/23/2019 13:53:08 02/23/2019 15:37:14 Parkinson's disease 70110781 G20 Drug-induc ed dyskinesia 799424987 T50.905D [id number] TIO MULLINS MD CARDIOLOG Y [address] [place] [address] 03/25/2019 10:26:25 03/25/2019 11:53:03 Dyspnea on exertion 96357847 R06.09 The patient has dyspnea on exertion problemati c for at least the past year. She has rheumatoid arthritis in her chest x-ray does show interstiti al disease and it's possible that her dyspnea may be related to interstiti al lung disease secondary to rheumatoid arthritis. Other possibilit ies include valvular heart disease or ischemic coronary disease. Echocardio gram abnormal 989112129 R93.1 I reviewed the echocardio gram provided it did show at least moderate aortic and mitral insufficie ncy with preserved systolic function. Her baseline echo does not appear severe enough to explain her symptoms. I will order a dobutamine stress echo to evaluate for ischemia and also to evaluate whether she has deteriorat ion in her cardiac function due to the double insufficie ncy lesions. If her cardiac workup does not explain her symptoms I suggest pulmonary evaluation for interstiti al lung disease possibly related to her rheumatoid arthritis. [id number] TIO MULLINS MD ECHO VASCULAR LAB [address] [place] [address] [place] [address] 04/18/2019 09:09:26 04/22/2019 14:01:59 Dyspnea 348553847 R06.02 [id number] TIO MULLINS MD [facility] [address] [place] [address] 04/18/2019 09:10:18 04/18/2019 12:04:11 [id number] TIO MULLINS MD CARDIOLOG Y [address] [place] [address] 04/18/2019 09:10:45 04/18/2019 12:03:08 Dyspnea on exertion 86792492 R06.09 The patient has dyspnea on exertion problemati c for at least the past year. She has rheumatoid arthritis in her chest x-ray does show interstiti al disease and it's possible that her dyspnea may be related to interstiti al lung disease secondary to rheumatoid arthritis. Other possibilit ies include valvular heart disease or ischemic coronary disease. I would like to see her for follow-up in 3 months. Echocardio gram abnormal 472897653 R93.1 I reviewed the echocardio gram provided it did show at least moderate aortic and mitral insufficie ncy with preserved systolic function. Her baseline echo does not appear severe enough to explain her symptoms. Dobutamine stress echo 04/18/2019: negative for ischemia, normal EF w mild/mod aortic and mitral insufficie ncy. I suggest pulmonary evaluation for interstiti al lung disease related to her rheumatoid arthritis. Heart valve disorder 368 009 I38 Echo shows mild to moderate aortic and mitral insufficie ncy. No evidence for flail leaflet. If pulmonary workup unremarkab le, would consider [facility]. [id number] ESTRELLA JANE MD PULMONARY [address] [facility], [address] [place] [address] 05/02/2019 07:29:51 05/02/2019 12:39:33 Dyspnea on exertion 59000880 R06.09 I don't think her fatigue and dyspnea is of primary pulmonary origin. She maintains perfect oxygenatio n with exertion. She has a mild restrictio n on PFTs (and a history of RA and MTX use), but a normal exam and gas exchange. I believe her restrictio n is likely mechanical due to kyphosis. She does have a history of an untreated DVT in her right leg. As such, I will contrast her CT to rule out both an embolism and ILD. If that turns out negative, then I will refer her back to Dr. Mullins for further cardiac work up. Post clinic addendum: No evidence of interstiti al lung disease, pulmonary fibrosis or pulmonary emboli on CT chest. I see no pulmonary cause for her dyspnea. [id number] SHIRLEY BATEMAN MD NEUROLOGY [facility] [address] [place], [place] [address] 06/28/2019 09:18:28 06/28/2019 11:09:15 Parkinson's disease 74777512 G20 Paresthesia 22413355 R20 .2 Paresthesi a of lower extremity 108612068 R20.2 Long-term drug therapy 989577300 Z79.642 [id number] TIO MULLINS MD CARDIOLOG Y [address] [place] [address] 07/21/2019 13:25:49 07/21/2019 14:13:06 Dyspnea on exertion 59274873 R06.09 She actually feels a bit better since her thyroid dose was adjusted. The only cardiac studies that I may offer is considerat ion for catheteriz ation since stress echocardio gram may miss ischemia. After discussion with the patient and her family we will defer this for the time being and I'll reevaluate the patient in 3 months. Echocardio gram abnormal 832899200 R93.1 I reviewed the echocardio gram provided it did show at least moderate aortic and mitral insufficie ncy with preserved systolic function. Her baseline echo does not appear severe enough to explain her symptoms. Dobutamine stress echo 04/18/2019: negative for ischemia, normal EF w mild/mod aortic and mitral insufficie ncy. I suggest pulmonary evaluation for interstiti al lung disease related to her rheumatoid arthritis. Heart valve disorder 368 009 I38 Echo shows mild to moderate aortic and mitral insufficie ncy. No evidence for flail leaflet. If pulmonary workup unremarkab le, would consider ORALIA. [id number] SHIRLEY BATEMAN MD NEUROLOGY [facility] [address] [place] [address] 08/31/2019 13:13:27 08/31/2019 14:54:25 Parkinson's disease 63569690 G20 [id number] SHIRLEY BATEMAN MD NEUROLOGY [facility] [address] [place] [address] 08/31/2019 13:13:27 08/31/2019 14:54:25 Paresthesia 79819763 R20.2 [id number] TIO MULLINS MD CARDIOLOG Y [address] [place] [address] 10/27/2019 09:52:49 10/27/2019 10:32:31 Dyspnea on exertion 07173059 R06.09 She actually feels a bit better since her thyroid dose was adjusted. The only cardiac studies that I may offer is considerat ion for catheteriz ation since stress echocardio gram may miss ischemia. After discussion with the patient and her family we will defer this for the time being and I'll reevaluate the patient in 3 months. Echocardio gram abnormal 189426870 R93.1 I reviewed the echocardio gram provided it did show at least moderate aortic and mitral insufficie ncy with preserved systolic function. Her baseline echo does not appear severe enough to explain her symptoms. Dobutamine stress echo 04/18/2019: negative for ischemia, normal EF w mild/mod aortic and mitral insufficie ncy. I suggest pulmonary evaluation for interstiti al lung disease related to her rheumatoid arthritis. Heart valve disorder 368 009 I38 Echo shows mild to moderate aortic and mitral insufficie ncy. No evidence for flail leaflet. If pulmonary workup unremarkab le, would consider ORALIA. Atypical chest pain 1025 37078 R07.89 Don't feel her symptoms are likely to be angina in nature. I recommende d a therapeuti c trial of when necessary nitroglyce rin and follow-up in a month or so. Cardiac catheteriz ation may be necessary. [id number] SHIRLEY FRANCISCO MD OPHTHALMO LOGY [place] [address] [place] [address] 12/19/2019 15:09:40 12/20/2019 10:38:14 Combined form of senile cataract 51795401 H25.813 slow progressio n Vitreous d etachment of right eye 3397505642 02233 H43.811 stable Hypermetropia 10353167 H 52.03 Regular astigmatism 6890 5002 H52.223 Presbyopia 47863285 H52. 4 [id number] TIO MULLINS MD CARDIOLOG Y [address] [place] [address] 01/19/2020 10:04:28 01/19/2020 11:12:09 Atypical chest pain 599591576 R07.89 Don't feel her symptoms are likely to be angina in nature. I recommend a therapeuti c trial of when necessary nitroglyce rin. Dyspnea on exertion 6084 5006 R06.09 She actually feels a bit better since her thyroid dose was adjusted. The only cardiac studies that I may offer is considerat ion for catheteriz ation since stress echocardio gram may miss ischemia. After discussion with the patient and her family we will defer this for the time being and I'll reevaluate the patient in 3 months. Echocardio gram abnormal 089303935 R93.1 I reviewed the echocardio gram provided it did show at least moderate aortic and mitral insufficie ncy with preserved systolic function. Her baseline echo does not appear severe enough to explain her symptoms. Dobutamine stress echo 04/18/2019: negative for ischemia, normal EF w mild/mod aortic and mitral insufficie ncy. I suggest pulmonary evaluation for interstiti al lung disease related to her rheumatoid arthritis. Aortic valve disorder 87 48746 I35.9 Echo shows mild to moderate aortic and mitral insufficie ncy. No evidence for flail leaflet. If pulmonary workup unremarkab le, would consider ORALIA. [id number] SHIRLEY BATEMAN MD NEUROLOGY SB CLOSED [address] [place], [place] [address] 02/08/2020 12:55:51 02/08/2020 13:40:49 Parkinson's disease 64585221 G20 [id number] SHIRLEY BATEMAN MD NEUROLOGY SB CLOSED [address] [place] [address] 07/03/2020 15:05:32 07/03/2020 16:02:41 Parkinson's disease 25265873 G20 [id number] TIO MULLINS MD CARDIOLOG Y [address] [place] [address] 07/27/2020 09:58:23 07/27/2020 10:57:32 Atypical chest pain 025749571 R07.89 Don't feel her symptoms are likely to be angina in nature. I recommend a therapeuti c trial of when necessary nitroglyce rin. Dyspnea on exertion 6084 5006 R06.09 She actually feels a bit better since her thyroid dose was adjusted. The only cardiac studies that I may offer is considerat ion for catheteriz ation since stress echocardio gram may miss ischemia. After discussion with the patient and her family we will defer this for the time being and I'll reevaluate the patient in 3 months. Echocardio gram abnormal 443112040 R93.1 I reviewed the echocardio gram provided it did show at least moderate aortic and mitral insufficie ncy with preserved systolic function. Her baseline echo does not appear severe enough to explain her symptoms. Dobutamine stress echo 04/18/2019: negative for ischemia, normal EF w mild/mod aortic and mitral insufficie ncy. I suggest pulmonary evaluation for interstiti al lung disease related to her rheumatoid arthritis. Aortic valve disorder 87 92177 I35.9 Echo shows mild to moderate aortic and mitral insufficie ncy. No evidence for flail leaflet. If pulmonary workup unremarkab le, would consider ORALIA. [id number] SHIRLEY FRANCISCO MD OPHTHALMO LOGY [address] [place] [address] 12/20/2020 14:04:58 12/20/2020 16:21:48 Combined form of senile cataract 02936136 H25.813 slow progressio n od>os Vitreous d etachment of right eye 5855070069 64533 H43.811 stable Hypermetropia 09747219 H 52.03 Regular astigmatism 6890 5002 H52.223 Presbyopia 82785397 H52. 4 [id number] SHIRLEY BATEMAN MD NEUROLOGY SB CLOSED [address] [place] [address] 12/31/2020 13:52:49 12/31/2020 14:29:48 Parkinson's disease 23934828 G20 Anxiety 02820485 F41.9 Intention tremor 6911043 6 G25.2 Resting tremor 84163100 G25.2 Long-term current use of drug therapy 176846072 Z79.899 Abnormal g ait due to impairment of balance 850898253 R26.89 [id number] TIO MULLINS MD CARDIOLOG Y [address] [place] [address] 01/28/2021 11:50:28 01/28/2021 14:04:35 Atypical chest pain 892443602 R07.89 Don't feel her symptoms are likely to be angina in nature. I recommend a therapeuti c trial of when necessary nitroglyce rin. Dyspnea on exertion 6084 5006 R06.09 She actually feels a bit better since her thyroid dose was adjusted. The only cardiac studies that I may offer is considerat ion for catheteriz ation since stress echocardio gram may miss ischemia. After discussion with the patient and her family we will defer this for the time being and I'll reevaluate the patient in 3 months. Echocardio gram abnormal 510490875 R93.1 I reviewed the echocardio gram provided it did show at least moderate aortic and mitral insufficie ncy with preserved systolic function. Her baseline echo does not appear severe enough to explain her symptoms. Dobutamine stress echo 04/18/2019: negative for ischemia, normal EF w mild/mod aortic and mitral insufficie ncy. Aortic valve disorder 87 18369 I35.9 Echo shows mild to moderate aortic and mitral insufficie ncy. No evidence for flail leaflet. Consider ORALIA. [id number] MERARY ALICIA MD CARDIOLOG Y [place] [address] [place] [address] 05/01/2021 10:43:56 05/01/2021 11:21:23 Atypical chest pain 614039817 R07.89 Continue PRN nitroglyce rin. Aortic valve disorder 87 84558 I35.9 Echo shows mild to moderate aortic and mitral insufficie ncy. PLAN:Jasmin quiroz followup and periodic echo surveillan ce.I will plan to see her back in 6 months for her next visit, and then if stable she can move out to annual follow-up visits. [id number] SHIRLEY FRANCISCO MD OPHTHALMO LOGY [address] [place] [address] 06/13/2021 12:54:32 06/13/2021 14:34:01 Combined form of senile cataract 60637073 H25.813 slow progressio n od>os Vitreous d etachment of right eye 1648787455 69072 H43.811 stable Hypermetropia 81341535 H 52.03 Regular astigmatism 6890 5002 H52.223 Presbyopia 44758984 H52. 4 [id number] SHIRLEY FRANCISCO MD SURGERY SCHEDULE [address] [place] [address] 06/26/2021 08:34:13 06/26/2021 13:08:42 Combined form of senile cataract 96670991 H25.447 [id number] SHIRLEY FRANCISCO MD OPHTHALMO LOG[facility] [address] [place] [address] [place] [address] 5 06/27/2021 12:47:17 06/27/2021 13:44:01 Pseudophakia 52892994 Z96.1 pod#1 od-stable [id number] SHIRLEY BATEMAN MD NEUROLOGY SB CLOSED [address] [place] [address] 1 07/01/2021 14:24:12 07/01/2021 15:46:02 Parkinson's disease 56859747 G20 Abnormal g ait due to impairment of balance 269884142 R26.89 Long-term current use of drug therapy 386120520 Z79.452 [id number] SHIRLEY FRANCISCO MD OPHTHALMO [place] [address] [place] [address] 07/02/2021 10:23:35 07/02/2021 12:46:05 Pseudophakia 92705486 Z96.1 po 1 wk od-stable [id number] SHIRLEY FRANCISCO MD SURGERY SCHEDULE [address] [place] [address] 1 07/31/2021 06:47:51 07/31/2021 06:48:51 Combined form of senile cataract 15266843 H25.796 [id number] SHIRLEY FRANCISCO MD OPHTHALMO LOGMadison [address] [place] [address] [place] [address] 08/01/2021 10:03:16 08/01/2021 11:41:45 Pseudophakia 79491087 Z96.1 pod#1 os-stable [id number] ALEXIA HATFIELD MD OPHTHALMO LOGMadison [address] [place] [address] 5 08/05/2021 15:12:54 08/05/2021 16:58:46 Conjunctival cyst of left eye 4635439075 01365 H11.442 reasurranc e of patientcon tinue post op drops as outlined by Libia/can as scheudled with him Pseudophakia 49489794 Z9 6.1 looks great todaycall with further problems [id number] SHIRLEY FRANCISCO MD OPHTHALMO LOGY [address] [place] [address] 09/05/2021 14:01:53 09/05/2021 15:52:53 Bilateral pseudophakia 3306045877 4189551 Z96.1 Myopia 36776407 H52.12 Regular astigmatism 6890 5002 H52.223 Presbyopia 10561729 H52. 4 [id number] TEJAL WANG JR, MD [facility] [address] [place] [address] 09/06/2021 09:30:19 09/06/2021 14:02:52 Recurrent urinary tract infection 528810595 N39.0 Urge incon tinence of urine 54732290 N39.41 [id number] TEJAL WANG JR, MD SURGERY SCHEDULE [address] [place] [address] 09/25/2021 11:05:44 09/25/2021 11:06:25 Recurrent urinary tract infection 505094823 N39.0 [id number] MERARY ALICIA MD CARDIOLOG Y [address] [place] [address] 10/30/2021 12:40:25 10/30/2021 15:37:03 Aortic valve disorder 2688127 I35.9 ECHO 10/30/2021: Mild AI, mild MR with LAE. PLAN:Annua l followup and periodic echo surveillan ce. Atypical chest pain 1025 84013 R07.89 Continue PRN nitroglyce rin. Obesity 369380402 E66.9 [id number] MERARY ALICIA MD ECHO VASCULAR LAB [address] [place] [address] [place] [address] 10/30/2021 12:46:30 11/01/2021 09:55:01 Aortic valve disorder 1454335 I35.9 Echo shows mild to moderate aortic and mitral insufficie ncy. PLAN:Jasmin quiroz followup and periodic echo surveillan I will plan to see her back in 6 months for her next visit, and then if stable she can move out to annual follow-up visits. [id number] SHIRLEY BATEMAN MD NEUROLOGY CLOSED [address] [place], [place] [address] 01/27/2022 13:53:45 01/27/2022 15:49:09 Parkinson's disease 25264093 G20 [id number] TEJAL WANG JR, MD [facility] [address] [place] [address] 03/03/2022 11:17:45 03/03/2022 12:22:15 Recurrent urinary tract infection 508146441 N39.0 Urge incon tinence of urine 61806748 N39.41 [id number] SHIRLEY FRANCISCO MD OPHTHALMO LOGY [address] [place] [address] 5 03/18/2022 12:36:31 03/18/2022 13:38:18 Secondary cataract 192712529 H26.493 Vitreous d etachment of right eye 8898606822 47708 H43.811 stable Myopia 68273597 H52.12 Regular astigmatism 6890 5002 H52.223 Presbyopia 31745163 H52. 4 [id number] MERARY ALICIA MD CARDIOLOG Y [address] [place] [address] 5 05/02/2022 14:50:26 05/02/2022 15:32:14 Aortic valve disorder 2472310 I35.9 ECHO 10/30/2021: Mild AI, mild MR with LAE. Atypical chest pain 1025 26191 R07.89 Continue PRN nitroglyce rin. Obesity 514273002 E66.9 [id number] SHIRLEY BATEMAN MD NEUROLOGY SB [address] [place] [address] 08/07/2022 10:51:48 08/07/2022 13:37:43 Parkinson's disease 96702860 G20 Long-term current use of drug therapy 581588457 Z79.899 Abnormal g ait due to impairment of balance 313227968 R26.89 [id number] SHIRLEY FRANCISCO MD OPHTHALMO LOGY [address] [place] [address] 08/28/2022 09:48:36 08/28/2022 11:09:52 Vitreous detachment of right eye 3566502271 52650 H43.811 stable Secondary cataract 92492 4007 H26.493 Myopia 06549626 H52.12 Regular astigmatism 6890 5002 H52.223 Presbyopia 34935701 H52. 4 [id number] TEJAL WANG JR, MD [facility] [address] [place] [address] 10/09/2022 10:19:05 10/09/2022 10:59:13 Recurrent urinary tract infection 503697097 N39.0 [id number] MERARY ALICIA MD CARDIOLOG Y [address] [place] [address] 5 10/15/2022 10:21:10 10/15/2022 11:16:30 Aortic valve disorder 8503113 I35.9 ECHO 10/30/2021: Mild AI, mild MR with LAE. Atypical chest pain 1025 00531 R07.89 Continue PRN nitroglyce rin. Overweight 139694666 E66 .3 Interstiti al lung disease 477442170 J84.9 [id number] SHIRLEY BATEMAN MD NEUROLOGY SB CLOSED [address] [place] [address] 02/05/2023 12:57:05 04/08/2023 04:21:41 Parkinson's disease 53549175 G20 Long-term current use of drug therapy 857370247 Z79.899 Abnormal g ait due to muscle weakness 944471320 M62.81 Difficulty standing from sitting 216677650 R26.89 [id number] SHIRLEY FRANCISCO MD OPHTHALMO LOGY [address],[facility] [place] [address] 03/24/2023 13:28:03 03/24/2023 14:50:10 Secondary cataract 437696272 H26.493 Vitreous d etachment of right eye 3780414460 84595 H43.811 stable Parkinson's disease 4904 9000 G20 Myopia 32421496 H52.12 Regular astigmatism 6890 5002 H52.223 Presbyopia 81531066 H52. 4 Visual hallucinations 64 652931 R44.1 no auditory components econdary to PD [id number] MERARY ALICIA MD CARDIOLOG Y [place] [address] [place] [address],[address] [place] [address] 05/04/2023 14:11:14 05/04/2023 15:31:44 Aortic valve disorder 7727767 I35.9 ECHO 10/30/2021: Mild AI, mild MR with LAE. Atypical chest pain 1025 91016 R07.89 Continue PRN nitroglyce rin. Overweight 905608032 E66 .3 Interstiti al lung disease 636876480 J84.9 [id number] SHIRLEY BATEMAN MD NEUROLOGY SB CLOSED [address] [place], [place] [address] 05/19/2023 10:11:35 05/19/2023 13:01:41 Fall 9434032 W19.XXXA Injury of head 93006216 S09.90XA Parkinson's disease 4904 9000 G20.A1 At [facility] ed risk for falls 439565603 Z91.81 Long-term current use of drug therapy 910926212 Z79.899 [id number] MD [facility] [address] [address] 05/20/2023 09:20:33 05/20/2023 10:16:34 Recurrent urinary tract infection 448896165 N39.0 Urge incon tinence of urine 50033301 N39.41 Parkinson's disease 4904 9000 G20.B1 [id number] MD CÉSAR HENDRICKS JR, [facility] [address],[place] [address] 07/09/2023 15:44:55 07/09/2023 16:17:15 Acute urinary tract infection 011476261 N39.0 Urge incon tinence of urine 30289176 N39.41 [id number] SHIRLEY BATEMAN MD NEUROLOGY SB CLOSED [address] [place], [place] [address] 07/29/2023 14:07:55 08/04/2023 10:53:30 [id number] TEJAL WANG JR, MD [facility] [address] [address] [place] [address] 08/13/2023 14:49:35 08/13/2023 16:13:19 Acute urinary tract infection 551706473 N39.0 Recurrent urinary tract infection 072690134 N39.0 Urge incon tinence of urine 35050150 N39.41 [id number] MERARY ALICIA MD CARDIOLOG Y [address] [place] [address] 5 11/05/2023 13:22:25 11/05/2023 14:47:02 Aortic valve disorder 7610882 I35.9 ECHO 10/30/2021: Mild AI, mild MR with LAE. Overweight 266885921 E66 .3 Interstiti al lung disease 941763701 J84.9 Followed by Pulmonolog ist: Dr. Nikole Fernandez [id number] MARIO SAUCEDO MD [facility] [address] [address] [place] [address] 0 01/14/2024 15:03:30 01/14/2024 15:03:40 Acute urinary tract infection 277080345 N39.0 [id number] SHIRLEY BATEMAN MD NEUROLOGY CLOSED [address] [place] [address] 02/02/2024 12:23:51 02/04/2024 04:44:15 Parkinson's disease 01494286 G20.A1 Long-term current use of drug therapy 374778093 Z79.899 Disability 03039220 Z78. 9 Walking disability 77654 8008 R26.2 [id number] TEJAL WANG JR, MD [facility] [address] [address] [place] [address] 02/25/2024 14:21:37 02/25/2024 14:56:39 Acute urinary tract infection 770405119 N39.0 Urge incon tinence of urine 31880317 N39.41 considerin g PTNM [id number] SHIRLEY FRANCISCO MD OPHTHALMO LOGY [address] ,[address] [place] [address] 04/15/2024 13:47:48 04/15/2024 15:34:52 Secondary cataract 061035969 H26.493 mild Vitreous d etachment of right eye 0766742817 54703 H43.811 stable Myopia 55879116 H52.12 Regular astigmatism 6890 5002 H52.223 Presbyopia 17435781 H52. 4 [id number] MERARY ALICIA MD CARDIOLOG Y [address] [place] ,[address] [place] [address] 09/19/2024 14:49:10 09/19/2024 16:23:15 Aortic valve disorder 2592943 I35.9 ECHO 10/30/2021: Mild AI, mild MR with LAE. Interstiti al lung disease 871139891 J84.9 Followed by Pulmonolog ist: Dr. Agustin Annangi Overweight 115229294 E66 .3 [id number] TEJAL WANG JR, MD [facility] [address] [place] [address] 10/13/2024 15:41:36 10/18/2024 14:23:47 Recurrent urinary tract infection 603123344 N39.0 Patient on methenamin e prophylaxi s. Maintain current regimen and monitor efficacy. Incontinence 16748804 R3 9.81 Acknowledg e functional limitation s affecting incontinen ce. Monitoring symptoms. Urge incon tinence of urine 79003299 N39.41 considerin g PTNM Health Concerns Section Related Observation LastModified by Organization Detai ls LastModified Time None Recorded Concern Status LastModified by Organization Details LastModified Time None Recorded Advance Directives Directive None Recorded Payers Insurance Date Sequence Insurance Name Policy Number Policy Deluca Covered Member ID Deluca Member ID Guarantor Name 10/24/2024 1 [place] Emily Mathis [id number] Emily Mathis 04/15/2024 1 [employer] Emily Mathis [id number] Emily D Mathis 10/13/2024 2 AARP (MEDICARE SUPPLEMENT) Emily D Mathis [id number] Emily D Mathis 04/15/2024 1 [place] [id number] Emily D Mathis [id number] Emily D Mathis 04/15/2024 1 [employer] - [place] (PPO) [id number] Emily D Mathis [id number] Emily D Mathis 04/15/2024 2 [facility]-[employer] - [employer] STRATEGIES - CIGNA (PPO) Emily D Mathis [id number] Emily D Mathis 04/15/2024 1 [place] Emily D Mathis [id number] Emily D Mathis 04/15/2024 1 [employer] (PPO) Emily D Mathis [id number] Emily D Mathis 10/24/2024 2 AARP (MEDICARE SUPPLEMENT) Emily D Mathis [id number] Emily D Mathis 10/24/2024 2 [facility] [place] Emily D Mathis [id number] Emily D Mathis Notes Date Note Type Note Provider Name and Address Organization Details Recorded Time 02/02/2024 text/html Recheck for Parkinson's Disease 78 year old woman from [facility]. She is present with her , Mr. Chai Mathis. Parkinson's DiseasePartial benefit from Carbidopa 50mg- Levodopa 200mg dosing 1/2 tablet five times per day. She still has Parkinson symptoms, poor balance and falls. Today she is seated in a transport chair and I advised that they need to use this at home. We do not have any medications that can prevent falls. Current Medications:Carbidop a ER 50mg- Levodopa 200mg x1/2 tablet, five times per day. SHIRLEY BATEMAN MD [address] [place] [address], [phone], [facility] 02/03/2024 21:22:27 02/25/2024 text/html patient is in to day for evaluation of recurrent urinary tract infections. She has had problems over the past several months with recurrent episodes of cystitis. Her main symptom is malodorous urine and frequency. She denies any hematuria. She denies any history of bladder surgery. She denies any history of stones. She's not currently on any medications for bladder problems. Patient has increased lower urinary tract symptoms including dysuria and is afraid she may have active urinary tract infection patient is now on methenamine without significant recurrent UTIs Patient does have urgency incontinence . Using oxy ER TEJAL WANG JR, MD [address] [place] [address], [phone], [facility] 02/27/2024 18:02:20 09/19/2024 text/html CARDIOVASCULAR HISTORY:# Moderate AIECHO [facility] 02/11/2019LAE, EF 50% moderate AI/MR, mild TR Stress echo 04/18/2019: No worsening of aortic insufficiency and no reduction in systolic function with exercise; no evidence of ischemia. ECHO [facility] 10/30/2021:Mild aortic insufficiency.Normal LV size and systolic function. Ejection fraction >55%.Mildly enlarged left atrium.No evidence of pulmonary hypertension. Other Comorbidities:Rheuma toid arthritis (Dr. Norah Quinn)HypothyroidismP arkinson's disease. * Developed COVID-26 October 2020 with significant pulmonary issues, but has since recovered. Mrs. Mathis has had chronic issues with exertional fatigue and mild dyspnea. Work-up showed chest imaging with chronic interstitial changes; Pulmonary evaluation confirmed mild restrictive lung disease & respiratory impairment d/t kyphoscoliosis 11/05/2023: 6-month follow-up visita. Mild AIb. Restrictive lung disease ( Dr. Nikole Fernandez)She reports that she was recently admitted in [facility] for pneumonia.Her reports that she has not bounced back .It appears that she was hospitalized for 3 to 4 days about 10 days prior to today's visit. She is no longer on any antibiotics, and is afebrile. At the time of her admission, she was wheezing audibly and having a productive cough. She continues to cough, although is not producing much sputum.She is due to meet with her workforce consultant next week. Objectively, her weight is decreased by about 5 pounds since I last saw her. No edema.She wears oxygen at night.No palpitations.No chest pain.She has not had any further hemoptysis since her admission in February. Aside from the pneumonia above, her main issue at the moment relates to right knee arthritis. She was seen by Dr. Daniels at , who recommended conservative management. 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 This is difficult to treat surgically as we would need to remove her previous hardware and would plan to stage this due to the extensive nature of the surgery. 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 We would plan to get the hardware removed let the incision heal and then would go back around 3 months and proceed with the total knee arthroplasty. She is also at increased risk given her Parkinson's including extensor mechanism problems. Thus she would like to postpone undergoing knee arthroplasty. Alternative option would be to do a steroid injection here today and have her see interventional pain for nerve ablation. Will place a referral. Also prescribe diclofenac for her to take twice daily. It appears that she has developed some gastritis from the diclofenac, and an antacid has been prescribed to her. 09/19/2024: Overdue 6-month follow-up visita. Mild AIb. Restrictive lung disease ( Dr. Nikole Fernandez)She has moved into a residential care facility since last visit (moved to [facility] in June 2024). Objectively, her weight has decreased by about 10 pounds since I last saw her. No edema.+ GERD Although she has not experienced any palpitations, her lymph reports that he was told that she had a irregular heart rate when she was at her workforce consultant visit. This was about 2 months ago. Remarkably, no EKG was obtained at the time, and she is in a regular sinus rhythm today. I recommended that if she is found to be irregular at the [facility], an EKG should be obtained immediately so that we can document the nature of the arrhythmia (ie Paroxysmal AF vs other). She denies any chest pain.She has not had any further hemoptysis since her admission in February 2023. There are no new lab results to review since last visit. MERARY ALICIA MD [facility] [place], [phone], [facility] 09/20/2024 12:50:49 10/13/2024 text/html The patient is a 79-year-old female presenting with recurrent urinary tract infections and urgency urinary incontinence for follow-up. Recurrent infections are controlled with methenamine prophylaxis. Urgency incontinence is treated with oxybutynin extended-release. Patient reports no recent urinary infections but continues to experience incontinence. Leakage occurs frequently and is characterized by urgency. Functional incontinence is suggested by difficulty reaching the restroom in time. Treatment adherence is confirmed. TEJAL WANG JR, [place], [phone], [facility] 10/14/2024 19:37:02 OBGyn Episode No OBEpisode recorded.
[2025-01-25] MEDS: ALBUTEROL 0.083% 2.5 MG/3 ML NEB IH (13:45)
[2025-01-25 14:45] VITALS: PULSE 63
== END 2025-01-25 23:59 | disposition home or self-care (01) ==
LOC: RT 12:02
PROVIDERS: PCP Internal Medicine Adolescent Medicine; Visit Provider Internal Medicine Pulmonary Disease
DX: J44.9 Chronic obstructive pulmonary disease, unspecified (principal); R94.2 Abnormal results of pulmonary function studies
CPT/HCPCS: 94010; 94640; 94727; 94729

== ENCOUNTER 2025-01-30 09:54 | Outpatient (CLI) | payer MEDICARE, MEDICAID, SELFPAY ==
--- OUTSIDE RECORDS SUMMARY | 2025-01-26 06:10 | XMS_ITS | Continuity of Care Document ---
Author Organization [address] [place] [address] Address [address] [facility] [address] [place] [address] Phone Care Team Providers Care Drink Box Mechanic Name Role Phone Clarissa Escalona OD Unavailable Unavailable Allergies, Adverse Reactions, Alerts Substance Reaction Status Criticality No Known Allergies Active No Inform ation Medications Medication Instructions Dosage Effective Dates (start - stop) Status Comments cholecalciferol (vitamin D3) 25 mcg (1,000 unit) tablet - Active gabapentin 300 mg capsule - Active ropinirole 4 mg tablet - Act payal amantadine HCl 100 mg capsule - Active cefdinir 300 mg capsule - Ac tive albuterol sulfate HFA 90 mcg/actuation aerosol inhaler - Active azithromycin 250 mg tablet - Active azithromycin 500 mg tablet - Active Tussin DM Max 5 mg-100 mg/5 mL oral liquid - Active methenamine hippurate 1 gram tablet - Active polyethylene glycol 3350 17 gram/dose oral powder - Active duloxetine 20 mg capsule,delayed release - Active spironolactone 100 mg tablet - Active lorazepam 0.5 mg tablet - Ac tive mirtazapine 15 mg tablet - A ctive levothyroxine 88 mcg tablet - Active oxybutynin chloride ER 10 mg tablet,extended release 24 hr - Active omeprazole 20 mg capsule,delayed release - Active furosemide 40 mg tablet - Ac tive Serevent Diskus 50 mcg/dose powder for inhalation - Active carbidopa ER 50 mg-levodopa 200 mg tablet,extended release - Active methocarbamol 500 mg tablet - Active mycophenolate mofetil 250 mg capsule - Active Vitamin C 500 mg tablet - Ac tive budesonide 0.25 mg/2 mL suspension for nebulization - Active nitrofurantoin monohydrate/macrocrystals 100 mg capsule - Active azelastine 137 mcg (0.1 %) nasal spray - Active formoterol fumarate 20 mcg/2 mL solution for nebulization - Active levothyroxine 50 mcg tablet - Active acetaminophen 500 mg tablet - Active omeprazole 40 mg capsule,delayed release - Active benzonatate 200 mg capsule - Active doxycycline hyclate 100 mg tablet - Active amantadine HCl 100 mg tablet TAKE 1 TABLET BY MOUTH IN THE MORNING AND 1 TABLET AT LUNCH - Active spironolactone 50 mg tablet TAKE 2 TABLETS BY MOUTH ONCE DAILY - Active levothyroxine 25 mcg tablet TAKE 1 TABLET BY MOUTH ONCE DAILY - Active prednisone 20 mg tablet TAKE 2 TABLETS B Y MOUTH ONCE DAILY FOR 5 DAYS THEN 1 TABLET ONCE DAILY FOR 5 DAYS - Active hydrocodone 5 mg-acetaminophen 325 mg tablet TAKE 1 TABLET BY MOUTH EVERY 8 HOURS NEEDED FOR PAIN - Active prednisone 10 mg tablet TAKE 4 TABLETS B Y MOUTH IN THE MORNING FOR 5 DAYS, THEN TAKE 3 TABLETS IN THE MORNING FOR 2 DAYS, THEN TAKE 2 TABLETS IN THE MORNING FOR 2 DAYS, THEN TAKE 1 TABLET IN THE MORNING FOR 2 DAYS, THEN STOP - Active sulfamethoxazole 800 mg-trimethoprim 160 mg tablet TAKE 1 TABLET BY MOUTH EVERY 12 HOURS FOR 7 DAYS - Active prednisone 50 mg tablet TAKE 1 TABLET BY MOUTH ONCE DAILY FOR 5 DAYS - Active Procedures Procedure Date COMPRE OPH EXAM NEW PT 1/> Trim Dystrophic nail(s) DEBRIDE NAIL 1-5 Advance Directives Directive Yes / No Effective Date File Name No Information Encounters Encounter Description Practice Location Reason(s) For Visit Diagnoses Date Provider Providers Copied on Encounter [address] [place] [address], [address] [place] [address], [id number], tel:[phone] [facility] Blurry vision (chief complaint) Presence of intraocular lens 5 I[place]ra Rom[place], [place]. Referring Provider: Tyson Adrian. [address] [place] [address], [address] [place] [address], [place], [place], [id number], tel:[phone] [facility] No Information 5 Ad Delarosa[place]OB[place], [place]. [address] [place] [address], [address] [place] [address], [place], [place], [id number], tel:[phone] [facility] Other abnormalities of gait and mobilityNail dystrophyOnychog ryphosisOther specified peripheral vascular diseases 5 Stephany Hernandez[place], [place]. Family History Family Member Type Diagnosis Age At Onset No Information Payers Payer name Insurance type Covered green party ID Authoriza tion(s) Medicare [facility] [id number] [facility] CI [id number] Medicaid [facility] [id number] Social History Type Description Quantity Date Captured Comments Alcohol Use Details Unknown Caffeine Use Details Unknown Tobacco Use Status No Information Smoking Status No Information Sex Female Chief Complaint And Reason For Visit From encounter dated '01/26/2025 10:10'. Blurry vision (chief complaint). Description: The 79 year old patient presents for evaluation of Blurry vision in the right eye and left eye. Has IOLs. Glasses 3 years old. Denies eye pain or diplopia with Parkinson's Reason For Referral Reason For Referral No Information Plan Of Treatment Date Type Action Status Appointment Emily Mathis Medicaid Only. BOOKED Appointment Emily Mathis BOOKED History Of Present Illness Encounter Date Complaint History Of Prese nt Illness Blurry vision The 79 year old patient presents for evaluation of Blurry vision in the right eye and left eye. Has IOLs. Glasses 3 years old. Denies eye pain or diplopia with Parkinson's Functional Status Date Functional Assessmen t No Information Instructions Date Instruction Additional Infor mation Impression/Plan - Im plants are clear and stable in both eyes. We will monitor at regular intervals. Some better in new rx but wants to wait until she sees her regular eye doc Related to Presence of intraocular lens Follow up - Return i n 12-15 months for dilated fundus exam. All documented dystr ophic nails were reduced in length as needed to prevent pain and other symptoms. Related to Nail dystrophy All of the documente d thickened nails (which includes those nails 2 mm or more in thickness, and possible mycotic component to the nails) were debrided in both length and thickness using both a nail nipper and an electric rotary sapphire stylus grinder in an atraumatic fashion; this was performed in an attempt to prevent pain and reduce risk of infection. Alcohol applied to the digits afterwards. Related to Onychogryphosis Discussed using comp ression stockings to assist in localize swelling and venous return, and the booth operator benefits of using compression stockings. Reinforced the importance of proper adherence to using the eugene hose, and compression stockings. Will continue to monitor. Related to Other specified peripheral vascular diseases PT instructed to con tinue use of DME equipment for safety, mobility, and reducing risk of falls/injury. Will continue to monitor. Pt denies recent falls in the past 3 months. Related to Other abnormalities of gait and mobility Assessments Type Assessment Date assessment Presence of intraocular lens Jan impression {[email or web address]} Patient Care Teams Name Effective Dates (start - stop) Status Members No Information
--- NOTE | 2025-01-30 09:58 | XR_ITS ---
FINAL REPORT CLINICAL HISTORY: right ankle pain COMPARISON: None FINDINGS: Three views of the right ankle were obtained. There is no acute fracture or dislocation. The joint spaces are well preserved. There is nonspecific diffuse soft tissue swelling. IMPRESSION: Soft tissue swelling without acute abnormality identified. Reviewed, Interpreted and Dictated by Napoleon Higginbotham MD Transcribed by Corrina Rios Authenticated and [facility]
--- OUTSIDE RECORDS SUMMARY | 2025-01-30 10:23 | XMS_ITS | Clinical Summary ---
Author Organization [facility] Address [address] [place] [address] Care Team Providers Care Senior Officer Name Role Phone Hossein Grimaldo MD Primary Care Provider [phone] Allergies Active Allergy Reactions Criticality Noted Date [...] Active fluticasone (Flonase) 50 MCG/ACT nasal spray Lohman 1 spray every day by intranasal route as needed. Active HYDROcodone-ac etaminophen ([place]) 5-325 MG tablet Take 1 tablet (5 [...] or (1 - 1-dose 75+ series) 2020 [id number] Vaccine (4 - season) 2024 06/10/2021, 11/21/2020, [...] patient's age to complete this topic Insurance [facility] [place] [address] Care Teams Senior Officer Relationship Specialty Start Date End Date Hossein Grimaldo MD [address] [place] [address] [address] [place] [id number] PCP - General 12/21/20
--- NOTE | 2025-01-30 11:23 | XR_ITS ---
FINAL REPORT CLINICAL HISTORY: chronic right knee pain COMPARISON: None FINDINGS: Three views of the right knee were obtained. There are extensive post ORIF changes in the proximal tibia. There is no acute fracture or dislocation. Moderate to severe degenerative changes are most pronounced in the lateral compartment. There is a moderate joint effusion. There is no acute soft tissue abnormality. IMPRESSION: Significant degenerative changes, greatest in the lateral compartment. Reviewed, Interpreted and Dictated by Napoleon Higginbotham MD Transcribed by Corrina Rios Authenticated and [facility]
== END 2025-01-30 23:59 | disposition home or self-care (01) ==
LOC: RAD 09:56
PROVIDERS: PCP Internal Medicine Adolescent Medicine; Visit Provider Physician Assistant
DX: M17.11 Unilateral primary osteoarthritis, right knee (principal); M25.461 Effusion, right knee; M25.571 Pain in right ankle and joints of right foot
CPT/HCPCS: 73562; 73610